=== PATIENT | female | born 1960 | race Caucasian/White ===

== ENCOUNTER 2018-12-29 01:42 | Outpatient (CLI) | payer OTHER, SELFPAY ==
[2018-12-29 09:11] LABS: ALT 47 U/L (12-78); AST 20 U/L (15-37); Albumin 3.6 g/dL (3.4-5.0); Alkaline Phosphatase 100 U/L (46-116); Anion Gap 7.5 mmol/L (3-11); BUN 14 mg/dL (7-18); Bilirubin, Total 0.3 mg/dL (0.2-1.0); CO2 26.5 mmol/L (21.0-32.0); CREATININE 0.73 mg/dL (0.55-1.02); Chloride 107 mmol/L (98-107); Cholesterol 296 mg/dL (50-200); Glucose 122 mg/dL (70-100); HDL Cholesterol 51 mg/dL (40-60); LDL CHOLESTEROL 199 mg/dL (<100); Potassium 4.6 mmol/L (3.5-5.1); Sodium 141 mmol/L (136-145); Total Protein 6.6 g/dL (6.4-8.2); Triglyceride 176 mg/dL (30-150)
== END 2018-12-29 02:02 ==
PROVIDERS: PCP Nurse Practitioner Family; Visit Provider Nurse Practitioner Family
DX: Z00.00 Encounter for general adult medical examination without abnormal findings (principal); Z13.220 Encounter for screening for lipoid disorders; Z13.228 Encounter for screening for other metabolic disorders
CPT/HCPCS: 36415; 80053; 80061; 83721

== ENCOUNTER 2019-01-22 12:48 | Outpatient (CLI) | payer OTHER, SELFPAY ==
[2019-01-22 13:19] LABS: Troponin I < 0.02 ng/mL (0.00-0.06)
== END 2019-01-22 13:08 ==
PROVIDERS: PCP Nurse Practitioner Family; Visit Provider Nurse Practitioner Family
DX: M79.602 Pain in left arm (principal)
CPT/HCPCS: 36415; 84484

== ENCOUNTER 2019-03-24 21:21 | Outpatient (REF) | payer OTHER, SELFPAY ==
[2019-03-24 22:36] LABS: ALT 42 U/L (12-78); AST 15 U/L (15-37); Albumin 4.3 g/dL (3.4-5.0); Alkaline Phosphatase 85 U/L (46-116); Anion Gap 11.5 mmol/L (3-11); BUN 17 mg/dL (7-18); Bilirubin, Total 0.4 mg/dL (0.2-1.0); CO2 24.5 mmol/L (21.0-32.0); Chloride 106 mmol/L (98-107); Cholesterol 155 mg/dL (50-200); Glucose 105 mg/dL (70-100); LDL CHOLESTEROL 75 mg/dL (<100); Magnesium 2.2 mg/dL (1.8-2.4); Potassium 4.4 mmol/L (3.5-5.1); Sodium 142 mmol/L (136-145); Total Protein 6.8 g/dL (6.4-8.2); Triglyceride 122 mg/dL (30-150)
[2019-03-24 23:08] LABS: Calcium 9.5 mg/dL (8.5-10.1); HDL Cholesterol 45 mg/dL (40-60)
[2019-03-24 23:19] LABS: Creatine Kinase 84 U/L (26-192)
== END 2019-03-24 21:41 ==
LOC: NCHCN 21:21
PROVIDERS: PCP Nurse Practitioner Family; Visit Provider Nurse Practitioner Family
DX: E78.5 Hyperlipidemia, unspecified (principal); R10.31 Right lower quadrant pain; F32.9 Major depressive disorder, single episode, unspecified
CPT/HCPCS: 80053; 80061; 82550; 83721; 83735

== ENCOUNTER 2019-03-25 02:01 | Outpatient (CLI) | payer OTHER, SELFPAY ==
--- NOTE | 2019-03-25 08:15 | DI.COMBO_ITS ---
SYMPTOM/DIAGNOSIS: RT GROIN PAIN, R10.31, LOCKING UP WITH FORWARD BENING RIGHT HIP AND PELVIS: The hip joint spaces are well maintained. There is bilateral acetabular spurring, right greater than left. There is also spurring at the greater trochanters. There is spurring from the femoral heads, right greater than left. The SI joints also show mild degenerative changes. 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
== END 2019-03-25 02:21 ==
PROVIDERS: PCP Nurse Practitioner Family; Visit Provider Nurse Practitioner Family
DX: R10.31 Right lower quadrant pain (principal); M16.0 Bilateral primary osteoarthritis of hip; M53.3 Sacrococcygeal disorders, not elsewhere classified
CPT/HCPCS: 73502

== ENCOUNTER 2019-07-01 21:40 | Emergency (ER) | payer OTHER, SELFPAY ==
[2019-07-01] VITALS (29 sets, daily range): BP systolic 102–163; BP diastolic 77–112; PULSE 78–99; RESP 11–29; TEMP 36.7; O2SAT 91–100
--- NOTE | 2019-07-01 21:41 | W.ED.GENAD ---
Discharge Plan Disposition Patient Disposition: [facility] Condition: Stable Discharge Details Chief Complaint: Chest Pain Clinical Impression: ACS (acute coronary syndrome) Primary Care Provider: Payal Ortiz ED Provider: Ashish Aviles [place] [facility] and New Rx's Prescriptions: No Action citalopram 40 MG tablet 40 mg PO DAILY RF: 0 aspirin [Aspir-81] 81 MG tablet,delayed release (DR/EC) 81 mg PO DAILY RF: 0 simvastatin 40 MG tablet 40 mg PO QPM RF: 0 metoprolol tartrate 25 MG tablet 25 mg PO DAILY RF: 0 losartan 50 mg Tablet 50 mg PO DAILY RF: 0 trazodone 50 mg Tablet 100 mg PO DAILY RF: 0 nitroglycerin 0.4 mg Tablet, Sublingual 0.4 mg SUBLINGUAL Q5-15M PRNRF: 0 albuterol sulfate [ProAir HFA] 90 mcg/actuation Hfa Aerosol Inhaler 2 puff INHALATION Q6H PRNRF: 0 fluticasone propionate [Flonase Allergy Relief] 50 mcg/actuation [place],Suspension 2 spray INTRANASAL DAILY PRNRF: 0 rosuvastatin 10 mg Tablet 10 mg PO DAILY RF: 0 rosuvastatin 10 mg Tablet 10 mg PO DAILY RF: 0 Medical Decision Making Patient arrives with active chest pain. EKG with some depression/inversion V1 - V3. Blood pressure just above 100. She is ordered for a saline bolus, 500 mL's. She is given morphine 5 mg IV. As she has not responded to aspirin, nitroglycerin, fentanyl with continued severe pain radiating to the back she is sent to CT to rule out dissection. On return to ED repeat EKG is done. Shows worsening ST depression and evidence of attempting ST elevation in the inferior leads. She does not meet STEMI criteria. Blood pressure is better and she is started on a nitroglycerin drip. She is given another 5 of morphine. Nausea is worse despite Zofran per EMS. She is given Phenergan. She is starting to become tachycardic and is given Lopressor 5 IV. I have called down to [facility] to try to arrange for transfer for possible emergent cath due to ongoing chest pain with EKG changes. I am still waiting for CT scan results. If this is negative we will start heparin. Discussed with Dr. Tony from cardiology. Agrees that patient needs transfer and emergent cath for ongoing pain and EKG changes. CT scan finally read as negative. 300 of Plavix given. Heparin bolus and drip started. Third EKG continues to show changes. Posterior EKG also not confirmatory for STEMI. Patient accepted for transfer to [facility] for probable cath tonight. [facility] here and will begin transport as soon as heparin started. Medical Records Medical records reviewed: Yes I reviewed the patient's medical records. Lab Data Lab results reviewed: Yes I reviewed the patient's lab results. ECG Data Attestation: I personally reviewed and interpreted this ECG (s) as follows: Prior ECG tracings: available for review Interpretation: #1 -Normal sinus rhythm at a rate of 84. Normal axis and intervals. No acute ST elevation. ST depression and T wave inversion V1 through V3. #2 -Normal sinus rhythm at 93. Normal intervals and axis. Starting to have slight ST upstroke in 2 and 3. Has worsening depression and inversion in V1 through V3. #3 -Normal sinus rhythm at 84. Continue depression V1 through V3 as well as aVL. More upsloping into 3-1/2 but not STEMI criteria. #4 (posterior EKG) -sinus rhythm at 83. Upsloping in 2 3 and F. Not reaching STEMI criteria. ST depression V1 through V3. No ST elevation in V5 V6. No posterior STEMI identified. HPI General Mode of arrival: EMS. Date/Time Provider Initiated Documentation: 07/01/19 21:41. Information obtained by: patient and EMS. HPI Narrative: Patient presents to ED by ambulance with chest pain. Patient reports developing chest pain at about 8:30 PM. Initially no radiation but subsequently started radiating to the back. She had some lightheadedness but felt that way all day. She did not develop chest pain till tonight. She took 2 of her nitroglycerin at home with no relief. On EMS arrival they were unable to obtain EKG. She was given aspirin and 1 more nitroglycerin without relief of pain. IV was established and she received fentanyl in route. She developed nausea and vomiting in route for which she received Zofran. She arrives here continuing to have significant chest pain radiating to the back, nausea, lightheadedness. This pain feels similar to when she had her [place] with stent placement a few years ago. Related Data Home Medications Medication Instructions Recorded Confirmed aspirin [Aspir 81] 81 mg PO DAILY 06/10/13 07/01/19 citalopram 40 mg PO DAILY 06/10/13 07/01/19 metoprolol tartrate 25 mg PO DAILY 06/10/13 07/01/19 simvastatin 40 mg PO QPM 06/10/13 07/01/19 albuterol sulfate [ProAir HFA] 2 puff INHALATION Q6H PRN 07/01/19 07/01/19 fluticasone propionate [Flonase 2 spray INTRANASAL DAILY PRN 07/01/19 07/01/19 Allergy Relief] losartan 50 mg PO DAILY 07/01/19 07/01/19 nitroglycerin 0.4 mg SUBLINGUAL Q5-15M PRN 07/01/19 07/01/19 rosuvastatin 10 mg PO DAILY 07/01/19 07/01/19 rosuvastatin 10 mg PO DAILY 07/01/19 07/01/19 trazodone 100 mg PO DAILY 07/01/19 07/01/19 Allergies Allergy/AdvReac Type Severity Reaction Status Date / Time No Known Allergies Allergy Unverified 07/01/19 22:04 Review of Systems Review of Systems Unobtainable due to (acuity of situation) [facility] Medical History Coronary artery disease (Chronic) Insomnia (Chronic) Obstructive sleep apnea (Chronic) Surgical History H/O heart artery stent (Chronic) Social History Smoking/Tobacco Use Status: Former Tobacco Use Drug use: Current Sobriety Exam Narrative Exam Narrative: Vitals: Afebrile. Initial vital signs normal. Const: WDWN female in distress holding chest. HEENT: NC/AT. Normal facial exam. Eyes: Normal conjunctiva and sclera. Neck: Supple. Trachea midline. Lungs: Normal respiratory effort. Lungs are clear. Cor: RRR without murmur/gallop. Strong and equal peripheral pulses. GI: Soft. NT/ND. No guarding or rebound. Neuro: A+O x 3. CN grossly in tact. Good strength and no focal deficit. Ext: No C/C/E. No calf tenderness. Skin: Mild diaphoresis. Critical Care Time Critical Care Time: Yes Total Critical Care Time: 75 Attestation: Upon my evaluation, this patient had a high probability of imminent or life-threatening deterioration, which required my direct attention, intervention, and personal management. I have personally provided minutes of critical care time exclusive of time spent on separately billable procedures. Time includes review of laboratory data, radiology results, discussion with consultants, and monitoring for potential decompensation. Interventions were performed as documented above.
[2019-07-01] MEDS: Normal Saline 500 ML IV (22:00)
[2019-07-01] MEDS: Normal Saline 1,000 ML 200 ML IV (22:00)
[2019-07-01] MEDS: MORPHine 10 MG/ML VIAL 5 MG IVP (22:00)
[2019-07-01 22:02] LABS: Abs Immature Grans 0.03 k/cumm (0.0-0.09); Absolute Basophil Count 0.03 k/cumm (0.0-0.2); Absolute Eosinophil Count 0.42 k/cumm (0.0-0.7); Absolute Lymphocyte Count 3.36 k/cumm (1.2-3.4); Absolute Monocyte Count 0.66 k/cumm (0.11-0.7); Absolute Neutrophil Count 3.32 k/cumm (1.2-6.7); Basophils % 0.4; Eosinophils % 5.4; HCT 40.3 % (36.0-46.0); HGB 13.4 g/dL (12.0-15.5); Immature Grans % 0.4; Mean Corp. HGB Concentration 33.3 g/dL (32.0-36.0); Mean Corpuscular Hemoglobin 30.9 pg (27.0-33.0); Mean Corpuscular Volume 92.9 fL (80-95); Mean Platelet Volume 9.9 fL (8.0-11.0); Monocytes % 8.4; Neutrophils % 42.4; Platelet Count 305 x1000/uL (130-400); RBC 4.34 m/cumm (4.00-5.20); RBC Distribution Width 13.3 % (11.7-14.6); White Blood Cell Count 7.82 k/cumm (4.4-10.8)
[2019-07-01 22:20] LABS: ALT 24 U/L (14-59); AST 10 U/L (15-37); Albumin 3.7 g/dL (3.4-5.0); Alkaline Phosphatase 96 U/L (46-116); Anion Gap 12.9 mmol/L (3-11); BUN 17 mg/dL (7-18); Bilirubin, Total 0.2 mg/dL (0.2-1.0); CO2 23.1 mmol/L (21.0-32.0); CREATININE 0.69 mg/dL (0.55-1.02); Calcium 8.4 mg/dL (8.5-10.1); Chloride 106 mmol/L (98-107); Glucose 172 mg/dL (70-100); Magnesium 2.1 mg/dL (1.8-2.4); Potassium 3.3 mmol/L (3.5-5.1); Sodium 142 mmol/L (136-145); Total Protein 6.9 g/dL (6.4-8.2); Troponin I < 0.05 ng/mL (0.00-0.06)
[2019-07-01] MEDS: Omnipaque 350 MG/ML 100 ML BTL IJ (22:23)
--- NOTE | 2019-07-01 22:25 | DI.CT_ITS ---
SYMPTOM/DIAGNOSIS: CHEST AND BACK PAIN NOT RESPONDING TO NTG/FENTANYL CT ANGIOGRAPHY CHEST AND ABDOMEN: CT angiography of the chest: CT angiography was performed with multi slice acquisition and multi planar and 3D reconstruction. The thoracic aorta is of normal caliber. No evidence of aneurysm or dissection. The visualized pulmonary arteries show no evidence of embolic disease. The heart size is within normal limits. No significant pericardial effusion seen. Coronary artery calcifications are present. No significant thoracic adenopathy, pleural effusion or pneumothorax is identified. Dependent atelectatic changes are seen in the lungs which are otherwise clear. Mild emphysematous changes are seen in the lungs. The tracheobronchial tree is unremarkable. No focal consolidating infiltrate is present. No acute fracture is identified. IMPRESSION: 1. No evidence of thoracic aortic dissection or aneurysm. 2. No acute pulmonary process. CT ANGIOGRAPHY OF THE ABDOMEN: CT angiography was performed with multi slice acquisition and multi planar and 3D reconstruction. There is patient motion artifact present. The liver is unremarkable. No evidence of hepatic mass. The portal, superior mesenteric and splenic veins appear patent. The gallbladder is negative. There is no biliary ductal dilatation. The pancreas, spleen and adrenal glands are unremarkable as are the kidneys and ureters. The abdominal aorta is of normal caliber. No evidence of aneurysm or dissection. The celiac axis, superior mesenteric artery and inferior mesenteric artery are unremarkable. No evidence of occlusion or significant stenosis. The renal arteries are unremarkable without evidence of occlusion or significant stenosis. There is mild atherosclerosis seen in the iliac arteries but no evidence of occlusion or significant stenosis present. No significant abdominal ascites, adenopathy or pneumoperitoneum is present. The visualized bowel shows no evidence of obstruction. The transverse colon is collapsed with apparent thickening of the wall of the transverse colon likely reflecting decreased distension. Colitis is considered less likely No acute fractures identified. There are degenerative changes seen in the spine. Grade 1 mild pseudospondylolisthesis of L4 on L5 is noted. IMPRESSION: No evidence of acute arterial injury in the abdomen. 2. Apparent wall thickening of the transverse colon. This is likely due to underdistention. Colitis cannot be excluded but is considered less likely. Please correlate clinically
[2019-07-01] MEDS: Metoprolol 5 MG/5 ML VIAL IVP ×2 (22:39→23:19)
[2019-07-01] MEDS: HYDROmorphone 2 MG/ML VIAL 0.5 MG IVP (22:50)
[2019-07-01 23:02] LABS: PTT Activated 19.6 sec (21.0-31.4); Prothrombin Time 9.7 sec (9.3-11.0)
--- NOTE | 2019-07-01 23:19 | DI.VRAD_ITS ---
EXAM: CT Angiography Chest With Contrast EXAM DATE/TIME: 07/01/2019 9:56 PM CLINICAL HISTORY: 59 years old, female; Chest pain; Other: Chest and back pain; Prior surgery; Surgery type: Stents placements; Additional info: Chest back pain not responding to ntg/fentanyl TECHNIQUE: Imaging protocol: Computed tomographic angiography of the chest with intravenous contrast, including non-contrast images if performed. 3D rendering: MIP reconstructed images were created and reviewed. Radiation optimization: All CT scans at this facility use at least one of these dose optimization techniques: automated exposure control; mA and/or kV adjustment per patient size (includes targeted exams where dose is matched to clinical indication); or iterative reconstruction. Contrast material: [id number]; Contrast volume: 100 ml; Contrast route: IN RAC 18G; COMPARISON: CR CHEST 2 VIEWS PA,LAT 06/10/2013 4:08 PM FINDINGS: Pulmonary arteries: No pulmonary embolism identified. Aorta: No thoracic aortic aneurysm or dissection. Thyroid: Normal-appearing thyroid gland. Lungs: Minimal dependent atelectasis. No pulmonary consolidation. Pleural space: No pleural effusion. No pneumothorax. Heart: Normal sized heart. Artifact along the coronary arteries suggesting coronary artery calcification and/or coronary artery stents. Mediastinum: Normal-appearing esophagus. Lymph nodes: No pathologically enlarged mediastinal or hilar lymph nodes. Bones/joints: No acute fracture seen among the bones of the chest. Spinal degenerative changes with anterior osteophytes and discogenic degeneration at multiple levels. Soft tissues: No gross soft tissue fluid collection seen in the chest wall. IMPRESSION: No active disease is seen in the chest. No thoracic aortic aneurysm or dissection is seen. EXAM: CT Angiography Abdomen With Contrast EXAM DATE/TIME: 07/01/2019 9:56 PM CLINICAL HISTORY: 59 years old, female; Chest pain; Other: Chest and back pain; Prior surgery; Surgery type: Stents placements; Additional info: Chest back pain not responding to ntg/fentanyl TECHNIQUE: Imaging protocol: Computed tomographic angiography images of the abdomen with intravenous contrast material. 3D rendering: MIP reconstructed images were created and reviewed. Radiation optimization: All CT scans at this facility use at least one of these dose optimization techniques: automated exposure control; mA and/or kV adjustment per patient size (includes targeted exams where dose is matched to clinical indication); or iterative reconstruction. COMPARISON: CR CHEST 2 VIEWS PA,LAT 06/10/2013 4:08 PM FINDINGS: VASCULATURE: Aorta: Normal caliber abdominal aorta without aneurysmal dilatation or dissection. Celiac trunk and mesenteric arteries: Celiac artery, superior mesenteric artery, and inferior mesenteric artery widely patent. Renal arteries: Renal arteries widely patent bilaterally. Right iliac arteries: Right common iliac and visualized proximal right internal and external iliac arteries widely patent. Left iliac arteries: Left common iliac and visualized proximal left internal and external iliac arteries widely patent. ABDOMEN: Liver: Possible fatty infiltration of the liver, difficult to confidently diagnose by CT imaging after administration of intravenous contrast. Gallbladder and bile ducts: Normal appearing gallbladder. No calcified gallstones. No biliary dilatation. Pancreas: Normal appearing pancreas. Spleen: Normal appearing spleen. Adrenals: Normal appearing adrenal glands. Kidneys and ureters: Normal appearing kidneys. No hydronephrosis. Stomach and bowel: No oral contrast. Stomach partially decompressed. No small bowel dilatation in the upper abdomen to suggest obstruction. Visualized colon well evacuated of fecal material and collapsed. Fluid throughout the proximal colon. Mural thickening through the ascending colon and throughout the collapsed transverse colon. Artifact of incomplete distention? Acute colitis? Clinical correlation recommended. Intraperitoneal space: No gross ascites or free air seen in the upper abdomen. Bones/joints: No acute fracture seen through the bones of the abdomen. Pelvis excluded from view and not evaluated. Lumbar degenerative change with facet arthrosis at multiple levels. Grade 1 anterolisthesis of L4 on L5. Moderate-sized broad-based disc bulge at L5-S1 with severe left and moderate-severe right-sided foraminal narrowing with osteophytic material abutting the right L5 nerve root and abutting and deforming the left L5 nerve root. No significant associated central canal narrowing. Soft tissues: Small fat containing ventral hernia. Lymph nodes: No pathologically enlarged mesenteric lymph nodes. IMPRESSION: 1. No abdominal aortic aneurysm or dissection. 2. Visualized colon completely evacuated fecal material and collapsed. Fluid in the proximal colon. This appearance is nonspecific but commonly seen in patients with diarrhea from any cause. 3. Mural thickening through the collapsed transverse colon. Artifact of incomplete distention or acute segmental colitis could have this appearance. Clinical collection is recommended. 4. Moderate-severe right-sided foraminal narrowing with osteophytic material abutting the right L5 nerve root. Severe left-sided foraminal narrowing at L5-S1 with osteophytic material abutting and deforming the left L5 nerve root. Dictated and Authenticated by: Andrea Camacho MD. Ordering:JUSTIN Hinojosa MD
[2019-07-01] MEDS: Clopidogrel 300 MG TAB PO (23:24)
== END 2019-07-01 23:41 | disposition short-term general hospital (02) ==
LOC: ER 23:39
PROVIDERS: Emergency Provider Emergency Medicine; PCP Nurse Practitioner Family
DX: I24.9 Acute ischemic heart disease, unspecified (principal); R11.2 Nausea with vomiting, unspecified; R00.0 Tachycardia, unspecified; R42 Dizziness and giddiness; I25.2 Old myocardial infarction; Z95.5 Presence of coronary angioplasty implant and graft
CPT/HCPCS: 36415; 71275; 74175; 80053; 93005; 96361; 96365; 96368; 96375; 96376; 99291; 83735; 84484; 85025; 85610; 85730; 93010; J2270; J3490

== ENCOUNTER 2019-07-15 08:57 | Outpatient (REF) | payer OTHER, SELFPAY ==
[2019-07-16 13:11] LABS: Campylobacter PCR SEE COMMENTS; Salmonella PCR SEE COMMENTS; Shiga Toxin PCR SEE COMMENTS; Shigella/Enteroinvasive Ecoli SEE COMMENTS
== END 2019-07-15 09:17 ==
LOC: NCHCN 08:57
PROVIDERS: PCP Nurse Practitioner Family; Visit Provider Family Medicine
DX: I21.3 ST elevation (STEMI) myocardial infarction of unspecified site (principal); R19.7 Diarrhea, unspecified
CPT/HCPCS: 87505

== ENCOUNTER 2019-08-03 10:00 | Outpatient (RCR) | payer OTHER, SELFPAY | END 2019-08-03 23:59 | disposition home or self-care (01) | LOC: CR 10:00 | PROVIDERS: PCP Nurse Practitioner Family; Visit Provider Family Medicine | DX: I25.2 Old myocardial infarction (principal); Z51.89 Encounter for other specified aftercare | CPT/HCPCS: S9472 ==

== ENCOUNTER 2019-09-02 11:44 | Outpatient (RCR) | payer OTHER, SELFPAY | END 2019-09-03 23:59 | disposition home or self-care (01) | LOC: CR 11:44 | PROVIDERS: PCP Nurse Practitioner Family; Visit Provider Family Medicine | DX: I25.2 Old myocardial infarction (principal); Z51.89 Encounter for other specified aftercare | CPT/HCPCS: S9472 ==

== ENCOUNTER 2019-09-30 11:37 | Outpatient (RCR) | payer OTHER, SELFPAY | END 2019-10-03 23:59 | disposition home or self-care (01) | LOC: CR 11:37 | PROVIDERS: PCP Nurse Practitioner Family; Visit Provider Family Medicine | DX: I25.2 Old myocardial infarction (principal); Z51.89 Encounter for other specified aftercare | CPT/HCPCS: S9472 ==

== ENCOUNTER 2019-10-26 11:50 | Outpatient (RCR) | payer OTHER, SELFPAY | END 2019-11-03 23:59 | disposition home or self-care (01) | LOC: CR 11:50 | PROVIDERS: PCP Nurse Practitioner Family; Visit Provider Family Medicine | DX: I25.2 Old myocardial infarction (principal); Z51.89 Encounter for other specified aftercare | CPT/HCPCS: S9472 ==

== ENCOUNTER 2019-11-30 11:52 | Outpatient (RCR) | payer OTHER, SELFPAY | END 2019-12-04 23:59 | disposition home or self-care (01) | LOC: CR 11:52 | PROVIDERS: PCP Nurse Practitioner Family; Visit Provider Family Medicine | DX: I25.2 Old myocardial infarction (principal); Z51.89 Encounter for other specified aftercare | CPT/HCPCS: S9472 ==

== ENCOUNTER 2020-03-22 09:34 | Outpatient (REF) | payer OTHER, SELFPAY ==
[2020-03-22 14:54] LABS: Abs Immature Grans 0.04 k/cumm (0.0-0.09); Absolute Basophil Count 0.04 k/cumm (0.0-0.2); Absolute Eosinophil Count 0.71 k/cumm (0.0-0.7); Absolute Monocyte Count 0.67 k/cumm (0.11-0.7); Absolute Neutrophil Count 3.02 k/cumm (1.2-6.7); Basophils % 0.6; Eosinophils % 10.5; HCT 40.8 % (36.0-46.0); HGB 13.3 g/dL (12.0-15.5); Immature Grans % 0.6 %; Lymphocytes % 33.9; Mean Corp. HGB Concentration 32.6 g/dL (32.0-36.0); Mean Corpuscular Hemoglobin 30.4 pg (27.0-33.0); Mean Corpuscular Volume 93.2 fL (80-95); Mean Platelet Volume 10.6 fL (8.0-11.0); Monocytes % 9.9; Neutrophils % 44.5; Platelet Count 334 x1000/uL (130-400); RBC 4.38 m/cumm (4.00-5.20); RBC Distribution Width 13.5 % (11.7-14.6); White Blood Cell Count 6.78 k/cumm (4.4-10.8)
[2020-03-22 15:10] LABS: ALT 30 U/L (14-59); AST 14 U/L (15-37); Albumin 4.4 g/dL (3.4-5.0); Alkaline Phosphatase 106 U/L (46-116); Anion Gap 11.9 mmol/L (3-11); BUN 16 mg/dL (7-18); Bilirubin, Total 0.4 mg/dL (0.2-1.0); CO2 24.1 mmol/L (21.0-32.0); Calcium 9.7 mg/dL (8.5-10.1); Calculated LDL 137 mg/dL (<100); Chloride 105 mmol/L (98-107); Cholesterol 231 mg/dL (<200); Glucose 114 mg/dL (74-106); HDL Cholesterol 59 mg/dL (40-60); Potassium 4.6 mmol/L (3.5-5.1); Sodium 141 mmol/L (136-145); Total Protein 7.2 g/dL (6.4-8.2); Triglyceride 177 mg/dL (<150)
== END 2020-03-22 09:54 ==
LOC: NCHCN 09:34
PROVIDERS: PCP Nurse Practitioner Family; Visit Provider Nurse Practitioner Family
DX: Z00.00 Encounter for general adult medical examination without abnormal findings (principal); R73.03 Prediabetes; E78.5 Hyperlipidemia, unspecified
CPT/HCPCS: 80053; 80061; 85025

== ENCOUNTER 2020-03-29 11:02 | Outpatient (CLI) | payer OTHER, SELFPAY ==
--- NOTE | 2020-03-29 10:30 | DI.RAD_ITS ---
EXAM: XR KNEE RT 3V AP,LAT,JAKE CLINICAL HISTORY: KNEE PAIN RT, M25.561. TECHNIQUE: 2D digital imaging was performed. COMPARISON: No exams were available for comparison FINDINGS: BONES: No acute fracture is present. No bony destructive lesion is seen. Spurring is seen at the quad riceps insertion on the patella. JOINTS: The knee is normally aligned. No joint effusion is seen. There is mild periarticular spurri ng. SOFT TISSUE: Normal. IMPRESSION: Mild degenerative changes. DATA REPOSITORY: RADIATION DOSE DELIVERED:
== END 2020-03-29 11:22 ==
PROVIDERS: PCP Nurse Practitioner Family; Visit Provider Nurse Practitioner Family
DX: M25.561 Pain in right knee (principal); M17.11 Unilateral primary osteoarthritis, right knee
CPT/HCPCS: 73562

== ENCOUNTER 2021-02-14 03:47 | Outpatient (CLI) | payer OTHER, SELFPAY ==
[2021-02-14 09:34] LABS: Calculated LDL 112 mg/dL (<100); Cholesterol 200 mg/dL (<200); HDL Cholesterol 52 mg/dL (40-60); Triglyceride 181 mg/dL (<150)
== END 2021-02-14 03:48 | disposition home or self-care (01) ==
LOC: LBO 03:47
PROVIDERS: PCP Nurse Practitioner Family; Visit Provider Internal Medicine Cardiovascular Disease
DX: I25.10 Atherosclerotic heart disease of native coronary artery without angina pectoris (principal)
CPT/HCPCS: 36415; 80061

== ENCOUNTER 2021-05-26 02:09 | Outpatient (CLI) | payer OTHER, SELFPAY ==
[2021-05-26 13:37] LABS: Calculated LDL 58 mg/dL (<100); Cholesterol 134 mg/dL (<200); HDL Cholesterol 50 mg/dL (40-60); Triglyceride 130 mg/dL (<150)
== END 2021-05-26 02:10 | disposition home or self-care (01) ==
LOC: LOS 02:09
PROVIDERS: PCP Nurse Practitioner Family; Visit Provider Internal Medicine Cardiovascular Disease
DX: I25.10 Atherosclerotic heart disease of native coronary artery without angina pectoris (principal)
CPT/HCPCS: 36415; 80061

== ENCOUNTER 2022-02-27 10:59 | Outpatient (REF) | payer OTHER, SELFPAY ==
--- NOTE | 2022-02-27 09:20 | PAPFT_PTH ---
PATIENT: Diana Landry LOC: [facility]#:[id number] AGE/SX: 61/F ROOM: RE02/27/[address]: Beth Hannah : 1960 BED: DIS: 02/27/2022 SPEC #: [id number] RECD: 02/27/22 17:39 STATUS: LAURENEligio REJimmie #: [id number] CORTES: 02/27/22 09:[address]: Beth Hannah DEPT: [facility] Cytology RECD BY: Brenda James ENTERED: 02/27/22 17:40 SP TYPE: PAPFT OTHR DR: Payal Ortiz Tissues: 1 - CX/ENDOCX FOR PAP SMEARS Procedures: PAP THIN PREP/[facility] Screening HPV DNA PROBE Comments: [id number]
[2022-02-27 17:08] LABS: Anion Gap 8.7 mmol/L (3-11); BUN 20 mg/dL (7-18); CO2 23.3 mmol/L (21.0-32.0); CREATININE 0.7 mg/dL (0.55-1.02); Calcium 9.3 mg/dL (8.5-10.1); Chloride 109 mmol/L (98-107); Glucose 98 mg/dL (74-106); Potassium 4.6 mmol/L (3.5-5.1); Sodium 141 mmol/L (136-145)
[2022-02-27 17:09] LABS: Hemoglobin A1C 6.1 % (<5.7)
== END 2022-02-27 11:00 | disposition home or self-care (01) ==
LOC: NCHCN 10:59
PROVIDERS: PCP Nurse Practitioner Family; Visit Provider Nurse Practitioner Family
DX: R73.03 Prediabetes (principal); I10 Essential (primary) hypertension; R05.3 Chronic cough; F32.9 Major depressive disorder, single episode, unspecified; K21.9 Gastro-esophageal reflux disease without esophagitis; N89.8 Other specified noninflammatory disorders of vagina; Z12.4 Encounter for screening for malignant neoplasm of cervix; Z11.51 Encounter for screening for human papillomavirus (HPV)
CPT/HCPCS: 80048; 88142; 83036; 87480; 87510; 87624; 87660

== ENCOUNTER → 2022-03-05 00:27 | Outpatient (CLI) | payer OTHER, SELFPAY ==
--- NOTE | 2022-03-05 | DI.RAD_ITS ---
Exam(s) XR CHEST 2V PA LATERAL EXAM: XR CHEST 2V PA LATERAL CLINICAL HISTORY: CHRONIC COUGH TECHNIQUE: 2D digital imaging was performed. COMPARISON: CT CT thorax abdomen CTA from 07/01/2019 FINDINGS: MEDIASTINUM: Normal. HEART: Normal. Coronary artery stent PULMONARY VASCULATURE: Normal. LUNGS: Clear. PLEURAL SPACE: No pleural effusion or pneumothorax. BONE:Degenerative disc changes in the thoracic spine. IMPRESSION: No acute abnormality. DATA REPOSITORY: RADIATION DOSE DELIVERED:
== END ==
PROVIDERS: PCP Nurse Practitioner Family; Visit Provider Nurse Practitioner Family
DX: R05.3 Chronic cough (principal)
CPT/HCPCS: 71046

== ENCOUNTER 2023-04-09 17:04 | Outpatient (REF) | payer BC, SELFPAY ==
--- NOTE | 2023-04-09 16:30 | SKI_PTH ---
PATIENT: Diana Landry LOC: [facility] U#:[id number] AGE/SX: 62/F ROOM: RE04/09/[address]: Lamar Fuentes : 1960 BED: DIS: 04/09/2023 SPEC #: [id number] RECD: 04/10/23 10:40 STATUS: JOSE REJimmie #: [id number] CORTES: 04/09/23 16:[address]: Lamar Fuentes DEPT: Surgical Specimen RECD BY: Brenda James Tissues: 1 - SKIN BIOPSY(SHAVE/PUNCH) Procedures: GROSS AND MICRO LEVEL 3 Comments:
== END 2023-04-09 17:05 | disposition home or self-care (01) ==
LOC: LBN 17:04
PROVIDERS: PCP Family Medicine; Visit Provider Family Medicine
DX: L98.8 Other specified disorders of the skin and subcutaneous tissue (principal); L92.8 Other granulomatous disorders of the skin and subcutaneous tissue
CPT/HCPCS: 88304; 88305

== ENCOUNTER 2023-05-06 03:03 | Outpatient (CLI) | payer BC, SELFPAY ==
[2023-05-06 08:08] LABS: ALT 27 U/L (14-59); AST 16 U/L (15-37); Albumin 4.1 g/dL (3.4-5.0); Alkaline Phosphatase 97 U/L (46-116); Anion Gap 10.9 mmol/L (3-11); BUN 18 mg/dL (7-18); Bilirubin, Total 0.7 mg/dL (0.2-1.0); CO2 26.1 mmol/L (21.0-32.0); CREATININE 0.8 mg/dL (0.55-1.02); Calcium 9.3 mg/dL (8.5-10.1); Calculated LDL 49 mg/dL (<100); Chloride 104 mmol/L (98-107); Cholesterol 141 mg/dL (<200); Estimated GFR 82.74 (mL/min/1.73m2); Glucose 111 mg/dL (74-106); HDL Cholesterol 61 mg/dL (40-60); Sodium 141 mmol/L (136-145); Total Protein 7.5 g/dL (6.4-8.2); Triglyceride 159 mg/dL (<150)
== END 2023-05-06 03:04 | disposition home or self-care (01) ==
PROVIDERS: PCP Family Medicine; Visit Provider Family Medicine
DX: Z00.00 Encounter for general adult medical examination without abnormal findings; Z13.6 Encounter for screening for cardiovascular disorders; R73.03 Prediabetes; E78.5 Hyperlipidemia, unspecified; R73.9 Hyperglycemia, unspecified
CPT/HCPCS: 36415; 80053; 80061; 83036

== ENCOUNTER → 2023-07-16 00:48 | Outpatient (CLI) | payer BC, SELFPAY ==
--- NOTE | 2023-07-16 07:30 | DI.RAD_ITS ---
Exam(s) XR CHEST 2V PA LATERAL EXAM: XR CHEST 2V PA LATERAL CLINICAL HISTORY: cough >3 wks,h/o smoker, r05.8,z87.891 TECHNIQUE: 2D digital imaging was performed. COMPARISON: CR XR CHEST 2V PA LATERAL from 03/05/2022 FINDINGS: HEART: Normal size. Coronary artery stents. Aorta: Not dilated. PULMONARY VASCULATURE: Normal. LUNGS: Clear. PLEURAL SPACE: No pleural effusion or pneumothorax. BONE:Prominent osteophytes in the thoracic spine. IMPRESSION: No acute abnormality. DATA REPOSITORY: RADIATION DOSE DELIVERED:
== END ==
PROVIDERS: PCP Family Medicine; Visit Provider Family Medicine
DX: R05.8 Other specified cough (principal); Z87.891 Personal history of nicotine dependence
CPT/HCPCS: 71046

== ENCOUNTER 2023-07-16 03:09 | Outpatient (CLI) | payer BC, SELFPAY ==
[2023-07-16] MEDS: Inhaler, Assist Device 1 EACH MC (08:59)
[2023-07-16] MEDS: Albuterol HFA 18 GM 200 PUFF INH IH (08:59)
--- NOTE | 2023-07-23 09:01 | W.PFT ---
Date of service: 07/16/23 Time of Service: 07:52 Pulmonary Function Test Result Indications: Cough Interpretation Spirometry: There is no airflow limitation. No significant bronchodilator response. Lung Volumes: There is hyperinflation and air trapping Diffusion Capacity: Normal diffusion Airway Pressure: Increased airways resistance Impression Air trapping and increased airways resistance, which can be seen in asthma. Clinical Correlation therefore is recommended.
== END 2023-07-16 03:10 | disposition home or self-care (01) ==
LOC: RT 03:09
PROVIDERS: PCP Family Medicine; Visit Provider Family Medicine
DX: R05.3 Chronic cough (principal); Z87.891 Personal history of nicotine dependence
CPT/HCPCS: 94060; 94726; 94729

== ENCOUNTER 2024-04-27 02:59 | Outpatient (CLI) | payer BC, SELFPAY ==
[2024-04-27 07:50] LABS: ALT 27 U/L (14-59); AST 18 U/L (15-37); Alkaline Phosphatase 100 U/L (46-116); Anion Gap 10.9 mmol/L (3-11); BUN 11 mg/dL (7-18); Bilirubin, Total 0.48 mg/dL (0.2-1.0); CO2 26.1 mmol/L (21.0-32.0); CREATININE 0.9 mg/dL (0.55-1.02); Calcium 9.1 mg/dL (8.5-10.1); Chloride 105 mmol/L (98-107); Estimated GFR 71.39 (mL/min/1.73m2); Glucose 134 mg/dL (74-106); Potassium 3.7 mmol/L (3.5-5.1); Sodium 142 mmol/L (136-145); Total Protein 7.5 g/dL (6.4-8.2)
[2024-04-27 07:52] LABS: Hemoglobin A1C 6.1 % (<5.7)
== END 2024-04-27 03:00 | disposition home or self-care (01) ==
PROVIDERS: PCP Family Medicine; Visit Provider Family Medicine
DX: R73.01 Impaired fasting glucose (principal); R73.03 Prediabetes; Z00.00 Encounter for general adult medical examination without abnormal findings; I10 Essential (primary) hypertension
CPT/HCPCS: 36415; 80053; 83036

== ENCOUNTER 2024-05-09 21:22 | Inpatient (IN) | payer BC, SELFPAY ==
[2024-05-09] VITALS (109 sets, daily range): BP systolic 122–136; BP diastolic 93–107; PULSE 105–129; RESP 13–43; TEMP 36.3; O2SAT 83–99
--- NOTE | 2024-05-09 21:15 | RT.EKG_ITS ---
APPROVED REPORT Exam: Resting ECG Reason for Exam: od Patient Location: E HR:128 bpm ECG Measurements Heart Rate 128 AXIS OH 155 P 32 QRSd 78 QRS 11 QT 314 T -1 QTc 459 Conclusion Sinus tachycardia 128 normal axis normal intervals no stemi
[2024-05-09 21:40] LABS: Abs Immature Grans 0.21 10^3/uL (0.0-0.06); Absolute Basophil Count 0.08 10^3/uL (0.0-0.2); Absolute Eosinophil Count 0.44 10^3/uL (0.0-0.7); Absolute Lymphocyte Count 3.84 10^3/uL (1.2-3.4); Absolute Monocyte Count 0.73 10^3/uL (0.1-0.8); Absolute Neutrophil Count 3.46 10^3/uL (1.2-6.7); Basophils % 0.9 %; HCT 40.1 % (36.0-46.0); HGB 13.3 g/dL (11.2-15.7); Immature Grans % 2.4 %; Lymphocytes % 43.8 %; MCH 31.2 pg (27.0-33.0); MCHC 33.2 % (32.0-36.0); MCV 94 fL (80-95); MPV 9.4 fL (8.0-11.0); Monocytes % 8.3 %; Neutrophils % 39.6 %; Platelet Count 359 10^3/uL (130-400); RBC 4.26 10^6/uL (3.93-5.22); RDW-SD 44.3 fL; WBC 8.76 10^3/uL (4.4-10.8)
[2024-05-09] MEDS: LORazepam 2 MG/ML VIAL IVP (21:53)
[2024-05-09 21:58] LABS: ALT 39 U/L (14-59); AST 18 U/L (15-37); Albumin 3.9 g/dL (3.4-5.0); Alkaline Phosphatase 92 U/L (46-116); Anion Gap 9.7 mmol/L (3-11); BUN 14 mg/dL (7-18); Bilirubin, Total 0.19 mg/dL (0.2-1.0); CO2 27.3 mmol/L (21.0-32.0); CREATININE 0.8 mg/dL (0.55-1.02); Chloride 105 mmol/L (98-107); Creatine Kinase 43 U/L (26-192); ETHANOL BLOOD 83.4 mg/dL (<10); Estimated GFR 82.23 (mL/min/1.73m2); Glucose 124 mg/dL (74-106); Magnesium 2.1 mg/dL (1.8-2.4); Potassium 3.6 mmol/L (3.5-5.1); Sodium 142 mmol/L (136-145); Total Protein 7.4 g/dL (6.4-8.2); Troponin I < 50 ng/L (< or =60)
[2024-05-09 22:11] LABS: Acetaminophen < 2 ug/mL (10-30); Salicylate < 2.8 mg/dL (<2.8)
[2024-05-09] MEDS: DEXTROSE 5%-0.9% SALINE 1,000 ML 100 ML IV (22:14)
[2024-05-09 22:32] LABS: BE (Venous) 0 mmol/L (-2-3); HCO3 (Venous) 25 mmol/L (23-28); O2 Sat (Venous) 89 %; TCO2 (Venous) 26 mmol/L (24-29); pCO2 (Venous) 40 mmHg (41-51); pH (Venous) 7.41 (7.31-7.41); pO2 (Venous) 57 mmHg
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
[2024-05-09 22:41] LABS: Bilirubin Negative (Negative); Blood Negative (Negative); Clarity Clear (Clear); Glucose Negative (Negative); Ketones Negative (Negative); Leukocyte Esterase Negative (Negative); Nitrite Negative (Negative); Urobilinogen 0.2 mg/dL (Up to 0.2); pH 5.5 (5-8)
[2024-05-09 22:46] LABS: *AMPHETAMINES SCREEN URINE Negative (Negative); *BARBITURATES SCREEN URINE Negative (Negative); *BENZODIAZEPINES SCREEN URINE Negative (Negative); Cannabinoids THC Negative (Negative); Cocaine Screen,Urine Negative (Negative); METHADONE URINE SCREEN Negative (Negative); OPIATES URINE SCREEN Negative (Negative)
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
[2024-05-09 22:55] LABS: Tricyclic Antidepressants Negative (Negative)
--- NOTE | 2024-05-09 23:37 | W.PCEDHO ---
Registration Status: ADM IN Primary Language: Preferred Language: Tamazight ED Information & Data Chief Complaint OD/Poison 05/09/24 22:56 Triage Note Per EMS pt took 700mg 05/09/24 21:22 diphenhydramine and 3-4 glasses of von, unclear if d/t SI, did report separately that she had a ' tiff' w/ her . Unclear on timing. Telling this RN she took medication 'to end it all'. called EMS Medical / Surgical History (Last Reviewed 05/09/24 @ 22:51 by Jia Baires MD) History of tobacco abuse Alcohol abuse, in remission Menopausal syndrome Hx of myocardial infarction (~2012) Restless leg syndrome Abnormal mammogram of left breast Colon polyps Obstructive sleep apnea (Last Reviewed 05/09/24 @ 22:51 by Jia Baires MD) H/O heart artery stent Most Recent Vital Signs Temperature 36.3 C L 05/09/24 21:22 Temperature Source Oral 05/09/24 21:22 Pulse 105 H 05/09/24 23:16 Respiratory Rate 24 05/09/24 23:22 Respiratory Effort Normal, Non-Labored 05/09/24 21:27 Respiratory Depth Normal 05/09/24 21:27 Respiratory Pattern Normal 05/09/24 21:27 Blood Pressure 126/105 H 05/09/24 23:16 Blood Pressure Position Sitting 05/09/24 21:22 Pulse Oximetry 97 05/09/24 23:22 Oxygen Delivery Method Room Air 05/09/24 21:22 Oxygen Flow Rate 0 05/09/24 21:22 Allergies adhesive Allergy (Mild, Verified 05/09/24 21:32) rash lisinopril Allergy (Unknown, Unverified 05/09/24 21:32) cough Precautions Isolation Standard precaution 05/09/24 21:27 IV IV Catheter Type [Right Hand] Saline Lock IV Catheter Type [Left Saline Lock Antecubital] IV Catheter Gauge [Right Hand] 20 IV Catheter Gauge [Left 18 Antecubital] Diet Orders Category Date Time Status Heart Healthy Eating [DIET] Nutrition 05/10/24 Breakfast Ordered Diagnostics 05/09/24 05/09/24 05/09/24 Range/Units 23:04 22:47 22:15 WBC (4.4-10.8) 10^3/uL RBC (3.93-5.22) 10^6/uL Hgb (11.2-15.7) g/dL Hct (36.0-46.0) % MCV (80-95) fL MCH (27.0-33.0) pg MCHC (32.0-36.0) % RDW (11.7-14.6) % Plt Count (130-400) 10^3/uL MPV (8.0-11.0) fL Immature Gran % % Neutrophils % % Lymphocytes % % Monocytes % % Eosinophils % % Basophils % % Nucleated RBC % (0.0-0.3) % Absolute Neutrophils (1.2-6.7) 10^3/uL Absolute Lymphocytes (1.2-3.4) 10^3/uL Absolute Monocytes (0.1-0.8) 10^3/uL Absolute Eosinophils (0.0-0.7) 10^3/uL Absolute Basophils (0.0-0.2) 10^3/uL VBG pH 7.41 (7.31-7.41) VBG pCO2 40 L (41-51) mmHg VBG pO2 57 mmHg VBG HCO3 25 (23-28) mmol/L VBG Total CO2 26 (24-29) mmol/L VBG O2 Saturation 89 % VBG Base Excess 0 (-2-3) mmol/L Sodium (136-145) mmol/L Potassium (3.5-5.1) mmol/L Chloride (98-107) mmol/L Carbon Dioxide (21.0-32.0) mmol/L Anion Gap (3-11) mmol/L BUN (7-18) mg/dL Creatinine (0.55-1.02) mg/dL Est GFR (CKD-EPI 2020) (mL/min/1.73m2) Glucose (74-106) mg/dL Calcium (8.5-10.1) mg/dL Magnesium (1.8-2.4) mg/dL Total Bilirubin (0.2-1.0) mg/dL AST (15-37) U/L ALT (14-59) U/L Alkaline Phosphatase (46-116) U/L Creatine Kinase Cancelled (26-192) U/L Troponin I Pending (< or =60) ng/L Total Protein (6.4-8.2) g/dL Albumin (3.4-5.0) g/dL TSH Pending Urine Color (Yellow) Urine Clarity (Clear) Urine pH (5-8) Ur Specific [place] (1.005-1.025) Urine Protein (Neg-Trace) mg/dL Urine Ketones (Negative) mg/dL Urine Blood (Negative) Urine Nitrite (Negative) Urine Bilirubin (Negative) Urine Urobilinogen (Up to 0.2) mg/dL Ur Leukocyte Esterase (Negative) Urine Glucose (Negative) mg/dL Salicylates (<2.8) mg/dL Urine Opiates Screen (Negative) Urine Methadone Screen (Negative) Acetaminophen (10-30) ug/mL Ur Barbiturates Screen (Negative) Ur Tricyclics Screen (Negative) Ur Amphetamines Screen (Negative) U Benzodiazepines Scrn (Negative) Urine Cocaine Screen (Negative) Ur THC Screen (Negative) Ethyl Alcohol (<10) mg/dL 05/09/24 05/09/24 Range/Units 21:53 21:30 WBC 8.76 (4.4-10.8) 10^3/uL RBC 4.26 (3.93-5.22) 10^6/uL Hgb 13.3 (11.2-15.7) g/dL Hct 40.1 (36.0-46.0) % MCV 94 (80-95) fL MCH 31.2 (27.0-33.0) pg MCHC 33.2 (32.0-36.0) % RDW 13.0 (11.7-14.6) % Plt Count 359 (130-400) 10^3/uL MPV 9.4 (8.0-11.0) fL Immature Gran % 2.4 % Neutrophils % 39.6 % Lymphocytes % 43.8 % Monocytes % 8.3 % Eosinophils % 5.0 % Basophils % 0.9 % Nucleated RBC % 0.0 (0.0-0.3) % Absolute Neutrophils 3.46 (1.2-6.7) 10^3/uL Absolute Lymphocytes 3.84 H (1.2-3.4) 10^3/uL Absolute Monocytes 0.73 (0.1-0.8) 10^3/uL Absolute Eosinophils 0.44 (0.0-0.7) 10^3/uL Absolute Basophils 0.08 (0.0-0.2) 10^3/uL VBG pH (7.31-7.41) VBG pCO2 (41-51) mmHg VBG pO2 mmHg VBG HCO3 (23-28) mmol/L VBG Total CO2 (24-29) mmol/L VBG O2 Saturation % VBG Base Excess (-2-3) mmol/L Sodium 142 (136-145) mmol/L Potassium 3.6 (3.5-5.1) mmol/L Chloride 105 (98-107) mmol/L Carbon Dioxide 27.3 (21.0-32.0) mmol/L Anion Gap 9.7 (3-11) mmol/L BUN 14 (7-18) mg/dL Creatinine 0.8 (0.55-1.02) mg/dL Est GFR (CKD-EPI 2020) 82.23 (mL/min/1.73m2) Glucose 124 H (74-106) mg/dL Calcium 9.0 (8.5-10.1) mg/dL Magnesium 2.1 (1.8-2.4) mg/dL Total Bilirubin 0.19 L (0.2-1.0) mg/dL AST 18 (15-37) U/L ALT 39 (14-59) U/L Alkaline Phosphatase 92 (46-116) U/L Creatine Kinase 43 (26-192) U/L Troponin I < 50 (< or =60) ng/L Total Protein 7.4 (6.4-8.2) g/dL Albumin 3.9 (3.4-5.0) g/dL TSH Urine Color Yellow (Yellow) Urine Clarity Clear (Clear) Urine pH 5.5 (5-8) Ur Specific [place] 1.010 (1.005-1.025) Urine Protein Negative (Neg-Trace) mg/dL Urine Ketones Negative (Negative) mg/dL Urine Blood Negative (Negative) Urine Nitrite Negative (Negative) Urine Bilirubin Negative (Negative) Urine Urobilinogen 0.2 (Up to 0.2) mg/dL Ur Leukocyte Esterase Negative (Negative) Urine Glucose Negative (Negative) mg/dL Salicylates < 2.8 (<2.8) mg/dL Urine Opiates Screen Negative (Negative) Urine Methadone Screen Negative (Negative) Acetaminophen < 2 (10-30) ug/mL Ur Barbiturates Screen Negative (Negative) Ur Tricyclics Screen Negative (Negative) Ur Amphetamines Screen Negative (Negative) U Benzodiazepines Scrn Negative (Negative) Urine Cocaine Screen Negative (Negative) Ur THC Screen Negative (Negative) Ethyl Alcohol 83.4 H (<10) mg/dL Intake and Output - 24 Hour Total 05/09/24 21:13 thru 05/09/24 23:32 Output Total 450 Balance -450 Weight 81.193 kg Output: Urine 450 Other: Urine Color Pale Yellow Urine Appearance Clear Urinary Catheter Urinary Catheter Date of 05/09/24 Insertion [Uretheral ([place]shaw)] Time of insertion [Uretheral ( 22:10 [place])] Falls Risk Assessment History of Falls No History 05/09/24 21:27 Contributing Factors Medications 05/09/24 21:27 Ambulatory Aids Independent 05/09/24 21:27 Tubes/Lines None 05/09/24 21:27 Gait Evaluation No gait disturbance 05/09/24 21:27 Cognition No cognitive impairment 05/09/24 21:27 Fall Total Score 3 05/09/24 21:27 Level of Risk Standard/Low Risk 05/09/24 21:27 Problems (Last Reviewed 05/09/24 @ 22:51 by Jia Baires MD) Diphenhydramine overdose (Acute) Alcohol use disorder (Acute) Intentional overdose (Acute) Suicidal overdose (Acute) Intentional overdose (Acute) 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 Information / Comments: Report received from: Gema Hussein RN to Skye Clemons RN @ [phone]
[2024-05-10] VITALS (26 sets, daily range): BP systolic 110–131; BP diastolic 80–112; PULSE 69–112; RESP 13–29; TEMP 36.7–37.4; O2SAT 95–98
[2024-05-10] MEDS: Metoprolol 25 MG TAB PO ×2 (00:04→06:47)
--- NOTE | 2024-05-10 00:45 | RT.EKG_ITS ---
APPROVED REPORT Exam: Resting ECG Reason for Exam: OD monitor QT/tachycardia Patient Location: I HR:107 bpm ECG Measurements Heart Rate 107 AXIS MD 151 P 51 QRSd 87 QRS 29 QT 371 T 36 QTc 495 Conclusion Sinus tachycardia...rate> 99 Otherwise normal ECG
[2024-05-10] MEDS: LORazepam 1 MG TAB PO ×2 (00:51→11:05)
--- NOTE | 2024-05-10 01:00 | RT.EKG_ITS ---
APPROVED REPORT Exam: Resting ECG Reason for Exam: QT Patient Location: I HR:73 bpm ECG Measurements Heart Rate 73 AXIS [place] 154 P 45 QRSd 92 QRS 43 QT 416 T 36 QTc 459 Conclusion Sinus rhythm...normal P axis, V-rate 50- 99 Normal Electrocardiogram
--- NOTE | 2024-05-10 02:02 | NUR.NOTE ---
Nursing Note: Update provided to Rick from Poison Control, provided Acetaminophen and Salicylate levels. Received one IV dose of Lorazepam in ER and an oral dose of Lorazepam in ICU. Recommendations for Benzodiazepines for restlessness/agitation, Seizure Precautions. QT interval 0.371. HR 105 BP 125-95 SpO2 96% on Room air. Blood Glucose 125
[2024-05-10] MEDS: LORazepam 2 MG/ML VIAL IVP (03:23)
[2024-05-10 05:55] LABS: HCT 37.4 % (36.0-46.0); HGB 12.4 g/dL (11.2-15.7); MCH 31.1 pg (27.0-33.0); MCHC 33.2 % (32.0-36.0); MCV 94 fL (80-95); MPV 9.6 fL (8.0-11.0); Platelet Count 343 10^3/uL (130-400); RBC 3.99 10^6/uL (3.93-5.22); RDW-SD 44.3 fL; WBC 9.96 10^3/uL (4.4-10.8)
[2024-05-10 06:14] LABS: Troponin I < 50 ng/L (< or =60)
--- NOTE | 2024-05-10 06:24 | NUR.NOTE ---
Nursing Note: Chavo called to inquire on patient condition. Informed that patient vital signs were stable, however that patient continues to be confused and having hallucinations. Informed that he would be able to visit after 8am if cleared by mental health.
[2024-05-10 06:27] LABS: ALT 32 U/L (14-59); AST 15 U/L (15-37); Albumin 3.5 g/dL (3.4-5.0); Alkaline Phosphatase 82 U/L (46-116); Anion Gap 10.8 mmol/L (3-11); BUN 11 mg/dL (7-18); Bilirubin, Total 0.37 mg/dL (0.2-1.0); CO2 23.2 mmol/L (21.0-32.0); CREATININE 0.8 mg/dL (0.55-1.02); Calcium 8.4 mg/dL (8.5-10.1); Chloride 108 mmol/L (98-107); Creatine Kinase 36 U/L (26-192); Estimated GFR 82.23 (mL/min/1.73m2); Glucose 114 mg/dL (74-106); Potassium 3.9 mmol/L (3.5-5.1); Sodium 142 mmol/L (136-145); Total Protein 6.5 g/dL (6.4-8.2)
[2024-05-10 06:48] LABS: TSH 1.14 uIU/Ml (0.36-3.74)
[2024-05-10 06:54] LABS: Magnesium 1.9 mg/dL (1.8-2.4)
[2024-05-10] MEDS: Lactated Ringers 1,000 ML 125 ML IV (07:48)
[2024-05-10] MEDS: Aspirin E.C. 81 MG TABEC PO (07:50)
[2024-05-10] MEDS: buPROPion-XL 150 MG TABCR PO (07:50)
[2024-05-10] MEDS: Sertraline 100 MG TAB PO (07:50)
[2024-05-10] MEDS: amLODIPine 5 MG TAB PO (07:51)
[2024-05-10] MEDS: Ezetimibe 10 MG TAB PO (07:51)
[2024-05-10] MEDS: Normal Saline Flush 10 ML SYR IVP ×3 (07:51→21:27)
[2024-05-10] MEDS: Losartan 50 MG TAB PO (07:51)
[2024-05-10] MEDS: Enoxaparin 40 MG/0.4 ML SYR SC (07:52)
--- NOTE | 2024-05-10 10:15 | RT.EKG_ITS ---
APPROVED REPORT Exam: Resting ECG Reason for Exam: diphenhydramine overdose Patient Location: I HR:70 bpm ECG Measurements Heart Rate 70 AXIS [place] 146 P 47 QRSd 91 QRS 27 QT 422 T 32 QTc 456 Conclusion Sinus rhythm...normal P axis, V-rate 50- 99 Probable left atrial enlargement...P >50mS, <-0.10mV V1 Otherwise normal ECG
--- NOTE | 2024-05-10 10:20 | CMSP_ITS ---
Date of service: 05/10/24 Time of Service: 10:20 Care Management Safety Plan Status Status: Interim Reason for Wait Reason for Wait: Medical Clearance Safety Plan Safety Plan: Bisi presented to the ED after taking an intentional overdose of benadryl, which happened after an argument with her , per report. She is not yet medically cleared. Her visited briefly, and this appeared to be a therapeutic encounter; visitation will be contingent on her wishes as well as the nature of the visit. CM will respond to assess patient after patient has been medically cleared and assessed by screener. If screener deems patient meets criteria for psychiatric stabilization CM will facilitate interdepartmental huddle with [facility] screener for safety planning considerations and meet with patient to review [facility] policy and safety plan, establish individual wishes for treatment and maintain patient rights. In the interim; please note safety plan below to guide patient care while awaiting further assessment in the ED.? SAFETY PLAN: 1. Will remain on suicide precautions and in paper clothes vs hospital scrubs. 2. Will remain in room under direct supervision of one-on-one staff at all times provided by LAURO, LICENSED PLUMBER title investigator. 3. May have paper cups, plates, finger foods as well as a cardboard spoon with which to eat meals. 4. Follow [facility] Management of the Admitted Behavioral Health Patient policy. 5. Comfort bath system or shower permitted. 6. No personal belongings 7. Visitors at RN discretion, if visits are therapeutic and if Bisi wishes to have visitors. 8. Phone contact limited to incoming/outgoing calls using [facility] cordless phone. 9. Due to VOLUNTARY status, if patient wishes to leave [facility], staff will contact [facility] Crisis Screener ([phone]) and On-Call Global Engineering Manager ([phone]) as soon as possible. In the event of elopement, notify [facility] Police ([phone]). ? If deemed appropriate for inpatient psychiatric care, safety plan will be established with patient, and care team, to adhere to patient goals, identify restrictions based on behavioral status, address nutrition, and determine allowed personal belongings, tools for hygiene and personal care. As well plan will determine level of activity including ambulation, level of supervision, visitors, and determine privileges based on level of acuity, behaviors and level of engagement by patient.
--- NOTE | 2024-05-10 10:22 | PGE_ITS ---
Date of Service Date of service: 05/10/24 Time of Service: 10:22 Assessment and Plan Assessment and plan (1) Intentional overdose: Start date: 05/09/24 Status: Acute Assessment and plan: Intentional overdose of diphenhydramine, total of 700 mg of Benadryl 50 mg tablets and this is below severe toxicity level at 8 mg/kg according to poison control. Tachycardia has improved. Never had prolonged QRS or QT, which is reassuring, bicarb not indicated. Repeat one more EKG this morning, then can stop. Can stop glucose monitoring, never in DM range She does have a history of depression associate with alcoholism and is on treatment. Improving confusion/disorientation c/w diphenhydramine OD (also got lorazepam), no localizing symptoms to suggest CVA I think she should be ready for evaluated by mental health by this afternoon. Qualifiers: Encounter type: initial encounter Qualified Code(s): T50.902A - Poisoning by unspecified drugs, medicaments and biological substances, intentional self-harm, initial encounter (2) Depression: Status: Chronic Assessment and plan: Exacerbated by alcohol patient drinking again recently but on antidepressant therapy. Outpatient medical therapy will be continued at his hospital stay, no buzz Qualifiers: Depression Type: major depressive disorder Major depression recurrence: recurrent Active/Remission status: currently active Major depression episode severity: moderate Qualified Code(s): F33.1 - Major depressive disorder, recurrent, moderate (3) Alcohol abuse with alcohol-induced mood disorder: Status: Chronic Assessment and plan: Patient has been in remission from alcohol use for years but did drink the day of admission and states that she does occasionally drink alcohol. Continue to address as part of her mental health treatment plan. (4) Hypertension: Status: Chronic Assessment and plan: Exacerbated by Benadryl overdose. Back to home regimen. Qualifiers: Hypertension type: primary hypertension Qualified Code(s): I10 - Essential (primary) hypertension (5) Coronary artery disease: Status: Chronic Assessment and plan: Patient is having no evidence of ischemia and troponins have been negative. Continue outpatient medical management. Qualifiers: Coronary Disease-Associated Artery/Lesion type: [place] artery [place] vs. transplanted heart: [place] heart Associated angina: without angina Qualified Code(s): I25.10 - Atherosclerotic heart disease of [place] coronary artery without angina pectoris (6) GERD (gastroesophageal reflux disease): Status: Chronic Assessment and plan: Continue outpatient PPI. Qualifiers: Esophagitis presence: without esophagitis Qualified Code(s): K21.9 - Gastro-esophageal reflux disease without esophagitis (7) DVT prophylaxis: Status: Acute Assessment and plan: LMWH Subjective Subjective Patient reports: no new complaints and voiding w/o difficulty; denies nausea, vomiting, shortness of breath or fever Interval history since last seen: She just feels tired. Admits she is depressed but she states she doesn't want to anymore. She has no chest pain or palpitations. Her is concerned about her confusions, worried about a stroke given her cardiac history. Exam Narrative Exam Narrative: General: Alert, oriented to self and place but date/year incorrect. Speech is now clear. HEENT: Normocephalic, PERRL about 3mm rickey, EOMI. MM dry, sipping water. Lungs: Clear to auscultation percussion with no focalizing rales or rhonchi. No expiratory wheeze. Heart: RRR, No appreciable murmur or gallop. Abdomen: Obese contour, soft nontender to palpation with no palpable hepatosplenomegaly. Bowel sounds positive all quadrants. No guarding or rebound. Skin: Normal color, warm and dry. Neuro: Cranial nerves II through XII intact. No pronator drift. Normal coordination, tone. No focalizing motor or gross sensory deficits. No longer any tremor with hands extended. Psych: Flat affect and depressed mood. Thought process more linear on interview this morning. Objective Last Vital Signs Temp 37.3 C 05/10/24 07:51 Pulse 74 05/10/24 08:01 Resp 13 05/10/24 08:01 BP 130/90 05/10/24 08:01 Pulse Ox 98 05/10/24 08:01 Laboratory Results - last 24 hr 05/09/24 05/09/24 05/09/24 21:30 21:53 22:15 WBC 8.76 RBC 4.26 Hgb 13.3 Hct 40.1 MCV 94 MCH 31.2 MCHC 33.2 RDW 13.0 Plt Count 359 MPV 9.4 Immature Gran % 2.4 Neutrophils % 39.6 Lymphocytes % 43.8 Monocytes % 8.3 Eosinophils % 5.0 Basophils % 0.9 Nucleated RBC % 0.0 Absolute Neutrophils 3.46 Absolute Lymphocytes 3.84 H Absolute Monocytes 0.73 Absolute Eosinophils 0.44 Absolute Basophils 0.08 VBG pH 7.41 VBG pCO2 40 L VBG pO2 57 VBG HCO3 25 VBG Total CO2 26 VBG O2 Saturation 89 VBG Base Excess 0 Sodium 142 Potassium 3.6 Chloride 105 Carbon Dioxide 27.3 Anion Gap 9.7 BUN 14 Creatinine 0.8 Est GFR (CKD-EPI 2020) 82.23 Glucose 124 H Calcium 9.0 Magnesium 2.1 Total Bilirubin 0.19 L AST 18 ALT 39 Alkaline Phosphatase 92 Creatine Kinase 43 Troponin I < 50 Total Protein 7.4 Albumin 3.9 TSH Urine Color Yellow Urine Clarity Clear Urine pH 5.5 Ur Specific [place] 1.010 Urine Protein Negative Urine Ketones Negative Urine Blood Negative Urine Nitrite Negative Urine Bilirubin Negative Urine Urobilinogen 0.2 Ur Leukocyte Esterase Negative Urine Glucose Negative Salicylates < 2.8 Urine Opiates Screen Negative Urine Methadone Screen Negative Acetaminophen < 2 Ur Barbiturates Screen Negative Ur Tricyclics Screen Negative Ur Amphetamines Screen Negative U Benzodiazepines Scrn Negative Urine Cocaine Screen Negative Ur THC Screen Negative Ethyl Alcohol 83.4 H 05/09/24 05/09/24 05/10/24 22:47 23:04 05:37 WBC 9.96 RBC 3.99 Hgb 12.4 Hct 37.4 MCV 94 MCH 31.1 MCHC 33.2 RDW 13.0 Plt Count 343 MPV 9.6 Immature Gran % Neutrophils % Lymphocytes % Monocytes % Eosinophils % Basophils % Nucleated RBC % Absolute Neutrophils Absolute Lymphocytes Absolute Monocytes Absolute Eosinophils Absolute Basophils VBG pH VBG pCO2 VBG pO2 VBG HCO3 VBG Total CO2 VBG O2 Saturation VBG Base Excess Sodium 142 Potassium 3.9 Chloride 108 H Carbon Dioxide 23.2 Anion Gap 10.8 BUN 11 Creatinine 0.8 Est GFR (CKD-EPI 2020) 82.23 Glucose 114 H Calcium 8.4 L Magnesium 1.9 Total Bilirubin 0.37 AST 15 ALT 32 Alkaline Phosphatase 82 Creatine Kinase Cancelled 36 Troponin I Cancelled < 50 Total Protein 6.5 Albumin 3.5 TSH 1.14 Urine Color Urine Clarity Urine pH Ur Specific [place] Urine Protein Urine Ketones Urine Blood Urine Nitrite Urine Bilirubin Urine Urobilinogen Ur Leukocyte Esterase Urine Glucose Salicylates Urine Opiates Screen Urine Methadone Screen Acetaminophen Ur Barbiturates Screen Ur Tricyclics Screen Ur Amphetamines Screen U Benzodiazepines Scrn Urine Cocaine Screen Ur THC Screen Ethyl Alcohol PAWSS Have you Been Recently Intoxicated or Drunk Within the Last 30 days?: Yes Have you Ever Experienced Previous Episodes of Alcohol Withdrawal?: Unable to Obtain Have you ever Experienced Withdrawal Seizures?: Unable to Obtain Have you ever Experienced Delirium Tremens(DT)s?: Unable to Obtain Have you ever undergone Alcohol Rehabilitation Treatment (i.e, inpt ot outpatient treatment programs)?: Unable to Obtain Have you ever Experienced Blackouts?: Unable to Obtain Have you ever Combined Alcohol with other Downers within the last 90 days?: Yes Have you ever Combined Alcohol with any other Substance of Abuse during the last 90 days?: Yes Positive Blood Alcohol level on Presentation? [PCS.BAL]: Yes Evidence of Increased Autonomic Activity (i.e. HR>120, tremor, sweating, agitation, nausea)?: Yes Result: 5 Time Spent with Patient Time Spent with Patient: >50 minutes Time was spent: preparing to see the patient(eg.review tests), obtaining and/or reviewing separately otained hiistory, ordering medications,tests, procedures, r eferring, communicating with other health home health care coordinator, indepentently interpreting results, counseling the patient and care coordination
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
--- NOTE | 2024-05-10 15:45 | RT.EKG_ITS ---
APPROVED REPORT Exam: Resting ECG Reason for Exam: follow up diphenhydramine OD Patient Location: I HR:77 bpm ECG Measurements Heart Rate 77 AXIS AL 148 P 48 QRSd 92 QRS 21 QT 412 T 26 QTc 467 Conclusion Sinus rhythm...normal P axis, V-rate 50- 99 Normal Electrocardiogram
[2024-05-10] MEDS: THIAMINE 100 MG in Normal Saline 100 ML 200 MG IVPB (18:00)
--- NOTE | 2024-05-10 18:28 | NUR.NOTE ---
Nursing Note: Patient having visual and auditory hallucinations, orientated to self only, reports regularly drinking 5 light beers a night, states she has gone through withdraw before, states her last drink was yesterday, also states she does not recall taking benadryl yesterday, did state at time of transfer that she wanted to . Provider updated.
--- NOTE | 2024-05-10 20:18 | CE_ITS ---
Date of service: 05/10/24 Time of Service: 20:18 Event Note: Messages from RN this afternoon and evening about concern for ongoing hallucinations. She is still intermittently oriented, reaching for things that aren't there. Appears anxious. Concern that her alcohol use is more of a factor than we were told initially. We did infuse 100mg thiamine IV, hallucinations continue. I don't think this is purely anticholinergic delerium. Considered trial on pro- cholinegic. Physiostigmine has historically been used for this but is no longer available. There isn't a lot of guidance in literature about using something like neostigmine. There is still some concern this is alcohol withdrawal, but she hasn't responded well to lorazepam so far. I re-evaluated her around 4pm and again now. She continues to be confused, oriented to self and some aspects of place. She currently has no tremor, no severe anxiety. She speaks about her dog and reaches to look behind bed for it. Will try risperidone at low dose, as this is neuroleptic without significant anticholinergic properties. Monitor on withdrawal protocol, consider alternative benzodiazepine, but given this may have made her more confused before, I don't want her automatically dosed. Time Spent with Patient Time spent in critical care(minutes): 40 Time Spent Included: Coordination of care, Chart review, Documenting critically ill care, Time at immediate bedside and Discussing critically ill care with other medical staff
[2024-05-10] MEDS: risperiDONE 0.5 MG TAB PO (21:26)
[2024-05-10] MEDS: Atorvastatin 40 MG TAB 80 MG PO (21:26)
[2024-05-11] MEDS: Acetaminophen 325 MG TAB PO ×2 (05:23→21:15)
[2024-05-11 06:59] LABS: Anion Gap 7.1 mmol/L (3-11); BUN 11 mg/dL (7-18); CO2 26.9 mmol/L (21.0-32.0); Calcium 9.3 mg/dL (8.5-10.1); Chloride 107 mmol/L (98-107); Estimated GFR 62.91 (mL/min/1.73m2); Glucose 117 mg/dL (74-106); Potassium 4.3 mmol/L (3.5-5.1); Sodium 141 mmol/L (136-145)
[2024-05-11 08:07] VITALS: BP 147/98; PULSE 95; RESP 19; TEMP 37.5; O2SAT 97
[2024-05-11] MEDS: Multivitamin TAB 1 TAB PO (08:18)
[2024-05-11] MEDS: Enoxaparin 40 MG/0.4 ML SYR SC (08:18)
[2024-05-11] MEDS: Normal Saline Flush 10 ML SYR IVP ×2 (08:19→21:32)
[2024-05-11] MEDS: Ezetimibe 10 MG TAB PO (08:19)
[2024-05-11] MEDS: Thiamine 100 MG TAB PO (08:19)
[2024-05-11] MEDS: Folic Acid 1 MG TAB PO (08:19)
[2024-05-11] MEDS: amLODIPine 5 MG TAB PO (08:19)
[2024-05-11] MEDS: Aspirin E.C. 81 MG TABEC PO (08:19)
[2024-05-11] MEDS: Sertraline 100 MG TAB PO (08:19)
[2024-05-11] MEDS: Losartan 50 MG TAB PO (08:19)
[2024-05-11] MEDS: buPROPion-XL 150 MG TABCR PO (08:19)
[2024-05-11] MEDS: Metoprolol CR 25 MG TABCR PO (09:41)
[2024-05-11] MEDS: Prochlorperazine 10 MG/2 ML VIAL 5 MG IVP (12:07)
--- NOTE | 2024-05-11 12:48 | PGE_ITS ---
Date of Service Date of service: 05/11/24 Time of Service: 12:49 Assessment and Plan Assessment and plan (1) Intentional overdose: Start date: 05/09/24 Status: Acute Assessment and plan: w/ suicidal ideation, underlying depression and alcoholism. now recovered from benadryl overdose. mental health is evaluating her today for possible inpatient psychiatric treatment. I have increased her Zoloft from 100 mg daily to 150 mg daily. will continue w/ risperdone at night for depression as well as her insomnia. Qualifiers: Encounter type: initial encounter Qualified Code(s): T50.902A - Poisoning by unspecified drugs, medicaments and biological substances, intentional self-harm, initial encounter (2) Alcohol withdrawal: Status: Acute Assessment and plan: MVS, thiamine and folic acid, prophylaxis w/ phenobarbital Qualifiers: Complication of substance-induced condition: uncomplicated Qualified Code(s): F10.930 - Alcohol use, unspecified with withdrawal, uncomplicated (3) Depression: Status: Chronic Assessment and plan: as above Qualifiers: Active/Remission status: currently active Depression Type: major depressive disorder Major depression episode severity: moderate Major depression recurrence: recurrent Qualified Code(s): F33.1 - Major depressive disorder, recurrent, moderate (4) Alcohol abuse with alcohol-induced mood disorder: Status: Chronic (5) Hypertension: Status: Chronic Assessment and plan: continue home meds. Qualifiers: Hypertension type: primary hypertension Qualified Code(s): I10 - Essential (primary) hypertension (6) Coronary artery disease: Status: Chronic Qualifiers: Associated angina: without angina Coronary Disease-Associated Artery/Lesion type: [place] artery [place] vs. transplanted heart: mohegan heart Qualified Code(s): I25.10 - Atherosclerotic heart disease of mohegan coronary artery without angina pectoris (7) GERD (gastroesophageal reflux disease): Status: Chronic Qualifiers: Esophagitis presence: without esophagitis Qualified Code(s): K21.9 - Gastro-esophageal reflux disease without esophagitis (8) DVT prophylaxis: Status: Acute Assessment and plan: LMWH Subjective Subjective Interval history since last seen: A lengthy discussion with Lia and her regarding her alcohol abuse.She has been a recovering alcoholic and has been abstinent for about 28 years 2015 when she started drinking again. Patient reports that she started drinking again as she had become depressed over 2 prior heart attacks and the limitations that placed on her physically. She has had a lot of troubles with insomnia has been taking excess amounts of Benadryl to help her sleep and drinking more heavily. She was admitted with signs and symptoms of overdose from her Benadryl causing hallucinations. She has recovered from Benadryl overdose but now feels that she is experiencing some symptoms of alcohol withdrawal with some increased tremulousness and anxiety. She continues to have suicidal ideation and is indicated that she may take an overdose of pills again if she is released. I told her and her we will go ahead and treat her prophylactically for alcohol withdrawal with low-dose phenobarbital. She was medicated with Ativan yesterday which causes worsening cognitive changes. Exam Narrative Exam Narrative: Alert and orient x 3 seems quiet and reserved but does answers questions when asked. She has a sad affect but is not tearful. Lungs are clear to auscultation Heart is regular rate and rhythm Hands are slightly sweaty and she has a slight tremor in her hands. Objective Last Vital Signs Temp 37.5 C 05/11/24 08:07 Pulse 95 H 05/11/24 08:07 Resp 19 05/11/24 08:07 BP 147/98 H 05/11/24 08:07 Pulse Ox 97 05/11/24 08:07 Laboratory Results - last 24 hr 05/11/24 06:35 Sodium 141 Potassium 4.3 Chloride 107 Carbon Dioxide 26.9 Anion Gap 7.1 BUN 11 Creatinine 1.0 Est GFR (CKD-EPI 2020) 62.91 Glucose 117 H Calcium 9.3 Magnesium 2.0 PAWSS Have you Been Recently Intoxicated or Drunk Within the Last 30 days?: Yes Have you Ever Experienced Previous Episodes of Alcohol Withdrawal?: Unable to Obtain Have you ever Experienced Withdrawal Seizures?: Unable to Obtain Have you ever Experienced Delirium Tremens(DT)s?: Unable to Obtain Have you ever undergone Alcohol Rehabilitation Treatment (i.e, inpt ot outpatient treatment programs)?: Unable to Obtain Have you ever Experienced Blackouts?: Unable to Obtain Have you ever Combined Alcohol with other Downers within the last 90 days?: Yes Have you ever Combined Alcohol with any other Substance of Abuse during the last 90 days?: Yes Positive Blood Alcohol level on Presentation? [PCS.BAL]: Yes Evidence of Increased Autonomic Activity (i.e. HR>120, tremor, sweating, agitation, nausea)?: Yes Result: 5 Time Spent with Patient Time Spent with Patient: >50 minutes Time was spent: preparing to see the patient(eg.review tests), obtaining and/or reviewing separately otained hiistory, ordering medications,tests, procedures, referring, communicating with other health pediatric care coordinator (case management, Dr. Kaplan, nursing and mental health worker), indepentently interpreting results, counseling the patient and care coordination
--- NOTE | 2024-05-11 14:01 | PHA.REVIEW2 ---
Pharmacy Admission Review Admission Clinical Review Admission Pharmacy Review: Alcohol withdrawal (Acute) DVT prophylaxis (Acute) Diphenhydramine overdose (Acute) Alcohol use disorder (Acute) Intentional overdose (Acute) Suicidal overdose (Acute) Intentional overdose (Acute) adhesive Allergy (Mild, Verified 05/09/24 21:32) rash lisinopril Allergy (Unknown, Unverified 05/09/24 21:32) cough Resuscitation Status Full Code Height 5 ft 1 in Weight 80.2 kg Comments Comments/Follow Ups: Watch HR, BP, SCr, labs and for med changes (possible renal dose adjustments). Pharmacy Admission Review Renal Dosing Renal Dosing: BUN 11 mg/dL (7-18) 05/11/24 06:35 Creatinine 1.0 mg/dL (0.55-1.02) 05/11/24 06:35 Medications needing adjustments: Reviewed (Crcl ~54.5 mL/min current meds okay) Anticoagulation Anticoagulation: Hgb 12.4 g/dL (11.2-15.7) 05/10/24 05:37 Hct 37.4 % (36.0-46.0) 05/10/24 05:37 Plt Count 343 10^3/uL (130-400) 05/10/24 05:37 Creatinine 1.0 mg/dL (0.55-1.02) 05/11/24 06:35 DVT Prophylaxis: Reviewed Medications: Enoxaparin Opiate Usage Evaluate Pain Scale/Pains Meds: N/A Relevant Labs Relevant Labs: Sodium 141 mmol/L (136-145) 05/11/24 06:35 Potassium 4.3 mmol/L (3.5-5.1) 05/11/24 06:35 Chloride 107 mmol/L (98-107) 05/11/24 06:35 Magnesium 2.0 mg/dL (1.8-2.4) 05/11/24 06:35 Electrolytes, C-Reactive P, ESR: Reviewed DM Control DM Control: Glucose 117 mg/dL (74-106) H 05/11/24 06:35 DM Control: Reviewed (pre-diabetes per med history; A1c 04/27/24 6.1) Insulin Dosing, Diabetic Medication: n/a Cardiac Review Cardiac Review: Troponin I < 50 ng/L (< or =60) 05/10/24 05:37 BP, HR, EF%: Reviewed (BP and HR have been normal to high so far this admission) QTc Review QTc: Reviewed (QTc 467 on EKG from yesterday) IV to PO Switch IV Medications: Reviewed Home Meds Home Med List reviewed: Reviewed Relevent Home Meds Not ordered & why?: prednisone (short term rx/completed course) Current Meds Current Medication Order Review: Reviewed Comments Comments/Follow Ups: Watch HR, BP, SCr, labs and for med changes (possible renal dose adjustments).
[2024-05-11] MEDS: PHENobarbital 110 MG in Normal Saline 50 ML 100 MG IVPB (14:06)
[2024-05-11] MEDS: Sertraline 50 MG TAB PO (14:07)
[2024-05-11 15:15] VITALS: BP 122/87; PULSE 80; RESP 18; TEMP 37; O2SAT 97
[2024-05-11] MEDS: Pantoprazole 40 MG TABCR PO (17:28)
--- NOTE | 2024-05-11 17:51 | CMSP_ITS ---
Date of service: 05/11/24 Time of Service: 17:52 Care Management Safety Plan Status Status: Voluntary Reason for Wait Reason for Wait: Inpatient Admission Safety Plan Safety Plan: VOLUNTARY FOR INPATIENT PSYCHIATRIC STABILIZATION.? Patient is appropriate in all interactions since arriving at [facility]; Pt has demonstrated appropriate coping and communication skills, has articulated his or her needs and concerns and is fully engaged during staff interactions. Safety plan has been established with patient, and care team, to adhere to patient goals, identify restrictions based on behavioral status, address nutrition, and determine allowed personal belongings, tools for hygiene and personal care. Determine level of activity including ambulation, level of supervision, visitors, and determine privileges based on behaviors and level of engagement by pt. VOLUNTARY SAFETY PLAN: 1. Will remain on suicide precautions, in paper clothes or hospital gown. 2. Will remain on M/S under direct supervision of one-on-one staff at all times provided by [employer]; LAURO, PRE[employer]ED [employer] PRODUCTION TEAM MEMBER director of collections. 3. May have paper cups, plates, finger foods as well as a cardboard spoon with which to eat meals. 4. Follow [facility] Management of the Admitted Behavioral Health Patient policy. 5. Shower available on M/S without restriction. 6. Personal belongings-soft items permitted at RN discretion. 7. Visitors- allowed, at RN discretion. 8. Activities: soft cart items approved per RN discretion. 9.? Bathroom available on M/S without restriction. 10. Phone: limited to [facility] cordless phone at RN discretion. Due to VOLUNTARY status, if patient wishes to leave [facility], staff will contact [facility] Crisis Screener ([phone]) and Calender Feeder ([phone]) as soon as possible. In the event of elopement, notify [facility] Police ([phone]). Patient is currently voluntarily at [facility] and seeking inpatient admission when a bed becomes available. [facility] Frontline Microstrategy Developer will continue seeking placement. Please contact the Calender Feeder ([phone]) and [facility] Microstrategy Developer ([phone]) for any needed changes in the Safety Plan. Safety plan has been provided to interdepartmental care team.
--- NOTE | 2024-05-11 17:51 | PDOC.CMSAFE ---
Date of service: 05/11/24 Time of Service: 17:52 Care Management Safety Plan Status Status: Voluntary Reason for Wait Reason for Wait: Inpatient Admission Safety Plan Safety Plan: VOLUNTARY FOR INPATIENT PSYCHIATRIC STABILIZATION.? Patient is appropriate in all interactions since arriving at [facility]; Pt has demonstrated appropriate coping and communication skills, has articulated his or her needs and concerns and is fully engaged during staff interactions. Safety plan has been established with patient, and care team, to adhere to patient goals, identify restrictions based on behavioral status, address nutrition, and determine allowed personal belongings, tools for hygiene and personal care. Determine level of activity including ambulation, level of supervision, visitors, and determine privileges based on behaviors and level of engagement by pt. VOLUNTARY SAFETY PLAN: 1. Will remain on suicide precautions, in paper clothes or hospital gown. 2. Will remain on M/S under direct supervision of one-on-one staff at all times provided by [employer]; LAURO, BLOW UP OPERATOR well drill operator. 3. May have paper cups, plates, finger foods as well as a cardboard spoon with which to eat meals. 4. Follow [facility] Management of the Admitted Behavioral Health Patient policy. 5. Shower available on M/S without restriction. 6. Personal belongings-soft items permitted at RN discretion. 7. Visitors- allowed, at RN discretion. 8. Activities: soft cart items approved per RN discretion. 9.? Bathroom available on M/S without restriction. 10. Phone: limited to [facility] cordless phone at RN discretion. Due to VOLUNTARY status, if patient wishes to leave [facility], staff will contact [facility] Crisis Screener ([phone]) and Canine Enforcement Officer ([phone]) as soon as possible. In the event of elopement, notify [facility] Police ([phone]). Patient is currently voluntarily at [facility] and seeking inpatient admission when a bed becomes available. [facility] Frontline Dipper And Drier will continue seeking placement. Please contact the Canine Enforcement Officer ([phone]) and [facility] Dipper And Drier ([phone]) for any needed changes in the Safety Plan. Safety plan has been provided to interdepartmental care team.
--- NOTE | 2024-05-11 17:53 | PDOC.CMPRO ---
Date of service: 05/11/24 Time of Service: 17:53 Care Management Progress Note Progress Note Text Progress Note Text: Bisi was sitting up in bed when CM met with her. She stated that she is feeling better today, and is not feeling suicidal at this time. When she spoke with [facility] earlier today, she did endorse SI, and scored high on both the PHQ9 and CSSR screens. [facility] clinician stated that she is not willing to go to inpatient psychiatric treatment at this time, and is considering holding her involuntary due to her risk level today. Another [facility] screener (QMHP) met with Bisi and suggested a short stay at the care bed prior to returning home, which Bisi is agreeable to. Per MD, she will continue to be monitored overnight due to potential alcohol withdrawal. [facility] will meet with her again tomorrow and determine her plan at that time. CM will continue to follow. Discharge Potential Discharge Needs: PCP F/U Appt Anticipated Barriers to Discharge: Bed availability Patient/Family Education Needs: Review discharge instructions, discuss Ask Me Three Transportation: Other (dependent on disposition) Plan: Bisi continues to be monitored closely at this time. She will meet with [facility] tomorrow to determine her plan of care; inpatient psychiatric treatment vs care bed vs home with a safety plan. Her transportation will depend on disposition. She will follow up with [facility], her PCP and her discharge plan of care. CM will continue to follow. SDOH(Care Management) Screening Will the Patient Participate in the Screening?: Unable to obtain Do you worry about having a steady place to live?: no In the past 12 months, have you had to go without electric, gas, oil or water in your home?: no Have you or anyone in your house had to go without enough food to eat?: no Has lack of transportation kept you from medical appointments or from doing things needed for daily living?: no Has anyone in your support network made you feel unsafe for any reason?: no
[2024-05-11 20:55] VITALS: BP 124/87; PULSE 79; RESP 15; TEMP 37.6; O2SAT 96
[2024-05-11] MEDS: Atorvastatin 40 MG TAB 80 MG PO (21:14)
[2024-05-11] MEDS: Melatonin 3 MG TAB 9 MG PO (21:15)
[2024-05-11 22:35] VITALS: BP 117/79; PULSE 72; RESP 15; TEMP 37.1; O2SAT 95
[2024-05-12 07:24] LABS: HCT 37.9 % (36.0-46.0); HGB 12.4 g/dL (11.2-15.7); MCH 31.1 pg (27.0-33.0); MCHC 32.7 % (32.0-36.0); MCV 95 fL (80-95); MPV 9.7 fL (8.0-11.0); Platelet Count 293 10^3/uL (130-400); RBC 3.99 10^6/uL (3.93-5.22); RDW 12.6 % (11.7-14.6); RDW-SD 43.9 fL; WBC 7.88 10^3/uL (4.4-10.8)
[2024-05-12] MEDS: Multivitamin TAB 1 TAB PO (07:31)
[2024-05-12] MEDS: Pantoprazole 40 MG TABCR PO (07:31)
[2024-05-12] MEDS: Ezetimibe 10 MG TAB PO (07:32)
[2024-05-12] MEDS: amLODIPine 5 MG TAB PO (07:32)
[2024-05-12] MEDS: Losartan 50 MG TAB PO (07:32)
[2024-05-12] MEDS: Thiamine 100 MG TAB PO (07:32)
[2024-05-12] MEDS: Metoprolol CR 25 MG TABCR PO (07:32)
[2024-05-12] MEDS: buPROPion-XL 150 MG TABCR PO (07:32)
[2024-05-12] MEDS: Enoxaparin 40 MG/0.4 ML SYR SC (07:33)
[2024-05-12] MEDS: Normal Saline Flush 10 ML SYR IVP (07:33)
[2024-05-12] MEDS: Folic Acid 1 MG TAB PO (07:33)
[2024-05-12] MEDS: Aspirin E.C. 81 MG TABEC PO (07:33)
[2024-05-12 07:40] VITALS: BP 119/78; PULSE 66; RESP 17; TEMP 36.6; O2SAT 97
[2024-05-12 07:56] LABS: ALT 27 U/L (14-59); AST 14 U/L (15-37); Albumin 3.5 g/dL (3.4-5.0); Alkaline Phosphatase 95 U/L (46-116); Anion Gap 7.4 mmol/L (3-11); BUN 14 mg/dL (7-18); Bilirubin, Direct 0.1 mg/dL (0.0-0.2); CO2 27.6 mmol/L (21.0-32.0); CREATININE 0.9 mg/dL (0.55-1.02); Calcium 9.1 mg/dL (8.5-10.1); Chloride 106 mmol/L (98-107); Estimated GFR 71.39 (mL/min/1.73m2); Glucose 111 mg/dL (74-106); Magnesium 2.1 mg/dL (1.8-2.4); PHOSPHORUS 4.3 mg/dL (2.6-4.7); Potassium 4.1 mmol/L (3.5-5.1); Sodium 141 mmol/L (136-145); Total Protein 6.6 g/dL (6.4-8.2)
[2024-05-12] MEDS: Sertraline 100 MG TAB 150 MG PO (09:24)
[2024-05-12] MEDS: Docusate Sodium 100 MG CAP PO (09:24)
[2024-05-12] MEDS: Polyethylene Glycol 3350 17 GM PACKET PO (09:24)
--- NOTE | 2024-05-12 13:41 | PDOC.MHPN2 ---
Date of service: 05/12/24 Time of Service: 13:20 Suicide Severity Rate CSSRS Have you wished you were or wished you could go to sleep and not wake up?: No Have you actually had any thoughts of killing yourself?: No CSSRS3 Have you ever done anything, started to do anything or prepared to do anything to end your life?: Yes CSSRS4 Was this within the past three months?: Yes Screening Score Total Score: 4 Screening: Negative Mental Health Emergency Note Release [facility] release signed:: Yes Reason for Visit Bisi is at [facility] due to an intentional overdose on Benadryl. Bisi reported to [facility] Jorgemamary ann she wanted to go home, and [facility] asked for a [facility] to screen her and discuss options with Bisi. In the last 2 weeks has the pt presented for ES prior to today?: Unknown Client Information Client is: New Well Housed: Yes Non Suicidal Self Injury Current: No History: No Safety Risk/Harm to Self or Others Current Ideation to Harm Self or Others: No Risk: Does risk to harm exist?: No Risk: Low Risk Duty to warn indicated: No Asssessment/Mental Status Appearance: Unremarkable Attitude: Cooperative Behavior: Unremarkable Speech: Normal Affect: Cogruent with mood Mood: Stressed and Depressed Hallucinations: No evidence Delusions: No evidence Attention: Unremarkable Perception: Not impaired Orientation: Fully orientated Memory: Intact Insight: Fair Judgement: Fair Neurovegetative Symptoms Sleep: No change Appetitie: No change Interests: No change Energy: No change Libido: Not applicable Substance Use: Do you use nicotine?: No Have you used substances in the last 7 days?: yes, Bisi struggles with her alcohol consumption and is attempting to get sober again. Additional Issues: Assaultive/Threatening Behavior: No Medical Concerns: No Client engaged in active self harm w/weapon: No Threatening to run away: No Child reported abuse/neglect: No Voluntarily presenting for services: Yes Domestic violence is a concern: No Extreme Psychosis or extreme behavior is present: No Impression Bisi presents to this administrative underwriter laying in her hospital bed, Bisi reports she is feeling a lot better today than she was yesterday. Bisi reports 'what has changed' is that she plans to follow up with her primary care doctor to be set up with a psychiatrist or a psychologist in addition to getting sober. Bisi reports she began drinking 2-3 years ago after being sober for 28 years because she thought she could drink and not have a problem. Bisi reports recently her alcohol consumption has been increasing, no triggers just feeling like she wants to relax. Bisi was drinking at least 4 beers a day, but reports she does not want to drink anymore, and she knows she cannot drink. Bisi disclosed she is not currently attending and does not have a sponsor but plans to return to as this was very beneficial for her in the past and utilize a sponsor again. Bisi reports not only her , but her extended family and friends are very supportive of her want to be sober. Bisi has been with her for 32 years and reports they have a daphnie relationship. Bisi reports that she took the pills to end her life by suicide and knew it 'was an easy way out' but reports it was impulsive and happened while she was intoxicated. Bisi reports she has never endorsed suicidal ideation prior to this and is unsure what triggered these thoughts. On a self reported scale of 0-10, 0 being she could be safe at home and 10 being she would find a way to end her life, Bisi rates herself a 1 or 2. Bisi reports the time in the hospital has been helpful for her, she reports having a clearer mind, and having more reasons to want to live. Bisi discussed her job with [employer] and how she loves to help others which she feels is her purpose. Bisi also disclosed her , Chris has already dumped all of the alcohol and medications from their home where they live just the two of them. Bisi reports the rest of her family and friends are out of state as she is originally from [place]. 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 Bisi reports having a large jace background and plans to find peace and sobriety through confession and prayer. Bisi reports she is not currently set up with mental health services but [facility] Gayatri put a referral in for Bisi to begin therpay at [facility] and Bisi plans to begin seeing the psychiatrist at her PCP office. Bisi gave this administrative underwriter permission to speak to her to confirm the disposal of alcohol and medications, and also discuss what it would look like for Bisi to return home. Resources Reosurces reviewed and given:: Crisis Bed (Client denied the want to got to the Carebed or to inpatient treatment. ) Plan/Disposition Recommended Disposition: PCP/Office visit, [facility] Services [facility] Services: Therapy and Therapy. Plan: Bisi will be sent home on a safety plan that includes following up with her primary care doctor, being set up with a psychiatrist as well as a therapist, completing check in calls with [facility]. Bisi's Chris is on board for her to return home as well. Person reported agreement to plan: Yes Reports/communication Outcome discussed with: ED/Personnel
--- NOTE | 2024-05-12 14:20 | PDOC.CMDIS ---
Date of service: 05/12/24 Time of Service: 14:21 LACE Index Scoring Tool Questions: Length of Stay (in days): 3 Was the patient admitted via the E.D.?: Yes E.D. Visits: 1 Answers: Total Score: 7 Risk of Readmission: Low Risk Care Management Discharge Plan Reason for Hospitalization: Intentional Medication Overdose, ETOH abuse Discharge Plan: A safety plan is established with [facility]. Bisi will discharge home via private vehicle with her and follow up with community providers and her discharge plan of care as instructed. [facility] will also be following as an outpatient and will check in with patient regularly. Bisi may benefit from Behavioral Health through her PCP office, until she can see a counselor. Patient/Family Education Needs: Review discharge instructions, safety plan and plan to follow up with [facility] and community providers. Discuss ask me three. SDOH Health Related Social Needs: No Data to Display Referrals and interventions: unable to obtain at this time due to pt cognitive fct
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
--- NOTE | 2024-06-06 09:54 | NUR.NOTE ---
Access chart to determine who ordered the EKG on this patient. Nursing Note:
== END 2024-05-12 16:40 | disposition home or self-care (01) | DRG 918 ==
LOC: ER 23:22 → ICU 23:36 → MS 05-10 15:07
PROVIDERS: Family Medicine; Internal Medicine; Admitting Provider Family Medicine; Emergency Provider Emergency Medicine; PCP Family Medicine; Visit Provider Family Medicine
DX: T45.0X2A Poisoning by antiallergic and antiemetic drugs, intentional self-harm, initial encounter (principal); F33.1 Major depressive disorder, recurrent, moderate; F10.239 Alcohol dependence with withdrawal, unspecified; R00.0 Tachycardia, unspecified; I10 Essential (primary) hypertension; I25.10 Atherosclerotic heart disease of native coronary artery without angina pectoris; K21.9 Gastro-esophageal reflux disease without esophagitis; Z95.5 Presence of coronary angioplasty implant and graft; R73.03 Prediabetes; F22 Delusional disorders; R41.3 Other amnesia; M16.11 Unilateral primary osteoarthritis, right hip; E78.5 Hyperlipidemia, unspecified; G47.33 Obstructive sleep apnea (adult) (pediatric); Z87.891 Personal history of nicotine dependence; F10.229 Alcohol dependence with intoxication, unspecified
CPT/HCPCS: 00123; 36415; 51702; 80048; 80053; 80076; 80307; 82550; 82805; 85027; 93005; 96361; 96374; 99291; J1650; 80320; 80329; 81003; 83735; 84100; 84443; 84484; 85025; 93010; 99223; 99233; 99238; J0780; J2060; J2560; J3411; J7042

== ENCOUNTER 2024-06-12 21:16 | Outpatient (REF) | payer BC, SELFPAY ==
--- OUTSIDE RECORDS SUMMARY | 2024-06-12 21:19 | XMS_ITS | Clinical Summary ---
Author Organization [facility] Address [facility] [address] Care Team Providers Care Child Support Officer Name Role Phone ElifBeth shirley FLORENCIA Primary Care Provider [phone] Allergies No known active allergies Medications Medication Sig Dispensed Refills Start Date End Date Status pediatric multivitamin with iron chewable tablet Take 1 tablet by mouth daily. Active acetaminophen (TYLENOL) 500 mg tablet Take 1,000 mg by mouth every 6 hours as needed. Active clopidogrel (PLAVIX) 75 mg tablet Take 1 tablet by mouth daily. 30 tablet 03/27/2012 Active nitroGLYcerin (NITROSTAT) 0.[address] 1 tablet under the tongue every 5 minutes as needed for Chest pain. 15 tablet 03/27/2012 Active citalopram (CELEXA) 20 mg tablet Take 20 mg by mouth daily. Active aspirin 81 mg Tablet, Delayed Release (E.C.) Take 1 tablet by mouth daily. 30 tablet 3 07/05/2019 Active amLODIPine (NORVASC) 5 mg Tablet Take 1 tablet by mouth daily. 90 tablet 3 07/05/2019 Active metoprolol succinate (TOPROL-XL) 25 mg Tablet Sustained Release 24 hr Take 1 tablet by mouth daily. 30 tablet 07/05/2019 Active cyanocobalamin, vitamin B-12, 1,000 mcg Tablet Take 1,000 mcg by mouth daily. Active multivitamin with minerals (HAIR,SKIN AND NAILS ORAL) Take 1 tablet by mouth daily. Active atorvastatin (LIPITOR) 80 mg Tablet Take 80 mg by mouth daily. Active Active Problems Problem Noted Date Diagnosed Date NSTEMI (non-ST elevated myocardial infarction) 0 07/02/2019 ASCVD (arteriosclerotic cardiovascular disease) 08/15/2012 Overview (07/30/2019): Stress echo 05/09/12: Rest- LVEF 60%, mid ant and ant-lat hypokinesis, Stress- PHR-142, 10 METS, + atypical CP, no EKG changes, no ischemia Ant STEMI 03/24/12 TN-1.0 CK-833 Echocardiography 03/27/12: LVEF 60%, ant-apical hypokinesis, nlRV, PASP 24 mmHg, Echocardiography 03/24/12: LVEF 40%, ant-apical akinesis, nl RV Cardiac catheterization 03/24/12: LVEDP-25, 80% mid LAD, 100% ost D1, 50% mid RCA, 70% ost Acute joe S/p PCI 03/24/12: 80% mid LAD, SARAI 100% D1- unable to recannalize S/P Cardiac Cath 07/03/19 Conclusions: * Obstructive disease of the RCA * Successful stent insertion of the mid RCA lesion * Recommend continuing clopidogrel 75 mg PO daily for 12 months (see DAPT Recommendations above for more information Hypercholesterolemia 08/15/2012 Neck pain 08/15/2012 Dizzy spells 08/15/2012 Overview (08/15/2012): Ziopatch: 07/09/12: 7 days 20 hrs, 7 triggered events and 7 diary entries associated with symptoms of lightheadedness and dizziness, Rhythm was sinus with rare APC's and VPC's, Heart rate average was 75 bpm (45 - 145), No correlation between symptoms and arrhythmia Resolved with discontinuation of ARB Family History Medical History Relation Comments Heart Disease Brother Heart Disease Father Heart Disease Mother Relation Status Comments Brother Father Mother Social History Tobacco Use Types Packs/Day Years Used Date Smoking Tobacco: Former Cigarettes Q uit: 11/15/1988 Smokeless Tobacco: Never Alcohol Use Standard Drinks/Week Comments No 0 (1 standard drink = 0.6 oz pur e alcohol) Sex and Gender Information Value Date Recorded Sex Assigned at Not on file Gender Identity Not on file Sexual Orientation Not on file Last Filed Vital Signs Vital Sign Reading Time Taken Comments Blood Pressure 113/75 07/30/2019 10:56 AM EDT Pulse 80 07/30/2019 10:56 AM EDT Temperature 36.9 ??C (98.4 ??F) 07/04/2019 12:01 PM E DT Respiratory Rate 18 07/04/2019 12:01 PM EDT Oxygen Saturation 98% 07/30/2019 10:56 AM EDT Inhaled Oxygen Concentration - - Weight 83 kg (183 lb) 07/30/2019 10:56 AM EDT Height 154.9 cm (5' 1) 07/30/2019 10:56 AM EDT Body Mass Index 34.58 07/30/2019 10:56 AM EDT Plan of Treatment Health Maintenance Due Date Last Done Comments CT Colonography 1960 Colonoscopy 1960 Colorectal Cancer Screening 1960 FIT DNA 1960 FIT 1960 Sigmoidoscopy (10 year) with FIT yearly 1960 Sigmoidoscopy 1960 HIV screen 1978 Hepatitis C Screening 1978 Tdap adult 1979 Tetanus vaccine 1979 HPV test 1990 PAP Smear 1990 Breast Cancer Share Decision Needed 2000 Breast Cancer screening 2000 Zoster vaccine (1 of 2) 2010 Advance Directive 2015 Covid-19 Vaccine ( - 2022-2 4 season) 2023 Influenza (Flu) vaccine (1 o f 1 - Influenza standard series) 07/05/2024 Diabetes Screening (HgbA1C o r Glucose) Discontinued 07/03/2019, 07/03/2019, 07/02/2019, Additional history exists Procedures Procedure Name Priority Date/Time Associated Diagnosis Comments HC HEMOGLOBIN A1C Routine 07/03/2019 4:2 4 AM EDT from Last 3 Months or Most Recently Relevant to Health Maintenance Results * (ABNORMAL) Hemoglobin A1c (07/03/2019 4:24 AM EDT) Hemoglobin A1c 5.8(H) 4.3 - 5.6 % [facility] Comment: Reference Range: 4.3 - 5.6% 5.7 - 6.4% - Increased Risk of Developing Diabetes Mellitus >= 6.5% - Consistent with diagnosis of Diabetes Mellitus In the absence of hyperglycemia (i.e. plasma glucose > 200 mg/dL) or classic symptoms of hyperglycemia a repeat measurement of HbA1c should be performed on a separate sample to confirm the diagnosis. Diagnosis and Classification of Diabetes Mellitus, Diabetes Care 2013; 36: Suppl. 1, S67-74 Estimated Average Glucose 120 mg/dL [facility] Comment: eAG equivalents for HbA1c percentages: HbA1c(%) ?eAG(mg/dL) 6.0 ?126 6.5 ?140 7.0 ?154 7.5 ?169 8.0 ?183 8.5 ?197 9.0 ?212 9.5 ?226 10.0 ? 240 Limitations: The eAG calculation has not been validated on women, individuals below 18 years old and above 70 years old, and individuals with hemoglobinopathies. Additional resources are available on the ADA website. José Manuel BROWNLEE, Chari J, Omid R, et al. ??Translating the A1C assay into estimated average glucose values. ??Diabetes Care 2008:31(8):9222-4864. Blood specimen (specimen) 07/03/2019 4:24 AM EDT 07/03/2019 4:41 AM EDT Narrative Resulting Agency Comment Spec In Lab Jimenez Melchor MD CHEMISTRY ORDERABLES [facility] [place] [address] from Last 3 Months or Most Recently Relevant to Health Maintenance Advance Directives * Full Code (Latest Code Status on File) Date Activated Date Inactivated Comments 07/02/2019 1:42 AM 07/04/2019 4:57 PM Question Answer Comments Does patient have capacity to make decision: Yes * Full Code Date Activated Date Inactivated Comments 03/24/2012 4:29 PM 03/27/2012 5:28 PM Question Answer Comments Order Status: Initial Order Does patient have decision m aking capacity? Yes, Order is based on Patients wishes. Care Teams Child Support Officer Relationship Specialty Start Date End Date Beth Hannah, FLORENCIA [address] [place] [address] PCP - General Family Medicine 12/01/20
--- OUTSIDE RECORDS SUMMARY | 2024-06-12 21:19 | XMS_ITS | Encounter Summary ---
[place] [address] Care Team Providers Care Mail Clerk Bills Name Role Phone Mirta Garner Primary Care Provider + Encounter Details Date Type Department Care Team (Late st Contact Info) Description 07/07/2019 Telephone [place] [id number] Verena Dietz Social History Tobacco Use Types Packs/Day Years Used Date Smoking Tobacco: Former Cigarettes Q uit: 11/15/1988 Smokeless Tobacco: Never Alcohol Use Standard Drinks/Week Comments No 0 (1 standard drink = 0.6 oz pur e alcohol) Sex and Gender Information Value Date Recorded Sex Assigned at Not on file Gender Identity Not on file Sexual Orientation Not on file documented as of this encounter Miscellaneous Notes * Telephone Encounter - Verena Dietz - 07/07/2019 12:02 PM EDT F/u phone called made to patient was discharged over the weekend. Diana agreed to a referral to be sent to [facility] cardiac rehab program. documented in this encounter Plan of Treatment Not on file documented as of this encounter Visit Diagnoses Not on filedocumented in this encounter Care Teams Mail Clerk Bills Relationship Specialty Start Date End Date Mirta Garner PA PCP - General Orthopaedic Surgery 12/02/17 11/30/20 documented as of this encounter
--- OUTSIDE RECORDS SUMMARY | 2024-06-12 21:19 | XMS_ITS | Encounter Summary ---
Author Organization [facility] Address [facility] [place] [address] Care Team Providers Care Economic Manager Name Role Phone Mirta Garner Primary Care Provider + Encounter Details Date Type Department Care Team (Latest Contact Info) Description 07/30/2019 11:00 AM EDT Office Visit Cardiology at [address] [phone] Ciera Leonard PA [facility] [place] [address] ASCVD (arteriosclerotic cardiovascular disease) Social History Tobacco Use Types Packs/Day Years Used Date Smoking Tobacco: Former Cigarettes Q uit: 11/15/1988 Smokeless Tobacco: Never Alcohol Use Standard Drinks/Week Comments No 0 (1 standard drink = 0.6 oz pur e alcohol) Sex and Gender Information Value Date Recorded Sex Assigned at Not on file Gender Identity Not on file Sexual Orientation Not on file documented as of this encounter Last Filed Vital Signs Vital Sign Reading Time Taken Comments Blood Pressure 113/75 07/30/2019 10:56 AM EDT Pulse 80 07/30/2019 10:56 AM EDT Temperature - - Respiratory Rate - - Oxygen Saturation 98% 07/30/2019 10:56 AM EDT Inhaled Oxygen Concentration - - Weight 83 kg (183 lb) 07/30/2019 10:56 AM EDT Height 154.9 cm (5' 1) 07/30/2019 10:56 AM EDT Body Mass Index 34.58 07/30/2019 10:56 AM EDT documented in this encounter Patient Instructions * Patient Instructions* Ciera Leonard PA - 07/30/2019 11:[address] Jimmy Mcgraw to see patient in one year or sooner. He is in [facility] office. documented in this encounter Progress Notes * Ciera Leonard PA - 07/30/2019 11:00 AM EDT Images from the original note were not included. Formerly [facility] [place] [address] [address] General Cardiology Follow Up Subjective: Patient ID: Diana Landry is a 59 y.o. female. CC: Follow up of discharge on 07/04/19, when she bends over she sometimes feels lightheaded she reports. This happens once a day when she is bending down to sweet pickled fruit maker something. Cardiac rehab starts on Saturday. She thinks she may not be drinking enough water at home. 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 She reports that she has now stopped taking her zestril due to cough. HPI: 59 y.o. female with past medical history of the following per discharge on 07/04/19: Diana Landry is a 59 year-old female with a PMHx of HTN, HLD, former 30 pack- year smoker, ASCVD (s/p PCI to mLAD 2011), and MDD, who presents as a transfer from [facility] for ischemia evaluation.? Since this morning patient reports vertigo with the sensation of the room spinning. This sensation waxed and waned throughout the day. She had minimal appetite and skipped dinner. She went to bed early however was woken up around 1999 by substernal chest pain. Initially there was no radiation but gradually it was radiating to the back. She had no diaphoresis but had significant nausea with non-bloody emesis. She took 2 nitroglycerin with no relief so decided to call EMS who provided ASA 324, sub-lingual nitroglycerin, and ondansetron. ?? On arrival to the ED she endorsed significant chest pain radiating to the back, nausea, and lightheadedness. Initial vitals were notable for HR 78, BP 102/77, SpO2 95% RA, RR 21, T 36.7. She was given a 500cc saline bolus, morphine 5mg IV, and continued on nitroglycerin gtt. EKG showed STD and TWI in V1-V3. Troponin-I was undetectable. CTA chest was done to rule-out dissection and revealed no aneu rysm or dissection. Repeat EKG showed worsening STD and slight ST upstroke in leads 2 and 3. She was given additional phenergan for nausea and developed transient tachycardia so was given metoprolol 5mg IV. Prior to transfer patient was given Plavix 300mg, heparin bolus and drip. Posterior EKG did not show definitive ischemic changes. ?? On encounter in the [facility], patient denied chest pain, vertigo, and nausea. She said she felt off but was otherwise asymptomatic.Coronary history is notable for anterior STEMI in 2011 for which she received lytics and LHC revealed 80% mLAD stenosis and ostial segment of the second diagonal branch of LAD with 100% stenosis. Thrombectomy and stent insertion were done on the diagonal however outcomewas deemed unsuccessful due to presence of a significantly decreased distal flow. The patient had recurrent chest pain in July 2013, one month after stopping Plavix. LHC revealed 50% RCA stenosis, 50% stenosis of the first diagonal branch of LAD, and total occlusion of the second diagonal branch of the LAD. There was no intervention done.? Hospital Course: ?? Type I NSTEMI due to acute plaque rupture: She was loaded with ASA/plavix and started on a heparin gtt. She was taken to the laboratory specialist where she was noted to have 3 vessel disease (D1, OM1, RCA). Successful stent insertion was done to the mid OM1 lesion. Her medications began to be optimized, initiating her on atorvastati, metoprolol, lisinopril in addition to the ASA and plavix. She was persistently hypertensive and amlodipine was startedas well. She underwent staged intervention to RCA. She remained chest pain free post-procedure. Hypertension improved on optimized medical therapy. We discharged her on 07/04/2019. ?? Important Studies and Lab Data: ?? Discharge Labs: Recent Labs 07/04/19 0443 07/03/19 0424 07/02/19 0110 WBC 7.6 7.4 9.3 HGB 13.3 13.6 13.1 PLATELET 244 224 294 Recent Labs 07/03/19 0424 07/02/19 0110 NA 142 144 K 3.6 4.4 CL 106 108* CO2 24 23 BUN 10 16 CREATININE 0.63* 0.58* GLUCOSE -- 153 Recent Labs 07/03/19 0424 07/02/19 0110 CALCIUM 9.0 9.0 MAGNESIUM -- 0.90 PHOS -- 4.0 ?? Recent Labs 07/03/19 0424 07/02/19 1800 07/02/19 1155 TROPONINT 1.26* 3.12* 3.11* ?? Recent Labs 07/02/19 0110 AST 13 ALT 16 ALKPHOS 85 BILITOT <0.2* ?? Recent Labs 07/02/19 0110 INR 1.0 ?? Lab Results Component Value Date ?? CHLPL 264 07/03/2019 ?? HDL 37 07/03/2019 ?? CHOLHDL 7.1 07/03/2019 ?? TRIG 231 07/03/2019 ?? LDLCHOL 181 07/03/2019 ?? LDLDIRECT 201 07/03/2019 ?? Recent Labs 07/03/19 0424 HA1C 5.8* ? Studies: TTE 07/02/2019 SUMMARY: ?? 1. The left ventricular chamber size is normal. ??Left ventricular wall thickness is normal. ??Global left ventricular systolic function is mildly reduced. ??Ejection fraction is estimated to be 50%. ??There are left ventricular segmental wall motion abnormalities present, as shown in the diagram below. 2. Right ventricular chamber size, wall thickness, and systolic function are within normal limits. 3. See remainder of report for additional findings. 4. When compared to previous echo last night -- contrast brings out regional wall motion abnormalities. ?? EKG 07/03/2019 NSR? Cardiac Catheterization 07/02/2019: Left Main ?There was mild diffuse (<=25% stenosis) disease of the entire vessel ?segment of the left main artery. ??The left main was large. ?Left Anterior Descending ?There was mild diffuse (<=25% stenosis) disease of the entire vessel ?segment of the left anterior descending artery (LAD). ??The LAD was ?moderate in size. ?There was a single discrete total occlusion of the ostial segment of ?the first diagonal branch (Diagonal 1) of the LAD. ?Left Circumflex ?There was mild diffuse (<=25% stenosis) disease of the entire vessel ?segment of the left circumflex artery (LCX). ??The LCX was moderate ?in size. ?There was a single discrete total occlusion of the mid segment of ?the first obtuse marginal branch (OM1) of the LCX. ??The OM1 was ?moderate in size. ?There was mild diffuse (<=25% stenosis) disease of the entire vessel ?segment of the left posterior descending branch (LPDA) of the LCX. ?The LPDA was moderate in size. ?Right Coronary Artery ?There was an 80% single discrete stenosis of the mid segment of the ?right coronary artery (RCA). ??The RCA was moderate in size. ?There was mild diffuse (<=25% stenosis) disease of the entire vessel ?segment of the right posterior descending branch (RPDA) of the RCA. ?The RPDA was small. ? Indication for Intervention: ?Coronary intervention was indicated for primary therapy for an acute ?myocardial infarction. The priority for the procedure was Urgent. The ?NCDR indication for the procedure was NSTE-ACS. ? Intervention Summary: ?First Obtuse Marginal Branch of the LCX ?Mid 100% ?Stent insertion was performed on the total occlusion in the ?mid segment of the OM1. This was a de emily lesion. According ?to the ACC/AHA classification system, this lesion was a type C ?high risk lesion. Primary prevention of restenosis was the ?indication for stent insertion. This was the culprit lesion. A ?guidewire was placed across this lesion. Vessel flow pre ?intervention was CLAY 0. Lesion length was 10mm. ?Stent insertion was accomplished through a 6 Fr. EBU 3.5 ?guide. ??The lesion was predilated with a 2.50mm EUPHORA 15 MM ?balloon with a maximum inflation pressure of 12 atmospheres. ?A premounted 2.75 x 16 mm Promus ELITE US MR (SARAI) was ?deployed with a maximum inflation pressure of 16 atmospheres. ?The final outcome was defined as successful. There was no ?residual stenosis following this intervention. The final CLAY ?flow was 3.? Cardiac Catheterization 07/03/2019 ?Intervention Summary: ?Right Coronary Artery ?Mid 80% ?Stent insertion was performed on the 80% stenosis in the mid ?segment of the RCA. This was a de emily lesion. According to ?the ACC/AHA classification system, this lesion was a type B2 ?moderate risk lesion. Primary prevention of restenosis was the ?indication for stent insertion. This was the culprit lesion. A ?guidewire was placed across this lesion. Vessel flow pre ?intervention was CLAY 3. Lesion length was 15mm. The lesion ?involves a bifurcation with the AcM. This bifurcation lesion ?was treated with a single stent, side branch jailed and not ?treated technique. ?Stent insertion was accomplished through a 6 Fr. JR 4 guide. ?The lesion was predilated with a 2.00mm APEX 20 MM balloon ?with a maximum inflation pressure of 6 atmospheres. ??A ?premounted 2.50 x 30 mm Resolute WILBUR (SARAI) was deployed with ?a maximum inflation pressure of 14 atmospheres. ?The final outcome was defined as successful. There was no ?residual stenosis following this intervention. The final CLAY ?flow was 3 INTERIM: No ED visits or hospitalizations. TODAY: She denies any chest pain, shortness of breath, palpitations, near- syncope, or syncopal events. SBP is 113/75 and HR is 80 today in clinic. 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 Feels tired at the end of the day now after work. Active Ambulatory Problems Diagnosis Date Noted ??? ASCVD (arteriosclerotic cardiovascular disease) 08/15/2012 ??? Hypercholesterolemia 08/15/2012 ??? Neck pain 08/15/2012 ??? Dizzy spells 08/15/2012 ??? NSTEMI (non-ST elevated myocardial infarction) 07/02/2019 Resolved Ambulatory Problems Diagnosis Date Noted ??? No Resolved Ambulatory Problems No Additional Past Medical History ROS: glasses Constitutional: - fatigue, - fever, - chills Respiratory: - shortness of breath, - cough, - apnea, - wheezing Cardiovascular: - chest pain, - palpitations, - unusual rates Gastrointestinal: - nausea, - vomiting, - abdominal pain, - diarrhea Neurological: - lightheadedness, - dizziness, - syncope, - weakness Psychiatric: - anxious Medications: Current Outpatient Medications Medication Sig Dispense Refill ??? cyanocobalamin, vitamin B-12, 1,000 mcg Tablet Take 1,000 mcg by mouth daily. ??? multivitamin with minerals (HAIR,SKIN AND NAILS ORAL) Take 1 tablet by mouth daily. ??? aspirin 81 mg Tablet, Delayed Release (E.C.) Take 1 tablet by mouth daily. 30 tablet 3 ??? amLODIPine (NORVASC) 5 mg Tablet Take 1 tablet by mouth daily. 90 tablet 3 ??? lisinopril (PRINIVIL;ZESTRIL) 20 mg Tablet Take 1 tablet by mouth daily. 90 tablet 3 ??? metoprolol succinate (TOPROL-XL) 25 mg Tablet Sustained Release 24 hr Take 1 tablet by mouth daily. 30 tablet 12 ??? citalopram (CELEXA) 20 mg tablet Take 20 mg by mouth daily. ??? clopidogrel (PLAVIX) 75 mg tablet Take 1 tablet by mouth daily. 30 tablet 12 ??? nitroGLYcerin (NITROSTAT) 0.[address] 1 tablet under the tongue every 5 minutes as needed for Chest pain. 15 tablet 12 ??? pediatric multivitamin with iron chewable tablet Take 1 tablet by mouth daily. ??? acetaminophen (TYLENOL) 500 mg tablet Take 1,000 mg by mouth every 6 hours as needed. Objective: Vitals: Vitals: 07/30/19 1056 BP: 113/75 Pulse: 80 SpO2: 98% Weight: 83 kg (183 lb) Height: 154.9 cm (5' 1) Physical Exam: Glasses General- No acute distress, sitting comfortably in exam room chair HEENT- Head atraumatic, normocephalic Skin- Warm, dry, and intact Neck- No JVD noted Cardiovascular- S1/S2 regular rate and rhythm. No murmur, rub or gallop Lungs- Clear to auscultation bilaterally Extremities- Pulses equal bilaterally. No edema noted Neuro- A&Ox3 Diagnostics: ECG on 07/04/19: Normal sinus rhythm Nonspecific T wave abnormality Abnormal ECG When compared with ECG of 03-JUL-2019 13:39, (unconfirmed) Nonspecific T wave abnormality now evident in Lateral leads Echo 07/02/19: LVEF 50% Cath 07/03/19 Conclusions: * Obstructive disease of the RCA * Successful stent insertion of the mid RCA lesion * Recommend continuing clopidogrel 75 mg PO daily for 12 months (see DAPT Recommendations above for more information Assessment and Plan: 59 y.o. with medical history significant for ASCVD, HTN, Dyslipidemia, Obesity and borderline DM. Cough with zestril so this was stopped. She is still on lipitor therapy. Patient would like to follow-up in [place], [place] in the future as it is closer for her. Stable Plan: Problem List Items Addressed This Visit ASCVD (arteriosclerotic cardiovascular disease) ASCVD, s/p PCI of RCA 07/03/19 She will start Cardiac rehab next week on M,W,F Toprol, asa, plavix, nitro prn and lipitor zestril stopped due to cough she said Nitro prn RTC in a year or sooner if need be HTN BP is 113/75 and HR 80 Continue on current medications Dyslipidemia Continue lipitor daily Diet and exercise addressed Obesity Body mass index is 34.58 kg/m??. Diet and exercise reviewed Patient would like to follow-up in the future with Dr[facility] Mc[facility] as [place] is closer to home. She RTC here as needed SUKHWINDER Barrios 07/30/2019 Pager [phone] Cardiovascular Medicine 07/30/2019 There are no Patient Instructions on file for this visit. documented in this encounter Miscellaneous Notes * Addendum Note - Jamie Monahan LNA - 07/30/2019 11:00 AM EDTAddended by: JAMIE MONAHAN on: 07/30/2019 01:49 PM Modules accepted: Orders documented in this encounter Plan of Treatment Not on file documented as of this encounter Visit Diagnoses Diagnosis ASCVD (arteriosclerotic cardiovascular disease) Unspecified cardiovascular disease documented in this encounter Care Teams Economic Manager Relationship Specialty Start Date End Date Mirta Garner PA PCP - General Orthopaedic Surgery 12/02/17 11/30/20 documented as of this encounter
--- OUTSIDE RECORDS SUMMARY | 2024-06-12 21:19 | XMS_ITS | Encounter Summary ---
Author Organization [facility] [place] [address] Care Team Providers Care Regional Account Director Name Role Phone Mirta Garner Primary Care Provider + Encounter Details Date Type Department Care Team (Latest Contact Info) Description 09/14/2020 3:58 PM EST - 09/14/2020 11:59 PM [facility] Hospital [place] [address] Discharge Disposition: Home Social History Tobacco Use Types Packs/Day Years Used Date Smoking Tobacco: Former Cigarettes Q uit: 11/15/1988 Smokeless Tobacco: Never Alcohol Use Standard Drinks/Week Comments No 0 (1 standard drink = 0.6 oz pur e alcohol) Sex and Gender Information Value Date Recorded Sex Assigned at Not on file Gender Identity Not on file Sexual Orientation Not on file documented as of this encounter Medications at Time of Discharge Medication Sig Dispensed Refills Start Date End Date cyanocobalamin, vitamin B-12, 1,000 mcg Tablet Take 1,000 mcg by mouth daily. multivitamin with minerals (HAIR,SKIN AND NAILS ORAL) Take 1 tablet by mouth daily. atorvastatin (LIPITOR) 80 mg Tablet Take 80 mg by mouth daily. aspirin 81 mg Tablet, Delayed Release (E.C.) Take 1 tablet by mouth daily. 30 tablet 3 07/05/2019 amLODIPine (NORVASC) 5 mg Tablet Take 1 tablet by mouth daily. 90 tablet 3 07/05/2019 metoprolol succinate (TOPROL-XL) 25 mg Tablet Sustained Release 24 hr Take 1 tablet by mouth daily. 30 tablet 12 07/05/2019 citalopram (CELEXA) 20 mg tablet Take 20 mg by mouth daily. clopidogrel (PLAVIX) 75 mg tablet Take 1 tablet by mouth daily. 30 tablet 03/27/2012 nitroGLYcerin (NITROSTAT) 0.[address] 1 tablet under the tongue every 5 minutes as needed for Chest pain. 15 tablet 12 03/27/2012 pediatric multivitamin with iron chewable tablet Take 1 tablet by mouth daily. acetaminophen (TYLENOL) 500 mg tablet Take 1,000 mg by mouth every 6 hours as needed. documented as of this encounter Plan of Treatment Not on file documented as of this encounter Procedures Procedure Name Priority Date/Time Associated Diagnosis Comments COVID-19 PCR Routine 09/14/2020 10:35 AM EST documented in this encounter Results * COVID-19 PCR (09/14/2020 10:35 AM EST) SARS-CoV-2 RNA Not Detected Not Detected [facility] Comment: This result should be interpreted in combination with the clinical observations, patient history and epidemiological information in making a final diagnosis. For testing of asymptomatic individuals, assay performance characteristics and clinical utility have not been evaluated. Testing for SARS-CoV-2 (Severe acute respiratory syndrome coronavirus 2, formerly known as 2019 novel coronavirus or 2019-nCoV) to aid in the diagnosis of COVID-19 is performed using the [employer] RealTime SARS-CoV-2 Assay as authorized by the FDA Emergency Use Authorization (EUA). This EUA assay is intended for In-vitro Diagnostic (IVD) use with respiratory specimens such as nasopharyngeal swabs collected from individuals during the acute phase of infection. This assay is performed based on the instructions for use provided by [employer] and additional guidance provided by CDC and FDA. Testing is performed in the [facility] within the Department of Pathology and Laboratory Medicine at [facility], certified under the Clinical Laboratory Improvement Amendments of 1988 (CLIA), 42 U.S.C. 263a, to perform high complexity tests. Assay performance has been verified according to clinical laboratory regulatory requirements for use with specimens collected from individuals suspected of COVID-19. Test results are provided above. A result of ? Not Detected? indicates that the viral RNA target is not present above the limit of detection, but does not preclude SARS-CoV-2 infection. False negative results may occur if a specimen is improperly collected, transported or handled; if amplification inhibitors are present; or if inadequate numbers of viral particles are present in the specimen. When a diagnostic test is negative, the possibility of a false negative result should be considered in the context of a patient? s recent exposures and the presence of clinical signs and symptoms consistent with COVID-19. A result of ? Detected? indicates that RNA from SARS-CoV-2 was detected and the patient is infected. As required or requested by public health authorities, positive specimens may be sent for additional testing. Positive and negative predictive values for this test are highly dependent on disease prevalence. A result of ? Invalid? indicates that neither the viral RNA targets nor the internal control target was detected. An invalid result suggests the presence of inhibitors. Recollection and re-testing is recommended in the case of an invalid result. CDC COVID-19 criteria for testing on human specimens and clinical management guidance information are available at the CDC Coronavirus Disease 2019 (COVID-19) webpage under ? Information for Healthcare Professionals? (https://www.cdc.gov/coronavirus/2019-ncov/hcp/index.html) Additional information about this and other EUA tests can be found in provider and patient fact sheets at the following FDA website: https://www.fda.gov/medical-devices/zpzuenagzmd-faevush-8296-kyojy-81-nksemzhhy- use-a hqghagqilbkcn-ehoyjmh-xnbtryo/xhsdh-agikxsvtfjv-ztov SARS-CoV-2 RNA Source Nasal [facility] Specimen from nose (specimen) Other / Unknown 09/14/2020 10:35 AM EST 09/16/2020 12:48 AM EST Narrative Resulting Agency Comment Spec In Lab SUKHWINDER Jimenez MOLECULAR ORDERABL ES [facility] [place] [address] documented in this encounter Visit Diagnoses Not on filedocumented in this encounter Care Teams Regional Account Director Relationship Specialty Start Date End Date Mirta Garner PA PCP - General Orthopaedic Surgery 12/02/17 11/30/20 documented as of this encounter
--- OUTSIDE RECORDS SUMMARY | 2024-06-12 21:20 | XMS_ITS | Encounter Summary ---
Author Organization [facility] [place] [address] Care Team Providers Care Hha Name Role Phone Samia Pinto MD Primary Care Provider [phone] Encounter Details Date Type Department Care Team (Late st Contact Info) Description 07/13/2013 7:30 AM EDT - 07/13/2013 8:30 AM EDT Surgery [employer] [place] [address] Channing Yuan MD [facility] [place] [address] CARDIAC CATHETERIZATION Social History Tobacco Use Types Packs/Day Years [...] Sign Reading Time Taken Comments Blood Pressure 134/93 07/13/2013 6:42 AM EDT Pulse 64 07/13/2013 6:42 AM EDT Temperature 36.6 ??C (97.9 ??F) 07/13/2013 6:42 AM ED T Respiratory Rate 16 07/13/2013 6:42 AM EDT Oxygen Saturation 99% 07/13/2013 6:42 AM EDT Inhaled Oxygen Concentration - - Weight - - Height - - Body Mass Index - - documented in this encounter Discharge Instructions * Discharge Instructions* Maite Toro RN - 07/13/2013 10:20 AM EDT Activity If you are discharged the same day as your procedure, do not drive yourself home. Arrange to have another person drive. You may walk around when you get home, but keep your activity at a minimum until the morning. Do not bend over, strain, or lift heavy objects for 24 hours after the procedure. Do not participate in active sports for 48 hours. You may engage in sexual activity after 48 hours. These restrictions will not apply if the catheter was placed in a blood vessel in your arm. Catheter Insertion Area Care Take the band-aid off the catheter insertion area the morning following the procedure. You may takea shower if you wish. Wash the area with soap and water. Look for signs of infection over the next several days. A little spot of blood at the catheter insertion area is not unusual. A bruise or small lump under the skin is normal; they generally disappear in 3-4 days. For the first several days at home if you cough or sneeze, hold your groin to help prevent bleeding. Expect some mild tenderness over the area where the catheter was inserted. You will notice this after the local anesthetic (numbing medicine) wears off. This should improve during the 24-48 hours after the procedure. Take tylenol if needed. Contact your doctor if the discomfort worsens. Problems to Watch For If there is bright red blood flowing from the catheter insertion area: *stop what you are doing and lie down *Hold pressure steadily on the area for 15 minutes *Call for Help *If the bleeding does not stop in 15 minutes call 911 for an ambulance. If there is swelling with black and blue color at the catheter insertion area, there may be bleeding inside. Contact the doctor if there is any increase in size. Look at the insertion site for the first few days at home. Signs of infection are: *redness *Swelling *Yellow, white, green or brown foul smelling drainage. *increased soreness If you think there is an infection, take your temperature. Then call your doctor. The limb on the side where you had your catheterization should look and feel normal in its color, sensation, and temperature. If your leg becomes cool, pale, blue or changing color with numbness and tingling, contact your doctor. If you feel faint or dizzy, lie down with your feet elevated. Have someone call the doctor. If you are alert, drink fluids. How to Deal with Chest pain If you had only the cardiac catheterization, treat any angina or chest discomfort as instructed. Stop what you are doing, and sit or lie down. If prescribed, take nitroglycerin under your tongue. If the angina isn't relieved, take another nitroglycerine in 5 minutes. After another 5 minutes, a third nitroglycerine may be taken. If the angina isn't improved you should call for an ambulance to bring you to the nearest hospital emergency room. If your angina is more frequent or more sever than before, contact your doctor. We usually would not expect to have angina after an angioplasty. If you do get angina, treat it as you did before but also contact your doctor. Return to Work The doctor will usually have told you when to return to work. If you do not perform heavy physical labor, most people can return to work in a few days. Diet Follow your previous diet unless otherwise instructed. Cardiac Risk Factors If you have coronary artery disease, it is important that you help control it by reducing your cardiac risk factors. If you smoke, we urge you to stop now. If you think this is going to be a problem,let us know so that we may help you. We have dieticians who can help you learn about low fat, low cholesterol diet. Cardiac rehabilitation programs can help you set up a regular exercise program. Work with your doctor if you have high blood pressure or sugar diabetes to keep these under control. Medications ____Take your usual medications ____Medication changes: If you are taking medicines prescribed by your doctor, do not take any [id number] medicines or herbal preparations without first discussing this with your doctor or pharmacist. There is the possibility of side effect and interactions when these are combined. Follow up Care Who to Call with Questions or Problems If there are any questions or problems that you think might be related to your cardiac cath or angioplasty, contact the baseball hand sewer ultrasound applications specialist by calling [facility] at [phone]. 1. You may have received medication before and/or during your procedure, which affects judgment andreaction time. 2. Do not drive, operate machinery, drink alchololic beverages, or make important decisions for 24 hours. 3. Be careful on stairs, as you may be unsteady on your feet. 4. You may eat a regular diet as tolerated. 5. Do not smoke if you are alone. 6. IV site- slight redness or tenderness is normal, you can use warm compresses. If tenderness and redness increases or foul drainage occours, please contact your M.D. documented in this encounter Medications at Time of Discharge Medication Sig Dispensed Refills Start Date End Date citalopram (CELEXA) 20 mg tablet Take 20 mg by mouth daily. clopidogrel (PLAVIX) 75 mg tablet Take 1 tablet by mouth daily. 30 tablet 12 03/27/2012 nitroGLYcerin (NITROSTAT) 0.[address] 1 tablet under the tongue every 5 minutes as needed for Chest pain. 15 tablet 12 03/27/2012 pediatric multivitamin with iron chewable tablet Take 1 tablet by mouth daily. acetaminophen (TYLENOL) 500 mg tablet Take 1,000 mg by mouth every 6 hours as needed. aspirin 325 mg tablet Take 162 mg by mouth daily. 07/04/2019 simvastatin (ZOCOR) 40 mg tablet Take 40 mg by mouth nightly. 07/04/2019 metoprolol tartrate (LOPRESSOR) 25 mg tablet Take 1 tablet by mouth 2 times daily. 60 tablet 12 03/27/2012 07/04/2019 [place]-3 Fatty Acids (FISH OIL) 500 mg Cap Take 1,000 mg by mouth. 07/30/2019 documented as of this encounter H&P Notes * Naldo Naidu - 07/13/2013 7:33 AM EDT Pre-Cardiac Catheterization 24 hr Update: Please see Dr. Yuan's note dated 07/10/13 for full details regarding reason for referral for cardiac catheterization. In short, Mrs. Landry is a 53 y/o female s/p an anterior STEMI (V1-V6) who received lytics urgently and was found to have a 90% LAD involving the Diag 2 lesion which was stented w/ SARAI in 2011. I month ago she developed new symptoms after stopping her plavix (which had been on for 15 months s/p stent). Cath also showed 50% RCA. There has been no significant interval change in clinical status since that visit. Last value Range last 24 hrs Temperature Temp: 36.6 ??C (97.9 ??F) Temp: [36.6 ??C (97.9 ??F)] Heart Rate Heart Rate: 64 Heart Rate: [64] Blood Pressure BP: 134/93 mmHg BP: (134)/(93) Respiratory Rate Resp: 16 Resp: [16] SpO2 SpO2: 99 % SpO2: [99 %] VS and labs are stable. PE shows no interval changes. Heart is normal S1/S2, no M/G/R. R wrist Lionel test is normal. No femoral bruits auscultated. No active bleeding issues. Pertinent tests: A/P: CAD -The patient is a +candidate for a SARAI. -The risks and benefits of the cardiac catheterization were reviewed in detail with the patient. -Proceed with catheterization as planned documented in this encounter Miscellaneous Notes * Miscellaneous - Provider, Scanning - 07/13/2013 2:29 PM EDT documented in this encounter Plan of Treatment Not on file documented as of this encounter Procedures Procedure Name Priority Date/Time Associated Diagnosis Comments PROTHROMBIN TIME STAT 07/13/2013 6:37 AM EDT ASCVD (arteriosclerotic cardiovascular disease) documented in this encounter Results * (ABNORMAL) Prothrombin Time (07/13/2013 6:37 AM EDT) Prothrombin Time 11.9(L) 12.0 - 15.0 sec [employer]ULL[employer] Comment: [facility] Transfusion Committee Guidelines: INR less than 2.0, PTT less than OR equal to 43.5 seconds, or Fibrinogen greater than or equal to 100 mg/dl indicate adequate procoagulant activity for hemostasis in patients without underlying bleeding disorders. International Normalization Ratio 0.8(L) 0.9 - 1.1 SULLY [employer] Blood specimen (specimen) 07/13/2013 6:37 AM EDT 07/13/2013 6:42 AM EDT Narrative Resulting Agency Comment Spec In Lab Daryl Whelan MD HEMATOLOGY ORDERABLE S SULLY JONES documented in this encounter Visit Diagnoses Diagnosis ASCVD (arteriosclerotic cardiovascular disease)- Primary Unspecified cardiovascular disease ASCVD (arteriosclerotic cardiovascular disease) Unspecified cardiovascular disease documented in this encounter Administered Medications Inactive Administered Medications - up to 3 most recent administrations Medication Order MAR Action Action Date Dose Rate Site acetaminophen (TYLENOL) 325 mg tablet 1 dose, Starting on Sat07/13/13 at 1120, Until Sat07/13/13 at 1118, MAITE TORO: cabinet override Given 07/13/2013 11:18 AM EDT 650 mg diaZEPam (VALIUM) tablet 5 mg 5 mg, Oral, ONCE, 1 dose, On Sat07/13/13 at 0700, Cath (Day of Procedure), Routine Given 07/13/2013 7:43 AM EDT 5 mg diphenhydrAMINE (BENADRYL) capsule 25 mg 25 mg, Oral, ONCE, 1 dose, On Sat07/13/13 at 0700, Cath (Day of Procedure), Routine Given 07/13/2013 7:43 AM EDT 25 mg fentaNYL 50mcg/mL injection ONCE PRN, Starting on Sat07/13/13 at 0829, Until Sat07/13/13 at 0918, Pain, Intra-Operative (Intra-Procedure), Routine Given 07/13/2013 8:29 AM EDT 25 mcg heparin (porcine) injection ONCE PRN, Starting on Sat07/13/13 at 0835, Until Sat07/13/13 at 0918, Cath (Intra-Procedure), Routine Given 07/13/2013 8:35 AM EDT 2,000 Units iohexol (OMNIPAQUE) 350 mg iodine/mL injection ONCE PRN, Starting on Sat07/13/13 at 0916, Until Sat07/13/13 at 0918, Per Protocol, Cath (Intra-Procedure), Routine Given 07/13/2013 9:16 AM EDT 120 mLs midazolam (VERSED) injection ONCE PRN, Starting on Sat07/13/13 at 0828, Until Sat07/13/13 at 0918, Sleep, Cath (Intra-Procedure), Routine Given 07/13/2013 8:28 AM EDT 1 mg sodium chloride 0.9 % flush 5 mL 5 mL, Intravenous, EVERY 12 HOURS, First dose on Sat07/13/13 at 0700, Until Discontinued, Cath (Day of Procedure), Routine Given 07/13/2013 7:43 AM EDT 5 mLs sodium chloride 0.9% infusion 200 mL/hr, Intravenous, CONTINUOUS, Starting on Sat07/13/13 at 0700, Until Sat07/13/13 at 0918, Cath (Day of Procedure) New Bag 07/13/2013 7:43 AM EDT 200 mL/hr 200 mL/hr sodium chloride 0.9% infusion 100 mL/hr, Intravenous, CONTINUOUS, Starting on Sat07/13/13 at 0945, Until Sat07/13/13 at 1244 New Bag 07/13/2013 9:38 AM EDT 100 mL/hr 100 mL/hr documented in this encounter Active and Recently Administered Medications Times are shown in EDT. Scheduled Medication Order 07/11/2013 07/12/2013 07/13/2013 diaZEPam (VALIUM) tablet 5 mg (COMPLETED) 5 mg, Oral, ONCE, 1 dose, On Sat07/13/13 at 0700, Cath (Day of Procedure), Routine 0743 (Given - Provid er: Maite Toro RN) diphenhydrAMINE (BENADRYL) capsule 25 mg (COMPLETED) 25 mg, Oral, ONCE, 1 dose, On Sat07/13/13 at 0700, Cath (Day of Procedure), Routine 0743 (Given - Provid er: Maite Toro RN) sodium chloride 0.9 % flush 5 mL (CANCELED) 5 mL, Intravenous, EVERY 12 HOURS, First dose on Sat07/13/13 at 0700, Until Discontinued, Cath (Day of Procedure), Routine 0743 (Given - Provid er: Maite Toro RN) Continuous Medication Order 07/11/2013 07/12/2013 07/13/2013 sodium chloride 0.9% infusion (CANCELED) 200 mL/hr, Intravenous, CONTINUOUS, Starting on Sat07/13/13 at 0700, Until Sat07/13/13 at 0918, Cath (Day of Procedure) 0743 (New Bag - Prov ider: Maite Toro RN) sodium chloride 0.9% infusion () 100 mL/hr, Intravenous, CONTINUOUS, Starting on Sat07/13/13 at 0945, Until Sat07/13/13 at 1244 0938 (New Bag - Prov ider: Edwin Valentine, RN) PRN Medication Order 07/11/2013 07/12/2013 07/13/2013 fentaNYL 50mcg/mL injection (CANCELED) ONCE PRN, Starting on Sat07/13/13 at 0829, Until Sat07/13/13 at 0918, Pain, Intra-Operative (Intra-Procedure), Routine 0829 (Given - Provid er: Troy Umaña RN) heparin (porcine) injection (CANCELED) ONCE PRN, Starting on Sat07/13/13 at 0835, Until Sat07/13/13 at 0918, Cath (Intra-Procedure), Routine 0835 (Given - Provid er: Channing Yuan MD - Comment: Given IA in [employer]) iohexol (OMNIPAQUE) 350 mg iodine/mL injection (CANCELED) ONCE PRN, Starting on Sat07/13/13 at 0916, Until Sat07/13/13 at 0918, Per Protocol, Cath (Intra-Procedure), Routine 09 (Given - Provid er: Channing Yuan MD - Comment: Contrast in [employer]) midazolam (VERSED) injection (CANCELED) ONCE PRN, Starting on Sat07/13/13 at 0828, Until Sat07/13/13 at 0918, Sleep, Cath (Intra-Procedure), Routine 0828 (Given - Provid er: Troy Umaña RN) No Frequency Medication Order 07/11/2013 07/12/2013 07/13/2013 acetaminophen (TYLENOL) 325 mg tablet (COMPLETED) 1 dose, Starting on Sat07/13/13 at 1120, Until Sat07/13/13 at 1118, MAITE TORO: cabinet override 1118 (Given - Provid er: Maite Toro RN) documented in this encounter Care Teams Hha Relationship Specialty Start Date End Date Samia Pinto MD HOSPITALIST SERVICES [address] [place] [address] PCP - General 03/24/12 12/01/17 documented as of this encounter
--- OUTSIDE RECORDS SUMMARY | 2024-06-12 21:20 | XMS_ITS | Encounter Summary ---
[facility] [place] [address] Care Team Providers Care Orthopedic Brace Maker Name Role Phone Samia Pinto MD Primary Care Provider Encounter Details Date Type Department Care Team (Latest Contact Info) Description 05/09/2012 10:52 AM EDT - 05/09/2012 11:59 PM EDT Hospital Encounter Non-[place] [id number] CLINIC, DR THIERRY Christy, Dean Ortiz MD [facility] [place] [address] Discharge Disposition: Home Social History Tobacco Use Types Packs/Day Years Used Date Smoking Tobacco: Former Cigarettes Alcohol Use Standard Drinks/Week Comments No 0 (1 standard drink = 0.6 oz pur e alcohol) Sex and Gender Information Value Date Recorded Sex Assigned at Not on file Gender Identity Not on file Sexual Orientation Not on file documented as of this encounter Medications at Time of Discharge Medication Sig Dispensed Refills Start Date End Date clopidogrel (PLAVIX) 75 mg tablet Take 1 tablet by mouth daily. 30 tablet 12 03/27/2012 nitroGLYcerin (NITROSTAT) 0.[address] 1 tablet under the tongue every 5 minutes as needed for Chest pain. 15 tablet 03/27/2012 pediatric multivitamin with iron chewable tablet Take 1 tablet by mouth daily. acetaminophen (TYLENOL) 500 mg tablet Take 1,000 mg by mouth every 6 hours as needed. simvastatin (ZOCOR) 20 mg tablet Take 20 mg by mouth nightly. 06/12/2012 traZODone (DESYREL) 50 mg tablet Take 50 mg by mouth nightly. 06/12/2012 aspirin 325 mg EC tablet Take 1 tablet by mouth daily. 30 tablet 12 03/27/2012 06/12/2012 metoprolol tartrate (LOPRESSOR) 25 mg tablet Take 1 tablet by mouth 2 times daily. 60 tablet 03/27/2012 07/04/2019 losartan (COZAAR) 25 mg tablet Take 0.5 tablets by mouth daily. 30 tablet 12 03/27/2012 08/15/2012 [place]-3 Fatty Acids (FISH OIL) 500 mg Cap Take 1,000 mg by mouth. 07/30/2019 citalopram (CELEXA) 20 mg tablet Take 20 mg by mouth daily. 06/12/2012 documented as of this encounter Plan of Treatment Not on file documented as of this encounter Visit Diagnoses Not on filedocumented in this encounter Care Teams Orthopedic Brace Maker Relationship Specialty Start Date End Date Samia Pinto MD HOSPITALIST SERVICES [address] [place] [address] [place] [address] PCP - General 03/24/12 12/01/17 documented as of this encounter
--- OUTSIDE RECORDS SUMMARY | 2024-06-12 21:20 | XMS_ITS | Encounter Summary ---
[facility] [place] [address] Care Team Providers Care Cleaning Specialist Name Role Phone Mirta Garner Primary Care Provider + Reason for Visit * Auth/Cert Specialty Diagnoses / Procedures Referred By Contac t Referred To Contact Diagnoses NSTEMI (non-ST elevated myocardial infarction) ACS Procedures EMERGENCY IPI Referral ID Status Reason Start Date Expiration Date Visits Re quested Visits Authorized [id number] 1 1 Encounter Details Date Type Department Care Team (Late st Contact Info) Description 07/03/2019 10:47 AM EDT - 07/03/2019 11:47 AM EDT [place] [address] Cris Nguyễn MD [facility] [place] [address] CARDIAC CATHETERIZATION Social History Tobacco Use Types [...] Sign Reading Time Taken Comments Blood Pressure 135/102 07/03/2019 7:51 AM EDT Pulse 87 07/03/2019 7:51 AM EDT Temperature 36.7 ??C (98.1 ??F) 07/03/2019 7:51 AM ED T Respiratory Rate 16 07/03/2019 4:00 AM EDT Oxygen Saturation 98% 07/03/2019 4:00 AM EDT Inhaled Oxygen Concentration - - Weight 83.7 kg (184 lb 8.4 oz) 07/03/2019 7:10 A M EDT Height 152.4 cm (5') 07/02/2019 1:48 AM EDT Body Mass Index 36.12 07/02/2019 1:48 AM EDT documented in this encounter Discharge Summaries * Emir Riley MD - 07/04/2019 8:45 AM EDT Images from the original note were not included. Cardiology - Discharge Summary Patient Name: Diana Landry Patient Age: 59 y.o. Birthdate: 1960 Admit date: 07/02/2019 Discharge date and time: 07/04/2019 Attending Physician: Keyonna att. providers found Follow-up Recommendations for Providers: Type I NSTEMI - Aspirin 81 mg PO daily indefinitely - atorvastatin 80 mg PO daily - plavix 75 mg PO daily x 12 months - lisinopril 20 mg PO daily - metoprolol succinate 25 mg PO daily - please follow up with repeat TTE in 3-6 months Hypertension - amlodipine 5 mg PO daily - lisinopril/metoprolol as above Discharge Diagnoses (Hospital Problems) and Secondary Diagnoses (Chronic Problems): Active Hospital Problems Diagnosis ??? NSTEMI (non-ST elevated myocardial infarction) Resolved Hospital Problems No resolved problems to display. Procedures/Cardiac Studies: TTE Cardiac cath x2 History of Presentation: Diana Landry is a 59 year-old female with a PMHx of HTN, HLD, former 30 pack- year smoker, ASCVD (s/p PCI to mLAD 2011), and MDD, who presents as a transfer from [facility] for ischemia evaluation. Since this morning patient reports vertigo with [...] of the LAD. There was no intervention done. Hospital Course: Type I NSTEMI due to acute plaque rupture: She was loaded with ASA/plavix and started on a heparin gtt. She was taken to the refuse laborer where she was noted to have 3 [...] medical therapy. We discharged her on 07/04/2019. Important Studies and Lab Data: Discharge Labs: Recent Labs 07/04/19 0443 07/03/19 [...] 9.0 MAGNESIUM -- 0.90 PHOS -- 4.0 Recent Labs 07/03/19 0424 07/02/19 1800 07/02/19 1155 TROPONINT 1.26* 3.12* 3.11* Recent Labs 07/02/19 0110 AST 13 ALT 16 ALKPHOS 85 BILITOT <0.2* Recent Labs 07/02/19 0110 INR 1.0 Lab Results Component Value Date CHLPL 264 07/03/2019 HDL 37 07/03/2019 CHOLHDL 7.1 07/03/2019 TRIG 231 07/03/2019 LDLCHOL 181 07/03/2019 LDLDIRECT 201 07/03/2019 Recent Labs 07/03/19 0424 HA1C 5.8* Studies: TTE 07/02/2019 SUMMARY: ?? 1. The [...] regional wall motion abnormalities. ?? EKG 07/03/2019 NSR ?? Cardiac Catheterization 07/02/2019: Left Main ?There was [...] this intervention. The final CLAY ?flow was 3. ? Cardiac Catheterization 07/03/2019 ?Intervention Summary: ?Right Coronary [...] this intervention. The final CLAY ?flow was 3. ? Pending Studies and Lab Data: None Discharge Conditions/Prognosis: Type I NSTEMI Discharge to: home Discharge Medications: Your Medications New Medications Dose Details amLODIPine 5 mg Tab Commonly known as: NORVASC Take 1 tablet by mouth daily. Start taking on: July 05, 2019 5 mg Quantity: 90 tablet Refills: 3 aspirin 81 mg Tbec Take 1 tablet by mouth daily. Start taking on: July 05, 2019 Replaces: aspirin 325 mg Tab 81 mg Quantity: 30 tablet Refills: 3 atorvastatin 80 mg Tab Commonly known as: LIPITOR Take 1 tablet by mouth every evening. 80 mg Quantity: 90 tablet Refills: 3 lisinopril 20 mg Tab Commonly known as: PRINIVIL;ZESTRIL Take 1 tablet by mouth daily. Start taking on: July 05, 2019 20 mg Quantity: 90 tablet Refills: 3 metoprolol succinate 25 mg Tablet sr Commonly known as: TOPROL-XL Take 1 tablet by mouth daily. Start taking on: July 05, 2019 25 mg Quantity: 30 tablet Refills: 12 Continued medications with new dosing Dose Details * clopidogrel 75 mg Tab Commonly known as: PLAVIX Take 1 tablet by mouth daily. What changed: Another medication with the same name was added. Make sure you understand how and when to take each. 75 mg Quantity: 30 tablet Refills: 12 * clopidogrel 75 mg Tab Commonly known as: PLAVIX Take 1 tablet by mouth daily. Start taking on: July 05, 2019 What changed: You were already taking a medication with the same name, and this prescription was added. Make sure you understand how and when to take each. 75 mg Quantity: 90 tablet Refills: 3 * This list has 2 medication(s) that are the same as other medications prescribed for you. Read thedirections carefully, and ask your doctor or other care provider to review them with you. Continued medications, unchanged Dose Details acetaminophen 500 mg Tab Commonly known as: TYLENOL Take 1,000 mg by mouth every 6 hours as needed. 1,000 mg Refills: 0 citalopram 20 mg Tab Commonly known as: CeleXA Take 20 mg by mouth daily. 20 mg Refills: 0 FISH OIL 500 mg Cap Take 1,000 mg by mouth. Generic drug: fish oil-omega-3 fatty acids 1,000 mg Refills: 0 nitroGLYcerin 0.4 mg Subl Commonly known as: NITROSTAT Place 1 tablet under the tongue every 5 minutes as needed for Chest pain. 0.4 mg Quantity: 15 tablet Refills: 12 pediatric multivitamin with iron Chew Take 1 tablet by mouth daily. 1 tablet Refills: 0 STOPPED Medications aspirin 325 mg Tab Replaced by: aspirin 81 mg Tbec metoprolol tartrate 25 mg Tab Commonly known as: LOPRESSOR simvastatin 40 mg Tab Commonly known as: ZOCOR Updated Allergies/ADRs: No Known Allergies Future Appointments and Orders Future Orders Complete By Expires Referral to Cardiac Rehab [[id number] Custom] As directed Process Instructions: If no progress note charted, please enter Clinical details in comments. Scheduling Instructions: Questions: My question or request is: Type I NSTEMI General Instructions None Patient Instructions Patient Instructions on Discharge to Home Why were you hospitalized? You had a heart attack, which was caused by a blockage in one of your heart arteries. This was fixed with a stent that was placed during a cardiac catheretization. Because you had this procedure, youshouldn't lift anything greater than 10 lbs for the next week and nothing greater than 20 lbs for 2 weeks. After that time you may go back to regular activity and work. Call your doctor if your right groin pain gets worse, or you develop swelling or redness in that area. Also, call your doctor if you develop sudden chest pain or shortness of breath, especially chestpain that does not go away with nitroglycerin. It is important that you take your aspirin 81mg daily forever and clopidogrel 75mg daily for at least 1 year. Do not miss any doses of these medications! What medications should you take? Medication - this is a description of the medication with instructions on when/how to take it. Aspirin: this is a platelet inhibitor that will help prevent clot build up in your arteries, as well as in the stent that was placed. Continue taking 81mg daily indefinitely. Clopidogrel (plavix): this is a second platelet inhibitor that will help prevent clot build up in the stent that was placed. It is very important that you take this medication every day at least forone year to help keep your stent open. Follow up with your doctor before stopping this medication. Atorvastatin (lipitor): this is a cholesterol-lowering medication that helps prevent build up of plaque in your arteries. Take this every evening. Metoprolol (toprol): this is a beta evan, that helps protect your heart. Take this every day. Lisinopril: this is an ARGELIA inhibitor that also helps protect your heart, as well as help control your blood pressure. Take this every day. Nitroglycerin: this is a medication that can be placed under your tongue as needed for chest pain. If you experience chest pain, especially that similar to what you had before you were admitted to the hospital, sit down and place one tab under your tongue (it may make you dizzy, so sitting down before taking this is safest). If your chest pain does not improve, call your doctor. Amlodipine: This is for blood pressure. Please continue to take and follow up with your PCP regarding the continuation of it. When should you call your doctor? - Chest pain, worsening shortness of breath, fatigue with usual exertion, or new rest/night time symptoms. - Weigh yourself daily and record; if you note an increase of more than 2-3 pounds in 2 days, or 5 pounds over a week, contact your health care provider. - If you become short of breath, cannot lie down to sleep, or have swelling in your legs/ankles or abdomen, contact your health care provider. - Call if you have reduced urination during the day or increased urination at night. - Call for signs of increased wound drainage, redness, swelling, or increased pain at the site of your cardiac cath. - Call if you develop a temp >100.5 Who do you call if you have questions or problems? If you have non-emergent questions between now and the time of your follow up appointments: During 8am-5pm Saturday through Saturday call [phone] to speak with a nurse in the cardiology clinic All other times call [phone] and ask to speak to the hangar attendant collection support specialist. What activities can you do, and what restrictions do you have? Activity level: - No heavy lifting (more than five pounds) for 48 hours; no more than 10 pounds for one week. - You may return to work in 1 week. Use common sense. Don't exhaust yourself. - No hunting, skiing, jogging, snow shoveling, snowmobiling, lawn mowing, swimming, golf or tennis until after your return appointment with your family doctor. - Do not ride motorcycles, tractors or horses until cleared by your doctor. Diet: - Heart healthy: low salt, low fat, low concentrated sweets. Remember to avoid added salt, canned foods, processed foods (ie hot dogs, sausage, cold meats), and foods naturally high in salt, such as potato chips or pizza. Driving: - Per your routine after [address] if you feel dizzy, light headed, or are taking narcotic medications (ie/ Oxycodone, Morphine, Dilaudid, etc). Shower/Bath: - You may shower 24 hours after cardiac catheterization. - You may not sit in water for 5 days (tub bath, hot tub or pool). Wound Care: - Cath site dressing may be removed in 24 hours. Site may be washed with soap/water. A dressing does not need to be reapplied unless irritation occurs with underclothes. If irritation occurs, apply clean band-aid daily. Exercise: - Exercise 5-7 days per week as tolerated with gradual increase to 30 minutes per day. Smoking cessation: - If you are currently a smoker, you are strongly urged to stop smoking! Smoking increases the severity and incidence of heart disease, and is a risk factor for cancer and emphysema. Your health careprovider can provide specific measures to assist you, including nicotine supplements, anti-anxiety meds, and support groups in your community. Who were my doctors while I was in the hospital? Emir Riley MD - Attending Library Media Technician Darrell Falk - Clearing Inspector Jerry Vaughn MD, Harley Guaman MD - Resident Physicians When do I see my doctors next? No future appointments. You will need to follow up with your PCP (SUKHWINDER Hughes at [phone]) within 1 week of discharge - Appointment not made. We will schedule one for you next week when the office opens on Saturday. Please follow up with them if you do not hear from us. You will need to follow up with your Library Media Technician within 1 month of discharge - appointment not made. We will schedule one for you next week when the office opens on Saturday. Please follow up with them if you do not hear from us. The plan is to set you up with cardiology in [facility]. For questions regarding issues relating to your hospitalization on the Cardiology Service, please contact your inpatient physician through the [facility] Operator Supervisor [phone] and ask for pager #[phone]. Issues after hours and on weekends will be handled by the Cardiology staff on-call. For questions regarding this document or issues relating to this hospitalization on the Medical Service, please contact your inpatient physician through the [facility] Operator Supervisor . Issues afterhours and on weekends will be handled by the Library Media Technician staff on-call. documented in this encounter Discharge Instructions * Patient Instructions* Harley Guaman MD - 07/03/2019 8:09 AM EDT Patient Instructions on Discharge to Home Why were you hospitalized? You had a heart attack, which was caused by a blockage in one of your heart arteries. This was fixed with a stent that was placed during a cardiac catheretization. Because you had this procedure, youshouldn't lift anything greater than 10 lbs for the next week and nothing greater than 20 lbs for 2 weeks. After that time you may go back to regular activity and work. Call your doctor if your right groin pain gets worse, or you develop swelling or redness in that area. Also, call your doctor if you develop sudden chest pain or shortness of breath, especially chestpain that does not go away with nitroglycerin. It is important that you take your aspirin 81mg daily forever and clopidogrel 75mg daily for at least 1 year. Do not miss any doses of these medications! What medications should you take? Medication - this is a description of the medication with instructions on when/how to take it. Aspirin: this is a platelet inhibitor that will help prevent clot build up in your arteries, as well as in the stent that was placed. Continue taking 81mg daily indefinitely. Clopidogrel (plavix): this is a second platelet inhibitor that will help prevent clot build up in the stent that was placed. It is very important that you take this medication every day at least forone year to help keep your stent open. Follow up with your doctor before stopping this medication. Atorvastatin (lipitor): this is a cholesterol-lowering medication that helps prevent build up of plaque in your arteries. Take this every evening. Metoprolol (toprol): this is a beta evan, that helps protect your heart. Take this every day. Lisinopril: this is an ARGELIA inhibitor that also helps protect your heart, as well as help control your blood pressure. Take this every day. Nitroglycerin: this is a medication that can be placed under your tongue as needed for chest pain. If you experience chest pain, especially that similar to what you had before you were admitted to the hospital, sit down and place one tab under your tongue (it may make you dizzy, so sitting down before taking this is safest). If your chest pain does not improve, call your doctor. Amlodipine: This is for blood pressure. Please continue to take and follow up with your PCP regarding the continuation of it. When should you call your doctor? - Chest pain, worsening shortness of breath, fatigue with usual exertion, or new rest/night time symptoms. - Weigh yourself daily and record; if you note an increase of more than 2-3 pounds in 2 days, or 5 pounds over a week, contact your health care provider. - If you become short of breath, cannot lie down to sleep, or have swelling in your legs/ankles or abdomen, contact your health care provider. - Call if you have reduced urination during the day or increased urination at night. - Call for signs of increased wound drainage, redness, swelling, or increased pain at the site of your cardiac cath. - Call if you develop a temp >100.5 Who do you call if you have questions or problems? If you have non-emergent questions between now and the time of your follow up appointments: During 8am-5pm Saturday through Saturday call [phone] to speak with a nurse in the cardiology clinic All other times call [phone] and ask to speak to the hangar attendant collection support specialist. What activities can you do, and what restrictions do you have? Activity level: - No heavy lifting (more than five pounds) for 48 hours; no more than 10 pounds for one week. - You may return to work in 1 week. Use common sense. Don't exhaust yourself. - No hunting, skiing, jogging, snow shoveling, snowmobiling, lawn mowing, swimming, golf or tennis until after your return appointment with your family doctor. - Do not ride motorcycles, tractors or horses until cleared by your doctor. Diet: - Heart healthy: low salt, low fat, low concentrated sweets. Remember to avoid added salt, canned foods, processed foods (ie hot dogs, sausage, cold meats), and foods naturally high in salt, such as potato chips or pizza. Driving: - Per your routine after [address] if you feel dizzy, light headed, or are taking narcotic medications (ie/ Oxycodone, Morphine, Dilaudid, etc). Shower/Bath: - You may shower 24 hours after cardiac catheterization. - You may not sit in water for 5 days (tub bath, hot tub or pool). Wound Care: - Cath site dressing may be removed in 24 hours. Site may be washed with soap/water. A dressing does not need to be reapplied unless irritation occurs with underclothes. If irritation occurs, apply clean band-aid daily. Exercise: - Exercise 5-7 days per week as tolerated with gradual increase to 30 minutes per day. Smoking cessation: - If you are currently a smoker, you are strongly urged to stop smoking! Smoking increases the severity and incidence of heart disease, and is a risk factor for cancer and emphysema. Your health careprovider can provide specific measures to assist you, including nicotine supplements, anti-anxiety meds, and support groups in your community. Who were my doctors while I was in the hospital? Emir Riley MD - Attending Library Media Technician Darrell Falk - Clearing Inspector Jerry Vaughn MD, Harley Guaman MD - Resident Physicians When do I see my doctors next? No future appointments. You will need to follow up with your PCP (SUKHWINDER Hughes at [phone]) within 1 week of discharge - Appointment not made. We will schedule one for you next week when the office opens on Saturday. Please follow up with them if you do not hear from us. You will need to follow up with your Library Media Technician within 1 month of discharge - appointment not made. We will schedule one for you next week when the office opens on Saturday. Please follow up with them if you do not hear from us. The plan is to set you up with cardiology in [facility]. For questions regarding issues relating to your hospitalization on the Cardiology Service, please contact your inpatient physician through the [facility] [employer] Operator Supervisor [phone] and ask for pager #[phone]. Issues after hours and on weekends will be handled by the Cardiology staff on-call. documented in this encounter Medications at Time of Discharge Medication Sig Dispensed Refills Start Date End Date aspirin 81 mg Tablet, Delayed Release (E.C.) [...] by mouth every 6 hours as needed. atorvastatin (LIPITOR) 80 mg Tablet Take 1 tablet by mouth every evening. 90 tablet 3 07/04/2019 07/30/2019 lisinopril (PRINIVIL;ZESTRIL) 20 mg Tablet Take 1 tablet by mouth daily. 90 tablet 3 07/05/2019 07/30/2019 clopidogrel (PLAVIX) 75 mg Tablet Take 1 tablet by mouth daily. 90 tablet 3 07/05/2019 07/30/2019 Sandstone-3 Fatty Acids (FISH OIL) 500 mg Cap Take 1,000 mg by mouth. 07/30/2019 documented as of this encounter Progress Notes * Myrna Medley RN - 07/04/2019 2:52 PM EDT Patient Name: Diana Landry Patient Age: 59 y.o. Birthdate: 1960 Admit date: 07/02/2019 Attending Physician: Keyonna albert. providers found Patient was discharged to home around 1445 with her family driving her home. She was given her stent card information. She stated understanding of her discharge instructions. She is aware she needs to moss picker some meds at the pharmacy. She declined any lunch and wanted to wait until she was home totake a shower. Her dsg covering her right groin did not have any new dge this shift. A stool specimen to r/o C-Diff was sent and is pending. She stated she had multiple watery stools frequently today. A bed pad was sent with pt for the car ride home. * Emir Riley MD - 07/04/2019 5:15 AM EDT Inpatient Cardiology Progress Note Patient Name: Diana Landry Date of Admission: 07/02/2019 ( Hospital Day 2 days ) Service: S2 ID: Diana Landry is a 59 year-old female with a PMHx of HTN, HLD, former 30 pack-year smoker, ASCVD (s/p PCI to mLAD 2011), and MDD, who presents as a transfer from [facility] for type I NSTEMI. Initial, serial EKGs revealed dynamic STD and TWI in V1 through V3 without troponin elevation and with activechest pain. Active Problems: NSTEMI ASCVD MDD 24 hr events: - had some episodes of diarrhea throughout the day, started on C. Diff precautions - continued diarrhea at night, crampy abdominal pain ROS: Denies CP, SOB, palpitations, PND, Orthopnea, dizziness/LH, LE swelling or pain, n/v, abd pain. Telemetry: normal sinus rhythm Meds: Continuous Infusions: ??? nitroGLYcerin Stopped (07/02/19 0900) Scheduled Meds: ??? [START ON 07/05/2019] metoprolol succinate 25 mg Oral Daily ??? amLODIPine 5 mg Oral Daily ??? enoxaparin 40 mg Subcutaneous Nightly ??? citalopram 20 mg Oral Daily ??? atorvastatin 80 mg Oral QPM ??? aspirin 81 mg Oral Daily ??? sodium chloride 0.9 % (flush) 5 mL Intravenous BID ??? clopidogrel 75 mg Oral Daily ??? lisinopril 20 mg Oral Daily PRN Meds:.potassium chloride OR potassium chloride, sodium chloride 0.9 % (flush), lidocaine, nitroGLYcerin, acetaminophen, labetalol Physical Exam: Last value Range last 24 hrs Temperature Temp: 36.7 ??C (98.1 ??F) Temp: [36.7 ??C (98.1 ??F)-36.9 ??C (98.4 ??F)] Heart Rate Heart Rate: 80 Heart Rate: [57-109] Blood Pressure BP: (!) 141/95 BP: (92-161)/(47-119) Respiratory Rate Resp: 18 Resp: [11-23] SpO2 SpO2: 97 % SpO2: [93 %-100 %] Intake/Output Summary (Last 24 hours) at 07/04/2019 1025 Last data filed at 07/04/2019 0900 Gross per 24 hour Intake 260 ml Output 225 ml Net 35 ml cumulative I/O's since admission: Patient Vitals for the past 168 hrs: Weight 07/04/19 0338 83.9 kg (184 lb 15.5 oz) 07/03/19 0710 83.7 kg (184 lb 8.4 oz) 07/02/19 0148 87.1 kg (192 lb) Admit wt: 87.1 kg Gen: in bed in NAD; alert, oriented, interactive HEENT: MMM, normocephalic, atraumatic CV: RRR, S1S2, no m/r/g, no JVD Resp: CTAB, breathing on room air Abd: nondistended, soft, NT, +BS Ext: WWP, 2+ DP pulses, no edema appreciated Neuro: grossly intact Labs Recent Labs 07/04/19 0443 07/03/19 0424 07/02/19 0110 WBC 7.6 7.4 9.3 HGB 13.3 13.6 13.1 HCT 40.6 41.2 40.4 PLATELET 244 224 294 Recent Labs 07/03/19 0424 07/02/19 0110 NA 142 144 K 3.6 4.4 CL 106 108* CO2 24 23 BUN 10 16 CREATININE 0.63* 0.58* Recent Labs 07/02/19 0110 AST 13 ALT 16 ALKPHOS 85 BILITOT <0.2* Recent Labs 07/03/19 0424 07/02/19 0110 CALCIUM 9.0 9.0 MAGNESIUM -- 0.90 PHOS -- 4.0 Recent Labs 07/02/19 0110 INR 1.0 PT 11.7 PTT 88* Recent Labs 07/03/19 0424 07/02/19 1800 07/02/19 1155 TROPONINT 1.26* 3.12* 3.11* No results for input(s): POCGLU in the last 168 hours. Imaging/Studies: TTE 07/02/2019 SUMMARY: ?? 1. The left ventricular chamber size is normal. Left ventricular wall thickness is normal. Global left ventricular systolic function is mildly reduced. Ejection fraction is estimated to be 50%. There are left ventricular segmental wall motion abnormalities present, as shown in the diagram below. 2. Right ventricular chamber size, wall thickness, and systolic function are within normal limits. 3. See remainder of report for additional findings. 4. When compared to previous echo last night -- contrast brings out regional wall motion abnormalities. EKG 07/03/2019 NSR Cardiac Catheterization 07/02/2019: Left Main There was mild diffuse (<=25% stenosis) disease of the entire vessel segment of the left main artery. The left main was large. Left Anterior Descending There was mild diffuse (<=25% stenosis) disease of the entire vessel segment of the left anterior descending artery (LAD). The LAD was moderate in size. There was a single discrete total occlusion of the ostial segment of the first diagonal branch (Diagonal 1) of the LAD. Left Circumflex There was mild diffuse (<=25% stenosis) disease of the entire vessel segment of the left circumflex artery (LCX). The LCX was moderate in size. There was a single discrete total occlusion of the mid segment of the first obtuse marginal branch (OM1) of the LCX. The OM1 was moderate in size. There was mild diffuse (<=25% stenosis) disease of the entire vessel segment of the left posterior descending branch (LPDA) of the LCX. The LPDA was moderate in size. Right Coronary Artery There was an 80% single discrete stenosis of the mid segment of the right coronary artery (RCA). The RCA was moderate in size. There was mild diffuse (<=25% stenosis) disease of the entire vessel segment of the right posterior descending branch (RPDA) of the RCA. The RPDA was small. Indication for Intervention: Coronary intervention was indicated for primary therapy for an acute myocardial infarction. The priority for the procedure was Urgent. The [facility] indication for the procedure was NSTE-ACS. Intervention Summary: First Obtuse Marginal Branch of the LCX Mid 100% Stent insertion was performed on the total occlusion in the mid segment of the OM1. This was a de emily lesion. According to the ACC/AHA classification system, this lesion was a type C high risk lesion. Primary prevention of restenosis was the indication for stent insertion. This was the culprit lesion. A guidewire was placed across this lesion. Vessel flow pre intervention was CLAY 0. Lesion length was 10mm. Stent insertion was accomplished through a 6 Fr. EBU 3.5 guide. The lesion was predilated with a 2.50mm EUPHORA 15 MM balloon with a maximum inflation pressure of 12 atmospheres. A premounted 2.75 x 16 mm Promus ELITE US MR (SARAI) was deployed with a maximum inflation pressure of 16 atmospheres. The final outcome was defined as successful. There was no residual stenosis following this intervention. The final CLAY flow was 3. Cardiac Catheterization 07/03/2019 Intervention Summary: Right Coronary Artery Mid 80% Stent insertion was performed on the 80% stenosis in the mid segment of the RCA. This was a de emily lesion. According to the ACC/AHA classification system, this lesion was a type B2 moderate risk lesion. Primary prevention of restenosis was the indication for stent insertion. This was the culprit lesion. A guidewire was placed across this lesion. Vessel flow pre intervention was CLAY 3. Lesion length was 15mm. The lesion involves a bifurcation with the AcM. This bifurcation lesion was treated with a single stent, side branch jailed and not treated technique. Stent insertion was accomplished through a 6 Fr. JR 4 guide. The lesion was predilated with a 2.00mm APEX 20 MM balloon with a maximum inflation pressure of 6 atmospheres. A premounted 2.50 x 30 mm Resolute WILBUR (SARAI) was deployed with a maximum inflation pressure of 14 atmospheres. The final outcome was defined as successful. There was no residual stenosis following this intervention. The final CLAY flow was 3. ASSESSMENT: Diana Landry is a 59 year-old female with a PMHx of HTN, HLD, former 30 pack- year smoker, ASCVD (s/p PCI to [facility] 2011), and MDD, who presents as a transfer from [facility] for type I NSTEMI. Initial, serial EKGs revealed dynamic STD and TWI in V1 through V3 without troponin elevation and with active chest pain, s/p PCI to occluded OM1. She continues to have diarrhea, but denies all other cardiac symptoms. She underwent successful cath to the mid RCA yesterday. Today, I'll start her on metoprolol succinate and plan on discharge later today. PLAN: # NSTEMI, CLAY 5, KEL 98 # ASCVD (s/p PCI to [facility] 2011) - serial EKGs - continue atorvastatin 80mg daily - start metoprolol succinate 25 mg PO qday - continue plavix 75mg daily - continue ASA - lisinopril 20 mg PO qday - K to 4, Mg to 1 - continuous telemetry #HTN - lisinopril 20 mg PO qday as above - start amlodipine 5 mg PO qday ?? # MDD - continue citalopram 20mg daily ?? Other: - DVT prophylaxis: lovenox - Diet: cardiac diet - Code Status: Full - Dispo:this afternoon (07/04) CARDIOLOGY ATTENDING NOTE Patient: Diana Landry Date of Service: 07/04/2019 Date of Admission: 07/02/2019 Length of Stay Hospital Day 2 days Please see the above note by Dr. Guaman for details. I have interviewed and examined the patient independently and I concur with the assessment and plan. The case was discussed on cardiology rounds and we reviewed the plan of care with the team and patient. Ms. Landry is a 59 year old woman with history of CAD s/p PCI mid LAD and D2 in 2011 , HTN, HLD, former smoker who presented with chest pain and inferolateral ST changes c/w unstable angina. She has undergone coronary angiography with staged intervention initially to OM! And then mid RCA. TTE with low-normal EF and inferior/inferolateral WMA. She is on GDMT with DAPT, BB, ACEI. Unfortunately, she has experienced multiple bouts of no-bloody diarrhea. No fever or WBC. C. Diff pending; if negative, she can D/C home with outpatient follow-up. She should be referred to cardiac rehab. Emir Riley MD, MPH Cardiovascular Medicine * Trinity Mukherjee RN - 07/03/2019 5:05 PM EDT Office of Care Management(OCM)/Career Technology Teacher(CM)/Discharge Planning Service: Cardi S2 CM Trinity MukherjeeRN,BSN,MA,ACM pgr [phone] Reviewed record and in Cardiology Rounds with MD team,CMs, form press operator, PT. Pt having second cath w stent today. Met w pt briefly; she has her AD Vt form filled out at home naming her but hasn't had witnessed yet. Will do and bring in w next appt. Her will provide transpo home and be with her. She works for [employer] and declines need at this time. * Jerry Vaughn - 07/03/2019 3:46 PM EDT Post-Catheterization Progress Note Subjective: Patient reports pain at R femoral insertion site, but denies lightheadedness, dyspnea, chest pain, palpitations, abdominal pain, groin pain, or back pain. Dressing clean and dry, no signs of infection, no bleeding from R femoral access site. Objective: Vitals: Last value Range last 8 hrs Temperature Temp: 36.7 ??C (98.1 ??F) Temp: [36.7 ??C (98.1 ??F)] Heart Rate Heart Rate: 57 Heart Rate: [57-87] Blood Pressure BP: 134/73 BP: (108-137)/(66-102) Respiratory Rate Resp: 13 Resp: [11-22] SpO2 SpO2: 95 % SpO2: [93 %-100 %] Gen: Laying in bed in NAD Groin: R femoral access site without hematoma or ecchymosis. No active bleeding. Dressing c/d/i. Mild tenderness to palpation. Abd: No Russell's sign. Ext: LE warm with 2+ DP pulses. Sensation intact in LE bilaterally. Back: No flank or back tenderness. No retroperitoneal ecchymosis/ Lisa Monroy's sign. A/P: S/p cardiac catheterization with benign appearing R femoral access site. Jerry Vaughn MD, PGY-3 Cardiology S2, Pager [phone] 07/03/2019 * Anya Greenwood RN - 07/03/2019 3:07 PM EDT 1440 Patient arrived from refuse laborer she is alert and orientedX4, she was transferred by RN from cathlab on stretcher and onto this unit bed she is on bed rest until 1530. Pulse sites checked, she hassoft Right groin site and dressing in place, small red area on dressing site marked, Vitals assessed and documented in flow sheet. Assessment prefomred and no changes since beginning shift assessment. She reports A headache, and back pain, she was medicated with tylenol as per JAN. She was informedon post procedure checks for the site as well as Vital monitoring, she remains oriented to the roomand use of call light. * Emir Riley MD - 07/03/2019 6:50 AM EDT Inpatient Cardiology Progress Note Patient Name: Diana Landry Date of Admission: 07/02/2019 ( Hospital Day 1 day ) Service: S2 ID: Diana Landry is a 59 year-old female with a PMHx of HTN, HLD, former 30 pack-year smoker, ASCVD (s/p PCI to [facility] 2011), and MDD, who presents as a transfer from [facility] for type I NSTEMI. Initial, serial EKGs revealed dynamic STD and TWI in V1 through V3 without troponin elevation and with activechest pain. Active Problems: NSTEMI ASCVD MDD 24 hr events: - Was hypertensive yesterday evening, increased dose of lisinopril to 20 mg PO Daily and added labetalol PRN for Bps>170. Received Labetalol at 1753 yesterday to good effect. - had an episode of nonbloody diarrhea last night - moved to floor ROS: Denies CP, SOB, palpitations, PND, Orthopnea, dizziness/LH, LE swelling or pain, n/v, abd pain. Telemetry: NSR Meds: Continuous Infusions: ??? nitroGLYcerin Stopped (07/02/19 0900) Scheduled Meds: ??? amLODIPine 5 mg Oral Daily ??? enoxaparin 40 mg Subcutaneous Nightly ??? citalopram 20 mg Oral Daily ??? atorvastatin 80 mg Oral QPM ??? aspirin 81 mg Oral Daily ??? sodium chloride 0.9 % (flush) 5 mL Intravenous BID ??? metoprolol tartrate 12.5 mg Oral BID ??? clopidogrel 75 mg Oral Daily ??? lisinopril 20 mg Oral Daily PRN Meds:.potassium chloride OR potassium chloride, sodium chloride 0.9 % (flush), lidocaine, nitroGLYcerin, acetaminophen, labetalol Physical Exam: Last value Range last 24 hrs Temperature Temp: 36.7 ??C (98.1 ??F) Temp: [36.6 ??C (97.9 ??F)-36.9 ??C (98.4 ??F)] Heart Rate Heart Rate: 87 Heart Rate: [87-108] Blood Pressure BP: (!) 135/102 BP: (112-168)/(72-112) Respiratory Rate Resp: 16 Resp: [13-21] SpO2 SpO2: 98 % SpO2: [95 %-98 %] Intake/Output Summary (Last 24 hours) at 07/03/2019 1112 Last data filed at 07/03/2019 0700 Gross per 24 hour Intake 840 ml Output 1250 ml Net -410 ml cumulative I/O's since admission: Patient Vitals for the past 168 hrs: Weight 07/03/19 0710 83.7 kg (184 lb 8.4 oz) 07/02/19 0148 87.1 kg (192 lb) Admit wt: 87.1 kg Gen: in bed in NAD; alert, oriented, interactive HEENT: MMM, normocephalic, atraumatic CV: RRR, S1S2, no m/r/g, no JVD Resp: CTAB, breathing on room air Abd: nondistended, soft, NT, +BS Ext: WWP, 2+ DP pulses, no edema appreciated Neuro: grossly intact Labs Recent Labs 07/03/19 0424 07/02/19 011 WBC 7.4 9.3 HGB 13.6 13.1 HCT 41.2 40.4 PLATELET 224 294 Recent Labs 07/03/19 0424 07/02/19 011 NA 142 144 K 3.6 4.4 CL 106 108* CO2 24 23 BUN 10 16 CREATININE 0.63* 0.58* Recent Labs 07/02/19 011 AST 13 ALT 16 ALKPHOS 85 BILITOT <0.2* Recent Labs 07/03/1942307/02/19 011 CALCIUM 9.0 9.0 MAGNESIUM -- 0.90 PHOS -- 4.0 Recent Labs 07/02/19 011 INR 1.0 PT 11.7 PTT 88* Recent Labs 07/03/19 0424 07/02/19 1800 07/02/19 1155 TROPONINT 1.26* 3.12* 3.11* No results for input(s): POCGLU in the last 168 hours. Imaging/Studies: TTE 07/02/2019 SUMMARY: ?? 1. The left ventricular chamber size is normal. Left ventricular wall thickness is normal. Global left ventricular systolic function is mildly reduced. Ejection fraction is estimated to be 50%. There are left ventricular segmental wall motion abnormalities present, as shown in the diagram below. 2. Right ventricular chamber size, wall thickness, and systolic function are within normal limits. 3. See remainder of report for additional findings. 4. When compared to previous echo last night -- contrast brings out regional wall motion abnormalities. EKG 07/03/2019 NSR Cardiac Catheterization 07/02/2019: Left Main There was mild diffuse (<=25% stenosis) disease of the entire vessel segment of the left main artery. The left main was large. Left Anterior Descending There was mild diffuse (<=25% stenosis) disease of the entire vessel segment of the left anterior descending artery (LAD). The LAD was moderate in size. There was a single discrete total occlusion of the ostial segment of the first diagonal branch (Diagonal 1) of the LAD. Left Circumflex There was mild diffuse (<=25% stenosis) disease of the entire vessel segment of the left circumflex artery (LCX). The LCX was moderate in size. There was a single discrete total occlusion of the mid segment of the first obtuse marginal branch (OM1) of the LCX. The OM1 was moderate in size. There was mild diffuse (<=25% stenosis) disease of the entire vessel segment of the left posterior descending branch (LPDA) of the LCX. The LPDA was moderate in size. Right Coronary Artery There was an 80% single discrete stenosis of the mid segment of the right coronary artery (RCA). The RCA was moderate in size. There was mild diffuse (<=25% stenosis) disease of the entire vessel segment of the right posterior descending branch (RPDA) of the RCA. The RPDA was small. Indication for Intervention: Coronary intervention was indicated for primary therapy for an acute myocardial infarction. The priority for the procedure was Urgent. The NCDR indication for the procedure was NSTE-ACS. Intervention Summary: First Obtuse Marginal Branch of the LCX Mid 100% Stent insertion was performed on the total occlusion in the mid segment of the OM1. This was a de emily lesion. According to the ACC/AHA classification system, this lesion was a type C high risk lesion. Primary prevention of restenosis was the indication for stent insertion. This was the culprit lesion. A guidewire was placed across this lesion. Vessel flow pre intervention was CLAY 0. Lesion length was 10mm. Stent insertion was accomplished through a 6 Fr. EBU 3.5 guide. The lesion was predilated with a 2.50mm EUPHORA 15 MM balloon with a maximum inflation pressure of 12 atmospheres. A premounted 2.75 x 16 mm Promus ELITE US MR (SARAI) was deployed with a maximum inflation pressure of 16 atmospheres. The final outcome was defined as successful. There was no residual stenosis following this intervention. The final CLAY flow was 3. ASSESSMENT: Diana Landry is a 59 year-old female with a PMHx of HTN, HLD, former 30 pack- year smoker, ASCVD (s/p PCI to [facility] 2011), and MDD, who presents as a transfer from [facility] for type I NSTEMI. Initial, serial EKGs revealed dynamic STD and TWI in V1 through V3 without troponin elevation and with active chest pain, s/p PCI to occluded OM1. She will go back to the refuse laborer later today for intervention on her RCA. She had successful SARAI tomid OM1 lesion. PLAN: # NSTEMI, CLAY 5, KEL 98 # ASCVD (s/p PCI to [facility] 2011) - serial EKGs - continue atorvastatin 80mg daily - continue metoprolol tartrate 12.5 mg bid - continue plavix 75mg daily - continue ASA - lisinopril 20 mg PO qday - K to 4, Mg to 1 - continuous telemetry #HTN - lisinopril 20 mg PO qday as above - start amlodipine 5 mg PO qday - labetalol PRN for systolic blood pressures >170 ?? # MDD - continue citalopram 20mg daily ?? Other: - DVT prophylaxis: lovenox - Diet: NPO - Code Status: Full - Dispo: likely tomorrow (07/04) CARDIOLOGY ATTENDING NOTE Patient: Diana Landry Date of Service: 07/03/2019 Date of Admission: 07/02/2019 Length of Stay Hospital Day 1 day Please see the above note by Dr. Guaman for details. I have interviewed and examined the patient independently and I concur with the assessment and plan. The case was discussed on cardiology rounds and we reviewed the plan of care with the team and patient. Ms. Landry is a 59 year old woman with history of CAD s/p PCI mid LAD and D2 in 2011 , HTN, HLD, former smoker who presented with chest pain and inferolateral ST changes c/w unstable angina. She underwent coronary angiography yesterday, which showed occluded mid OM1 s/p SARAI; she also had 60-70% mid RCA lesion. TTE with EF 50% with inferior/inferolateral WMA. She will be returning back to refuse laborer today for staged RCA intervention. She is on DAPT, beta-evan, ACEI. We are titrating BP meds given hypertension. Expect discharge date of 07/04. Emir Riley MD, MPH Cardiovascular Medicine * Eva Green RN - 07/02/2019 12:49 PM EDT TR band removed. Hemostasis achieved. Gauze and tegaderm applied. documented in this encounter H&P Notes * Jimenez Melchor MD - 07/02/2019 1:42 AM EDT Cardiology Admission History and Physical Patient Name: Diana Landry Service: Cardiology, S2 Team Responsible Attending: Jimenez Melchor MD PCP: SUKHWINDER Hughes PCP phone #: [phone] ID/Chief Complaint: Diana Landry is a 59 year-old female with a PMHx of HTN, HLD, former 30 pack- year smoker, ASCVD (s/p PCI to [facility] 2011), and MDD, who presents as a transfer from [facility] for ischemia evaluation. History of Present Illness: Since this morning patient reports vertigo with [...] provided ASA 324, sub-lingual nitroglycerin, and ondansetron. On arrival to the ED she endorsed [...] EKG did not show definitive ischemic changes. On encounter in the [facility], patient denied chest pain, vertigo, and nausea. [...] of the LAD. There was no intervention done. OSH labs prior to transfer: CBC: WBC 7.8, Hgb 13.4, MCV 92.9, Plt 305 CMP: Na 142, K 3.3, CO2 23.1, BUN 17, Cr 0.69 LFTs: all normal Cardiac enzymes: Tn-I- <0.05 Review of Systems: GENERAL HEENT CV PULM All negative All negative All negative All negative Weight loss Headache X Chest Pain Non-productive cough Weight gain Vision change Palpitations Productive cough Fevers Sinus congestion Orthopnea Wheezing Chills Hoarseness LE edema Hemoptysis Night sweats Epistaxis PND Pleuritic pain Fatigue Syncope SOB Claudication GOYAL MSK RENAL ENDO GI All negative All negative All negative All negative Arthralgias Frequency Heat intolerance Blood in stool Myalgias Urgency Cold intolerance Dysphagia Weakness Hematuria Polydipsia Odynophagia Stiffness Flank pain Polyphagia Abdominal discomfort Dysuria Cushingoid Constipation Foamy urine X Diarrhea Discharge Nausea/Vomiting LYMPH SKIN NEURO PSYCH All negative All negative All negative All negative Swollen nodes Rash Seizures Depressed affect Tender nodes Ulcers Tremors Occupational stress Diffuse nodes Bruising Spasticity Anxiety Local nodes Tanned skin Focal weakness Insomnia Night sweats Telangiectasias Diplopia Paresthesias Dizziness Problem List/Past Medical History Patient Active Problem List Diagnosis ??? NSTEMI (non-ST elevated myocardial infarction) ??? ASCVD (arteriosclerotic cardiovascular disease) Stress echo 05/09/12: Rest- LVEF 60%, mid [...] LAD, SARAI 100% D1- unable to recannalize ??? Hypercholesterolemia ??? Neck pain ??? Dizzy spells Ros: 07/09/12: 7 days 20 hrs, 7 triggered events and 7 diary entries associated with symptoms oflightheadedness and dizziness, Rhythm was sinus with rare APC's and VPC's, Heart rate average was 75 bpm (45 - 145), No correlation between symptoms and arrhythmia Resolved with discontinuation of ARB Meds: No current facility-administered medications on file prior to encounter. Current Outpatient Medications on File Prior to Encounter Medication Sig Dispense Refill ??? citalopram (CELEXA) 20 mg tablet Take 20 mg by mouth daily. ??? aspirin 325 mg tablet Take 162 mg by mouth daily. ??? simvastatin (ZOCOR) 40 mg tablet Take 40 mg by mouth nightly. ??? clopidogrel (PLAVIX) 75 mg tablet Take 1 tablet by mouth daily. 30 tablet 12 ??? metoprolol tartrate (LOPRESSOR) 25 mg tablet Take 1 tablet by mouth 2 times daily. 60 tablet 12 ??? nitroGLYcerin (NITROSTAT) 0.[address] 1 tablet under the tongue every 5 minutes as needed for Chest pain. 15 tablet 12 ??? pediatric multivitamin with iron chewable tablet Take 1 tablet by mouth daily. ??? acetaminophen (TYLENOL) 500 mg tablet Take 1,000 mg by mouth every 6 hours as needed. ??? Sandstone-3 Fatty Acids (FISH OIL) 500 mg Cap Take 1,000 mg by mouth. Allergies: No Known Allergies Family History: Coronary artery disease in her father (42), mother (late 50s), and brother Social History: Tobacco: Former 30 pack-year smoker EtOH: Denies Illicits: Denies Living Situation: Lives with her Chavo. Has five children. Vitals: Last value Range last 24 hrs Temperature Temp: 36.8 ??C (98.2 ??F) Temp: [36.8 ??C (98.2 ??F)] Heart Rate Heart Rate: 82 Heart Rate: [82] Blood Pressure BP: 111/77 BP: (111)/(77) Respiratory Rate Resp: 10 Resp: [10] SpO2 SpO2: 96 % SpO2: [96 %] Examination: General: Pleasant, alert, appropriate, in NAD. Appears stated age. HEENT: EOMI, PERRL, anicteric sclera. Oropharynx clear w/o lesions. Moist mucous membranes Neck: Supple with normal ROM. No obvious LAD. JVD ~8cm Cardiac: Normal S1 and S2, Regular rate and rhythm; No murmrs/gallops/rubs. Respiratory: Nonlabored. Clear to auscultation bilaterally; No wheezes/ rhonci/ rales. Abd: + BS; soft, non-tender, non-distended, no obvious masses. Ext: WWP without le edema, cyanosis or clubbing. DPP 2+ bilaterally. Neuro: II-XII grossly intact. Alert and orientated, no-focal deficits, sensation intact to crude touch Skin: No rashs, no lesions, no petechiae Lines: PIV Laboratory: Troponin <0.01 CBC: Recent Labs 07/02/19109 WBC 9.3 HGB 13.1 PLATELET 294 Chemistry: Recent Labs 07/02/19109 NA 144 K 4.4 CL 108* CO2 23 BUN 16 CREATININE 0.58* GLUCOSE 153 Recent Labs 07/02/19109 CALCIUM 9.0 MAGNESIUM 0.90 PHOS 4.0 LFT's: Recent Labs 07/02/19109 BILITOT <0.2* ALBUMIN 4.3 ALKPHOS 85 ALT 16 AST 13 Coags: Recent Labs 07/02/19109 PT 11.7 INR 1.0 PTT 88* Endocrine: Recent Labs 07/02/19109 TSH 2.07 Microbiology: None Diagnostic Studies: EKG- NSR with up-stroking inferior lead ST segments ASSESSMENT: Diana Landry is a 59 year-old female with a PMHx of HTN, HLD, former 30 pack- year smoker, ASCVD (s/p PCI to [facility] 2011), and MDD, who presents as a transfer from [facility] for type I NSTEMI. Initial, serial EKGs revealed dynamic STD and TWI in V1 through V3 without troponin elevation and with active chest pain. Dr. Anthony was consulted and decision was made to pursue medication optimization with likely LHC in the morning. On evaluation patient did not have chest pain and had improvement in her previously seen ischemic changes in the anterior and inferior leads. PLAN: Admit to Cardiology, S2 Team Pager #[phone] # NSTEMI, CLAY 5, KEL 98 # ASCVD (s/p PCI to [facility] 2011) - trend troponin q6h to peak - serial EKGs - NPO for LHC - s/p ASA 324mg, Heparin 4K unit bolus, 300mg Plavix on 07/01 at 2320 - continue heparin gtt - continue atorvastatin 80mg daily - continue metoprolol tartrate 12.5 mg bid - continue plavix 75mg daily - continue nitroglycerin gtt - hold: home losartan 50mg daily till after LHC - check TTE, lipid panel, a1c - K to 4, Mg to 1 - continuous telemetry # MDD - continue citalopram 20mg daily Other: - DVT prophylaxis: heparin gtt - Diet: NPO - Code Status: Full - Dispo: pending catheterization Sheng Crooks MD Resident Physician, PGY2 I have seen the patient and reviewed the resident's above history and I agree with the details as written. The assessment and plan were formulated in discussion with me and I agree with them as documented. Lia is a pleasant 59-year-old female with a past medical history significant for CAD status post prior PCI 2011, hypertension, dyslipidemia, former smoker, and depression, who was transferred for unstable angina. Referring hospital EKG and admitting EKG concerning for inferolateral ST changes. Fortunately, the patient has remained clinically and hemodynamically stable on transfer without evidence of angina while on a nitroglycerin infusion. We will expedite her cardiac catheterization and surface echocardiogram for further evaluation. >30 minutes were spent reviewing the patient's medical record and data, examining the patient, and coformulating a plan with the housestaff and critical care team on bedside rounds. Problem List: #CAD #Hypertension #Dyslipidemia #Depression documented in this encounter Miscellaneous Notes * Brief Op Note - Cris Nguyễn MD - 07/03/2019 1:07 PM EDT Preliminary Cardiac Catheterization Procedure Note: Patient Name: Diana Landry : [id number] MR#: [id number] Case Date: 07/03/2019 Chemical Plant Operator Supervisor: Surgeon(s) and Role: * Cris Nguyễn MD - Primary * Mary Renteria MD - Fellow Preoperative diagnosis: nonSTEMI Postoperative diagnosis: same Procedure(s) performed: Coronary angiography, left heart cath, PCI with drug- eluting stent to RCA Access: 6 Fr RFA => Perclosed A time-out was conducted prior to the start of the procedure to verify the correct patient and procedure, procedure location, and all relevant critical information. Preliminary findings: Long 70% mid RCA lesion opened with a single 2.5 x 30 mm stent; excellent angiographic result. Left coronary not injected. LVEDP 15. The patient tolerated the procedures smoothly and was transferred from the cardiac catheterization lab to the next level of care in stable condition. No evident early complications. Full report to follow. CRIS NGUYỄN MD * Initial Assessments - Trinity Mukherjee RN - 07/02/2019 6:15 PM EDT Office of Care Management Assessment Medical record reviewed. Reviewed record and in Cardiology Rounds w MD team,[facility], form press operator, PT. Pt is stable [facility]. Had cardi cath today w 2 stents placed. Screenin y.o. female here for NSTEMI(chest pain) transferred from [facility]ED. Present on Admission: ??? NSTEMI (non-ST elevated myocardial infarction) Patient has not been admitted to a hospital within the last 30 days. Patient receiving hospital care under Inpatient status. Admission order reviewed. Primary Insurance on file: [employer] Secondary Insurance on file: N/A Primary care provider on file: SUKHWINDER Hughes [phone] Advance Directive on file and Code Status: <no information>, Full Code Patient???s Functional Status:indep [facility] [id number] Supports: Assessment: Patient with no apparent RNCM/SW needs at this time. No housing, transportation, insurance, resources concerns identified at this time. Supports in place to achieve a safe post-hospital transition. No identified barriers to accessing necessary care and/or follow-up after discharge. Plan: Patient to d/c to home via family when medically ready. vegetable i farmworker/Studio Engineer will continue to follow patient???s progress and remain available if situation changes for coordination of care, psychosocial support and/or discharge planning. TRINITY MUKHERJEE RN Pager [phone] * Brief Op Note - Bárbara Nascimento MD - 07/02/2019 9:15 AM EDT Images from the original note were not included. Brief Operative Note Patient Name: Diana Landry : [id number] MR#: [id number] Case Date: 07/02/2019 Surgeon: Surgeon(s) and Role: * Bárbara Nascimento MD - Primary * Mary Renteria MD - Fellow Preoperative diagnosis: NSTEMI Procedure(s) performed: Cors/LHC/PCI Access: RRA (5F): Converted to RFA due to major loop and tortuosity RFA: Mild disease with safezone arteriotomy. S/p 6F perclose A time-out was conducted prior to the start of the procedure to verify the correct patient and procedure, procedure location, and all relevant critical information. Preliminary findings: LM: Mild disease LAD; Mild to moderate disease; prior stent is patent with mild disease D1: Occluded (known to be) LCX: Mild disease OM1: Mid 100% LPDA: Mild disease RCA: Co-dominant; mid 60-70% (progression since previous) LVEDP: 15 mm hg Intervention: Successful SARAI PCI to occluded OM1. Pt was transient hypotension requiring levophed. This resolved completely at the completion of the case. The patient tolerated the procedures without complication and was transferred from the cardiac catheterization lab to the next level of care in stable condition. Full report to follow. Bárbara Nascimento MD [facility] Interventional Cardiology Pager [phone] documented in this encounter Plan of Treatment Scheduled Orders Name Type Priority Associated Diagnoses Orde r Schedule EKG 12 Lead ECG STAT ASCVD (arteriosclerotic cardiovascular disease) One Time for 1 Occurrences starting 07/02/2019 until 07/02/2019 Scheduled Referrals Name Type Priority Associated Diagnoses Orde r Schedule Referral to Cardiac Rehab Outpatient Referral Routine NSTEMI (non-ST elevated myocardial infarction) Ordered: 07/04/2019 documented as of this encounter Procedures Procedure Name Priority Date/Time Associated Diagnosis Comments HC C. DIFF QUIK CHEK ANTIGEN Routine 07/04/2019 10:42 AM EDT EKG 12-LEAD Routine 07/04/2019 6:42 AM EDT ASCVD (arteriosclerotic cardiovascular disease) HEMOGRAM Routine 07/04/2019 4:43 AM EDT DIFFERENTIAL, AUTOMATED Routine 07/04/2019 4:43 AM EDT HC VENIPUNCTURE Routine 07/04/2019 4:43 AM EDT EKG 12-LEAD Routine 07/03/2019 1:39 PM EDT ASCVD (arteriosclerotic cardiovascular disease) CARDIAC CATHETERIZATION Routine 07/03/2019 1:07 PM EDT BMP W/FASTING GLUCOSE Routine 07/03/2019 4:24 AM EDT HEMOGRAM Routine 07/03/2019 4:24 AM EDT DIFFERENTIAL, AUTOMATED Routine 07/03/2019 4:24 AM EDT HC CBC,PLT & AUTO DIFF Routine 9 4:24 AM EDT TROPONIN Routine 07/03/2019 4:24 AM EDT HC LDL CHOLESTEROL, DIRECT Routine 07/03/2019 4:24 AM EDT HC HEMOGLOBIN A1C Routine 07/03/2019 4:2 4 AM EDT HC VENIPUNCTURE Routine 07/03/2019 4:24 AM EDT HC TROPONIN T STAT 07/02/2019 6:00 PM EDT EKG 12-LEAD Routine 07/02/2019 3:00 PM EDT ASCVD (arteriosclerotic cardiovascular disease) HC TROPONIN T STAT 07/02/2019 11:55 AM EDT ECHO COMPLETE W CONTRAST Routine 07/02/2019 9:35 AM EDT ASCVD (arteriosclerotic cardiovascular disease) CARDIAC CATHETERIZATION Routine 07/02/2019 9:25 AM EDT HC UNFRACTIONATED HEPARIN (HEP UFH) STAT 07/02/2019 7:00 AM EDT HC TROPONIN T STAT 07/02/2019 7:00 AM EDT HEPARIN (UNFRACTIONATED) LEVEL Routine 07/02/2019 1:10 AM EDT HEMOGRAM Routine 07/02/2019 1:10 AM EDT DIFFERENTIAL, AUTOMATED Routine 07/02/2019 1:10 AM EDT BLUE TUBE HOLD Routine 07/02/2019 1:10 AM EDT GREEN TUBE HOLD Routine 07/02/2019 1:10 AM EDT LAVENDER TUBE HOLD Routine 07/02/2019 1: 10 AM EDT APTT Routine 07/02/2019 1:10 AM EDT PROTHROMBIN TIME Routine 07/02/2019 1:10 AM EDT TROPONIN Routine 07/02/2019 1:10 AM EDT TSH Routine 07/02/2019 1:10 AM EDT PHOSPHORUS Routine 07/02/2019 1:10 AM EDT PRO-BRAIN NATRIURETIC PEPTIDE Routine 07/02/2019 1:10 AM EDT MAGNESIUM Routine 07/02/2019 1:10 AM EDT COMPREHENSIVE METABOLIC PANEL Routine 07/02/2019 1:10 AM EDT EKG 12-LEAD Routine 07/02/2019 1:04 AM EDT ASCVD (arteriosclerotic cardiovascular disease) documented in this encounter Results * C. Difficile Screen (07/04/2019 10:42 AM EDT) C Diff Interp Negative Negative [facility] Comment: C. diff ??Negative Clostridium difficile is not present in the specimen. If patient is having diarrhea suspected to be from an infectious cause, then Contact Precautions are still required. Stool specimen (specimen) 07/04/2019 10:42 AM EDT 07/04/2019 10:56 AM EDT Narrative Resulting Agency Comment Spec In Lab Emir Riley MD MICROBIOLOGY - GENER AL ORDERABLES Performing Organization Address City/[facility]/ZIP Co de Phone Number [facility] [place] [address] * EKG 12 Lead (07/04/2019 6:42 AM EDT) Ventricular rate 81 BPM MUSE SYSTEM Atrial Rate 81 BPM MUSE SYSTEM P-R Interval 150 ms MUSE SYSTEM QRS Duration 90 ms MUSE SYSTEM Q-T Interval 396 ms MUSE SYSTEM QTC Calculated (Bezet) 460 ms MUSE SYSTEM Calculated P [place] 61 degrees MUSE SYSTEM Calculated R [place] 41 degrees MUSE SYSTEM Calculated T [place] -34 degrees MUSE SYSTEM INTERPRETATION Normal sinus rhythm Nonspecific T wave abnormality Abnormal ECG When compared with ECG of 03-JUL-2019 13:39, (unconfirmed) Nonspecific T wave abnormality now evident in Lateral leads Confirmed by MD Rosemary, Emir ([id number]) on 07/04/2019 8:31:44 PM MUSE SYSTEM 07/04/2019 6:42 AM EDT 07/04/2019 8:31 PM EDT Emir Riley MD ECG ORDERABLES Performing Organization Address City/[facility] Co de Phone Number MUSE SYSTEM * Differential, Automated (07/04/2019 4:43 AM EDT) Neutrophil % 54.9 % [facility] Neutrophil Absolute 4.17 1.70 - 6.10 x10(3)/[facility] [place] [facility] Lymph % 29.6 % [facility] Lymphocytes Abs 2.2 0.9 - 3.2 x10(3)/[facility] [place] [facility] Monocyte % 9.8 % [facility] Monocyte Abs 0.7 0.3 - 0.9 x10(3)/[facility] Eos % 4.7 % [facility] Eosinophils Abs 0.4 0.0 - 0.4 x10(3)/[facility] [place] [facility] Basophil % 0.7 % [facility] Baso Absolute 0.0 0.0 - 0.1 x10(3)/[facility] Immature Gran % 0.30 % [facility] Comment: Immature granulocytes(IG's)percentage and absolute count will include metamyelocytes, myelocytes, and promyelocytes. Blood smears from CBCs yielding IG's will be scanned manually for concordance. If this scan disagrees with the automated IG or if promyelocytes are noted, a manual differential will be performed. Immature Gran Absolute 0.02 0.00 - 0.04 x10(3)/[facility] Blood specimen (specimen) 07/04/2019 4:43 AM EDT 07/04/2019 4:50 AM EDT Narrative Resulting Agency Comment Spec In Lab Jerry Vaughn MD HEMATOLOGY ORDERABLE S [facility] [place] [address] * (ABNORMAL) Hemogram (07/04/2019 4:43 AM EDT) White Blood Cell 7.6 4.0 - 9.5 x10(3)/mc L [facility] Red Blood Cell 4.28 4.00 - 5.21 x10(6)/mc L [facility] Hemoglobin 13.3 11.7 - 15.5 gm/dL [facility] Hematocrit 40.6 35.7 - 45.8 % [facility] Mean Cell Volume 94.9(H) 82.6 - 94.4 fL [facility] Mean Cell Hemoglobin 31.1 27.1 - 32.0 pg [facility] Mean Cell Hemoglobin Concentration 32.8 31.7 - 35.0 gm/dL [facility] Platelet 244 145 - 357 x10(3)/mc L [facility] RDW Standard Deviation 45.8 37.0 - 46.0 fL [facility] RDW coefficient of variation 13.1 11.5 - 14.1 % [facility] Mean Platelet Volume 10.3 7.6 - 12.9 fL [facility] NRBC% auto 0.0 % [facility] NRBC Absolute 0.000 0.000 - 0.000 x10(3)/mc L [facility] Blood specimen (specimen) 07/04/2019 4:43 AM EDT 07/04/2019 4:50 AM EDT Narrative Resulting Agency Comment Spec In Lab Jerry Vaughn MD HEMATOLOGY ORDERABLE S Performing Organization Address City/[facility] Co de Phone Number [facility] [place] [address] * EKG 12 Lead (07/03/2019 1:39 PM EDT) Ventricular rate 75 BPM MUSE SYSTEM Atrial Rate 75 BPM MUSE SYSTEM P-R Interval 156 ms MUSE SYSTEM QRS Duration 88 ms MUSE SYSTEM Q-T Interval 408 ms MUSE SYSTEM QTC Calculated (Bezet) 455 ms MUSE SYSTEM Calculated P [place] 56 degrees MUSE SYSTEM Calculated R [place] 20 degrees MUSE SYSTEM Calculated T [place] 19 degrees MUSE SYSTEM INTERPRETATION Normal sinus rhythm Normal ECG When compared with ECG of 02-JUL-2019 15:00, No significant change was found Confirmed by Gil Knowles MD ([id number]) on 07/07/2019 3:31:24 PM MUSE SYSTEM 07/03/2019 1:39 PM EDT 07/07/2019 3:31 PM EDT Emir Riley MD ECG ORDERABLES Performing Organization Address [facility]/ZIP Co de Phone Number MUSE SYSTEM * CARDIAC CATHETERIZATION (07/03/2019 1:07 PM EDT) Anatomical Region Laterality Modality Other Narrative 07/03/2019 7:34 PM EDT ?[facility] ? Cardiac Catheterization/Intervention Report ? Patient Name: Diana Landry. ? Procedure Date: 07/03/2019 ? A #: [id number] ? Primary Physician: Cris Nguyễn ? Case #: [id number] ? File Name: [id number] ? Catheterization Order Number: [id number] ? [facility] ? Final Report [place], [place] ? Patient Name: ? Diana Do. Yamileth ? ID#: ?[id number] ? : ?1960 ? Procedure Date: ? July 03, 2019 ?Case #: ? [id number] ? Room: ? 6 ? Case Physician: ? Cris Nguyễn M.D. ? Start: ?12:08 ?Fellow: ? Mary Renteria M.D. ?Admission: ??07/02/2019 ? Referring ? Mirta Garner P.A. ? Physicians: ?Olga Ambrosio M.D. ? Procedures: ?* Coronary Angiography ?* Left Heart Catheterization ?* Coronary Stent Insertion ?* Vascular Closure Device Deployment ?* Access Site Angiography ? History ?Diana Landry is a 59 year old woman. She has hypertension and a ?family history of coronary artery disease. The patient's smoking status ?is Never. She has hypercholesterolemia managed with lipid therapy. The ?patient is status post a recent non-ST elevation myocardial infarction as ?well as a remote myocardial infarction. She had a recent coronary ?intervention procedure. The patient also has tricuspid regurgitation. ?Prior to the initiation of this procedure, the patient was designated as ?ASA Class IV. The [facility] clinical frailty scale is 4. Vulnerable. ? Diagnostic Tests: ?Prior Coronary Angiography: ? LV ejection fraction within 6 months is 50%. ?Electrocardiography: ? EKG was assessed by EKG. EKG was Abnormal. EKG showed other ? abnormality. ?Medications Prior to Procedure: ? ASA, Beta Evan, Calcium Channel Blocking Agent and Statin. ? Indications for Diagnostic Cath: ?The priority of the diagnostic procedure was Urgent. The indication for ?the refuse laborer visit is ACS greater than 24 hrs. Chest pain symptom ?assessment was: Typical Angina. ? Technique: ?A 6Fr sheath was inserted in the right femoral artery utilizing the ?Seldinger technique. The right coronary artery was injected utilizing a ?6Fr JR 4 catheter. Left ventricular pressure was performed with a 6Fr JR ?4 catheter. Coronary stent insertion was performed and the equipment ?utilized will be described in the intervention summary section. 12,000 ?units of heparin were administered. A total of 100cc of Omnipaque were ?opened, 70cc of Omnipaque were administered and 30cc of Omnipaque were ?wasted. Radiation: Fluoro time was 11.6 minutes, dose area product was ?26,900 mGYcm2 and air kerma was 367 mGY. See the case log for additional ?details. ?The patient received the following medications prior to and during the ?procedure: ? Unfractionated Heparin and Clopidogrel. ? Hemodynamics: ?Left Heart Pressures ? Resting: ? Syst Diast ? EDP ?a ?v ? m ?Ao 100 ?? 70 ?84 ?LV 99 ?15 ? Coronary Angiography: ?Dominance: Co-dominant ?Left Main ? This vessel was not injected. ?Left Anterior Descending ? This vessel was not injected. ?Left Circumflex ? This vessel was not injected. ?Right Coronary Artery ? There was an 80% long segmental stenosis of the mid segment of the ? right coronary artery (RCA). ? There were multiple discrete 80% stenoses of the ostial segment of ? the acute marginal branch (AcM) of the RCA. ??The AcM was moderate in ? size. ? Indication for Intervention: ?Coronary intervention was indicated for treatment of a critical lesion ?post a myocardial infarction. The priority for the procedure was Urgent. ?The NCDR indication for the procedure was NSTE-ACS. LVEF within one week ?was 50%. Syntax Score was Intermediate. Staged PCI was performed for ?multivessel disease. ? Intervention Summary: ?Right Coronary Artery ? Mid 80% ? Stent insertion was performed on the 80% stenosis in the mid ? segment of the RCA. This was a de emily lesion. According to ? the ACC/AHA classification system, this lesion was a type B2 ? moderate risk lesion. Primary prevention of restenosis was the ? indication for stent insertion. This was the culprit lesion. A ? guidewire was placed across this lesion. Vessel flow pre ? intervention was CLAY 3. Lesion length was 15mm. The lesion ? involves a bifurcation with the AcM. This bifurcation lesion ? was treated with a single stent, side branch jailed and not ? treated technique. ? Stent insertion was accomplished through a 6 Fr. JR 4 guide. ? The lesion was predilated with a 2.00mm APEX 20 MM balloon ? with a maximum inflation pressure of 6 atmospheres. ??A ? premounted 2.50 x 30 mm Resolute WILBUR (SARAI) was deployed with ? a maximum inflation pressure of 14 atmospheres. ? The final outcome was defined as successful. There was no ? residual stenosis following this intervention. The final CLAY ? flow was 3. ? Vascular Access: ?Vascular Access Angiogram: ? A selective angiogram at the right femoral artery revealed no ? significant obstructive disease. ?Vascular Access Management: ? A 6 Fr Perclose was deployed at the right femoral artery access ? site. This device was successful. ? Dual Antiplatelet (DAPT) Recommendations: ?Drug eluting stent (SARAI) inserted. ?P2Y12 Loading dose administered prior to arrival in the refuse laborer. ?Recommend continuing clopidogrel 75 mg PO daily for 12 months. ??Recommend ?continuing aspirin 81 mg unless intolerant. ?The DAPT score is 3. ??The DAPT score calculates net clinical benefit of ?prolonged dual antiplatelet therapy following percutaneous coronary ?intervention. A DAPT Score of equal or greater than 2 suggests an ?increased risk of late stent thrombosis and MACCE. If the DAPT score is ?equal or greater than 2 and the patient tolerates the recommended ?duration of DAPT without bleeding or side effects, consider extending the ?DAPT to 30 months post procedure. ? Conclusions: ?* Obstructive disease of the RCA ?* Successful stent insertion of the mid RCA lesion ?* Recommend continuing clopidogrel 75 mg PO daily for 12 months (see DAPT ?Recommendations above for more information.) ? Complications/Events: ?The patient had no complications during these procedures. ?The attending physician was present for the entire procedure. ?Dr. Cris Nguyễn M.D. was present during the moderate sedation ?intraservice time as documented by the sedation nurse. ??Case time = 00:52. ?Dr. Cris Nguyễn M.D. performed the left heart catheterization, stent ?insertion-coronary, access site angiography, vascular closure device and ?coronary angiography. ? Cris Nguyễn M.D. ? Electronically Signed by: Cris Nguyễn M.D. ? Report Finalized: 07/03/2019 ??19:28 ? Procedure Note Cris Nguyễn MD - 07/03/2019 [facility] Cardiac Catheterization/Intervention Report Patient Name: Diana LandryJason Procedure Date: 07/03/2019 A #: [id number] Primary Physician: Cris Nguyễn Case #: [id number] File Name: [id number] Catheterization Order Number: [id number] [facility] FinalReport [place], [place] Patient Name: Diana Landry ID#:[id number] :1960 Procedure Date: July 03, 2019 Case #: [id number] Room: 6 Case Physician: Cris Nguyễn M.D. Start: 12:08 Fellow: Mary Renteria M.D. Admission:07/02/2019 Referring Minh Smith Physicians: Olga Ambrosio M.D. Procedures: * Coronary Angiography * Left Heart Catheterization * Coronary Stent Insertion * Vascular Closure Device Deployment * Access Site Angiography History Diana Landry is a 59 year old woman. She has hypertension and a family history of coronary artery disease. The patient's smokingstatus is Never. She has hypercholesterolemia managed with lipid therapy.The patient is status post a recent non-ST elevation myocardialinfarction as well as a remote myocardial infarction. She had a recent coronary intervention procedure. The patient also has tricuspidregurgitation. Prior to the initiation of this procedure, the patient wasdesignated as ASA Class IV. The [facility] clinical frailty scale is 4. Vulnerable. Diagnostic Tests: Prior Coronary Angiography: LV ejection fraction within 6 months is 50%. Electrocardiography: EKG was assessed by EKG. EKG was Abnormal. EKG showed other abnormality. Medications Prior to Procedure: ASA, Beta Evan, Calcium Channel Blocking Agent and Statin. Indications for Diagnostic Cath: The priority of the diagnostic procedure was Urgent. The indicationfor the refuse laborer visit is ACS greater than 24 hrs. Chest pain symptom assessment was: Typical Angina. Technique: A 6Fr sheath was inserted in the right femoral artery utilizing the Seldinger technique. The right coronary artery was injectedutilizing a 6Fr JR 4 catheter. Left ventricular pressure was performed with a6Fr JR 4 catheter. Coronary stent insertion was performed and the equipment utilized will be described in the intervention summary section.12,000 units of heparin were administered. A total of 100cc of Omnipaquewere opened, 70cc of Omnipaque were administered and 30cc of Omnipaquewere wasted. Radiation: Fluoro time was 11.6 minutes, dose area productwas 26,900 mGYcm2 and air kerma was 367 mGY. See the case log foradditional details. The patient received the following medications prior to and duringthe procedure: Unfractionated Heparin and Clopidogrel. Hemodynamics: Left Heart Pressures Resting: Syst Diast EDP a v m Ao 100 70 84 LV 99 15 Coronary Angiography: Dominance: Co-dominant Left Main This vessel was not injected. Left Anterior Descending This vessel was not injected. Left Circumflex This vessel was not injected. Right Coronary Artery There was an 80% long segmental stenosis of the mid segment ofthe right coronary artery (RCA). There were multiple discrete 80% stenoses of the ostial segmentof the acute marginal branch (AcM) of the RCA. The AcM wasmoderate in size. Indication for Intervention: Coronary intervention was indicated for treatment of a criticallesion post a myocardial infarction. The priority for the procedure wasUrgent. The NCDR indication for the procedure was NSTE-ACS. LVEF within oneweek was 50%. Syntax Score was Intermediate. Staged PCI was performed for multivessel disease. Intervention Summary: Right Coronary Artery Mid 80% Stent insertion was performed on the 80% stenosis in themid segment of the RCA. This was a de emily lesion. Accordingto the ACC/AHA classification system, this lesion was a typeB2 moderate risk lesion. Primary prevention of restenosiswas the indication for stent insertion. This was the culpritlesion. A guidewire was placed across this lesion. Vessel flow pre intervention was CLAY 3. Lesion length was 15mm. Thelesion involves a bifurcation with the AcM. This bifurcationlesion was treated with a single stent, side branch jailed andnot treated technique. Stent insertion was accomplished through a 6 Fr. JR 4guide. The lesion was predilated with a 2.00mm APEX 20 MMballoon with a maximum inflation pressure of 6 atmospheres. A premounted 2.50 x 30 mm Resolute WILBUR (SARAI) was deployedwith a maximum inflation pressure of 14 atmospheres. The final outcome was defined as successful. There was no residual stenosis following this intervention. The finalTIMI flow was 3. Vascular Access: Vascular Access Angiogram: A selective angiogram at the right femoral artery revealed no significant obstructive disease. Vascular Access Management: A 6 Fr Perclose was deployed at the right femoral artery access site. This device was successful. Dual Antiplatelet (DAPT) Recommendations: Drug eluting stent (SARAI) inserted. P2Y12 Loading dose administered prior to arrival in the refuse laborer. Recommend continuing clopidogrel 75 mg PO daily for 12 months.Recommend continuing aspirin 81 mg unless intolerant. The DAPT score is 3. The DAPT score calculates net clinical benefitof prolonged dual antiplatelet therapy following percutaneous coronary intervention. A DAPT Score of equal or greater than 2 suggests an increased risk of late stent thrombosis and MACCE. If the DAPT scoreis equal or greater than 2 and the patient tolerates the recommended duration of DAPT without bleeding or side effects, considerextending the DAPT to 30 months post procedure. Conclusions: * Obstructive disease of the RCA * Successful stent insertion of the mid RCA lesion * Recommend continuing clopidogrel 75 mg PO daily for 12 months (seeDAPT Recommendations above for more information.) Complications/Events: The patient had no complications during these procedures. The attending physician was present for the entire procedure. Dr. Cris Nguyễn M.D. was present during the moderate sedation intraservice time as documented by the sedation nurse. Case time =00:52. Dr. Cris Nguyễn M.D. performed the left heart catheterization, stent insertion-coronary, access site angiography, vascular closure deviceand coronary angiography. Cris Nguyễn M.D. Electronically Signed by: Cris Nguyễn M.D. Report Finalized: 07/03/2019 19:28 Emir Riley MD CARDIAC CATH ORDERAB LES * (ABNORMAL) Troponin (07/03/2019 4:24 AM EDT) [facility] Troponin-T 1.26(H) 0.00 - 0.00 ng/mL [facility] Comment: result rechecked-JSD The 99th percentile for Troponin T is less than 0.01 ng/mL, any detectable cTnT concentration using this assay should be considered elevated. According to the third universal definition of myocardial infarction the following criteria with a clinical presentation consistent with acute myocardial ischemia meets the diagnosis for a myocardial infarction (MD). Detection of a rise and/or fall of cTnT, with at least one value greater than the 99th percentile (> or = 0.01) and with at least one of the following ?? Symptoms of ischemia ?? New or presumed new significant DL-klgmqci-L wave (ST-T) changes or new left bundle branch block (LBBB) ?? Development of pathologic Q waves in the ECG ?? Imaging evidence of new loss of viable myocardium or new regional wall motion abnormality ?? Identification of an intracoronary thrombus by angiography or autopsy Samples for cTnT testing should be obtained serially upon first assessment and again 3 to 6 hours later. If the clinical suspicion is high and previous samples have been negative an additional sample may be indicated. Reference: Third Gilman Definition of Myocardial Infarction. Journal of the [employer] 2012;60:1581-98 Blood specimen (specimen) Venous Draw / Unknown 07/03/2019 4:24 AM EDT 07/03/2019 4:41 AM EDT Narrative Resulting Agency Comment Spec In Lab Jerry Vaughn MD CHEMISTRY ORDERABLES [facility] [place] [address] * Differential, Automated (07/03/2019 4:24 AM EDT) Neutrophil % 53.8 % [facility] Neutrophil Absolute 4.00 1.70 - 6.10 x10(3)/[facility] [place] [facility] Lymph % 29.2 % [facility] Lymphocytes Abs 2.2 0.9 - 3.2 x10(3)/[facility] [place] [facility] Monocyte % 10.6 % [facility] Monocyte Abs 0.8 0.3 - 0.9 x10(3)/[facility] [place] [facility] Eos % 5.1 % [facility] Eosinophils Abs 0.4 0.0 - 0.4 x10(3)/[facility] [place] [facility] Basophil % 0.9 % [facility] Baso Absolute 0.1 0.0 - 0.1 x10(3)/[facility] [place] [facility] Immature Gran % 0.40 % [facility] Comment: Immature granulocytes(IG's)percentage and absolute count will include metamyelocytes, myelocytes, and promyelocytes. Blood smears from CBCs yielding IG's will be scanned manually for concordance. If this scan disagrees with the automated IG or if promyelocytes are noted, a manual differential will be performed. Immature Gran Absolute 0.03 0.00 - 0.04 x10(3)/[facility] [place] [facility] Blood specimen (specimen) 07/03/2019 4:24 AM EDT 07/03/2019 4:41 AM EDT Narrative Resulting Agency Comment Spec In Lab Jerry Vaughn MD HEMATOLOGY ORDERABLE S [facility] [place] [address] * Hemogram (07/03/2019 4:24 AM EDT) White Blood Cell 7.4 4.0 - 9.5 x10(3)/[facility] [place] [facility] Red Blood Cell 4.45 4.00 - 5.21 x10(6)/[facility] [place] [facility] Hemoglobin 13.6 11.7 - 15.5 gm/dL [facility] Hematocrit 41.2 35.7 - 45.8 % [facility] Mean Cell Volume 92.6 82.6 - 94.4 fL [facility] Mean Cell Hemoglobin 30.6 27.1 - 32.0 pg [facility] Mean Cell Hemoglobin Concentration 33.0 31.7 - 35.0 gm/dL [facility] Platelet 224 145 - 357 x10(3)/[facility] [place] [facility] RDW Standard Deviation 45.0 37.0 - 46.0 fL [facility] RDW coefficient of variation 13.2 11.5 - 14.1 % [facility] Mean Platelet Volume 10.1 7.6 - 12.9 fL [facility] NRBC% auto 0.0 % [facility] NRBC Absolute 0.000 0.000 - 0.000 x10(3)/mcL [facility] Blood specimen (specimen) 07/03/2019 4:24 AM EDT 07/03/2019 4:41 AM EDT Narrative Resulting Agency Comment Spec In Lab Jerry Vaughn MD HEMATOLOGY ORDERABLE S [facility] [place] [address] * (ABNORMAL) BMP w/fasting Glucose (07/03/2019 4:24 AM EDT) Glucose Fasting 131(H) 65 - 99 mg/dL [facility] Comment: ?Fasting* Glucose Interpretive Criteria Normal ?65-99 mg/dL Impaired Fasting glucose ?100-125 mg/dL Consistent with Diabetes Mellitus ? >or= 126 mg/dL *Fasting is defined as no caloric intake for at least 8 hours In the absence of unequivocal hyperglycemia a plasma glucose value of >or= 126 mg/dL should be repeated on a subsequent day. Diagnosis and Classification of Diabetes Mellitus, Position Statement from the [employer] [place] [employer]. ??Diabetes Care, Volume 33, Supplement 1, Nov 2009 Blood Urea Nitrogen 10 8 - 18 mg/dL [facility] Creatinine 0.63(L) 0.70 - 1.20 mg/dL [facility] Sodium 142 135 - 145 mmol/L [facility] Potassium 3.6 3.5 - 5.0 mmol/L [facility] Comment: Please note: ??Patients with WBC >100,000 may have falsely elevated Potassium levels. ??For accurate Potassium quantification in these patients send serum separator tube (gold top) for subsequent determinations. ??Contact the Clinical Chemistry Laboratory if there are any questions. Chloride 106 98 - 107 mmol/L [facility] Carbon Dioxide 24 22 - 31 mmol/L [facility] Anion Gap 12 5 - 15 mmol/L [facility] Calcium 9.0 8.5 - 10.5 mg/dL [facility] Est Glomerular Filtration Rate 98 >=60 mL/min/1. 73 m?? [facility] Comment: The eGFR was calculated using the CKD-EPI equation. As with all creatinine based estimates of kidney function, eGFR values calculated with the CKD-EPI equation are not accurate in patients with acute kidney failure, extremes of body mass or the acutely ill. http://Visual Pro 360/DHnkf eGFR 114 >=60 mL/min/1. 73 m?? [facility] Comment: The eGFR was calculated using the CKD-EPI equation. As with all creatinine based estimates of kidney function, eGFR values calculated with the CKD-EPI equation are not accurate in patients with acute kidney failure, extremes of body mass or the acutely ill. http://Visual Pro 360/DHMCnkf Blood specimen (specimen) 07/03/2019 4:24 AM EDT 07/03/2019 4:41 AM EDT Narrative Resulting Agency Comment Spec In Lab Jimenez Melchor MD CHEMISTRY ORDERABLES Performing Organization Address City/State/[facility] Co de Phone Number [facility] [place] [address] * LDL Cholesterol, Direct (07/03/2019 4:24 AM EDT) LDL Cholesterol, Direct 201 mg/dL [facility] Comment: Lowest Risk: <100 mg/dL Lower Risk: 100-129 mg/dL Borderline High Risk: 130-159 mg/dL High Risk: 160-189 mg/dL Very High Risk: >lc=737 mg/dL Blood specimen (specimen) 07/03/2019 4:24 AM EDT 07/03/2019 4:41 AM EDT Narrative Resulting Agency Comment Spec In Lab Jimenez Melchor MD CHEMISTRY ORDERABLES [facility] [place] [address] * (ABNORMAL) Hemoglobin A1c (07/03/2019 4:24 AM EDT) Hemoglobin A1c 5.8(H) 4.3 - 5.6 % [facility] Comment: Reference Range: 4.3 - [...] Mellitus, Diabetes Care 2013; 36: Suppl. 1, S67-42 Estimated Average Glucose 120 mg/dL [facility] Comment: eAG equivalents for HbA1c [...] into estimated average glucose values. ??Diabetes Care 2008:31(8):7713-7809. Blood specimen (specimen) 07/03/2019 4:24 AM EDT 07/03/2019 4:41 AM EDT Narrative Resulting Agency Comment Spec In Lab Jimenez Melchor MD CHEMISTRY ORDERABLES [facility] [place] [address] * Lipid Panel (07/03/2019 4:24 AM EDT) Cholesterol, Total 264 mg/dL [facility] Comment: Lower Risk: <200 mg/dL Average Risk: 200-239 mg/dL Higher Risk: >ly=908 mg/dL Triglyceride 231 mg/dL [facility] Comment: Average Risk/Lower Risk: <150 mg/dL Borderline High Risk: 150-199 mg/dL High Risk: 200-499 mg/dL Very High Risk: >db=181 mg/dL HDL Cholesterol 37 mg/dL [facility] Comment: Males: ?? Higher Risk: <40 mg/dL Females: ?? HIgher Risk: <50 mg/dL LDL Cholesterol 181 mg/dL [facility] Comment: Lowest Risk: <100 mg/dL Lower Risk: 100-129 mg/dL Borderline High Risk: 130-159 mg/dL High Risk: 160-189 mg/dL Very High Risk: >rm=197 mg/dL Cholesterol/HDL Ratio 7.1 ratio [facility] Lipid Interpretation See Note [facility] Comment: Lipid management should be guided by a patient? s ASCVD risk, goals and preferences. ACC/AHA Guidelines recommend high intensity statin if clinical ASCVD or LDL greater than or equal to 190 mg/dL. http://INgroovesurl.com/ITP-KAF-Mvfgticlh Adults aged 40-75 with LDL 70-189 mg/dL should have their 10 year ASCVD risk estimated with the ACC/AHA ASCVD risk field recorder http://tools.acc.org/ZKOZS-Yxox-Etghdauum/ Statin should be discussed if risk greater than or equal to 7.5% in non-diabetics. With diabetes, moderate intensity statin is recommended if risk less than 7.5%, high intensity if risk greater than or equal to 7.5%. Annual lipid monitoring on statins is not necessary. Evaluate secondary causes of Triglycerides greater than 500 mg/dL or LDL greater than 190 mg/dL: See table 6 of ACC/AHA Guideline. Lifestyle modification is a critical component of ASCVD risk reduction. Blood specimen (specimen) 07/03/2019 4:24 AM EDT 07/03/2019 4:41 AM EDT Narrative Resulting Agency Comment Spec In Lab Jimenez Melchor MD CHEMISTRY ORDERABLES [facility] [place] [address] * (ABNORMAL) Troponin (07/02/2019 6:00 PM EDT) Troponin-T 3.12(H) 0.00 - 0.00 ng/mL [facility] Comment: The 99th percentile for Troponin T is less than 0.01 ng/mL, any detectable cTnT concentration using this assay should be considered elevated. According to the third universal definition of myocardial infarction the following criteria with a clinical presentation consistent with acute myocardial ischemia meets the diagnosis for a myocardial infarction (MD). Detection of a rise and/or fall of cTnT, with at least one value greater than the 99th percentile (> or = 0.01) and with at least one of the following ?? Symptoms of ischemia ?? New or presumed new significant JM-csombsb-I wave (ST-T) changes or new left bundle branch block (LBBB) ?? Development of pathologic Q waves in the ECG ?? Imaging evidence of new loss of viable myocardium or new regional wall motion abnormality ?? Identification of an intracoronary thrombus by angiography or autopsy Samples for cTnT testing should be obtained serially upon first assessment and again 3 to 6 hours later. If the clinical suspicion is high and previous samples have been negative an additional sample may be indicated. Reference: Third Gilman Definition of Myocardial Infarction. Journal of the [place] [employer] 2012;60:1581-98 Blood specimen (specimen) 07/02/2019 6:00 PM EDT 07/02/2019 6:10 PM EDT Narrative Resulting Agency Comment Spec In Lab Jimenez Melchor MD CHEMISTRY ORDERABLES Performing Organization Address [facility] Co de Phone Number [facility] [place] [address] * EKG 12 Lead (07/02/2019 3:00 PM EDT) Ventricular rate 84 BPM MUSE SYSTEM Atrial Rate 84 BPM MUSE SYSTEM P-R Interval 166 ms MUSE SYSTEM QRS Duration 70 ms MUSE SYSTEM Q-T Interval 366 ms MUSE SYSTEM QTC Calculated (Bezet) 432 ms MUSE SYSTEM Calculated P [place] 42 degrees MUSE SYSTEM Calculated R [place] 17 degrees MUSE SYSTEM Calculated T [place] 33 degrees MUSE SYSTEM INTERPRETATION Normal sinus rhythm with sinus arrhythmia Normal ECG When compared with ECG of 02-JUL-2019 01:04, Nonspecific T wave abnormality now evident in Inferior leads Confirmed by MD Carmella, Channing Granado ([id number]) on 07/04/2019 11:03:32 AM MUSE SYSTEM 07/02/2019 3:00 PM EDT 07/04/2019 11:03 AM EDT Jimenez Melchor MD ECG ORDERABLES Performing Organization Address [facility] Co de Phone Number MUSE SYSTEM * (ABNORMAL) Troponin (07/02/2019 11:55 AM EDT) Pathologist [facility] Troponin-T 3.11(H) 0.00 - 0.00 ng/mL [facility] Comment: result rechecked-es The 99th percentile for Troponin T is less than 0.01 ng/mL, any detectable cTnT concentration using this assay should be considered elevated. According to the third universal definition of myocardial infarction the following criteria with a clinical presentation consistent with acute myocardial ischemia meets the diagnosis for a myocardial infarction (MD). Detection of a rise and/or fall of cTnT, with at least one value greater than the 99th percentile (> or = 0.01) and with at least one of the following ?? Symptoms of ischemia ?? New or presumed new significant WQ-njnjyts-H wave (ST-T) changes or new left bundle branch block (LBBB) ?? Development of pathologic Q waves in the ECG ?? Imaging evidence of new loss of viable myocardium or new regional wall motion abnormality ?? Identification of an intracoronary thrombus by angiography or autopsy Samples for cTnT testing should be obtained serially upon first assessment and again 3 to 6 hours later. If the clinical suspicion is high and previous samples have been negative an additional sample may be indicated. Reference: Third Gilman Definition of Myocardial Infarction. Journal of the [employer] [place] [employer] 2012;60:1581-98 Blood specimen (specimen) 07/02/2019 11:55 AM EDT 07/02/2019 12:09 PM EDT Narrative Resulting Agency Comment Spec In Lab Jimenez Melchor MD CHEMISTRY ORDERABLES [facility] [place] [address] * ECHO COMPLETE W CONTRAST (07/02/2019 9:35 AM EDT) EF 50 HEARTPeer[employer] SYSTEM Anatomical Region Laterality Modality Other 07/02/2019 Narrative 07/02/2019 9:45 AM EDT Procedure: ?Transthoracic Echocardiogram Patient: ?YAMILETH Do ? (Age): 1960(59y) Med Rec#: ? [id number] ?Sex: ?F ? [place] Loc: ? [facility] [place]Ht / Wt: ??152(cm)/87(kg) Pt. Loc: ?CCU ? BSA: ?1.83 Study Date: ?? 07/02/2019 ?Pt. Type: Inpatient Tape: ? Referring: OLGA AMBROSIO J Reading: Roe Esteban ([id number]) Lead Clinical Research Coordinator: Cris Zuniga [facility] Diagnosis: *ST elevation (STEMI) myocardial infarction involving right coronary artery (I21.11) BP: ? 108/67 SUMMARY: 1. The left ventricular chamber size is [...] contrast brings out regional wall motion abnormalities. Findings ? : Left Ventricle: ? The left ventricular chamber size is normal. ?Left ventricular wall thickness is normal. ?Global left ventricular systolic function is mildly reduced. Ejection fraction is estimated to be 50%. ?There are left ventricular segmental wall motion abnormalities present, as shown in the diagram below. ?Left sided filling pressure could not be assessed by Doppler. ?The ??basal inferior, and ??basal inferoseptal wall segments are hypokinetic (score 2). ?The ??mid anterolateral, mid inferolateral, mid inferior, and ??apical lateral wall segments are akinetic (score 3). ?Overall wallmotion score index is ??1.63 Left Atrium: ? The left atrium is normal in size.31 ml/m2 Right Ventricle: ? Right ventricular chamber size, wall thickness, and systolic function are within normal limits. ?The estimated pulmonary artery systolic pressure is 28 mmHg. ?The estimated right atrial pressure is 3 mmHg. Right Atrium: ? The right atrium appears normal. Aortic Valve: ? The aortic valve is tricuspid. ?There is no evidence of aortic valve thickening. ?There is no evidence of aortic valve stenosis. ?There is a trace of aortic regurgitation present. Mitral Valve: ? The mitral valve appears normal in structure and function. ?There is posterior mitral annular calcification. ?There is trace mitral regurgitation present. Tricuspid Valve: ? The tricuspid valve appears normal in structure and function. ?There is trace tricuspid regurgitation present. Pulmonic Valve: ? The pulmonic valve is not well visualized. ?There is no evidence of pulmonic regurgitation. Pericardium: ? The pericardium appears normal and there is no evidence of a pericardial effusion. Aorta: ? The aortic root is normal in size. ?The ascending aorta is normal in size. Pulmonary Artery: ? The main pulmonary artery appears normal. Venous: ? The inferior vena cava appears normal in size. ?There is a greater than 50% respiratory change in the inferior vena cava dimension. Misc: ? See remainder of report for additional findings. ?Two-dimensional echo, spectral Doppler and color Doppler performed. ?Optison contrast (one 3 ml vial) was used to enhance endocardial definition. Excess contrast was discarded. Chambers 2D ?Value ?Units (Range) ? IVSd (2D) ? 0.7 ?cm ? LVPWd (2D) ?0.8 ?cm ? IVS:LVPW ratio (2D) 0.8 ?ratio ? RWT (2D) ?0.3 ?ratio ? RWT PW (2D) ? 0.4 ?ratio ? LVIDd (2D) ?4.6 ?cm ? LVIDs (2D) ?3.6 ?cm ? LVIDd (2D) index ?2.5 ?cm/m2 ? LVIDs (2D) index ?1.9 ?cm/m2 ? LV FS (2D) ?23 ? % ? EF Teichholz (2D) ?? 46 ? % ? Ao root diameter (2D3 ?cm (2.1 - 3.6) ? Ascending Ao ?2.8 ?cm (2 - 3.5) ? Volumes/Mass ?Value ?Units (Range) ? LA Area 4 CH ?19 ? cm2 (<21) ? RA AREA 4CH ? 11 ? cm2 ? LA ESV BP (MOD) inde31.2 ? ml/m2 ? LV ESV SP 4CH (MOD) 48 ? ml ? LV ESV SP 2CH (MOD) 38 ? ml ? LV EDV BP ? 99 ? ml ? LV ESV BP ? 44 ? ml ? LV EDV BP index ? 54.1 ? ml/m2 ? LV ESV BP index ? 24 ? ml/m2 ? BP EF (MOD) ? 56 ? % ? LV mass (2D) ?107.4 ?g ? LV mass (2D) index ??58.7 ? g/m2 ? Diastolic/Systolic Function ?Value ?Units (Range) ? MV E-wave Vmax ?0.6 ?m/sec ? MV deceleration [id number] ?msec ? MV A-wave Vmax ?0.8 ?m/sec ? MV E:A ratio ?0.8 ?ratio ? LV septal e' Vmax ?? 0.1 ?m/sec ? LV lateral e' Vmax ??0.1 ?m/sec ? LV average e' Vmax ??0.1 ?m/sec ? LV E:e' septal ratio12.3 ? ratio ? LV E:e' lateral rati9 ?ratio ? LV average E:e' rati10.5 ? ratio ? Tricuspid Valve ?Value ?Units (Range) ? TR Vmax ? 2.5 ?m/sec ? TR peak gradient ?24.8 ? mmHg ? RAP ? 3 ?mmHg ? RVSP ?28 ? mmHg ? Wall Motion: Segment Name ?Rest ? Base-Anteroseptal ?? Normal ? Base-Anterior ? Normal ? Base-Anterolateral ??Normal ? Base-Posterolateral Normal ? Base-Inferior ? Hypokinetic ? Base-Inferoseptal ?? Hypokinetic ? Mid-Anteroseptal ?Normal ? Mid-Anterior ?Normal ? Mid-Anterolateral ?? Akinetic ? Mid-Posterolateral ??Akinetic ? Mid-Inferior ?Akinetic ? Mid-Inferoseptal ?Normal ? Lamar-Septal ? Normal ? Lamar-Anterior ? Normal ? Lamar-Lateral ?Akinetic ? Lamar-Inferior ? Normal ? Lamar-Tip ?Normal ? This report has been electronically signed by: Roe Esteban M.D. ? 07/02/2019 09:45:11 Images reviewed and interpretation verified [facility] Procedure Note Roe Esteban MD - 07/02/2019 Procedure: Transthoracic Echocardiogram Patient: YAMILETH Do (Age): 1960(59y) Med Rec#: [id number] Sex: F [place] Loc: [facility] [place] Ht / Wt: 152(cm)/87(kg) Pt. Loc: CCU BSA: 1.83 Study Date: 07/02/2019 Pt. Type: Inpatient Tape: Referring: OLGA AMBROSIO J Reading: Roe Esteban ([id number]) Lead Clinical Research Coordinator: Cris Zuniga [facility] Diagnosis: *ST elevation (STEMI) myocardial infarction involving right coronary artery (I21.11) BP: 108/67 SUMMARY: 1. The left ventricular chamber size is normal. Left ventricular wall thickness is normal. Global left ventricular systolic function is mildly reduced. Ejection fraction is estimated to be 50%. There are left ventricular segmental wall motion abnormalities present, as shown in the diagram below. 2. Right ventricular chamber size, wall thickness, and systolic function are within normal limits. 3. See remainder of report for additional findings. 4. When compared to previous echo last night -- contrast brings out regional wall motion abnormalities. Findings : Left Ventricle: The left ventricular chamber size is normal. Left ventricular wall thickness is normal. Global left ventricular systolic function is mildly reduced. Ejection fraction is estimated to be 50%. There are left ventricular segmental wall motion abnormalities present, as shown in the diagram below. Left sided filling pressure could not be assessed by Doppler. The basal inferior, and basal inferoseptal wall segments are hypokinetic (score 2). The mid anterolateral, mid inferolateral, mid inferior, and apical lateral wall segments are akinetic (score 3). Overall wallmotion score index is 1.63 Left Atrium: The left atrium is normal in size.31 ml/m2 Right Ventricle: Right ventricular chamber size, wall thickness, and systolic function are within normal limits. The estimated pulmonary artery systolic pressure is 28 mmHg. The estimated right atrial pressure is 3 mmHg. Right Atrium: The right atrium appears normal. Aortic Valve: The aortic valve is tricuspid. There is no evidence of aortic valve thickening. There is no evidence of aortic valve stenosis. There is a trace of aortic regurgitation present. Mitral Valve: The mitral valve appears normal in structure and function. There is posterior mitral annular calcification. There is trace mitral regurgitation present. Tricuspid Valve: The tricuspid valve appears normal in structure and function. There is trace tricuspid regurgitation present. Pulmonic Valve: The pulmonic valve is not well visualized. There is no evidence of pulmonic regurgitation. Pericardium: The pericardium appears normal and there is no evidence of a pericardial effusion. Aorta: The aortic root is normal in size. The ascending aorta is normal in size. Pulmonary Artery: The main pulmonary artery appears normal. Venous: The inferior vena cava appears normal in size. There is a greater than 50% respiratory change in the inferior vena cava dimension. Misc: See remainder of report for additional findings. Two-dimensional echo, spectral Doppler and color Doppler performed. Optison contrast (one 3 ml vial) was used to enhance endocardial definition. Excess contrast was discarded. Chambers 2D Value Units (Range) IVSd (2D) 0.7 cm LVPWd (2D) 0.8 cm IVS:LVPW ratio (2D) 0.8 ratio RWT (2D) 0.3 ratio RWT PW (2D) 0.4 ratio LVIDd (2D) 4.6 cm LVIDs (2D) 3.6 cm LVIDd (2D) index 2.5 cm/m2 LVIDs (2D) index 1.9 cm/m2 LV FS (2D) 23 % EF Teichholz (2D) 46 % Ao root diameter (2D3 cm (2.1 - 3.6) Ascending Ao 2.8 cm (2 - 3.5) Volumes/Mass Value Units (Range) LA Area 4 CH 19 cm2 (<21) RA AREA 4CH 11 cm2 LA ESV BP (MOD) inde31.2 ml/m2 LV ESV SP 4CH (MOD) 48 ml LV ESV SP 2CH (MOD) 38 ml LV EDV BP 99 ml LV ESV BP 44 ml LV EDV BP index 54.1 ml/m2 LV ESV BP index 24 ml/m2 BP EF (MOD) 56 % LV mass (2D) 107.4 g LV mass (2D) index 58.7 g/m2 Diastolic/Systolic Function Value Units (Range) MV E-wave Vmax 0.6 m/sec MV deceleration [id number] msec MV A-wave Vmax 0.8 m/sec MV E:A ratio 0.8 ratio LV septal e' Vmax 0.1 m/sec LV lateral e' Vmax 0.1 m/sec LV average e' Vmax 0.1 m/sec LV E:e' septal ratio12.3 ratio LV E:e' lateral rati9 ratio LV average E:e' rati10.5 ratio Tricuspid Valve Value Units (Range) TR Vmax 2.5 m/sec TR peak gradient 24.8 mmHg RAP 3 mmHg RVSP 28 mmHg Wall Motion: Segment Name Rest Base-Anteroseptal Normal Base-Anterior Normal Base-Anterolateral Normal Base-Posterolateral Normal Base-Inferior Hypokinetic Base-Inferoseptal Hypokinetic Mid-Anteroseptal Normal Mid-Anterior Normal Mid-Anterolateral Akinetic Mid-Posterolateral Akinetic Mid-Inferior Akinetic Mid-Inferoseptal Normal Lamar-Septal Normal Lamar-Anterior Normal Lamar-Lateral Akinetic Lamar-Inferior Normal Lamar-Tip Normal This report has been electronically signed by: Roe Esteban M.D. 07/02/2019 09:45:11 Images reviewed and interpretation verified [facility] Ultrasound [facility] Salvador Zaragoza MD ECHO ORDERABLES * CARDIAC CATHETERIZATION (07/02/2019 9:25 AM EDT) Anatomical Region Laterality Modality Other Narrative 07/02/2019 9:59 AM EDT ?[facility] ? Cardiac Catheterization/Intervention Report ? Patient Name: Diana Landry M. ? Procedure Date: 07/02/2019 ? A #: [id number] ? Primary Physician: Bárbara Nascimento ? Case #: [id number] ? File Name: [id number] ? Catheterization Order Number: [id number] ? [facility] ? Final Report [place], [place] ? Patient Name: ? Diana M. Yamileth ? ID#: ?[id number] ? : ?1960 ? Procedure Date: ? July 02, 2019 ?Case #: ? [id number] ? Room: ? 5 ? Case Physician: ? Bárbara Nascimento M.D. ? Start: ?08:25 ?Fellow: ? Mary Renteria M.D. ?Admission: ??07/02/2019 ? Discharge: ??07/04/2019 ? Procedures: ?* Coronary Angiography ?* Left Heart Catheterization ?* Coronary Stent Insertion ? History ?Diana Landry is a 59 year old woman. She has hypertension and a ?family history of coronary artery disease. The patient's smoking status ?is Never. She has hypercholesterolemia managed with lipid therapy. The ?patient is status post an acute non-ST elevation myocardial infarction as ?well as a remote myocardial infarction. She had a remote coronary ?intervention procedure. The patient also has tricuspid regurgitation. ?Prior to the initiation of this procedure, the patient was designated as ?ASA Class III. The [facility] clinical frailty scale is 2: Well. ? Diagnostic Tests: ?Electrocardiography: ? EKG was assessed by ECG. EKG was Abnormal. EKG showed other ? abnormality. ?Medications Prior to Procedure: ? ASA. ? Indications for Diagnostic Cath: ?The priority of the diagnostic procedure was Urgent. 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 Chest pain ?symptom assessment was: Typical Angina. ? Technique: ?A 6 SLFr sheath was inserted in the right radial artery utilizing the ?Seldinger technique. A 6Fr sheath was inserted in the right femoral ?artery utilizing the Seldinger technique. The left coronary artery was ?injected utilizing a 5Fr JL 3.5 catheter. A 5Fr JR 4 catheter was used to ?inject the right coronary artery. Left ventricular pressure was performed ?with a 5Fr JR 4 catheter. Coronary stent insertion was performed and the ?equipment utilized will be described in the intervention summary section. ?5,000 units of heparin were administered. A total of 200cc of Omnipaque ?were opened, 131cc of Omnipaque were administered and 69cc of Omnipaque ?were wasted. Radiation: Fluoro time was 5.8 minutes, dose area product ?was 99,748 mGYcm2 and air kerma was 1,609 mGY. See the case log for ?additional details. ?The patient received the following medications prior to and during the ?procedure: ? Unfractionated Heparin. ? Hemodynamics: ?Left Heart Pressures ? Resting: ? Syst Diast ? EDP ?a ?v ? m ?Ao 101 ?? 67 ?82 ?LV 101 ? 9 ? Coronary Angiography: ?Dominance: Co-dominant ?Left Main ? There was mild diffuse (<=25% stenosis) disease of the entire vessel ? segment of the left main artery. ??The left main was large. ?Left Anterior Descending ? There was mild diffuse (<=25% stenosis) disease of the entire vessel ? segment of the left anterior descending artery (LAD). ??The LAD was ? moderate in size. ? There was a single discrete total occlusion of the ostial segment of ? the first diagonal branch (Diagonal 1) of the LAD. ?Left Circumflex ? There was mild diffuse (<=25% stenosis) disease of the entire vessel ? segment of the left circumflex artery (LCX). ??The LCX was moderate ? in size. ? There was a single discrete total occlusion of the mid segment of ? the first obtuse marginal branch (OM1) of the LCX. ??The OM1 was ? moderate in size. ? There was mild diffuse (<=25% stenosis) disease of the entire vessel ? segment of the left posterior descending branch (LPDA) of the LCX. ? The LPDA was moderate in size. ?Right Coronary Artery ? There was an 80% single discrete stenosis of the mid segment of the ? right coronary artery (RCA). ??The RCA was moderate in size. ? There was mild diffuse (<=25% stenosis) disease of the entire vessel ? segment of the right posterior descending branch (RPDA) of the RCA. ? The RPDA was small. ? Indication for Intervention: ?Coronary intervention was indicated for primary therapy for an acute ?myocardial infarction. The priority for the procedure was Urgent. The ?NCDR indication for the procedure was NSTE-ACS. ? Intervention Summary: ?First Obtuse Marginal Branch of the LCX ? Mid 100% ? Stent insertion was performed on the total occlusion in the ? mid segment of the OM1. This was a de emily lesion. According ? to the ACC/AHA classification system, this lesion was a type C ? high risk lesion. Primary prevention of restenosis was the ? indication for stent insertion. This was the culprit lesion. A ? guidewire was placed across this lesion. Vessel flow pre ? intervention was CLAY 0. Lesion length was 10mm. ? Stent insertion was accomplished through a 6 Fr. EBU 3.5 ? guide. ??The lesion was predilated with a 2.50mm EUPHORA 15 MM ? balloon with a maximum inflation pressure of 12 atmospheres. ? A premounted 2.75 x 16 mm Promus ELITE US MR (SARAI) was ? deployed with a maximum inflation pressure of 16 atmospheres. ? The final outcome was defined as successful. There was no ? residual stenosis following this intervention. The final CLAY ? flow was 3. ? Vascular Access: ?Vascular Access Angiogram: ? A selective angiogram at the right radial artery revealed severe ? tortuosity at the brachial junction. ? A selective angiogram at the right femoral artery revealed mild ? diffuse disease. ?Vascular Access Management: ? Mechanical Compression of the right radial artery access site was ? performed. ? A 6 Fr Perclose was deployed at the right femoral artery access ? site. This device was successful. ? Dual Antiplatelet (DAPT) Recommendations: ?Drug eluting stent (SARAI) inserted. ?P2Y12 Loading dose administered prior to arrival in the refuse laborer. ?Recommend continuing clopidogrel 75 mg PO daily for 12 months. ??Recommend ?continuing aspirin 81 mg unless intolerant. ?The DAPT score is 3. ??The DAPT score calculates net clinical benefit of ?prolonged dual antiplatelet therapy following percutaneous coronary ?intervention. A DAPT Score of equal or greater than 2 suggests an ?increased risk of late stent thrombosis and MACCE. If the DAPT score is ?equal or greater than 2 and the patient tolerates the recommended ?duration of DAPT without bleeding or side effects, consider extending the ?DAPT to 30 months post procedure. ? Conclusions: ?* Three vessel coronary artery disease (LAD, LCX and RCA) ?* Successful stent insertion of the mid OM1 lesion ?* Recommend continuing clopidogrel 75 mg PO daily for 12 months (see DAPT ?Recommendations above for more information.) ? Complications/Events: ?The patient had no complications during these procedures. ? Comments: ?Pt referred for diagnostic coronary angiography with [facility] for chest pain ?and abnormal ECG and biomarkers. ??Coronary angiography showed occluded ?OM1 which was treated with a single SARAI with good result and normal flow. ? There is residual RCA disease in a co-dominant RCA. ??Recommend continued ?medical therapy post AMI. ?The attending physician was present for the entire procedure. ?Dr. Bárbara Nascimento M.D. was present during the moderate sedation intraservice ?time as documented by the sedation nurse. ??Case time = 00:48. ?Dr. Bárbara Nascimento M.D. performed the coronary angiography, left heart ?catheterization and stent insertion-coronary. ? Bárbara Nascimento M.D. ? Electronically Signed by: Bárbara Nascimento M.D. ? Report Finalized: 07/02/2019 ??09:55 ? Report Last Ammended: 10/26/2019 ??12:03 ? Procedure Note Bárbara Nascimento MD - 10/26/2019 [facility] Cardiac Catheterization/Intervention Report Patient Name: Diana Landry Procedure Date: 07/02/2019 A #: [id number] Primary Physician: Bárbara Nascimento Case #: [id number] File Name: [id number] Catheterization Order Number: [id number] [facility] FinalReport [place], [place] Patient Name: Diana Landry ID#:[id number] :1960 Procedure Date: July 02, 2019 Case #: [id number] Room: 5 Case Physician: Bárbara Nascimento M.D. Start: 08:25 Fellow: Mary Renteria M.D. Admission:07/02/2019 Discharge:07/04/2019 Procedures: * Coronary Angiography * Left Heart Catheterization * Coronary Stent Insertion History Diana Landry is a 59 year old woman. She has hypertension and a family history of coronary artery disease. The patient's smokingstatus is Never. She has hypercholesterolemia managed with lipid therapy.The patient is status post an acute non-ST elevation myocardialinfarction as well as a remote myocardial infarction. She had a remote coronary intervention procedure. The patient also has tricuspidregurgitation. Prior to the initiation of this procedure, the patient wasdesignated as ASA Class III. The [facility] clinical frailty scale is 2: Well. Diagnostic Tests: Electrocardiography: EKG was assessed by ECG. EKG was Abnormal. EKG showed other abnormality. Medications Prior to Procedure: ASA. Indications for Diagnostic Cath: The priority of the diagnostic procedure was Urgent. The indicationfor the refuse laborer visit is ACS less than or equal to 24 hrs. Chest pain symptom assessment was: Typical Angina. Technique: A 6 SLFr sheath was inserted in the right radial artery utilizingthe Seldinger technique. A 6Fr sheath was inserted in the right femoral artery utilizing the Seldinger technique. The left coronary arterywas injected utilizing a 5Fr JL 3.5 catheter. A 5Fr JR 4 catheter wasused to inject the right coronary artery. Left ventricular pressure wasperformed with a 5Fr JR 4 catheter. Coronary stent insertion was performed andthe equipment utilized will be described in the intervention summarysection. 5,000 units of heparin were administered. A total of 200cc ofOmnipaque were opened, 131cc of Omnipaque were administered and 69cc ofOmnipaque were wasted. Radiation: Fluoro time was 5.8 minutes, dose areaproduct was 99,748 mGYcm2 and air kerma was 1,609 mGY. See the case log for additional details. The patient received the following medications prior to and duringthe procedure: Unfractionated Heparin. Hemodynamics: Left Heart Pressures Resting: Syst Diast EDP a v m Ao 101 67 82 LV 101 9 Coronary Angiography: Dominance: Co-dominant Left Main There was mild diffuse (<=25% stenosis) disease of the entirevessel segment of the left main artery. The left main was large. Left Anterior Descending There was mild diffuse (<=25% stenosis) disease of the entirevessel segment of the left anterior descending artery (LAD). The LADwas moderate in size. There was a single discrete total occlusion of the ostialsegment of the first diagonal branch (Diagonal 1) of the LAD. Left Circumflex There was mild diffuse (<=25% stenosis) disease of the entirevessel segment of the left circumflex artery (LCX). The LCX wasmoderate in size. There was a single discrete total occlusion of the mid segmentof the first obtuse marginal branch (OM1) of the LCX. The OM1 was moderate in size. There was mild diffuse (<=25% stenosis) disease of the entirevessel segment of the left posterior descending branch (LPDA) of theLCX. The LPDA was moderate in size. Right Coronary Artery There was an 80% single discrete stenosis of the mid segment ofthe right coronary artery (RCA). The RCA was moderate in size. There was mild diffuse (<=25% stenosis) disease of the entirevessel segment of the right posterior descending branch (RPDA) of theRCA. The RPDA was small. Indication for Intervention: Coronary intervention was indicated for primary therapy for an acute myocardial infarction. The priority for the procedure was Urgent.The [facility] indication for the procedure was NSTE-ACS. Intervention Summary: First Obtuse Marginal Branch of the LCX Mid 100% Stent insertion was performed on the total occlusion inthe mid segment of the OM1. This was a de emily lesion.According to the ACC/AHA classification system, this lesion was atype C high risk lesion. Primary prevention of restenosis wasthe indication for stent insertion. This was the culpritlesion. A guidewire was placed across this lesion. Vessel flow pre intervention was CLAY 0. Lesion length was 10mm. Stent insertion was accomplished through a 6 Fr. EBU 3.5 guide. The lesion was predilated with a 2.50mm [id number] MM balloon with a maximum inflation pressure of 12atmospheres. A premounted 2.75 x 16 mm Promus ELITE US MR (SARAI) was deployed with a maximum inflation pressure of 16atmospheres. The final outcome was defined as successful. There was no residual stenosis following this intervention. The finalTIMI flow was 3. Vascular Access: Vascular Access Angiogram: A selective angiogram at the right radial artery revealedsevere tortuosity at the brachial junction. A selective angiogram at the right femoral artery revealed mild diffuse disease. Vascular Access Management: Mechanical Compression of the right radial artery access sitewas performed. A 6 Fr Perclose was deployed at the right femoral artery access site. This device was successful. Dual Antiplatelet (DAPT) Recommendations: Drug eluting stent (SARAI) inserted. P2Y12 Loading dose administered prior to arrival in the refuse laborer. Recommend continuing clopidogrel 75 mg PO daily for 12 months.Recommend continuing aspirin 81 mg unless intolerant. The DAPT score is 3. The DAPT score calculates net clinical benefitof prolonged dual antiplatelet therapy following percutaneous coronary intervention. A DAPT Score of equal or greater than 2 suggests an increased risk of late stent thrombosis and MACCE. If the DAPT scoreis equal or greater than 2 and the patient tolerates the recommended duration of DAPT without bleeding or side effects, considerextending the DAPT to 30 months post procedure. Conclusions: * Three vessel coronary artery disease (LAD, LCX and RCA) * Successful stent insertion of the mid OM1 lesion * Recommend continuing clopidogrel 75 mg PO daily for 12 months (seeDAPT Recommendations above for more information.) Complications/Events: The patient had no complications during these procedures. Comments: Pt referred for diagnostic coronary angiography with [facility] for chestpain and abnormal ECG and biomarkers. Coronary angiography showedoccluded OM1 which was treated with a single SARAI with good result and normalflow. There is residual RCA disease in a co-dominant RCA. Recommendcontinued medical therapy post AMI. The attending physician was present for the entire procedure. Dr. Bárbara Nascimento M.D. was present during the moderate sedationintraservice time as documented by the sedation nurse. Case time = 00:48. Dr. Bárbara Nascimento M.D. performed the coronary angiography, left heart catheterization and stent insertion-coronary. Bárbara Nascimento M.D. Electronically Signed by: Bárbara Nascimento M.D. Report Finalized: 07/02/2019 09:55 Report Last Ammended: 10/26/2019 12:03 Jimenez Melchor MD CARDIAC CATH ORDERAB LES * Heparin (unfractionated) Level (07/02/2019 7:00 AM EDT) UF Heparin 0.64 IU/mL [facility] Comment: Guidelines for therapeutic unfractionated heparin levels are summarized below. Heparin (Anti-Xa) levels should be determined in a plasma sample that has been drawn 6 hours after a dose change i.e., steady-state has been reached. DRUG ?Dosing Schedule ? Target Peak Steady-State ?Heparin (Anti-Xa) Levels (Units/mL) Unfractionated ?Continuous infusion ?0.3-0.7 Heparin ?0.3-0.6 for some neurology indications Blood specimen (specimen) 07/02/2019 7:00 AM EDT 07/02/2019 7:11 AM EDT Narrative Resulting Agency Comment Spec In Lab Emir Riley MD HEMATOLOGY ORDERABLE S Performing Organization Address [facility] Co de Phone Number [facility] [place] [address] * (ABNORMAL) Troponin (07/02/2019 7:00 AM EDT) Troponin-T 0.24(H) 0.00 - 0.00 ng/mL [facility] Comment: The 99th percentile for Troponin T is less than 0.01 ng/mL, any detectable cTnT concentration using this assay should be considered elevated. According to the third universal definition of myocardial infarction the following criteria with a clinical presentation consistent with acute myocardial ischemia meets the diagnosis for a myocardial infarction (MD). Detection of a rise and/or fall of cTnT, with at least one value greater than the 99th percentile (> or = 0.01) and with at least one of the following ?? Symptoms of ischemia ?? New or presumed new significant GH-gvvlfmc-R wave (ST-T) changes or new left bundle branch block (LBBB) ?? Development of pathologic Q waves in the ECG ?? Imaging evidence of new loss of viable myocardium or new regional wall motion abnormality ?? Identification of an intracoronary thrombus by angiography or autopsy Samples for cTnT testing should be obtained serially upon first assessment and again 3 to 6 hours later. If the clinical suspicion is high and previous samples have been negative an additional sample may be indicated. Reference: Third Gilman Definition of Myocardial Infarction. Journal of the [employer] 2012;60:1581-98 Blood specimen (specimen) 07/02/2019 7:00 AM EDT 07/02/2019 7:11 AM EDT Narrative Resulting Agency Comment Spec In Lab Jimenez Melchor MD CHEMISTRY ORDERABLES Performing Organization Address [facility]/ZIP Co de Phone Number [facility] [place] [address] * Heparin (unfractionated) Level (07/02/2019 1:10 AM EDT) UF Heparin 0.84 IU/mL [facility] Comment: Guidelines for therapeutic unfractionated heparin levels are summarized below. Heparin (Anti-Xa) levels should be determined in a plasma sample that has been drawn 6 hours after a dose change i.e., steady-state has been reached. DRUG ?Dosing Schedule ? Target Peak Steady-State ?Heparin (Anti-Xa) Levels (Units/mL) Unfractionated ?Continuous infusion ?0.3-0.7 Heparin ?0.3-0.6 for some neurology indications Blood specimen (specimen) No Charge / Unknown 07/02/2019 1:10 AM EDT 07/02/2019 1:23 AM EDT Narrative Resulting Agency Comment Spec In Lab Sheng Crooks MD HEMATOLOGY ORDERABLE S [facility] [place] [address] * (ABNORMAL) APTT (07/02/2019 1:10 AM EDT) Partial Thromboplastin Time 88(H) 25 - 37 sec [facility] Comment: The PTT is NOT appropriate for heparin monitoring. Use the Anti-Xa level for heparin monitoring (HEP UFH) or LMWH monitoring (HEP LMW). A PTT less than 37 seconds generally indicates adequate hemostasis. Blood specimen (specimen) No Charge / Unknown 07/02/2019 1:10 AM EDT 07/02/2019 1:23 AM EDT Narrative Resulting Agency Comment Spec In Lab Sheng Crooks MD HEMATOLOGY ORDERABLE S Performing Organization Address [facility] Co de Phone Number [facility] [place] [address] * Prothrombin Time (07/02/2019 1:10 AM EDT) Pathologist [facility] Prothrombin Time 11.7 9.4 - 12.5 sec [facility] International Normalization Ratio 1.0 [facility] Comment: An INR <2.0 indicates adequate procoagulant activity for hemostasis in most patients without underlying bleeding disorders, though the INR may not adequately reflect hemostatic capacity in patients with liver disease and synthetic impairment. The recommended target INR range for therapeutic anticoagulation is 2.0 ? 3.0 for most applications, though lower and higher ranges may be appropriate depending on clinical circumstances. Blood specimen (specimen) No Charge / Unknown 07/02/2019 1:10 AM EDT 07/02/2019 1:23 AM EDT Narrative Resulting Agency Comment Spec In Lab Sheng Crooks MD HEMATOLOGY ORDERABLE S Performing Organization Address [facility] Co de Phone Number [facility] [place] [address] * Troponin (07/02/2019 1:10 AM EDT) [facility] Troponin-T <0.01 0.00 - 0.00 ng/mL [facility] Comment: The 99th percentile for Troponin T is less than 0.01 ng/mL, any detectable cTnT concentration using this assay should be considered elevated. According to the third universal definition of myocardial infarction the following criteria with a clinical presentation consistent with acute myocardial ischemia meets the diagnosis for a myocardial infarction (MD). Detection of a rise and/or fall of cTnT, with at least one value greater than the 99th percentile (> or = 0.01) and with at least one of the following ?? Symptoms of ischemia ?? New or presumed new significant HF-oiswvzd-C wave (ST-T) changes or new left bundle branch block (LBBB) ?? Development of pathologic Q waves in the ECG ?? Imaging evidence of new loss of viable myocardium or new regional wall motion abnormality ?? Identification of an intracoronary thrombus by angiography or autopsy Samples for cTnT testing should be obtained serially upon first assessment and again 3 to 6 hours later. If the clinical suspicion is high and previous samples have been negative an additional sample may be indicated. Reference: Third Gilman Definition of Myocardial Infarction. Journal of the [employer] 2012;60:1581-98 Blood specimen (specimen) No Charge / Unknown 07/02/2019 1:10 AM EDT 07/02/2019 1:56 AM EDT Narrative Resulting Agency Comment Spec In Lab Sheng Crooks MD CHEMISTRY ORDERABLES Performing Organization Address City/[facility]/ZIP Co de Phone Number [facility] [place] [address] * pro-Brain Natriuretic Peptide (07/02/2019 1:10 AM EDT) NT-proBNP 26 <=125 pg/mL [facility] Blood specimen (specimen) No Charge / Unknown 07/02/2019 1:10 AM EDT 07/02/2019 1:56 AM EDT Narrative Resulting Agency Comment Spec In Lab Sheng Crooks MD CHEMISTRY ORDERABLES Performing Organization Address [facility] Co de Phone Number [facility] [place] [address] * TSH (07/02/2019 1:10 AM EDT) Thyroid Stimulating Hormone 2.07 0.27 - 4.20 mcIU/mL [facility] Blood specimen (specimen) No Charge / Unknown 07/02/2019 1:10 AM EDT 07/02/2019 1:56 AM EDT Narrative Resulting Agency Comment Spec In Lab Sheng Crooks MD CHEMISTRY ORDERABLES Performing Organization Address City/[facility]/ZIP Co de Phone Number [facility] [place] [address] * Phosphorus (07/02/2019 1:10 AM EDT) Phosphorus 4.0 2.5 - 4.5 mg/dL [facility] Blood specimen (specimen) No Charge / Unknown 07/02/2019 1:10 AM EDT 07/02/2019 1:56 AM EDT Narrative Resulting Agency Comment Spec In Lab Sheng Crooks MD CHEMISTRY ORDERABLES Performing Organization Address [facility] Co de Phone Number [facility] [place] [address] * Magnesium (07/02/2019 1:10 AM EDT) Pathologist [facility] Magnesium 0.90 0.69 - 1.07 mmol/L [facility] Blood specimen (specimen) No Charge / Unknown 07/02/2019 1:10 AM EDT 07/02/2019 1:56 AM EDT Narrative Resulting Agency Comment Spec In Lab Sheng Crooks MD CHEMISTRY ORDERABLES Performing Organization Address [facility] Co de Phone Number [facility] [place] [address] * (ABNORMAL) Comprehensive metabolic panel (non-fasting) (07/02/2019 1:10 AM EDT) Pathologist [facility] Glucose 153 65 - 199 mg/dL [facility] Comment:Diabetes: >=200 mg/d L plus symptoms Blood Urea Nitrogen 16 8 - 18 mg/dL [facility] Creatinine 0.58(L) 0.70 - 1.20 mg/dL [facility] Sodium 144 135 - 145 mmol/L [facility] Potassium 4.4 3.5 - 5.0 mmol/L [facility] Comment: Please note: ??Patients with WBC >100,000 may have falsely elevated Potassium levels. ??For accurate Potassium quantification in these patients send serum separator tube (gold top) for subsequent determinations. ??Contact the Clinical Chemistry Laboratory if there are any questions. Chloride 108(H) 98 - 107 mmol/L [facility] Carbon Dioxide 23 22 - 31 mmol/L [facility] Anion Gap 13 5 - 15 mmol/L [facility] Calcium 9.0 8.5 - 10.5 mg/dL [facility] Protein, Total 6.9 6.1 - 8.0 gm/dL [facility] Albumin 4.3 3.2 - 5.2 gm/dL [facility] Aspartate Aminotransferase 13 0 - 30 unit/L [facility] Alanine Aminotransferase 16 0 - 30 unit/L [facility] Alkaline Phosphatase 85 35 - 105 unit/L [facility] Bilirubin, Total <0.2(L) 0.2 - 1.3 mg/dL [facility] Est Glomerular Filtration Rate 101 >=60 mL/min/1. 73 m?? [facility] Comment: The eGFR was calculated using the CKD-EPI equation. As with all creatinine based estimates of kidney function, eGFR values calculated with the CKD-EPI equation are not accurate in patients with acute kidney failure, extremes of body mass or the acutely ill. http://[employer]/[facility] eGFR 117 >=60 mL/min/1. 73 m?? [facility] Comment: The eGFR was calculated using the CKD-EPI equation. As with all creatinine based estimates of kidney function, eGFR values calculated with the CKD-EPI equation are not accurate in patients with acute kidney failure, extremes of body mass or the acutely ill. http://[employer]/[facility] Blood specimen (specimen) No Charge / Unknown 07/02/2019 1:10 AM EDT 07/02/2019 1:56 AM EDT Narrative Resulting Agency Comment Spec In Lab Sheng Crooks MD CHEMISTRY ORDERABLES [facility] [place] [address] * (ABNORMAL) Differential, Automated (07/02/2019 1:10 AM EDT) Neutrophil % 68.9 % [facility] Neutrophil Absolute 6.39(H) 1.70 - 6.10 x10(3)/[facility] LAB[facility] Lymph % 23.1 % [facility] Lymphocytes Abs 2.2 0.9 - 3.2 x10(3)/[facility] LAB[facility]ORY Monocyte % 5.8 % [facility] Monocyte Abs 0.5 0.3 - 0.9 x10(3)/[facility] LAB[facility] Eos % 1.2 % [facility] Eosinophils Abs 0.1 0.0 - 0.4 x10(3)/[facility] LABOR[facility]ORY Basophil % 0.6 % [facility] Baso Absolute 0.1 0.0 - 0.1 x10(3)/[facility] LABORATORY Immature Gran % 0.40 % [facility] Comment: Immature granulocytes(IG's)percentage and absolute count will include metamyelocytes, myelocytes, and promyelocytes. Blood smears from CBCs yielding IG's will be scanned manually for concordance. If this scan disagrees with the automated IG or if promyelocytes are noted, a manual differential will be performed. Immature Gran Absolute 0.04 0.00 - 0.04 x10(3)/[facility] LAB[facility]ORY Blood specimen (specimen) No Charge / Unknown 07/02/2019 1:10 AM EDT 07/02/2019 1:23 AM EDT Narrative Resulting Agency Comment Spec In Lab Sheng Crooks MD HEMATOLOGY ORDERABLE S [facility] [place] [address] * Hemogram (07/02/2019 1:10 AM EDT) White Blood Cell 9.3 4.0 - 9.5 x10(3)/[facility] [place] [facility] Red Blood Cell 4.30 4.00 - 5.21 x10(6)/[facility] Hemoglobin 13.1 11.7 - 15.5 gm/dL [facility] Hematocrit 40.4 35.7 - 45.8 % [facility] Mean Cell Volume 94.0 82.6 - 94.4 fL [facility] Mean Cell Hemoglobin 30.5 27.1 - 32.0 pg [facility] Mean Cell Hemoglobin Concentration 32.4 31.7 - 35.0 gm/dL [facility] Platelet 294 145 - 357 x10(3)/[facility] [place] [facility] RDW Standard Deviation 45.1 37.0 - 46.0 fL [facility] RDW coefficient of variation 13.2 11.5 - 14.1 % [facility] Mean Platelet Volume 10.3 7.6 - 12.9 fL [facility] NRBC% auto 0.0 % [facility] NRBC Absolute 0.000 0.000 - 0.000 x10(3)/[facility] [place] [facility] Blood specimen (specimen) No Charge / Unknown 07/02/2019 1:10 AM EDT 07/02/2019 1:23 AM EDT Narrative Resulting Agency Comment Spec In Lab Sheng Crooks MD HEMATOLOGY ORDERABLE S Performing Organization Address City/[facility]/ZIP Co de Phone Number [facility] [place] [address] * Lavender Tube HOLD (07/02/2019 1:10 AM EDT) Lavender Hold Sample in lab. [facility] Blood specimen (specimen) No Charge / Unknown 07/02/2019 1:10 AM EDT 07/02/2019 1:23 AM EDT Salvador Zaragoza MD HEMATOLOGY ORDERABLE S Performing Organization Address City/[facility]/ZIP Co de Phone Number [facility] [place] [address] * Green Tube HOLD (07/02/2019 1:10 AM EDT) Green Hold Sample in lab. [facility] Blood specimen (specimen) No Charge / Unknown 07/02/2019 1:10 AM EDT 07/02/2019 1:23 AM EDT Salvador Zaragoza MD CHEMISTRY ORDERABLES Performing Organization Address [facility] Co de Phone Number [facility] [place] [address] * Blue Tube HOLD (07/02/2019 1:10 AM EDT) Blue Hold Sample in lab. [facility] Blood specimen (specimen) No Charge / Unknown 07/02/2019 1:10 AM EDT 07/02/2019 1:23 AM EDT Salvador Zaragoza MD HEMATOLOGY ORDERABLE S Performing Organization Address [facility] Co de Phone Number [facility] [place] [address] * EKG 12 Lead (07/02/2019 1:04 AM EDT) Ventricular rate 85 BPM MUSE SYSTEM Atrial Rate 85 BPM MUSE SYSTEM P-R Interval 168 ms MUSE SYSTEM QRS Duration 58 ms MUSE SYSTEM Q-T Interval 366 ms MUSE SYSTEM QTC Calculated (Bezet) 435 ms MUSE SYSTEM Calculated P [place] 59 degrees MUSE SYSTEM Calculated R [place] 49 degrees MUSE SYSTEM Calculated T [place] 66 degrees MUSE SYSTEM INTERPRETATION Normal sinus rhythm ST elevation, consider early repolarizati on, pericarditis , or injury Abnormal ECG When compared with ECG of 12-JUN-2012 11:18, QRS duration has decreased ST elevation Inferior leads is now present Confirmed by MD Vincent, Rei ([id number]) on 07/02/2019 7:41:54 AM MUSE SYSTEM 07/02/2019 1:04 AM EDT 07/02/2019 7:41 AM EDT Salvador Zaragoza MD ECG ORDERABLES Performing Organization Address City/[facility] Co de Phone Number MUSE SYSTEM documented in this encounter Visit Diagnoses Not on filedocumented in this encounter Admitting Diagnoses Diagnosis NSTEMI (non-ST elevated myocardial infarction) Acute myocardial infarction, subendocardial infarction, episode of care unspecified documented in this encounter Administered Medications Inactive Administered Medications - up to 3 most recent administrations Medication Order MAR Action Action Date Dose Rate Site acetaminophen (TYLENOL) tablet 650 mg 650 mg, Oral, EVERY 4 HOURS PRN, Starting on Neisha 07/02/19 at 0149, Until 07/04/19 at 1652, Pain, Headaches, Maximum dose of acetaminophen is 4000 mg from all sources in 24 hours., Routine Given 07/04/2019 9:08 AM EDT 650 mg Given 07/04/2019 4:48 AM EDT 650 mg Given 07/04/2019 12:18 AM EDT 650 mg amLODIPine (NORVASC) tablet 5 mg 5 mg, Oral, DAILY, First dose on Sat07/03/19 at 1000, Until Discontinued, Routine Given 07/04/2019 9:09 AM EDT 5 mg Given 07/03/2019 11:07 AM EDT 5 mg aspirin EC tablet 81 mg 81 mg, Oral, DAILY, First dose on Nesiha 07/02/19 at 0900, Until Discontinued, Routine Given 07/04/2019 9:08 AM EDT 81 mg Given 07/03/2019 8:35 AM EDT 81 mg atorvastatin (LIPITOR) tablet 80 mg 80 mg, Oral, EVERY EVENING, First dose on Neisha 07/02/19 at 0215, Until Discontinued, Routine Given 07/03/2019 5:07 PM EDT 80 mg Given 07/02/2019 4:23 PM EDT 80 mg Given 07/02/2019 2:15 AM EDT 80 mg citalopram (CeleXA) tablet 20 mg 20 mg, Oral, DAILY, First dose on Neisha 07/02/19 at 0900, Until Discontinued, Routine Given 07/04/2019 9:09 AM EDT 20 mg Given 07/03/2019 8:35 AM EDT 20 mg Given 07/02/2019 9:58 AM EDT 20 mg clopidogrel (PLAVIX) tablet 75 mg 75 mg, Oral, DAILY, First dose on Neisha 07/02/19 at 1100, Until Discontinued, Routine Given 07/04/2019 9:08 AM EDT 75 mg Given 07/03/2019 8:35 AM EDT 75 mg Given 07/02/2019 10:07 AM EDT 75 mg enoxaparin (LOVENOX) injection 40 mg 40 mg, Subcutaneous, NIGHTLY, First dose on Sat07/03/19 at 2100, Until Discontinued, Routine Given 07/03/2019 8:09 PM EDT 40 mg fentaNYL 50 mcg/mL multi-dose injection ONCE PRN, Starting on Sat07/03/19 at 1152, Until Sat07/03/19 at 1304, Intra-Operative (Intra-Procedure), Routine Given 07/03/2019 12:54 PM EDT 25 mcg Given 07/03/2019 12:07 PM EDT 25 mcg Given 07/03/2019 11:52 AM EDT 25 mcg heparin (porcine) injection ONCE PRN, Starting on Sat07/03/19 at 1214, Until Sat07/03/19 at 1304, Cath (Intra-Procedure), Routine Given 07/03/2019 12:49 PM EDT 2,500 Units Given 07/03/2019 12:33 PM EDT 3,000 Units Given 07/03/2019 12:14 PM EDT 6,500 Units iohexol (OMNIPAQUE) 350 mg/mL solution ONCE PRN, Starting on Sat07/03/19 at 1303, Until Sat07/03/19 at 1304, Cath (Intra-Procedure), Routine Given 07/03/2019 1:03 PM EDT 70 mLs labetalol (NORMODYNE,TRANDATE) injection 10 mg 10 mg, Intravenous, EVERY 4 HOURS PRN, Starting on Neisha 07/02/19 at 1737, Until 07/04/19 at 1652, High Blood Pressure, for SBP>170, Routine Given 07/02/2019 5:53 PM EDT 10 mg lisinopril (PRINIVIL;ZESTRIL) tablet 20 mg 20 mg, Oral, DAILY, First dose (after last modification) on Sat07/03/19 at 0900, Until Discontinued, Routine Given 07/04/2019 9:08 AM EDT 20 mg Given 07/03/2019 8:35 AM EDT 20 mg metoprolol succinate (TOPROL-XL) XL tablet 25 mg 25 mg, Oral, DAILY, First dose on Sat07/05/19 at 0900, Until Discontinued, DO NOT CRUSH OR OPEN, Routine midazolam (PF) (VERSED) multi-dose injection ONCE PRN, Starting on Sat07/03/19 at 1152, Until Sat07/03/19 at 1304, Cath (Intra-Procedure), Routine Given 07/03/2019 12:07 PM EDT 1 mg Given 07/03/2019 11:52 AM EDT 1 mg nitroGLYcerin 50 mg in dextrose 5% 250 mL infusion 10 mcg/min (3 mL/hr), Intravenous, CONTINUOUS, Starting on Neisha 07/02/19 at 0215, Until 07/04/19 at 1652, Maximum dose: 200 mcg/min, Routine Rate/Dose Verify 07/02/2019 6:00 AM EDT 40 mcg/min 12 mL/hr Rate/Dose Verify 07/02/2019 4:00 AM EDT 40 mcg/min 12 mL/h r Continued Bag 07/02/2019 2:15 AM EDT 40 mcg/min 12 mL/hr potassium chloride (K-DUR/KLOR-CON) extended release tablet 40-60 mEq 40-60 mEq, Oral, PER POTASSIUM PROTOCOL, Starting on Sat07/03/19 at 0909, Until 07/04/19 at 1652, potassium replenishment, DO NOT CRUSH OR OPEN For serum potassium (mMol/L) of 3.3-3.8 administer Potassium chloride liquid or SR tablets 40 mEq. For serum potassium (mMol/L) of 2.8-3.2 administer Potassium chloride liquid or SR tablets 60 mEq. For serum potassium less than 2.8 Call provider for potassium dosing., Routine potassium chloride (Kayciel) (1.33 mEq/mL) oral liquid 40-60 mEq 40-60 mEq, Oral, PER POTASSIUM PROTOCOL, potassium replenishment, Starting on Sat07/03/19 at 0909, Until 07/04/19 at 1652, If unable to take tablet. For serum potassium (mMol/L) of 3.3-3.8 administer Potassium chloride liquid or SR tablets 40 mEq. For serum potassium (mMol/L) of 2.8-3.2 administer Potassium chloride liquid or SR tablets 60 mEq. For serum potassium less than 2.8 Call provider for potassium dosing. sodium chloride 0.9 % (flush) flush 5 mL 5 mL, Intravenous, 2 TIMES DAILY, First dose on Neisha 07/02/19 at 0215, Until Discontinued, Routine Given 07/04/2019 9:10 AM EDT 5 mLs Given 07/03/2019 8:09 PM EDT 5 mLs Given 07/03/2019 8:36 AM EDT 5 mLs documented in this encounter Active and Recently Administered Medications Times are shown in EDT. Scheduled Medication Order 07/02/2019 07/03/2019 07/04/2019 amLODIPine (NORVASC) tablet 5 mg 5 mg, Oral, DAILY, First dose on Sat07/03/19 at 1000, Until Discontinued, Routine 1107 (Given - Provider: Anya Greenwood, CRISTI)1131 ([facility] Hold - Provider: Admin Adt - Reason: Transfer to a Procedural area)1433 ([facility] Unhold - Provider: Admin Adt) 0909 (Given - Provider: Myrna Medley, CRISTI) aspirin EC tablet 81 mg 81 mg, Oral, DAILY, First dose on Sat07/02/19 at 0900, Until Discontinued, Routine 0803 ([facility] Hold - Provider: Admin Adt - Reason: Transfer to a Procedural area)0900 (Automatically Held - Provider: Admin Adt)0945 ([facility] Unhold - Provider: Admin Adt) 0835 (Given - Provider: Anya Greenwood RN)1131 ([facility] Hold - Provider: Admin Adt - Reason: Transfer to a Procedural area)1433 ([facility] Unhold - Provider: Admin Adt) 0908 (Given - Provider: Myrna Medley, CRISTI) atorvastatin (LIPITOR) tablet 80 mg 80 mg, Oral, EVERY EVENING, First dose on Sat07/02/19 at 0215, Until Discontinued, Routine 0215 (Given - Provider: Mayra Limon, CRISTI)0803 ([facility] Hold - Provider: Admin Adt - Reason: Transfer to a Procedural area)0945 ([facility] Unhold - Provider: Admin Adt)1623 (Given - Provider: Eva Green RN) 1131 ([facility] Hold - Provider: Admin Adt - Reason: Transfer to a Procedural area)1433 ([facility] Unhold - Provider: Admin Adt)1707 (Given - Provider: Jatinder Shirley, CRISTI) citalopram (CeleXA) tablet 20 mg 20 mg, Oral, DAILY, First dose on Sat07/02/19 at 0900, Until Discontinued, Routine 0803 ([facility] Hold - Provider: Admin Adt - Reason: Transfer to a Procedural area)0900 ([facility] Held - Provider: Admin Adt)0945 ([facility] Unhold - Provider: Admin Adt)0957 (Given - Provider: Eva Green RN - 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)0958 (Given - Provider: Eva Green RN) 0835 (Given - Provider: Anya Greenwood, CRISTI)1131 ([facility] Hold - Provider: Admin Adt - Reason: Transfer to a Procedural area)1433 ([facility] Unhold - Provider: Admin Adt) 0909 (Given - Provider: Myrna Medley, CRISTI) clopidogrel (PLAVIX) tablet 75 mg 75 mg, Oral, DAILY, First dose on Sat07/02/19 at 1100, Until Discontinued, Routine 0803 ([facility] Hold - Provider: Admin Adt - Reason: Transfer to a Procedural area)0945 ([facility] Unhold - Provider: Admin Adt)1007 (Given - Provider: Eva Green RN) 0835 (Given - Provider: Anya Greenwood RN)1131 ([facility] Hold - Provider: Admin Adt - Reason: Transfer to a Procedural area)1433 ([facility] Unhold - Provider: Admin Adt) 0908 (Given - Provider: Myrna Medley, CRISTI) enoxaparin (LOVENOX) injection 40 mg 40 mg, Subcutaneous, NIGHTLY, First dose on Sat07/03/19 at 2100, Until Discontinued, Routine 1131 ([facility] Hold - Provider: Admin Adt - Reason: Transfer to a Procedural area)1433 ([facility] Unhold - Provider: Admin Adt)2008 (Given - Provider: Yamil Butts RN) lisinopril (PRINIVIL;ZESTRIL) tablet 15 mg (COMPLETED) 15 mg, Oral, ONCE, 1 dose, On Sat07/02/19 at 1800, Routine 1811 (Given - Provider: Eva Green RN) lisinopril (PRINIVIL;ZESTRIL) tablet 20 mg 20 mg, Oral, DAILY, First dose (after last modification) on Sat07/03/19 at 0900, Until Discontinued, Routine 0835 (Given - Provider: Anya Greenwood RN)1131 ([facility] Hold - Provider: Admin Adt - Reason: Transfer to a Procedural area)1433 ([facility] Unhold - Provider: Admin Adt) 0908 (Given - Provider: Myrna Medley, RN) lisinopril (PRINIVIL;ZESTRIL) tablet 5 mg (CANCELED) 5 mg, Oral, DAILY, First dose on Neisha 07/02/19 at 1630, Until Discontinued, Routine 1623 (Given - Provider: Eva Green, CRISTI) metoprolol (LOPRESSOR) tablet 12.5 mg (CANCELED) 12.5 mg, Oral, 2 TIMES DAILY, First dose (after last modification) on Neisha 07/02/19 at 0230, Until Discontinued, Routine 0230 (Given - Provider: Mayra Limon RN)0803 ([facility] Hold - Provider: Admin Adt - Reason: Transfer to a Procedural area)0900 (Automatically Held - Provider: Admin Adt)0945 ([facility] Unhold - Provider: Admin Adt)0959 (Not Given - Provider: Eva Green RN - Reason: See comment - Comment: received early at 0230 this am)1999 (Given - Provider: Mayra Limon RN) 0835 (Given - Provider: Anya Greenwood, CRISTI)1131 ([facility] Hold - Provider: Admin Adt - Reason: Transfer to a Procedural area)1433 ([facility] Unhold - Provider: Admin Adt)2008 (Given - Provider: Yamil Butts, CRISTI) 0908 (Given - Provider: Myrna Medley, CRISTI) metoprolol succinate (TOPROL-XL) XL tablet 25 mg 25 mg, Oral, DAILY, First dose on Sat07/05/19 at 0900, Until Discontinued, DO NOT CRUSH OR OPEN, Routine sodium chloride 0.9 % (flush) flush 5 mL 5 mL, Intravenous, 2 TIMES DAILY, First dose on Neisha 07/02/19 at 0215, Until Discontinued, Routine 0215 (Given - Provider: Mayra Limon RN)0803 ([facility] Hold - Provider: Admin Adt - Reason: Transfer to a Procedural area)0900 (Automatically Held - Provider: Admin Adt)0945 ([facility] Unhold - Provider: Admin Adt)2100 (Given - Provider: Mayra Limon RN) 0836 (Given - Provider: Anya Greenwood RN)1131 ([facility] Hold - Provider: Admin Adt - Reason: Transfer to a Procedural area)1433 ([facility] Unhold - Provider: Admin Adt)2008 (Given - Provider: Yamil Butts RN) 0910 (Given - Provider: Myrna Medley RN) Continuous Medication Order 07/02/2019 07/03/2019 07/04/2019 heparin 25,000 units in dextrose 5% 500 mL infusion (CANCELED)(Linked Group 1) 0-5,000 Units/hr (0-100 mL/hr), Intravenous, CONTINUOUS, Starting on Neisha 07/02/19 at 0245, Until Neisha 07/02/19 at 1411, BEGIN infusion at 1,000 units per hr (12 units/kg/hr). MAX INITIAL infusion rate is 1,000 units/hr. Target Heparin UFH Level (anti-Xa activity) = 0.3 - 0.7 IU/mL Start adjustment schedule 6 hours after starting infusion. If Heparin UFH Level is: - less than 0.1 IU/mL, administer PRN bolus and increase rate by 350 units per hr (4 units/kg/hr) - 0.1 - 0.29 IU/mL, administer PRN bolus and increase rate by 150 units per hr (2 units/kg/hr) - 0.3 - 0.7 IU/mL, No Change - 0.71 - 0.85 IU/mL, decrease rate by 100 units per hr (1 units/kg/hr) - 0.86 - 1.05 IU/mL, stop infusion for 30 minutes, then decrease rate by 150 units per hr (2 units/kg/hr) - Greater than 1.05 IU/mL, stop infusion for 60 minutes, then decrease rate by 250 units per hour (3 units/kg/hr) Repeat Heparin UFH Level 6 hours after initiating heparin. Then 6 hours after each dose adjustment. When 2 consecutive Heparin UFH Level within target range of 0.3 - 0.7 IU/mL, change Heparin UFH Level to once every 24 hours with A.M. labs while on heparin. RN to order required Heparin UFH Level - Per Protocol, Routine, Indication: ACS (STEMI vs NSTEMI vs UA) 0245 (New Bag - Provider: Mayra Limon RN)0400 (Rate/Dose Verify - Provider: Mayra Limon RN)0600 (Rate/Dose Verify - Provider: Mayra Limon RN)0803 ([facility] Hold - Provider: Admin Adt - Reason: Transfer to a Procedural area)0900 (Stopped - Provider: Efrain Moya, RN)0945 ([facility] Unhold - Provider: Admin Adt) nitroGLYcerin 50 mg in dextrose 5% 250 mL infusion 10 mcg/min (3 mL/hr), Intravenous, CONTINUOUS, Starting on Neisha 07/02/19 at 0215, Until 07/04/19 at 1652, Maximum dose: 200 mcg/min, Routine 0215 (Continued Bag - Provider: Mayra Limon RN)0400 (Rate/Dose Verify - Provider: Mayra Limon RN)0600 (Rate/Dose Verify - Provider: Mayra Limon RN)0803 ([facility] Hold - Provider: Admin Adt - Reason: Transfer to a Procedural area)0900 (Stopped - Provider: Efrain Moya RN)0945 ([facility] Unhold - Provider: Admin Adt) 1131 ([facility] Hold - Provider: Admin Adt - Reason: Transfer to a Procedural area)1433 ([facility] Unhold - Provider: Admin Adt) PRN Medication Order 07/02/2019 07/03/2019 07/04/2019 acetaminophen (TYLENOL) tablet 650 mg 650 mg, Oral, EVERY 4 HOURS PRN, Starting on Neisha 07/02/19 at 0149, Until 07/04/19 at 1652, Pain, Headaches, Maximum dose of acetaminophen is 4000 mg from all sources in 24 hours., Routine 0708 (Given - Provider: Mayra Limon RN)0803 ([facility] Hold - Provider: Admin Adt - Reason: Transfer to a Procedural area)0945 ([facility] Unhold - Provider: Admin Adt)1227 (Given - Provider: Eva Green, CRISTI)1999 (Given - Provider: Mayra Limon RN) 014 (Given - Provider: Sabrina Hopper, CRISTI)0740 (Given - Provider: Anya Greenwood, CRISTI)1131 ([facility] Hold - Provider: Admin Adt - Reason: Transfer to a Procedural area)1433 ([facility] Unhold - Provider: Admin Adt)1449 (Given - Provider: Anya Greenwood, CRISTI)2009 (Given - Provider: Yamil Butts RN) 0018 (Given - Provider: Wayne Duong, RN)0448 (Given - Provider: Wayne Duong, RN)0908 (Given - Provider: Myrna Medley RN) fentaNYL 50 mcg/mL multi-dose injection (CANCELED) ONCE PRN, Starting on Neisha 07/02/19 at 0820, Until Sat07/02/19 at 1411, Intra-Operative (Intra-Procedure), Routine 0820 (Given - Provider: Maggy Mayen RN)0831 (Given - Provider: Maggy Mayen RN)0900 (Given - Provider: Maggy Mayen RN) fentaNYL 50 mcg/mL multi-dose injection (CANCELED) ONCE PRN, Starting on Sat07/03/19 at 1152, Until Sat07/03/19 at 1304, Intra-Operative (Intra-Procedure), Routine 1152 (Given - Provider: Ashleigh Lanier RN)1207 (Given - Provider: Sarah Pantoja RN)1254 (Given - Provider: Ashleigh Lanier RN) heparin (porcine) injection (CANCELED) ONCE PRN, Starting on Neisha 07/02/19 at 0854, Until Sat07/02/19 at 1411, Cath (Intra-Procedure), Routine 0854 (Given - Provider: Maggy Mayen RN) heparin (porcine) injection (CANCELED) ONCE PRN, Starting on Sat07/03/19 at 1214, Until Sat07/03/19 at 1304, Cath (Intra-Procedure), Routine 1214 (Given - Provider: Mary Renteria)1233 (Given - Provider: Mary Renteria)1249 (Given - Provider: Mary Renteria) iohexol (OMNIPAQUE) 350 mg/mL solution (CANCELED) ONCE PRN, Starting on Sat07/02/19 at 0920, Until Sat07/02/19 at 1411, Cath (Intra-Procedure), Routine 0920 (Given - Provider: Bárbara Nascimento MD) iohexol (OMNIPAQUE) 350 mg/mL solution (CANCELED) ONCE PRN, Starting on Sat07/03/19 at 1303, Until Sat07/03/19 at 1304, Cath (Intra-Procedure), Routine 1303 (Given - Provider: Cris Nguyễn MD) labetalol (NORMODYNE,TRANDATE) injection 10 mg 10 mg, Intravenous, EVERY 4 HOURS PRN, Starting on Neisha 07/02/19 at 1737, Until 07/04/19 at 1652, High Blood Pressure, for SBP>170, Routine 1753 (Given - Provider: Eva Green RN) 1131 ([facility] Hold - Provider: Admin Adt - Reason: Transfer to a Procedural area)1433 ([facility] Unhold - Provider: Admin Adt) lidocaine (XYLOCAINE) 10 mg/mL (1 %) injection 3 mg 3 mg (0.3 mL), Subcutaneous, ONCE PRN, 1 dose, Starting on Neisha 07/02/19 at 0149, Until 07/04/19 at 1652, for discomfort with PIV insertion, Routine 0803 ([facility] Hold - Provider: Admin Adt - Reason: Transfer to a Procedural area)0945 ([facility] Unhold - Provider: Admin Adt) 1131 ([facility] Hold - Provider: Admin Adt - Reason: Transfer to a Procedural area)1433 ([facility] Unhold - Provider: Admin Adt) midazolam (PF) (VERSED) multi-dose injection (CANCELED) ONCE PRN, Starting on Neisha 07/02/19 at 0820, Until Neisha 07/02/19 at 1411, Cath (Intra-Procedure), Routine 0820 (Given - Provider: Maggy Mayen RN)0838 (Given - Provider: Maggy Mayen RN) midazolam (PF) (VERSED) multi-dose injection (CANCELED) ONCE PRN, Starting on Sat07/03/19 at 1152, Until Sat07/03/19 at 1304, Cath (Intra-Procedure), Routine 1152 (Given - Provider: Ashleigh Lanier RN)1207 (Given - Provider: Sarah Pantoja RN) niCARdipine (CARDENE) in sodium chloride 0.9% injection (CANCELED) ONCE PRN, Starting on Neisha 07/02/19 at 0905, Until Neisha 07/02/19 at 1411, Intra-Operative (Intra-Procedure), Routine 0905 (Given - Provider: Bárbara Nascimento MD)09 (Given - Provider: Bárbara Nascimento MD)09 (Given - Provider: Bárbara Nascimento MD)0909 (Given - Provider: Bárbara Nascimento MD) nitroGLYcerin (NITROSTAT) SL tablet 0.4 mg 0.4 mg, Sublingual, EVERY 5 MIN PRN, Starting on Neisha 07/02/19 at 0149, Until 07/04/19 at 1652, Chest pain, May repeat every 5 minutes for a total of three doses. Notify provider if chest pain not relieved with nitroglycerin. Do not administer nitroglycerin if the patient has received or taken phosphodiesterase (PDE-5) inhibitors such as sildenafil, tadalafil or vardenafil within the last 24 to 72 hours., Routine 0803 (MAR Hold - Provider: Admin Adt - Reason: Transfer to a Procedural area)0945 (MAR Unhold - Provider: Admin Adt) 1131 (MAR Hold - Provider: Admin Adt - Reason: Transfer to a Procedural area)1433 (MAR Unhold - Provider: Admin Adt) NORepinephrine 16 mcg/mL (standard ADULT and Pedi greater than 20 kg) infusion (CANCELED) CONTINUOUS PRN, Starting on Neisha 07/02/19 at 0900, Until Neisha 07/02/19 at 1411, Cath (Intra-Procedure), Routine 0900 (New Bag - Provider: Maggy Mayen, CRISTI)0907 (Rate/Dose Change - Provider: Maggy Mayen, RN)0910 (Stopped - Provider: Maggy Mayen, CRISTI) perflutren protein-A microspheres (OPTISON) 0.22 mg/mL injection 2.4 mL (COMPLETED) 2.4 mL, Intravenous, ONCE PRN, 1 dose, Starting on Neisha 07/02/19 at 0935, Until Neisha 07/02/19 at 0745, Per Protocol, Routine 0745 (Given - Provider: Cris Zuniga) potassium chloride (K-DUR/KLOR-CON) extended release tablet 40-60 mEq(Linked Group 2) 40-60 mEq, Oral, PER POTASSIUM PROTOCOL, Starting on Sat07/03/19 at 0909, Until 07/04/19 at 1652, potassium replenishment, DO NOT CRUSH OR OPEN For serum potassium (mMol/L) of 3.3-3.8 administer Potassium chloride liquid or SR tablets 40 mEq. For serum potassium (mMol/L) of 2.8-3.2 administer Potassium chloride liquid or SR tablets 60 mEq. For serum potassium less than 2.8 Call provider for potassium dosing., Routine 1131 ([facility] Hold - Provider: Admin Adt - Reason: Transfer to a Procedural area)1433 ([facility] Unhold - Provider: Admin Adt) potassium chloride (Kayciel) (1.33 mEq/mL) oral liquid 40-60 mEq(Linked Group 2) 40-60 mEq, Oral, PER POTASSIUM PROTOCOL, potassium replenishment, Starting on Sat07/03/19 at 0909, Until 07/04/19 at 1652, If unable to take tablet. For serum potassium (mMol/L) of 3.3-3.8 administer Potassium chloride liquid or SR tablets 40 mEq. For serum potassium (mMol/L) of 2.8-3.2 administer Potassium chloride liquid or SR tablets 60 mEq. For serum potassium less than 2.8 Call provider for potassium dosing. 1131 ([facility] Hold - Provider: Admin Adt - Reason: Transfer to a Procedural area)1433 ([facility] Unhold - Provider: Admin Adt) sodium chloride 0.9 % (flush) flush 5-20 mL 5-20 mL, Intravenous, EVERY 1 MIN PRN, Starting on Neisha 07/02/19 at 0149, Until 07/04/19 at 1652, flush, Flush pertains to all indwelling lines. Flush per protocol found in the job aid using the link provided on this medication record., Routine 0803 ([facility] Hold - Provider: Admin Adt - Reason: Transfer to a Procedural area)0945 ([facility] Unhold - Provider: Admin Adt) 1131 ([facility] Hold - Provider: Admin Adt - Reason: Transfer to a Procedural area)1433 ([facility] Unhold - Provider: Admin Adt) sodium chloride 0.9% infusion (CANCELED) CONTINUOUS PRN, Starting on Neisha 07/02/19 at 0847, Until Neisha 07/02/19 at 1411, Cath (Intra-Procedure) 0847 (New Bag - Provider: Maggy Mayen RN) Linked Groups Order Group 1: heparin (porcine) injection 0-4,000 Units (CANCELED) 0-4,000 Units, Intravenous, BOLUS PER HEPARIN PROTOCOL, Starting on Neisha 07/02/19 at 0217, Until Neisha 07/02/19 at 1411, Per Protocol, START ADJUSTMENT SCHEDULE 6 HOURS AFTER STARTING INFUSION Heparin UFH Level between 0.1 - 0.29 IU/mL: Bolus 2,000 units Heparin UFH Level less than 0.1 IU/mL: Bolus 4,000 units, Routine And heparin 25,000 units in dextrose 5% 500 mL infusion (CANCELED)Jump to med 0-5,000 Units/hr (0-100 mL/hr), Intravenous, CONTINUOUS, Starting on Neisha 07/02/19 at 0245, Until Neisha 07/02/19 at 1411, BEGIN infusion at 1,000 units per hr (12 units/kg/hr). MAX INITIAL infusion rate is 1,000 units/hr. Target Heparin UFH Level (anti-Xa activity) = 0.3 - 0.7 IU/mL Start adjustment schedule 6 hours after starting infusion. If Heparin UFH Level is: - less than 0.1 IU/mL, administer PRN bolus and increase rate by 350 units per hr (4 units/kg/hr) - 0.1 - 0.29 IU/mL, administer PRN bolus and increase rate by 150 units per hr (2 units/kg/hr) - 0.3 - 0.7 IU/mL, No Change - 0.71 - 0.85 IU/mL, decrease rate by 100 units per hr (1 units/kg/hr) - 0.86 - 1.05 IU/mL, stop infusion for 30 minutes, then decrease rate by 150 units per hr (2 units/kg/hr) - Greater than 1.05 IU/mL, stop infusion for 60 minutes, then decrease rate by 250 units per hour (3 units/kg/hr) Repeat Heparin UFH Level 6 hours after initiating heparin. Then 6 hours after each dose adjustment. When 2 consecutive Heparin UFH Level within target range of 0.3 - 0.7 IU/mL, change Heparin UFH Level to once every 24 hours with A.M. labs while on heparin. RN to order required Heparin UFH Level - Per Protocol, Routine, Indication: ACS (STEMI vs NSTEMI vs UA) Group 2: potassium chloride (K-DUR/KLOR-CON) extended release tablet 40-60 mEqJump to med 40-60 mEq, Oral, PER POTASSIUM PROTOCOL, Starting on Sat07/03/19 at 0909, Until 07/04/19 at 1652, potassium replenishment, DO NOT CRUSH OR OPEN For serum potassium (mMol/L) of 3.3-3.8 administer Potassium chloride liquid or SR tablets 40 mEq. For serum potassium (mMol/L) of 2.8-3.2 administer Potassium chloride liquid or SR tablets 60 mEq. For serum potassium less than 2.8 Call provider for potassium dosing., Routine Or potassium chloride (Kayciel) (1.33 mEq/mL) oral liquid 40-60 mEqJump to med 40-60 mEq, Oral, PER POTASSIUM PROTOCOL, potassium replenishment, Starting on Sat07/03/19 at 0909, Until 07/04/19 at 1652, If unable to take tablet. For serum potassium (mMol/L) of 3.3-3.8 administer Potassium chloride liquid or SR tablets 40 mEq. For serum potassium (mMol/L) of 2.8-3.2 administer Potassium chloride liquid or SR tablets 60 mEq. For serum potassium less than 2.8 Call provider for potassium dosing. documented in this encounter Additional Health Concerns Infection Onset Date Last Indicated Resolved Time Rule Out C. difficile 07/03/2019 07/04/20192018 4:42 PM EDT documented as of this encounter Care Teams Cleaning Specialist Relationship Specialty Start Date End Date Mirta Garner PA PCP - General Orthopaedic Surgery 12/02/17 11/30/20 documented as of this encounter
--- OUTSIDE RECORDS SUMMARY | 2024-06-12 21:20 | XMS_ITS | Encounter Summary ---
[place] [address] Care Team Providers Care Gold Beater Name Role Phone Mirta Garner Primary Care Provider + Encounter Details Date Type Department Care Team (Late st Contact Info) Description 07/02/2019 [place] [phone] Unknown None Social History Tobacco Use Types Packs/Day Years Used Date Smoking Tobacco: Former Cigarettes Q uit: 11/15/1988 Smokeless Tobacco: Never Alcohol Use Standard Drinks/Week Comments No 0 (1 standard drink = 0.6 oz pur e alcohol) Sex and Gender Information Value Date Recorded Sex Assigned at Not on file Gender Identity Not on file Sexual Orientation Not on file documented as of this encounter Plan of Treatment Not on file documented as of this encounter Procedures Procedure Name Priority Date/Time Associated Diagnosis Comments ECHOCARDIOGRAM TRANSTHORACIC Routine 07/02/2019 documented in this encounter Results * Echo Transthoracic (Complete) (07/02/2019) Anatomical Region Laterality Modality Other 07/02/2019 Narrative 07/02/2019 8:22 AM EDT Procedure: ?Transthoracic Echocardiogram Patient: ?YAMILETH DOYLE ? (Age): 1960(59y) Med Rec#: ? [id number] ?Sex: ?F ? Site Loc: ? [facility] ?Ht / Wt: ??152.4(cm)/87.1( Pt. Loc: ?[facility] ? BSA: ?1.83 Study Date: ?? 07/02/2019 ?Pt. Type: Inpatient Tape: ? Referring: Yves Tony ([id number]) Reading: Roe Esteban ([id number]) Washtub Worker Helper: Yves Tony ([id number]) Diagnosis: Indication: ?? NSTEMI Rhythm: ? NSR BP: ? 111/77 HR: ? 79 SUMMARY: 1. Limited study to assess for LVEF and wall motion abnormalities 2. The left ventricle is probably normal in size with low normal to mildly reduced global systolic function. ??There are no significant wall motion abnormalities. 3. The right ventricle is normal in size with normal global systolic function. 4. There is no significant valvular disease. 5. Suggest formal echo in am to quantify EF. Findings ? : Left Ventricle: ? The left ventricle is probably normal in size. ?Global left ventricular systolic function is mildly reduced. Right Ventricle: ? The right ventricle is normal in size. ?Right ventricular global systolic function is normal. Aortic Valve: ? The aortic valve is probably tricuspid. ?Mild aortic leaflet calcification is visualized. ?There is aortic annular calcification. ?There is no evidence of aortic valve stenosis. ?There is no evidence of aortic regurgitation. Mitral Valve: ? The mitral valve is probably normal. ?There is no evidence of mitral regurgitation. Pericardium: ? There is no pericardial effusion. Venous: ? The inferior vena cava appears normal in size. ?There is a greater than 50% respiratory change in the inferior vena cava dimension. Wall Motion: Segment Name ?Rest ? Base-Anteroseptal ?? Normal ? Base-Anterior ? Normal ? Base-Anterolateral ??Normal ? Base-Posterolateral Normal ? Base-Inferior ? Normal ? Base-Inferoseptal ?? Normal ? Mid-Anteroseptal ?Normal ? Mid-Anterior ?Normal ? Mid-Anterolateral ?? Normal ? Mid-Posterolateral ??Normal ? Mid-Inferior ?Normal ? Mid-Inferoseptal ?Normal ? [place]-Septal ? Normal ? [place]-Anterior ? Normal ? [place]-Lateral ?Normal ? [place]-Inferior ? Normal ? [place]-Tip ?Normal ? This report has been electronically signed by: Roe Esteban M.D. ? 07/02/2019 08:22:04 Images reviewed and interpretation verified [facility] Cardiac Ultrasound [facility] Procedure Note Roe Esteban MD - 07/02/2019 Procedure: Transthoracic Echocardiogram Patient: YAMILETH CLEMENTE(Age): 1960(59y) Med Rec#: [id number] Sex: F Site Loc: [facility] Ht / Wt: 152.4(cm)/87.1( Pt. Loc: [facility] BSA: 1.83 Study Date: 07/02/2019 Pt. Type: Inpatient Tape: Referring: Yves Tony ([id number]) Reading: Roe Esteban ([id number]) Washtub Worker Helper: Yves Tony ([id number]) Diagnosis: Indication: NSTEMI Rhythm: NSR BP: 111/77 HR: 79 SUMMARY: 1. Limited study to assess for LVEF and wall motion abnormalities 2. The left ventricle is probably normal in size with low normal to mildly reduced global systolic function. There are no significant wall motion abnormalities. 3. The right ventricle is normal in size with normal global systolic function. 4. There is no significant valvular disease. 5. Suggest formal echo in am to quantify EF. Findings : Left Ventricle: The left ventricle is probably normal in size. Global left ventricular systolic function is mildly reduced. Right Ventricle: The right ventricle is normal in size. Right ventricular global systolic function is normal. Aortic Valve: The aortic valve is probably tricuspid. Mild aortic leaflet calcification is visualized. There is aortic annular calcification. There is no evidence of aortic valve stenosis. There is no evidence of aortic regurgitation. Mitral Valve: The mitral valve is probably normal. There is no evidence of mitral regurgitation. Pericardium: There is no pericardial effusion. Venous: The inferior vena cava appears normal in size. There is a greater than 50% respiratory change in the inferior vena cava dimension. Wall Motion: Segment Name Rest Base-Anteroseptal Normal Base-Anterior Normal Base-Anterolateral Normal Base-Posterolateral Normal Base-Inferior Normal Base-Inferoseptal Normal Mid-Anteroseptal Normal Mid-Anterior Normal Mid-Anterolateral Normal Mid-Posterolateral Normal Mid-Inferior Normal Mid-Inferoseptal Normal [place]-Septal Normal [place]-Anterior Normal [place]-Lateral Normal [place]-Inferior Normal [place]-Tip Normal This report has been electronically signed by: Roe Esteban M.D. 07/02/2019 08:22:04 Images reviewed and interpretation verified [facility]iac Ultrasound [facility] Unknown ECHO ORDERABLES documented in this encounter Visit Diagnoses Not on filedocumented in this encounter Care Teams Gold Beater Relationship Specialty Start Date End Date Mirta Garner PA PCP - General Orthopaedic Surgery 12/02/17 11/30/20 documented as of this encounter
--- OUTSIDE RECORDS SUMMARY | 2024-06-12 21:20 | XMS_ITS | Encounter Summary ---
Author Organization [facility] [place] [address] Care Team Providers Care Social Welfare Clerk Name Role Phone Mirta Garner Primary Care Provider + Reason for Visit * Auth/Cert Specialty Diagnoses / Procedures Referred By Contac t Referred To Contact Diagnoses NSTEMI (non-ST elevated myocardial infarction) ACS Procedures EMERGENCY IPI Referral ID Status Reason Start Date Expiration Date Visits Re quested Visits Authorized [id number] 1 1 Encounter Details Date Type Department Care Team (Late st Contact Info) Description 07/02/2019 7:30 AM EDT - 07/02/2019 8:30 AM EDT Surgery Senior Clinical Study Manager [facility] [place] [address] Bárbara Nascimento MD [facility] [place] [address] CARDIAC CATHETERIZATION Social History Tobacco Use Types [...] Sign Reading Time Taken Comments Blood Pressure 109/75 07/02/2019 8:17 AM EDT Pulse 77 07/02/2019 8:17 AM EDT Temperature 36.8 ??C (98.2 ??F) 07/02/2019 6:14 AM ED T Respiratory Rate 12 07/02/2019 8:17 AM EDT Oxygen Saturation 96% 07/02/2019 8:17 AM EDT Inhaled Oxygen Concentration - - Weight 87.1 kg (192 lb) 07/02/2019 1:48 AM EDT Height 152.4 cm (5') 07/02/2019 1:48 [...] Discharge date and time: 07/04/2019 Attending Physician: No att. providers found Follow-up Recommendations for Providers: [...] MDD, who presents as a transfer from [facility] for ischemia evaluation. Since this morning patient [...] heparin gtt. She was taken to the record label intern where she was noted to have 3 [...] Complete By Expires Referral to Cardiac Rehab [[id number] Custom] As directed Process Instructions: If no [...] appointments: During 8am-5pm Saturday through Saturday call [phone] to speak with a nurse in the cardiology clinic All other times call [phone] and ask to speak to the tavern operator bi solutions architect. What activities can you do, and what [...] the hospital? Emir Riley MD - Attending Varnish Cooker Darrell Falk - Car Builder Jerry Vaughn MD, Harley Guaman MD - Resident Physicians When do I see my doctors next? No future appointments. You will need to follow up with your PCP (SUKHWINDER Hughes at [phone]) within 1 week of discharge - Appointment not made. We will schedule one for you next week when the office opens on Saturday. Please follow up with them if you do not hear from us. You will need to follow up with your Varnish Cooker within 1 month of discharge - appointment not made. We will schedule one for you next week when the office opens on Saturday. Please follow up with them if you do not hear from us. The plan is to set you up with cardiology in [facility]. For questions regarding issues relating to your hospitalization on the Cardiology Service, please contact your inpatient physician through [place] [facility] Doll Wig Hackler [phone] and ask for pager #[phone]. Issues after hours and on weekends will be handled by the Cardiology staff on-call. For questions regarding this document or issues relating to this hospitalization on the Medical Service, please contact your inpatient physician through [place] [facility] Doll Wig Hackler . Issues afterhours and on weekends will be handled by the Varnish Cooker staff on-call. documented in this encounter Discharge [...] appointments: During 8am-5pm Saturday through Saturday call [phone] to speak with a nurse in the cardiology clinic All other times call [phone] and ask to speak to the tavern operator bi solutions architect. What activities can you do, and what [...] the hospital? Emir Riley MD - Attending Varnish Cooker Darrell Falk - Car Builder Jerry Vaughn MD, Harley Guaman MD - Resident Physicians When do I see my doctors next? No future appointments. You will need to follow up with your PCP (SUKHWINDER Hughes at [phone]) within 1 week of discharge - Appointment not made. We will schedule one for you next week when the office opens on Saturday. Please follow up with them if you do not hear from us. You will need to follow up with your Varnish Cooker within 1 month of discharge - appointment not made. We will schedule one for you next week when the office opens on Saturday. Please follow up with them if you do not hear from us. The plan is to set you up with cardiology in [facility]. For questions regarding issues relating to your hospitalization on the Cardiology Service, please contact your inpatient physician through the [facility] Doll Wig Hackler [phone] and ask for pager #[phone]. Issues after hours and on weekends will [...] mouth daily. 90 tablet 3 07/05/2019 07/30/2019 [place]-3 Fatty Acids (FISH OIL) 500 mg Cap [...] instructions. 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 She declined [...] MDD, who presents as a transfer from [facility] for type I NSTEMI. Initial, serial EKGs [...] priority for the procedure was Urgent. The [facility] indication for the procedure was NSTE-ACS. Intervention [...] of the RCA. This was a de eimly lesion. According to the ACC/AHA classification system, [...] pack- year smoker, ASCVD (s/p PCI to [facility] 2011), and MDD, who presents as a transfer from [facility] for type I NSTEMI. Initial, serial EKGs [...] KEL 98 # ASCVD (s/p PCI to [facility] 2011) - serial EKGs - continue [...] 07/03/2019 5:05 PM EDT Office of Care Management(OCM)/Corporate Financial Analyst(CM)/Discharge Planning Service: Cardi S2 CM Trinity MukherjeeRN,BSN,MA,ACM pgr [phone] Reviewed record and in Cardiology Rounds with MD team,CMs, rehab director, PT. Pt having second cath w stent today. Met w pt briefly; she has her AD Vt form filled out at home naming her but hasn't had witnessed yet. Will do and bring in w next appt. Her will provide transpo home and be with her. She works for [employer] and declines need at this time. * [...] Jerry Vaughn MD, PGY-3 Cardiology S2, Pager [phone] 07/03/2019 * Anya Greenwood RN - 07/03/2019 3:07 PM EDT 1440 Patient arrived from record label intern she is alert and orientedX4, she was [...] MDD, who presents as a transfer from [facility] for type I NSTEMI. Initial, serial EKGs [...] intact Labs Recent Labs 07/03/19 0424 07/02/19 0110 WBC 7.4 9.3 HGB 13.6 13.1 HCT 41.2 40.4 PLATELET 224 294 Recent Labs 07/03/19 0424 07/02/19 011 NA 142 144 K 3.6 4.4 CL 106 108* CO2 24 23 BUN 10 16 CREATININE 0.63* 0.58* Recent Labs 07/02/19 0110 AST 13 ALT 16 ALKPHOS 85 BILITOT <0.2* Recent Labs 07/03/19 0424 07/02/19 011 CALCIUM 9.0 9.0 MAGNESIUM -- 0.90 [...] priority for the procedure was Urgent. [facility]. Intervention [...] pack- year smoker, ASCVD (s/p PCI to [facility] 2011), and MDD, who presents as a transfer from [facility] for type I NSTEMI. Initial, serial EKGs revealed dynamic STD and TWI in V1 through V3 without troponin elevation and with active chest pain, s/p PCI to occluded OM1. She will go back to the record label intern later today for intervention on her RCA. She had successful SARAI tomid OM1 lesion. PLAN: # NSTEMI, CLAY 5, KEL 98 # ASCVD (s/p PCI to [facility] 2011) - serial EKGs - continue atorvastatin [...] WMA. She will be returning back to record label intern today for staged RCA intervention. She is [...] MD PCP: SUKHWINDER Hughes PCP phone #: [phone] ID/Chief Complaint: Diana Landry is a 59 year-old female with a PMHx of HTN, HLD, former 30 pack- year smoker, ASCVD (s/p PCI to [facility] 2011), and MDD, who presents as a transfer from [facility] for ischemia evaluation. History of Present Illness: [...] definitive ischemic changes. On encounter in the [facility], patient denied chest pain, vertigo, and [...] mouth every 6 hours as needed. ??? [place]-3 Fatty Acids (FISH OIL) 500 mg Cap [...] PIV Laboratory: Troponin <0.01 CBC: Recent Labs 08/29/19 0110 WBC 9.3 HGB 13.1 PLATELET 294 Chemistry: [...] pack- year smoker, ASCVD (s/p PCI to [facility] 2011), and MDD, who presents as a transfer from [facility] for type I NSTEMI. Initial, serial EKGs [...] PLAN: Admit to Cardiology, S2 Team Pager #[phone] # NSTEMI, CLAY 5, KEL 98 # [...] Procedure Note: Patient Name: Diana Landry : [id number] MR#: [id number] Case Date: 07/03/2019 Doll Wig Hackler: Surgeon(s) and Role: * Cris Nguyễn MD [...] CRIS NGUYỄN MD * Initial Assessments - YazTrinity hopkins RN - 07/02/2019 6:15 PM EDT Office of Care Management Assessment Medical record reviewed. Reviewed record and in Cardiology Rounds w MD team,[facility], rehab director, PT. Pt is stable for [facility] Had cardi cath today w 2 stents placed. Screenin y.o. female here for [facility]STEM[facility]chest [facility] Present on Admission: ??? NSTEMI (non-ST elevated myocardial infarction) Patient has not been admitted to a hospital within the last 30 days. Patient receiving hospital care under Inpatient status. Admission order reviewed. Primary Insurance on file: [employer] Secondary Insurance on file: N/A Primary care provider on file: SUKHWINDER Hughes [phone] Advance Directive on file and Code Status: <no information>, Full Code Patient???s Functional Status:indep Living [facility] [address] [facility] [place] [address] Supports: Assessment: Patient with no apparent RNCM/SW needs at this time. No housing, transportation, insurance, resources concerns identified at this time. Supports in place to achieve a safe post-hospital transition. No identified barriers to accessing necessary care and/or follow-up after discharge. Plan: Patient to d/c to home via family when medically ready. calender roll operator/Integration Engineer will continue to follow patient???s progress and remain available if situation changes for coordination of care, psychosocial support and/or discharge planning. TRINITY MUKHERJEE RN Pager [phone] * Brief Op Note - Bárbara Nascimento MD - 07/02/2019 9:15 AM EDT Images from the original note were not included. Brief Operative Note Patient Name: Diana Landry : [id number] MR#: [id number] Case Date: 07/02/2019 Surgeon: Surgeon(s) and Role: [...] Full report to follow. Bárbara Nascimento MD [facility] Interventional Cardiology Pager [phone] documented in this encounter Plan of Treatment [...] AM EDT) C Diff Interp Negative Negative [facility] Comment: C. diff ??Negative Clostridium difficile is not present in the specimen. If patient is having diarrhea suspected to be from an infectious cause, then Contact Precautions are still required. Stool specimen (specimen) 07/04/2019 10:42 AM EDT 07/04/2019 10:56 AM EDT Narrative Resulting Agency Comment Spec In Lab Emir Riley MD MICROBIOLOGY - GENER AL ORDERABLES [facility] [place] [address] * EKG 12 Lead (07/04/2019 6:42 AM EDT) Ventricular rate 81 BPM MUSE SYSTEM Atrial Rate 81 BPM MUSE SYSTEM P-R Interval 150 ms MUSE SYSTEM QRS Duration 90 ms MUSE SYSTEM Q-T Interval 396 ms MUSE SYSTEM QTC Calculated (Bezet) 460 ms MUSE SYSTEM Calculated P Dewy Rose 61 degrees MUSE SYSTEM Calculated R Dewy Rose 41 degrees MUSE SYSTEM Calculated T Dewy Rose -34 degrees MUSE SYSTEM INTERPRETATION Normal sinus rhythm Nonspecific T wave abnormality Abnormal ECG When compared with ECG of 03-JUL-2019 13:39, (unconfirmed) Nonspecific T wave abnormality now evident in Lateral leads Confirmed by MD Rosemary, Emir ([id number]) on 07/04/2019 8:31:44 PM MUSE SYSTEM 07/04/2019 6:42 AM EDT 07/04/2019 8:31 PM EDT Emir Riley MD ECG ORDERABLES MUSE SYSTEM * Differential, Automated (07/04/2019 4:43 AM EDT) Neutrophil % 54.9 % [facility] Neutrophil Absolute 4.17 1.70 - 6.10 x10(3)/[facility] Lymph % 29.6 % [facility] Lymphocytes Abs 2.2 0.9 - 3.2 x10(3)/[facility] Monocyte % 9.8 % [facility] Monocyte Abs 0.7 0.3 - 0.9 x10(3)/[facility] Eos % 4.7 % [facility] Eosinophils Abs 0.4 0.0 - 0.4 x10(3)/[facility] Basophil % 0.7 % [facility] Baso Absolute 0.0 0.0 - 0.1 x10(3)/[facility] Immature Gran % 0.30 % [facility] Comment: Immature granulocytes(IG's)percentage and absolute count will include metamyelocytes, myelocytes, and promyelocytes. Blood smears from CBCs yielding IG's will be scanned manually for concordance. If this scan disagrees with the automated IG or if promyelocytes are noted, a manual differential will be performed. Immature Gran Absolute 0.02 0.00 - 0.04 x10(3)/[facility] Blood specimen (specimen) 07/04/2019 4:43 AM EDT 07/04/2019 4:50 AM EDT Narrative Resulting Agency Comment Spec In Lab Jerry Vaughn MD HEMATOLOGY ORDERABLE S [facility] [place] [address] * (ABNORMAL) Hemogram (07/04/2019 4:43 AM EDT) White Blood Cell 7.6 4.0 - 9.5 x10(3)/ L [facility] Red Blood Cell 4.28 4.00 - 5.21 x10(6)/mc L [facility] Hemoglobin 13.3 11.7 - 15.5 gm/dL [facility] Hematocrit 40.6 35.7 - 45.8 % [facility] Mean Cell Volume 94.9(H) 82.6 - 94.4 fL [facility] Mean Cell Hemoglobin 31.1 27.1 - 32.0 pg [facility] Mean Cell Hemoglobin Concentration 32.8 31.7 - 35.0 gm/dL [facility] Platelet 244 145 - 357 x10(3)/mc L [facility] RDW Standard Deviation 45.8 37.0 - 46.0 fL [facility] RDW coefficient of variation 13.1 11.5 - 14.1 % [facility] Mean Platelet Volume 10.3 7.6 - 12.9 fL [facility] NRBC% auto 0.0 % [facility] NRBC Absolute 0.000 0.000 - 0.000 x10(3)/mc L [facility] Blood specimen (specimen) 07/04/2019 4:43 AM EDT 07/04/2019 4:50 AM EDT Narrative Resulting Agency Comment Spec In Lab Jerry Vaughn MD HEMATOLOGY ORDERABLE S Performing Organization Address [facility] de Phone Number [facility] [place] [address] * EKG 12 Lead (07/03/2019 1:39 PM EDT) Ventricular rate 75 BPM MUSE SYSTEM Atrial Rate 75 BPM MUSE SYSTEM P-R Interval 156 ms MUSE SYSTEM QRS Duration 88 ms MUSE SYSTEM Q-T Interval 408 ms MUSE SYSTEM QTC Calculated (Bezet) 455 ms MUSE SYSTEM Calculated P Dewy Rose 56 degrees MUSE SYSTEM Calculated R Dewy Rose 20 degrees MUSE SYSTEM Calculated T Dewy Rose 19 degrees MUSE SYSTEM INTERPRETATION Normal sinus rhythm Normal ECG When compared with ECG of 02-JUL-2019 15:00, No significant change was found Confirmed by Gil Knowles MD ([id number]) on 07/07/2019 3:31:24 PM MUSE SYSTEM 07/03/2019 1:39 PM EDT 07/07/2019 3:31 PM EDT Emir Riley MD ECG ORDERABLES Performing Organization Address [facility] Co de Phone Number MUSE SYSTEM * CARDIAC CATHETERIZATION (07/03/2019 1:07 PM EDT) Anatomical Region Laterality Modality Other Narrative 07/03/2019 7:34 PM EDT ?[facility] ? Cardiac Catheterization/Intervention Report ? Patient Name: Diana Landry. ? Procedure Date: 07/03/2019 ? A #: [id number] ? Primary Physician: Cris Nguyễn ? Case #: [id number] ? File Name: [id number] ? Catheterization Order Number: [id number] ? [facility] ?Senior Clinical Study Manager [facility] ? Final Report [place], [place] ? Patient Name: ? Diana M. Yamileth ? ID#: ?[id number] ? : ?1960 ? Procedure Date: ? July 03, 2019 ?Case #: ? [id number] ? Room: ? 6 ? Case Physician: ? Cris Nguyễn M.D. ? Start: ?12:08 ?Fellow: ? Mary Renteria M.D. ?Admission: ??07/02/2019 ? Referring ? Mirta Garner, P.A. ? Physicians: ?Olga Ambrosio M.D. ? [...] was designated as ?ASA Class IV. The [facility] clinical frailty scale is 4. Vulnerable. ? [...] procedure was Urgent. The indication for ?the record label intern visit is ACS greater than 24 hrs. [...] dose administered prior to arrival in the record label intern. ?Recommend continuing clopidogrel 75 mg PO daily [...] Procedure Note Cris Nguyễn MD - 07/03/2019 [facility] Cardiac Catheterization/Intervention Report Patient Name: Diana Landry Procedure Date: 07/03/2019 A #: [id number] Primary Physician: Cris Nguyễn Case #: [id number] File Name: [id number] Catheterization Order Number: [id number] [facility] FinalReport [place], [place] Patient Name: Diana Landry ID#:[id number] :1960 Procedure Date: July 03, 2019 Case #: [id number] Room: 6 Case Physician: Cris Nguyễn M.D. Start: 12:08 Fellow: Mray Renteria M.D. Admission:07/02/2019 Referring Minh Smith Physicians: [...] patient wasdesignated as ASA Class IV. The [facility] clinical frailty scale is 4. Vulnerable. Diagnostic Tests: Prior Coronary Angiography: LV ejection fraction within 6 months is 50%. Electrocardiography: EKG was assessed by EKG. EKG was Abnormal. EKG showed other abnormality. Medications Prior to Procedure: ASA, Beta Evan, Calcium Channel Blocking Agent and Statin. Indications for Diagnostic Cath: The priority of the diagnostic procedure was Urgent. The indicationfor the record label intern visit is ACS greater than 24 hrs. [...] dose administered prior to arrival in the record label intern. Recommend continuing clopidogrel 75 mg PO daily [...] * (ABNORMAL) Troponin (07/03/2019 4:24 AM EDT) [facility] Troponin-T 1.26(H) 0.00 - 0.00 ng/mL [facility] Comment: result rechecked-JSD The 99th percentile for Troponin T is less than 0.01 ng/mL, any detectable cTnT concentration using this assay should be considered elevated. According to the third universal definition of myocardial infarction the following criteria with a clinical presentation consistent with acute myocardial ischemia meets the diagnosis for a myocardial infarction (HI). Detection of a rise and/or fall of cTnT, with at least one value greater than the 99th percentile (> or = 0.01) and with at least one of the following ?? Symptoms of ischemia ?? New or presumed new significant MX-tosuonl-S wave (ST-T) changes or new left bundle [...] additional sample may be indicated. Reference: Third [place] Definition of Myocardial Infarction. Journal of the [place] College of Cardiology 2012;60:1581-98 Blood specimen (specimen) Venous Draw / Unknown 07/03/2019 4:24 AM EDT 07/03/2019 4:41 AM EDT Narrative Resulting Agency Comment Spec In Lab Jerry Vaughn MD CHEMISTRY ORDERABLES [facility] [place] [address] * Differential, Automated (07/03/2019 4:24 AM EDT) Neutrophil % 53.8 % [facility] Neutrophil Absolute 4.00 1.70 - 6.10 x10(3)/[facility] Lymph % 29.2 % [facility] Lymphocytes Abs 2.2 0.9 - 3.2 x10(3)/[facility] Monocyte % 10.6 % [facility] Monocyte Abs 0.8 0.3 - 0.9 x10(3)/[facility] Eos % 5.1 % [facility] Eosinophils Abs 0.4 0.0 - 0.4 x10(3)/[facility] Basophil % 0.9 % [facility] Baso Absolute 0.1 0.0 - 0.1 x10(3)/[facility] Immature Gran % 0.40 % [facility] Comment: Immature granulocytes(IG's)percentage and absolute count will include metamyelocytes, myelocytes, and promyelocytes. Blood smears from CBCs yielding IG's will be scanned manually for concordance. If this scan disagrees with the automated IG or if promyelocytes are noted, a manual differential will be performed. Immature Gran Absolute 0.03 0.00 - 0.04 x10(3)/[facility] Blood specimen (specimen) 07/03/2019 4:24 AM EDT 07/03/2019 4:41 AM EDT Narrative Resulting Agency Comment Spec In Lab Jerry Vaughn MD HEMATOLOGY ORDERABLE S [facility] [place] [address] * Hemogram (07/03/2019 4:24 AM EDT) White Blood Cell 7.4 4.0 - 9.5 x10(3)/[facility] Red Blood Cell 4.45 4.00 - 5.21 x10(6)/[facility] Hemoglobin 13.6 11.7 - 15.5 gm/dL [facility] Hematocrit 41.2 35.7 - 45.8 % [facility] Mean Cell Volume 92.6 82.6 - 94.4 fL [facility] Mean Cell Hemoglobin 30.6 27.1 - 32.0 pg [facility] Mean Cell Hemoglobin Concentration 33.0 31.7 - 35.0 gm/dL [facility] Platelet 224 145 - 357 x10(3)/[facility] RDW Standard Deviation 45.0 37.0 - 46.0 fL [facility] RDW coefficient of variation 13.2 11.5 - 14.1 % [facility] Mean Platelet Volume 10.1 7.6 - 12.9 fL [facility] NRBC% auto 0.0 % [facility] NRBC Absolute 0.000 0.000 - 0.000 x10(3)/mcL [facility] Blood specimen (specimen) 07/03/2019 4:24 AM EDT 07/03/2019 4:41 AM EDT Narrative Resulting Agency Comment Spec In Lab Jerry Vaughn MD HEMATOLOGY ORDERABLE S [facility] [place] [address] * (ABNORMAL) BMP w/fasting Glucose (07/03/2019 4:24 AM EDT) Glucose Fasting 131(H) 65 - 99 mg/dL [facility] Comment: ?Fasting* Glucose Interpretive Criteria [...] of Diabetes Mellitus, Position Statement from the [place] [employer]. ??Diabetes Care, Volume 33, Supplement 1, Nov 2009 Blood Urea Nitrogen 10 8 - 18 mg/dL [facility] Creatinine 0.63(L) 0.70 - 1.20 mg/dL [facility] Sodium 142 135 - 145 mmol/L [facility] Potassium 3.6 3.5 - 5.0 mmol/L [facility] Comment: Please note: ??Patients with WBC >100,000 may have falsely elevated Potassium levels. ??For accurate Potassium quantification in these patients send serum separator tube (gold top) for subsequent determinations. ??Contact the Clinical Chemistry Laboratory if there are any questions. Chloride 106 98 - 107 mmol/L [facility] Carbon Dioxide 24 22 - 31 mmol/L [facility] Anion Gap 12 5 - 15 mmol/L [facility] Calcium 9.0 8.5 - 10.5 mg/dL [facility] Est Glomerular Filtration Rate 98 >=60 mL/min/1. 73 m?? [facility] Comment: The eGFR was calculated using the CKD-EPI equation. As with all creatinine based estimates of kidney function, eGFR values calculated with the CKD-EPI equation are not accurate in patients with acute kidney failure, extremes of body mass or the acutely ill. [email or web address]/[facility] [place] [place] eGFR 114 >=60 mL/min/1. 73 m?? [facility] Comment: The eGFR was calculated using the CKD-EPI equation. As with all creatinine based estimates of kidney function, eGFR values calculated with the CKD-EPI equation are not accurate in patients with acute kidney failure, extremes of body mass or the acutely ill. [email or web address] Blood specimen (specimen) 07/03/2019 4:24 AM EDT 07/03/2019 4:41 AM EDT Narrative Resulting Agency Comment Spec In Lab Jimenez Melchor MD CHEMISTRY ORDERABLES [facility] [place] [address] * LDL Cholesterol, Direct (07/03/2019 4:24 AM EDT) LDL Cholesterol, Direct 201 mg/dL [facility] Comment: Lowest Risk: <100 mg/dL Lower Risk: 100-129 mg/dL Borderline High Risk: 130-159 mg/dL High Risk: 160-189 mg/dL Very High Risk: >ue=734 mg/dL Blood specimen (specimen) 07/03/2019 4:24 AM EDT 07/03/2019 4:41 AM EDT Narrative Resulting Agency Comment Spec In Lab Jimenez Melchor MD CHEMISTRY ORDERABLES [facility] [place] [address] * (ABNORMAL) Hemoglobin A1c (07/03/2019 4:24 AM EDT) Hemoglobin A1c 5.8(H) 4.3 - 5.6 % [facility] Comment: Reference Range: 4.3 [...] Mellitus, Diabetes Care 2013; 36: Suppl. 1, C47-52 Estimated Average Glucose 120 mg/dL [facility] Comment: eAG equivalents for [...] into estimated average glucose values. ??Diabetes Care 2008:31(8):1932-7682. Blood specimen (specimen) 07/03/2019 4:24 AM EDT 07/03/2019 4:41 AM EDT Narrative Resulting Agency Comment Spec In Lab Jimenez Melchor MD CHEMISTRY ORDERABLES [facility] [place] [address] * Lipid Panel (07/03/2019 4:24 AM EDT) Cholesterol, Total 264 mg/dL [facility] Comment: Lower Risk: <200 mg/dL Average Risk: 200-239 mg/dL Higher Risk: >ct=994 mg/dL Triglyceride 231 mg/dL [facility] Comment: Average Risk/Lower Risk: <150 mg/dL Borderline High Risk: 150-199 mg/dL High Risk: 200-499 mg/dL Very High Risk: >ss=668 mg/dL HDL Cholesterol 37 mg/dL [facility] Comment: Males: ?? Higher Risk: <40 mg/dL Females: ?? HIgher Risk: <50 mg/dL LDL Cholesterol 181 mg/dL [facility] Comment: Lowest Risk: <100 mg/dL Lower Risk: 100-129 mg/dL Borderline High Risk: 130-159 mg/dL High Risk: 160-189 mg/dL Very High Risk: >fr=357 mg/dL Cholesterol/HDL Ratio 7.1 ratio [facility] Lipid Interpretation See Note [facility] Comment: Lipid management should be guided by a patient? s ASCVD risk, goals and preferences. ACC/AHA Guidelines recommend high intensity statin if clinical ASCVD or LDL greater than or equal to 190 mg/dL. http://tinyurl.com/ZNV-TKZ-Mtxtkdvvx Adults aged 40-75 with LDL 70-189 mg/dL should have their 10 year ASCVD risk estimated with the ACC/AHA ASCVD risk senior electrical estimator http://tools.acc.org/FQAQU-Llzs-Nnoeldcpj/ Statin should be discussed if risk greater [...] In Lab Jimenez Melchor MD CHEMISTRY ORDERABLES [facility] [place] [place] [address] * (ABNORMAL) Troponin (07/02/2019 6:00 PM EDT) Troponin-T 3.12(H) 0.00 - 0.00 ng/mL [facility] Comment: The 99th percentile for Troponin T is less than 0.01 ng/mL, any detectable cTnT concentration using this assay should be considered elevated. According to the third universal definition of myocardial infarction the following criteria with a clinical presentation consistent with acute myocardial ischemia meets the diagnosis for a myocardial infarction (HI). Detection of a rise and/or fall of cTnT, with at least one value greater than the 99th percentile (> or = 0.01) and with at least one of the following ?? Symptoms of ischemia ?? New or presumed new significant WW-quktums-W wave (ST-T) changes or new left bundle [...] additional sample may be indicated. Reference: Third [place] Definition of Myocardial Infarction. Journal of the [employer] College [employer] 2012;60:1581-98 Blood specimen (specimen) 07/02/2019 6:00 PM EDT 07/02/2019 6:10 PM EDT Narrative Resulting Agency Comment Spec In Lab Jimenez Melchor MD CHEMISTRY ORDERABLES Performing Organization Address [facility] Co de Phone Number [facility] [place] [address] * EKG 12 Lead (07/02/2019 3:00 PM EDT) Ventricular rate 84 BPM MUSE SYSTEM Atrial Rate 84 BPM MUSE SYSTEM P-R Interval 166 ms MUSE SYSTEM QRS Duration 70 ms MUSE SYSTEM Q-T Interval 366 ms MUSE SYSTEM QTC Calculated (Bezet) 432 ms MUSE SYSTEM Calculated P Dewy Rose 42 degrees MUSE SYSTEM Calculated R Dewy Rose 17 degrees MUSE SYSTEM Calculated T Dewy Rose 33 degrees MUSE SYSTEM INTERPRETATION Normal sinus rhythm with sinus arrhythmia Normal ECG When compared with ECG of 02-JUL-2019 01:04, Nonspecific T wave abnormality now evident in Inferior leads Confirmed by MD Carmella, Channing Granado ([id number]) on 07/04/2019 11:03:32 AM MUSE SYSTEM 07/02/2019 3:00 PM EDT 07/04/2019 11:03 AM EDT Jimenez Melchor MD ECG ORDERABLES Performing Organization Address [facility] Co de Phone Number MUSE SYSTEM * (ABNORMAL) Troponin (07/02/2019 11:55 AM EDT) Pathologist [facility] Troponin-T 3.11(H) 0.00 - 0.00 ng/mL [facility] Comment: result rechecked-es The 99th percentile for Troponin T is less than 0.01 ng/mL, any detectable cTnT concentration using this assay should be considered elevated. According to the third universal definition of myocardial infarction the following criteria with a clinical presentation consistent with acute myocardial ischemia meets the diagnosis for a myocardial infarction (HI). Detection of a rise and/or fall of cTnT, with at least one value greater than the 99th percentile (> or = 0.01) and with at least one of the following ?? Symptoms of ischemia ?? New or presumed new significant LE-odmzbpr-J wave (ST-T) changes or new left bundle [...] additional sample may be indicated. Reference: Third [place] Definition of Myocardial Infarction. Journal of the [employer] College [employer]iology 2012;60:1581-98 Blood specimen (specimen) 07/02/2019 11:55 AM EDT 07/02/2019 12:09 PM EDT Narrative Resulting Agency Comment Spec In Lab Jimenez Melchor MD CHEMISTRY ORDERABLES [facility] [place] [address] * ECHO COMPLETE W CONTRAST (07/02/2019 9:35 AM EDT) EF 50 [employer] SYSTEM Anatomical Region Laterality Modality Other 07/02/2019 Narrative 07/02/2019 9:45 AM EDT Procedure: ?Transthoracic Echocardiogram Patient: ?YAMILETH DIANA Do ? (Age): 1960(59y) Med Rec#: ? [id number] ?Sex: ?F ? [place] [facility] [place]t / Wt: ??152(cm)/87(kg) Pt. Loc: ?CCU ? BSA: ?1.83 Study Date: ?? 07/02/2019 ?Pt. Type: Inpatient Tape: ? Referring: OLGA AMBROSIO J Reading: Roe Esteban ([id number]) Warp Hanger: Cris Zuniga [facility] Diagnosis: *ST elevation (STEMI) myocardial infarction involving [...] E-wave Vmax ?0.6 ?m/sec ? MV deceleration [id number] ?msec ? MV A-wave Vmax ?0.8 ?m/sec [...] ? Mid-Inferior ?Akinetic ? Mid-Inferoseptal ?Normal ? [place]-Septal ? Normal ? [place]-Anterior ? Normal ? [place]-Lateral ?Akinetic ? [place]-Inferior ? Normal ? [place]-Tip ?Normal ? This report has been electronically signed by: Roe Esteban M.D. ? 07/02/2019 09:45:11 Images reviewed and interpretation verified [facility] Cardiac Ultrasound Laboratory Procedure Note Roe Esteban MD - 07/02/2019 Procedure: Transthoracic Echocardiogram Patient: YAMILETH CLEMENTE(Age): 1960(59y) Med Rec#: [id number] Sex: F [place] [facility] [place]t / Wt: 152(cm)/87(kg) Pt. Loc: CCU BSA: 1.83 Study Date: 07/02/2019 Pt. Type: Inpatient Tape: Referring: OLGA AMBROSIO J Reading: Roe Esteban ([id number]) Warp Hanger: Cris Zuniga [facility] Diagnosis: *ST elevation (STEMI) myocardial infarction involving [...] MV E-wave Vmax 0.6 m/sec MV deceleration [id number] msec MV A-wave Vmax 0.8 m/sec MV [...] Akinetic Mid-Posterolateral Akinetic Mid-Inferior Akinetic Mid-Inferoseptal Normal [place]-Septal Normal [place]-Anterior Normal [place]-Lateral Akinetic [place]-Inferior Normal [place]-Tip Normal This report has been electronically signed by: Roe Esteban M.D. 07/02/2019 09:45:11 Images reviewed and interpretation verified [facility] Cardiac Ultrasound Laboratory Salvador Zaragoza MD ECHO ORDERABLES * CARDIAC CATHETERIZATION (07/02/2019 9:25 AM EDT) Anatomical Region Laterality Modality Other Narrative 07/02/2019 9:59 AM EDT ?[facility] ? Cardiac Catheterization/Intervention Report ? Patient Name: Yamileth, Diana M. ? Procedure Date: 07/02/2019 ? A #: [id number] ? Primary Physician: Bárbara Nascimento ? Case #: [id number] ? File Name: [id number] ? Catheterization Order Number: [id number] ? [facility] ? Final Report [place], [place] ? Patient Name: ? Diana M. Yamileth ? ID#: ?[id number] ? : ?1960 ? Procedure Date: ? July 02, 2019 ?Case #: ? [id number] ? Room: ? 5 ? Case Physician: [...] was designated as ?ASA Class III. The [facility] clinical frailty scale is 2: Well. ? Diagnostic Tests: ?Electrocardiography: ? EKG was assessed by ECG. EKG was Abnormal. EKG showed other ? abnormality. ?Medications Prior to Procedure: ? ASA. ? Indications for Diagnostic Cath: ?The priority of the diagnostic procedure was Urgent. The indication for ?the record label intern visit is ACS less than or equal [...] dose administered prior to arrival in the record label intern. ?Recommend continuing clopidogrel 75 mg PO daily [...] ?Pt referred for diagnostic coronary angiography with LHC for chest pain ?and abnormal ECG and [...] Procedure Note Bárbara Nascimento MD - 10/26/2019 [facility] Cardiac Catheterization/Intervention Report Patient Name: Diana Landry Procedure Date: 07/02/2019 A #: [id number] Primary Physician: Bárbara Nascimento Case #: [id number] File Name: [id number] Catheterization Order Number: [id number] [facility] FinalReport [place], [place] Patient Name: Diana Landry ID#:[id number] :1960 Procedure Date: July 02, 2019 Case [...] patient wasdesignated as ASA Class III. The [facility] clinical frailty scale is 2: Well. Diagnostic Tests: Electrocardiography: EKG was assessed by ECG. EKG was Abnormal. EKG showed other abnormality. Medications Prior to Procedure: ASA. Indications for Diagnostic Cath: The priority of the diagnostic procedure was Urgent. The indicationfor the record label intern visit is ACS less than or equal [...] The priority for the procedure was Urgent.The [facility] indication for the procedure was NSTE-ACS. Intervention [...] The lesion was predilated with a 2.50mm [id number] MM balloon with a maximum inflation pressure [...] dose administered prior to arrival in the record label intern. Recommend continuing clopidogrel 75 mg PO daily [...] Pt referred for diagnostic coronary angiography with [facility] for chestpain and abnormal ECG and [...] 7:00 AM EDT) UF Heparin 0.64 IU/mL [facility] Comment: Guidelines for therapeutic unfractionated heparin [...] MD HEMATOLOGY ORDERABLE S Performing Organization Address [facility] Co de Phone Number [facility] [place] [address] * (ABNORMAL) Troponin (07/02/2019 7:00 AM EDT) Troponin-T 0.24(H) 0.00 - 0.00 ng/mL [facility] Comment: The 99th percentile for Troponin T is less than 0.01 ng/mL, any detectable cTnT concentration using this assay should be considered elevated. According to the third universal definition of myocardial infarction the following criteria with a clinical presentation consistent with acute myocardial ischemia meets the diagnosis for a myocardial infarction (HI). Detection of a rise and/or fall of cTnT, with at least one value greater than the 99th percentile (> or = 0.01) and with at least one of the following ?? Symptoms of ischemia ?? New or presumed new significant AT-xzlnaea-J wave (ST-T) changes or new left bundle [...] additional sample may be indicated. Reference: Third [place] Definition of Myocardial Infarction. Journal of the [place] College [employer]iology 2012;60:1581-98 Blood specimen (specimen) 07/02/2019 7:00 AM EDT 07/02/2019 7:11 AM EDT Narrative Resulting Agency Comment Spec In Lab Jimenez Melchor MD CHEMISTRY ORDERABLES Performing Organization Address [facility] Co de Phone Number [facility] [place] [address] * Heparin (unfractionated) Level (07/02/2019 1:10 AM EDT) UF Heparin 0.84 IU/mL [facility] Comment: Guidelines for therapeutic unfractionated heparin [...] Lab Sheng Crooks MD HEMATOLOGY ORDERABLE S [facility] [place] [address] * (ABNORMAL) APTT (07/02/2019 1:10 AM EDT) Partial Thromboplastin Time 88(H) 25 - 37 sec [facility] Comment: The PTT is NOT [...] MD HEMATOLOGY ORDERABLE S Performing Organization Address [facility] Co de Phone Number [facility] [place] [address] * Prothrombin Time (07/02/2019 1:10 AM EDT) Pathologist [facility] Prothrombin Time 11.7 9.4 - 12.5 sec [facility] International Normalization Ratio 1.0 [facility] Comment: An INR <2.0 indicates [...] MD HEMATOLOGY ORDERABLE S Performing Organization Address [facility] de Phone Number [facility] [place] [address] * Troponin (07/02/2019 1:10 AM EDT) Pathologist [facility] Troponin-T <0.01 0.00 - 0.00 ng/mL [facility] Comment: The 99th percentile for Troponin T is less than 0.01 ng/mL, any detectable cTnT concentration using this assay should be considered elevated. According to the third universal definition of myocardial infarction the following criteria with a clinical presentation consistent with acute myocardial ischemia meets the diagnosis for a myocardial infarction (HI). Detection of a rise and/or fall of cTnT, with at least one value greater than the 99th percentile (> or = 0.01) and with at least one of the following ?? Symptoms of ischemia ?? New or presumed new significant IB-iinjtbz-A wave (ST-T) changes or new left bundle [...] additional sample may be indicated. Reference: Third [place] Definition of Myocardial Infarction. Journal of the [place] College [employer]iology 2012;60:1581-98 Blood specimen (specimen) No Charge / Unknown 07/02/2019 1:10 AM EDT 07/02/2019 1:56 AM EDT Narrative Resulting Agency Comment Spec In Lab Sheng Crooks MD CHEMISTRY ORDERABLES Performing Organization Address City/[facility]/ZIP Co de Phone Number [facility] [place] [address] * pro-Brain Natriuretic Peptide (07/02/2019 1:10 AM EDT) NT-proBNP 26 <=125 pg/mL [facility] Blood specimen (specimen) No Charge / Unknown 07/02/2019 1:10 AM EDT 07/02/2019 1:56 AM EDT Narrative Resulting Agency Comment Spec In Lab Sheng Crooks MD CHEMISTRY ORDERABLES Performing Organization Address [facility] Co de Phone Number [facility] [place] [address] * TSH (07/02/2019 1:10 AM EDT) Thyroid Stimulating Hormone 2.07 0.27 - 4.20 mcIU/mL [facility] Blood specimen (specimen) No Charge / Unknown 07/02/2019 1:10 AM EDT 07/02/2019 1:56 AM EDT Narrative Resulting Agency Comment Spec In Lab Sheng Crooks MD CHEMISTRY ORDERABLES Performing Organization Address City/[facility]/ZIP Co de Phone Number [facility] [place] [address] * Phosphorus (07/02/2019 1:10 AM EDT) Phosphorus 4.0 2.5 - 4.5 mg/dL [facility] Blood specimen (specimen) No Charge / Unknown 07/02/2019 1:10 AM EDT 07/02/2019 1:56 AM EDT Narrative Resulting Agency Comment Spec In Lab Sheng Crooks MD CHEMISTRY ORDERABLES Performing Organization Address [facility] Co de Phone Number [facility] [place] [address] * Magnesium (07/02/2019 1:10 AM EDT) Pathologist [facility] Magnesium 0.90 0.69 - 1.07 mmol/L [facility] Blood specimen (specimen) No Charge / Unknown 07/02/2019 1:10 AM EDT 07/02/2019 1:56 AM EDT Narrative Resulting Agency Comment Spec In Lab Sheng Crooks MD CHEMISTRY ORDERABLES Performing Organization Address [facility] Co de Phone Number [facility] [place] [address] * (ABNORMAL) Comprehensive metabolic panel (non-fasting) (07/02/2019 1:10 AM EDT) Pathologist [facility] Glucose 153 65 - 199 mg/dL [facility] Comment:Diabetes: >=200 mg/d L plus symptoms Blood Urea Nitrogen 16 8 - 18 mg/dL [facility] Creatinine 0.58(L) 0.70 - 1.20 mg/dL [facility] Sodium 144 135 - 145 mmol/L [facility] Potassium 4.4 3.5 - 5.0 mmol/L [facility] Comment: Please note: ??Patients with WBC >100,000 may have falsely elevated Potassium levels. ??For accurate Potassium quantification in these patients send serum separator tube (gold top) for subsequent determinations. ??Contact the Clinical Chemistry Laboratory if there are any questions. Chloride 108(H) 98 - 107 mmol/L [facility] Carbon Dioxide 23 22 - 31 mmol/L [facility] Anion Gap 13 5 - 15 mmol/L [facility] Calcium 9.0 8.5 - 10.5 mg/dL [facility] Protein, Total 6.9 6.1 - 8.0 gm/dL [facility] Albumin 4.3 3.2 - 5.2 gm/dL [facility] Aspartate Aminotransferase 13 0 - 30 unit/L [facility] Alanine Aminotransferase 16 0 - 30 unit/L [facility] Alkaline Phosphatase 85 35 - 105 unit/L [facility] Bilirubin, Total <0.2(L) 0.2 - 1.3 mg/dL [facility] Est Glomerular Filtration Rate 101 >=60 mL/min/1. 73 m?? [facility] Comment: The eGFR was calculated using the CKD-EPI equation. As with all creatinine based estimates of kidney function, eGFR values calculated with the CKD-EPI equation are not accurate in patients with acute kidney failure, extremes of body mass or the acutely ill. [email or web address]/[facility] [place] eGFR 117 >=60 mL/min/1. 73 m?? [facility] Comment: The eGFR was calculated using the CKD-EPI equation. As with all creatinine based estimates of kidney function, eGFR values calculated with the CKD-EPI equation are not accurate in patients with acute kidney failure, extremes of body mass or the acutely ill. [email or web address]/[facility] [place] Blood specimen (specimen) No Charge / Unknown 07/02/2019 1:10 AM EDT 07/02/2019 1:56 AM EDT Narrative Resulting Agency Comment Spec In Lab Sheng Crooks MD CHEMISTRY ORDERABLES [facility] [place] [address] * (ABNORMAL) Differential, Automated (07/02/2019 1:10 AM EDT) Neutrophil % 68.9 % [facility] Neutrophil Absolute 6.39(H) 1.70 - 6.10 x10(3)/[facility] Lymph % 23.1 % [facility] Lymphocytes Abs 2.2 0.9 - 3.2 x10(3)/[facility] Monocyte % 5.8 % [facility] Monocyte Abs 0.5 0.3 - 0.9 x10(3)/[facility] Eos % 1.2 % [facility] Eosinophils Abs 0.1 0.0 - 0.4 x10(3)/[facility] Basophil % 0.6 % [facility] Baso Absolute 0.1 0.0 - 0.1 x10(3)/[facility] Immature Gran % 0.40 % [facility] Comment: Immature granulocytes(IG's)percentage and absolute count will include metamyelocytes, myelocytes, and promyelocytes. Blood smears from CBCs yielding IG's will be scanned manually for concordance. If this scan disagrees with the automated IG or if promyelocytes are noted, a manual differential will be performed. Immature Gran Absolute 0.04 0.00 - 0.04 x10(3)/[facility] Blood specimen (specimen) No Charge / Unknown 07/02/2019 1:10 AM EDT 07/02/2019 1:23 AM EDT Narrative Resulting Agency Comment Spec In Lab Sheng Crooks MD HEMATOLOGY ORDERABLE S [facility] [place] [address] * Hemogram (07/02/2019 1:10 AM EDT) White Blood Cell 9.3 4.0 - 9.5 x10(3)/[facility]ORY Red Blood Cell 4.30 4.00 - 5.21 x10(6)/[facility] Hemoglobin 13.1 11.7 - 15.5 gm/dL [facility] Hematocrit 40.4 35.7 - 45.8 % [facility] Mean Cell Volume 94.0 82.6 - 94.4 fL [facility] Mean Cell Hemoglobin 30.5 27.1 - 32.0 pg [facility] Mean Cell Hemoglobin Concentration 32.4 31.7 - 35.0 gm/dL [facility] Platelet 294 145 - 357 x10(3)/[facility] LABORATORY RDW Standard Deviation 45.1 37.0 - 46.0 [facility] LAB[facility]ATORY RDW coefficient of variation 13.2 11.5 - 14.1 % [facility] Mean Platelet Volume 10.3 7.6 - 12.9 [facility] LABORATORY NRBC% auto 0.0 % [facility] NRBC Absolute 0.000 0.000 - 0.000 x10(3)/[facility] Blood specimen (specimen) No Charge / Unknown 07/02/2019 1:10 AM EDT 07/02/2019 1:23 AM EDT Narrative Resulting Agency Comment Spec In Lab Sheng Crooks MD HEMATOLOGY ORDERABLE S [facility] [place] [address] * Lavender Tube HOLD (07/02/2019 1:10 AM EDT) [facility] Lavender Hold Sample in lab. [facility] Blood specimen (specimen) No Charge / Unknown 07/02/2019 1:10 AM EDT 07/02/2019 1:23 AM EDT Salvador Zaragoza MD HEMATOLOGY ORDERABLE S [facility] [place] [address] * Green Tube HOLD (07/02/2019 1:10 AM EDT) Green Hold Sample in lab. [facility] Blood specimen (specimen) No Charge / Unknown 07/02/2019 1:10 AM EDT 07/02/2019 1:23 AM EDT Salvador Zaragoza MD CHEMISTRY ORDERABLES Performing Organization Address [facility] Co de Phone Number [facility] [place] [address] * Blue Tube HOLD (07/02/2019 1:10 AM EDT) Blue Hold Sample in lab. [facility] Blood specimen (specimen) No Charge / Unknown 07/02/2019 1:10 AM EDT 07/02/2019 1:23 AM EDT Salvador Zaragoza MD HEMATOLOGY ORDERABLE S Performing Organization Address [facility] Co de Phone Number [facility] [place] [place] [address] * EKG 12 Lead (07/02/2019 1:04 AM EDT) Ventricular rate 85 BPM MUSE SYSTEM Atrial Rate 85 BPM MUSE SYSTEM P-R Interval 168 ms MUSE SYSTEM QRS Duration 58 ms MUSE SYSTEM Q-T Interval 366 ms MUSE SYSTEM QTC Calculated (Bezet) 435 ms MUSE SYSTEM Calculated P Dewy Rose 59 degrees MUSE SYSTEM Calculated R Dewy Rose 49 degrees MUSE SYSTEM Calculated T Dewy Rose 66 degrees MUSE SYSTEM INTERPRETATION Normal sinus [...] Zaragoza MD ECG ORDERABLES Performing Organization Address City/[facility] Co de Phone Number MUSE SYSTEM [...] 81 mg, Oral, DAILY, First dose on Neisha [...] mcg/mL multi-dose injection ONCE PRN, Starting on Neisha 07/02/19 at 0820, Until Neisha 07/02/19 at 1411, Intra-Operative (Intra-Procedure), Routine Given 07/02/2019 9:00 AM EDT 50 mcg Given 07/02/2019 8:31 AM EDT 25 mcg Given 07/02/2019 8:20 AM EDT 25 mcg heparin (porcine) injection ONCE PRN, Starting on Sat07/02/19 at 0854, Until Neisha 07/02/19 at 1411, Cath (Intra-Procedure), Routine Given 07/02/2019 8:54 AM EDT 5,000 Units iohexol (OMNIPAQUE) 350 mg/mL solution ONCE PRN, Starting on Sat07/02/19 at 0920, Until Neisha 07/02/19 at 1411, Cath (Intra-Procedure), Routine Given 07/02/2019 9:20 AM EDT 131 mLs labetalol (NORMODYNE,TRANDATE) injection 10 mg 10 mg, Intravenous, EVERY 4 HOURS PRN, Starting on Sat07/02/19 at 1737, Until [facility] 07/04/19 at 1652, High Blood Pressure, for [...] (VERSED) multi-dose injection ONCE PRN, Starting on Sat07/02/19 at 0820, Until 07/02/19 at 1411, Cath (Intra-Procedure), Routine Given 07/02/2019 8:38 AM EDT 1 mg Given 07/02/2019 8:20 AM EDT 1 mg niCARdipine (CARDENE) in sodium chloride 0.9% injection ONCE PRN, Starting on Neisha 07/02/19 at 0905, Until Neisha 07/02/19 at 1411, Intra-Operative (Intra-Procedure), Routine Given 07/02/2019 9:09 AM EDT 200 mcg Given 07/02/2019 9:07 AM EDT 250 mcg Given 07/02/2019 9:06 AM EDT 250 mcg nitroGLYcerin 50 mg in dextrose 5% 250 mL infusion 10 mcg/min (3 mL/hr), Intravenous, CONTINUOUS, Starting on Neisha 07/02/19 at 0215, Until 07/04/19 at 1652, Maximum dose: 200 mcg/min, Routine Rate/Dose Verify 07/02/2019 6:00 AM EDT 40 mcg/min 12 mL/hr Rate/Dose Verify 07/02/2019 4:00 AM EDT 40 mcg/min 12 mL/h r Continued Bag 07/02/2019 2:15 AM EDT 40 mcg/min 12 mL/hr NORepinephrine 16 mcg/mL (standard ADULT and Pedi greater than 20 kg) infusion CONTINUOUS PRN, Starting on Neisha 07/02/19 at 0900, Until Neisha 07/02/19 at 1411, Cath (Intra-Procedure), Routine Rate/Dose Change 07/02/2019 9:07 AM EDT 2.5 mcg/min 9.4 mL/hr New Bag 07/02/2019 9:00 AM EDT 5 mcg/min 18.8 mL/hr potassium chloride (K-DUR/KLOR-CON) extended release tablet [...] Given 07/03/2019 8:36 AM EDT 5 mLs sodium chloride 0.9% infusion CONTINUOUS PRN, Starting on Neisha 07/02/19 at 0847, Until Neisha 07/02/19 at 1411, Cath (Intra-Procedure) New Bag 07/02/2019 8:47 AM EDT 250 mLs documented in this encounter Active and Recently Administered Medications Times are shown in EDT. Scheduled Medication Order 07/02/2019 07/03/2019 07/04/2019 amLODIPine (NORVASC) tablet 5 mg 5 mg, Oral, DAILY, First dose on Sat07/03/19 at 1000, Until Discontinued, Routine 1107 (Given - Provider: Anya Greenwood RN)1131 ([facility] Hold - Provider: Admin Adt - Reason: Transfer to a Procedural area)1433 ([facility] Unhold - Provider: Admin Adt) 0909 (Given - Provider: Myrna Medley RN) aspirin EC tablet 81 mg 81 mg, Oral, DAILY, First dose on Sat07/02/19 at 0900, Until Discontinued, Routine 0803 ([facility] Hold - Provider: Admin Adt - Reason: Transfer to a Procedural area)0900 (Automatically Held - Provider: Admin Adt)0945 ([facility] Unhold - Provider: Admin Adt) 0835 (Given - Provider: Anya Greenwood RN)1131 ([facility] Hold - Provider: Admin Adt - Reason: Transfer to a Procedural area)1433 ([facility] Unhold - Provider: Admin Adt) 0908 (Given - Provider: Myrna Medley, CRISTI) atorvastatin (LIPITOR) tablet 80 mg 80 mg, Oral, EVERY EVENING, First dose on Neisha 07/02/19 at 0215, Until Discontinued, Routine 0215 (Given - Provider: Mayra Limon RN)0803 ([facility] Hold - Provider: Admin Adt - Reason: Transfer to a Procedural area)0945 ([facility] Unhold - Provider: Admin Adt)1623 (Given - Provider: Eva Green RN) 1131 ([facility] Hold - Provider: Admin Adt - Reason: Transfer to a Procedural area)1433 ([facility] Unhold - Provider: Admin Adt)1707 (Given - Provider: Jatinder Shirley RN) citalopram (CeleXA) tablet 20 mg 20 mg, Oral, DAILY, First dose on Neisha 07/02/19 at 0900, Until Discontinued, Routine 0803 ([facility] Hold - Provider: Admin Adt - Reason: Transfer to a Procedural area)0900 (Automatically Held - Provider: Admin Adt)0945 ([facility] Unhold - Provider: Admin Adt)0957 (Given - Provider: Eva Green RN - Comment: back from record label intern)0958 (Given - Provider: Eva Green RN) 0835 (Given - Provider: Anya Greenwood RN)1131 ([facility] Hold - Provider: Admin Adt - Reason: Transfer to a Procedural area)1433 ([facility] Unhold - Provider: Admin Adt) 0909 (Given - Provider: Myrna Medley, CRISTI) clopidogrel (PLAVIX) tablet 75 mg 75 mg, Oral, DAILY, First dose on Neisha 07/02/19 at 1100, Until Discontinued, Routine 0803 ([facility] Hold - Provider: Admin Adt - Reason: Transfer to a Procedural area)0945 ([facility] Unhold - Provider: Admin Adt)1007 (Given - Provider: Eva Green RN) 0835 (Given - Provider: Anya Greenwood RN)1131 ([facility] Hold - Provider: Admin Adt - Reason: Transfer to a Procedural area)1433 ([facility] Unhold - Provider: Admin Adt) 0908 (Given - Provider: Myrna Medley, CRISTI) enoxaparin (LOVENOX) injection 40 mg 40 mg, Subcutaneous, NIGHTLY, First dose on Sat07/03/19 at 2100, Until Discontinued, Routine 1131 ([facility] Hold - Provider: Admin Adt - Reason: Transfer to a Procedural area)1433 ([facility] Unhold - Provider: Admin Adt)2008 (Given - Provider: Yamil Butts, CRISTI) lisinopril (PRINIVIL;ZESTRIL) tablet 15 mg (COMPLETED) 15 mg, Oral, ONCE, 1 dose, On Sat07/02/19 at 1800, Routine 1811 (Given - Provider: Eva Green, CRISTI) lisinopril (PRINIVIL;ZESTRIL) tablet 20 mg 20 mg, Oral, DAILY, First dose (after last modification) on Sat07/03/19 at 0900, Until Discontinued, Routine 0835 (Given - Provider: Anya Greenwood, CRISTI)1131 ([facility] Hold - Provider: Admin Adt - Reason: Transfer to a Procedural area)1433 ([facility] Unhold - Provider: Admin Adt) 0908 (Given - Provider: Myrna Medley, CRISTI) lisinopril (PRINIVIL;ZESTRIL) tablet 5 mg (CANCELED) 5 mg, Oral, DAILY, First dose on Sat07/02/19 at 1630, Until Discontinued, Routine 1623 (Given - Provider: Eva Green, CRISTI) metoprolol (LOPRESSOR) tablet 12.5 mg (CANCELED) 12.5 mg, Oral, 2 TIMES DAILY, First dose (after last modification) on Sat07/02/19 at 0230, Until Discontinued, Routine 0230 (Given - Provider: Mayra Limon RN)0803 ([facility] Hold - Provider: Admin Adt - Reason: Transfer to a Procedural area)0900 (Automatically Held - Provider: Admin Adt)0945 ([facility] Unhold - Provider: Admin Adt)0959 (Not Given - Provider: Eva Green RN - Reason: See comment - Comment: received early at 0230 this am)2000 (Given - Provider: Mayra Limon RN) 0835 (Given - Provider: Anya Greenwood RN)1131 ([facility] Hold - Provider: Admin Adt - Reason: Transfer to a Procedural area)1433 ([facility] Unhold - Provider: Admin Adt)2008 (Given - Provider: Yamil Butts, RN) 0908 (Given - Provider: Myrna Medley, RN) metoprolol succinate (TOPROL-XL) XL tablet 25 mg 25 mg, Oral, DAILY, First dose on 07/05/19 at 0900, Until Discontinued, DO NOT CRUSH OR OPEN, Routine sodium chloride 0.9 % (flush) flush 5 mL 5 mL, Intravenous, 2 TIMES DAILY, First dose on Neisha 07/02/19 at 0215, Until Discontinued, Routine 0215 (Given - Provider: Mayra Limon, CRISTI)0803 ([facility] Hold - Provider: Admin Adt - Reason: Transfer to a Procedural area)0900 (Automatically Held - Provider: Admin Adt)0945 ([facility] Unhold - Provider: Admin Adt)2100 (Given - Provider: Mayra Limon, CRISTI) 0836 (Given - Provider: Anya Greenwood RN)1131 ([facility] Hold - Provider: Admin Adt - Reason: Transfer to a Procedural area)1433 ([facility] Unhold - Provider: Admin Adt)2008 (Given - Provider: Yamil Butts, CRISTI) 0910 (Given - Provider: Myrna Medley, CRISTI) Continuous Medication Order 07/02/2019 07/03/2019 07/04/2019 heparin [...] RN)0945 ([facility] - Provider: Admin Adt) nitroGLYcerin 50 [...] ([facility] Unhold - Provider: Admin Adt) 1131 ([facility] Hold - Provider: Admin Adt - Reason: Transfer to a Procedural area)1433 ([facility] - Provider: Admin Adt) PRN Medication Order 07/02/2019 07/03/2019 07/04/2019 acetaminophen (TYLENOL) tablet 650 mg 650 mg, Oral, EVERY 4 HOURS PRN, Starting on Neisha 07/02/19 at 0149, Until 07/04/19 at 1652, Pain, Headaches, Maximum dose of acetaminophen is 4000 mg from all sources in 24 hours., Routine 0708 (Given - Provider: Mayra Limon, RN)0803 ([facility] Hold - Provider: Admin Adt - Reason: Transfer to a Procedural area)0945 ([facility] Unhold - Provider: Admin Adt)1227 (Given - Provider: Eva Green, CRISTI)1999 (Given - Provider: Mayra Limon, CRISTI) 0147 (Given - Provider: Sabrina Hopper, CRISTI)0740 (Given - Provider: Anya Greenwood, CRISTI)1131 ([facility] Hold - Provider: Admin Adt - Reason: Transfer to a Procedural area)1433 ([facility] Unhold - Provider: Admin Adt)1449 (Given - Provider: Anya Greenwood, CRISTI)2009 (Given - Provider: Yamil Butts RN) 0018 (Given - Provider: Wayne Duong, CRISTI)0448 (Given - Provider: Wayne Duong, CRISTI)0908 (Given - Provider: Myrna Medley, CRISTI) fentaNYL 50 mcg/mL multi-dose injection (CANCELED) ONCE PRN, Starting on Neisha 07/02/19 at 0820, Until Neisha 07/02/19 at 1411, Intra-Operative (Intra-Procedure), Routine 0820 (Given - Provider: Maggy Mayen RN)0831 (Given - Provider: Maggy Mayen RN)0900 (Given - Provider: Maggy Mayen RN) fentaNYL 50 mcg/mL multi-dose injection (CANCELED) ONCE PRN, Starting on Sat07/03/19 at 1152, Until Sat07/03/19 at 1304, Intra-Operative (Intra-Procedure), Routine 1152 (Given - Provider: Ashleigh Lanier, CRISTI)1207 (Given - Provider: Sarah Pantoja RN)1254 (Given - Provider: Ashleigh Lanier, CRISTI) heparin (porcine) injection (CANCELED) ONCE PRN, Starting on Neisha 07/02/19 at 0854, Until Neisha 07/02/19 at 1411, Cath (Intra-Procedure), Routine 0854 (Given - Provider: Maggy Mayen RN) heparin (porcine) injection (CANCELED) ONCE PRN, Starting on Sat07/03/19 at 1214, Until Sat07/03/19 at 1304, Cath (Intra-Procedure), Routine 1214 (Given - Provider: Mary Renteria)1233 (Given - Provider: Mary Renteria)1249 (Given - Provider: Mary Renteria) iohexol (OMNIPAQUE) 350 mg/mL solution (CANCELED) ONCE PRN, Starting on Neisha 07/02/19 at 0920, Until Neisha 07/02/19 at 1411, Cath (Intra-Procedure), Routine 0920 (Given [...] (Given - Provider: Eva Green RN) 1131 ([facility] Hold - Provider: Admin Adt - Reason: Transfer to a Procedural area)1433 ([facility] Unhold - Provider: Admin Adt) lidocaine (XYLOCAINE) 10 mg/mL (1 %) injection 3 mg 3 mg (0.3 mL), Subcutaneous, ONCE PRN, 1 dose, Starting on Neisha 07/02/19 at 0149, Until 07/04/19 at 1652, for discomfort with PIV insertion, Routine 0803 ([facility] Hold - Provider: Admin Adt - Reason: Transfer to a Procedural area)0945 ([facility] Unhold - Provider: Admin Adt) 1131 ([facility] Hold - Provider: Admin Adt - Reason: Transfer to a Procedural area)1433 ([facility] Unhold - Provider: Admin Adt) midazolam (PF) (VERSED) multi-dose injection (CANCELED) ONCE PRN, Starting on Neisha 07/02/19 at 0820, Until Neisha 07/02/19 at 1411, Cath (Intra-Procedure), Routine 0820 (Given - Provider: Maggy Mayen, CRISTI)0838 (Given - Provider: Maggy Mayen RN) midazolam (PF) (VERSED) multi-dose injection (CANCELED) ONCE PRN, Starting on Sat07/03/19 at 1152, Until Sat07/03/19 at 1304, Cath (Intra-Procedure), Routine 1152 (Given - Provider: Ashleigh Lanier, CRISTI)1207 (Given - Provider: Sarah Pantoja RN) niCARdipine (CARDENE) in sodium chloride 0.9% injection (CANCELED) ONCE PRN, Starting on Neisha 07/02/19 at 0905, Until Neisha 07/02/19 at 1411, Intra-Operative (Intra-Procedure), Routine 0905 (Given - Provider: Bárbara Nascimento MD)0906 (Given - Provider: Bárbara Nascimento MD)0907 (Given - Provider: Bárbara Nascimento MD)0909 (Given [...] last 24 to 72 hours., Routine 0803 ([facility] Hold - Provider: Admin Adt - Reason: Transfer to a Procedural area)0945 ([facility] Unhold - Provider: Admin Adt) 1131 ([facility] Hold - Provider: Admin Adt - Reason: Transfer to a Procedural area)1433 ([facility] Unhold - Provider: Admin Adt) NORepinephrine 16 mcg/mL (standard ADULT and Pedi greater than 20 kg) infusion (CANCELED) CONTINUOUS PRN, Starting on Sat07/02/19 at 0900, Until Sat07/02/19 at 1411, Cath (Intra-Procedure), Routine 0900 (New Bag - Provider: Maggy Mayen, RN)906 (Rate/Dose Change - Provider: Maggy Mayen, RN)09 (Stopped - Provider: Maggy Mayen, RN) perflutren protein-A microspheres (OPTISON) 0.22 mg/mL injection 2.4 mL (COMPLETED) 2.4 mL, Intravenous, ONCE PRN, 1 dose, Starting on Sat07/02/19 at 0935, Until Sat07/02/19 at 0745, Per Protocol, Routine 0745 (Given [...] Call provider for potassium dosing., Routine 1131 ([facility] Hold - Provider: Admin Adt - Reason: Transfer to a Procedural area)1433 ([facility] Unhold - Provider: Admin Adt) potassium [...] 2.8 Call provider for potassium dosing. 1131 ([facility] Hold - Provider: Admin Adt - Reason: Transfer to a Procedural area)1433 ([facility] Unhold - Provider: Admin Adt) sodium chloride 0.9 % (flush) flush 5-20 mL 5-20 mL, Intravenous, EVERY 1 MIN PRN, Starting on Neisha 07/02/19 at 0149, Until 07/04/19 at 1652, flush, Flush pertains to all indwelling lines. Flush per protocol found in the job aid using the link provided on this medication record., Routine 0803 ([facility] Hold - Provider: Admin Adt - Reason: Transfer to a Procedural area)0945 ([facility] Unhold - Provider: Admin Adt) 1131 ([facility] Hold - Provider: Admin Adt - Reason: Transfer to a Procedural area)1433 ([facility] Unhold - Provider: Admin Adt) sodium chloride [...] documented as of this encounter Care Teams Social Welfare Clerk Relationship Specialty Start Date End Date Mirta Garner PA PCP - General Orthopaedic Surgery 12/02/17 11/30/20 documented as of this encounter
--- OUTSIDE RECORDS SUMMARY | 2024-06-12 21:20 | XMS_ITS | Encounter Summary ---
Author Organization [facility] [place] [address] Care Team Providers Care Women Designer Name Role Phone Samia Pinto MD Primary Care Provider [phone] Encounter Details Date Type Department Care Team (Late st Contact Info) Description 07/10/2012 Telephone Cardiology at [address] [phone] Dean Christy MD [facility] [place] [address] Social History Tobacco Use Types Packs/Day Years Used Date Smoking Tobacco: Former Cigarettes Smokeless Tobacco: Never Alcohol Use Standard Drinks/Week Comments No 0 (1 standard drink = 0.6 oz pur e alcohol) Sex and Gender Information Value Date Recorded Sex Assigned at Not on file Gender Identity Not on file Sexual Orientation Not on file documented as of this encounter Miscellaneous Notes * Telephone Encounter - Dean Christy MD - 07/10/2012 10:13 AM EDT Called patient to discuss symptoms with holding ARB and to inform her of results of recent ZiopatchWhich was unrevealing as to reason for her dizziness episodes and prior Stress Echo(below) for evaluation of atypical CP as I have communicated with interventional cardiology regarding whether there could be an interventional option for management, and have learned there would not be- and risks would outweigh potential benefits. Patient prefers optimal medical therapy as well. In re to dizziness, pt reports symptoms have completely resolved with stopping Losartan and will remain off of it with BP monitoring. Ziopatch: 07/09/12 1. Patient wore the Zio Patch for 7 days 20 hrs 2. There were 7 triggered events and 7 diary entries associated with symptoms of lightheadedness and dizziness 3. Rhythm was sinus with rare APC's and VPC's 4. Heart rate average was 75 bpm (45 - 145) 5. No correlation between symptoms and arrhythmia 1. Exercise echo is negative for ischemia at this level of stress. There is a focal area of hypokinesis at the anterolateral wall that remains unchanged as coded below. 2. Patient followed a Davey protocol. The patient exercised into stage 3. The total exercise duration was: 8:16 min (10 METS). The study was terminated because of fatigue. The study was terminated because of dyspnea. Maximum heart rate achieved was 142 bpm, which is 85% of the maximum(168 beats/min). The target heart rate was achieved. The patient expressed feelings of chest discomfort, but this did not have the same character as the pain that prompted the test (the patient did report some chest heaviness which was different than her recent chest symptoms). She also reported some shortness of breath. 3. Echo (rest): The overall LVEF is normal at 60% with an area of hypokinesis at the mid anterior and anterolateral segments as coded below. 4. Echo (stress): There is a focal area at the mid anterior wall that remains hypokinetic. Other segments recruit. 5. ECG: NSR. No significant ST changes with stress. documented in this encounter Plan of Treatment Not on file documented as of this encounter Visit Diagnoses Not on filedocumented in this encounter Care Teams Women Designer Relationship Specialty Start Date End Date Samia Pinto MD [facility] [address] [place] [address] [place] [address] PCP - General 03/24/12 12/01/17 documented as of this encounter
--- OUTSIDE RECORDS SUMMARY | 2024-06-12 21:20 | XMS_ITS | Encounter Summary ---
Author Organization [facility] Address [facility] [place] [address] Care Team Providers Care [employer] Name Role Phone Samia Pinto MD Primary Care Provider [phone] Encounter Details Date Type Department Care Team (Late st Contact Info) Description 07/10/2013 Orders Only Cardiology at [address] [phone] Eligio Kelley PA [facility] [place] [address] ASCVD (arteriosclerotic cardiovascular disease) (Primary Dx) Social History Tobacco Use Types Packs/Day Years Used Date Smoking Tobacco: Former Cigarettes Q uit: 11/15/1988 Smokeless Tobacco: Never Alcohol Use Standard Drinks/Week Comments No 0 (1 standard drink = 0.6 oz pur e alcohol) Sex and Gender Information Value Date Recorded Sex Assigned at Not on file Gender Identity Not on file Sexual Orientation Not on file documented as of this encounter Procedure Notes * Provider, Scanning - 07/13/2013 2:29 PM EDTAssociated Order(s): CARDIAC CATHETERIZATION documented in this encounter Plan of Treatment Not on file documented as of this encounter Procedures Procedure Name Priority Date/Time Associated Diagnosis Comments CARDIAC CATHETERIZATION Routine 07/13/2013 9:19 AM EDT ASCVD (arteriosclerotic cardiovascular disease) documented in this encounter Results * Cardiac Catheterization (07/13/2013 9:19 AM EDT) Anatomical Region Laterality Modality Other Narrative 07/13/2013 2:29 PM EDT Procedure Note Provider, Scanning - 07/13/2013 2:29 PM EDT Daryl Whelan MD CARDIAC CATH ORDERAB LES documented in this encounter Visit Diagnoses Diagnosis ASCVD (arteriosclerotic cardiovascular disease)- Primary Unspecified cardiovascular disease ASCVD (arteriosclerotic cardiovascular disease) Unspecified cardiovascular disease documented in this encounter Care Teams [employer] Relationship Specialty Start Date End Date Samia Pinto MD [facility] [address] [place] [address] [place] [address] PCP - General 03/24/12 12/01/17 documented as of this encounter
--- OUTSIDE RECORDS SUMMARY | 2024-06-12 21:20 | XMS_ITS | Encounter Summary ---
Author Organization [facility] [place] [address] Care Team Providers Care Financial Developer Name Role Phone Mirta Garner Primary Care Provider + Encounter Details Date Type Department Care Team (Late st Contact Info) Description 07/01/2019 External Results [facility] [place] [phone] Salvador Zaragoza MD [facility] [place] [address] Social History Tobacco Use Types Packs/Day Years [...] Procedure Name Priority Date/Time Associated Diagnosis Comments ECG SCAN Routine 07/01/2019 ECG SCAN Routine 07/01/2019 documented in this encounter Results * Scan Doc: ECG (07/01/2019) Salvador Zaragoza MD MEDIA MGR SCAN EXT O RDR/RSLT * Scan Doc: ECG (07/01/2019) Salvador Zaragoza MD MEDIA MGR SCAN EXT O RDR/RSLT documented in this encounter Visit Diagnoses Not on filedocumented in this encounter Care Teams Financial Developer Relationship Specialty Start Date End Date Mirta Garner PA PCP - General Orthopaedic Surgery 12/02/17 11/30/20 documented as of this encounter
--- OUTSIDE RECORDS SUMMARY | 2024-06-12 21:20 | XMS_ITS | Encounter Summary ---
[place] [address] Care Team Providers Care Farmworker General Name Role Phone Samia Pinto MD Primary Care Provider [phone] Encounter Details Date Type Department Care Team (Late st Contact Info) Description 05/09/2012 10:52 AM EDT - 05/09/2012 11:59 PM EDT Hospital Encounter [place] [id number] Chest pain Social History Tobacco Use Types Packs/Day Years [...] times daily. 60 tablet 12 03/27/2012 07/04/2019 losartan (COZAAR) 25 mg tablet Take 0.5 tablets by mouth daily. 30 tablet 12 03/27/2012 08/15/2012 [place]-3 Fatty Acids (FISH OIL) 500 mg Cap Take 1,000 mg by mouth. 07/30/2019 citalopram (CELEXA) 20 mg tablet Take 20 mg by mouth daily. 06/12/2012 documented as of this encounter Plan of Treatment Not on file documented as of this encounter Procedures Procedure Name Priority Date/Time Associated Diagnosis Comments ECHOCARDIOGRAM STRESS TEST (TREADMILL) Routine 05/09/2012 11:57 AM EDT Chest pain documented in this encounter Results * Echocardiogram Stress (Treadmill) (05/09/2012 11:57 AM EDT) EF 60 [employer] SYSTEM Anatomical Region Laterality Modality Other 05/09/2012 Narrative 05/09/2012 12:42 PM EDT Amended Report Procedure: ? Stress Echocardiogram Patient: ? YAMILETH Do ?(Age): 1960(52) Med Rec#: ?[id number] ? Sex: ?F ? [place] [place] Ht / Wt: ??154(cm)/80(kg) Pt. Loc: ? Echo Lab ? BSA: ?1.78 Study Date: ?05/09/2012 ? Pt. Type: Outpatient Tape: ? Referring: Dean Christy MD Shark Biologist: Daryl Poe Pump Assembler: Ameena Pop RDCS Diagnosis: ??Chest pain (786.50) CPT Code(s): ??Doppler LTD (43997), ??ECG Interpretation (81554), ??Stress Echo (04527), ??Color Doppler (42938), Indication(s): ??Chest Pain Medication(s): ?? Rhythm: Stage ?HR ?BP Rest ? 88 ?112/64 ?? Peak ? 142 ? 146/66 ?? SUMMARY: 1. Exercise echo is negative for ischemia at this level of stress. There is a focal area of hypokinesis at the anterolateral wall that remains unchanged as coded below. ?? 2. Patient followed a Davey protocol. The patient exercised into stage 3. The total exercise duration was: 8:16 min (10 METS). ??The study was terminated because of fatigue. The [...] anterior and anterolateral segments as coded below. ?? 4. Echo (stress): There is a focal area at the mid anterior wall that remains hypokinetic. ??Other segments recruit. ?? 5. ECG: NSR. ??No significant ST changes with stress. ?? 6. Other details as below. FINDINGS: Rest Left Ventricle ?Left ventricular chamber size, wall thickness, global and segmental systolic function are within normal limits. Ejection fraction is estimated to be 60%. ?The ??mid anterior, mid anterolateral and apical anterior wall segments are hypokinetic. Left Atrium ?The left atrium is probably normal in size. Right Ventricle ?Right ventricular chamber size, wall thickness, and systolic function are within normal limits. Right Atrium ?The right atrium is probably normal in size. Aortic Valve ?The aortic valve is trileaflet. The leaflets are thin with normal excursion. There is no aortic stenosis or regurgitation present. Mitral Valve ?The mitral valve appears normal in structure and function. ?There is trace mitral regurgitation present. Tricuspid Valve ?The tricuspid valve appears normal in structure and function. ?There is mild (1+/4+) tricuspid regurgitation present. Pericardium ?The pericardium appears normal and there is no evidence of a pericardial effusion. Stress ?The patient's oxygen saturation was 100%. Misc ?Other echo and stress findings as noted in report. ?Stress echo, limited spectral Doppler, color Doppler and ECG interpretation performed. FINDINGS: Peak Left Ventricle ?Global left ventricular systolic function appears hyperdynamic. ?The mid anterolateral and apical anterior wall segments improved. ?The mid anterior wall segment is unchanged. Stress ?Patient followed a Davey protocol. ?The patient exercised into stage 3. ?The total exercise duration was:8:16 ?The study was terminated because of fatigue. ?The study was terminated because of dyspnea. ?Maximum heart rate achieved was 142, which is 85% of the maximum(168 beats/min). ?The target heart rate was achieved. ?The patient expressed feelings of chest discomfort. (Pt c/o chest heaviness, not the chest pain that prompted this test) ?The patient experienced shortness of breath. ?The blood pressure response was normal. ?The patient achieved a level of 10 METS. ?There were no arrhythmias. ?There were no significant ST segment changes. ?This was a negative electrocardiographic stress test for ischemia. Wall Motion: Segment Name ?Rest ?Peak ? Base-Anteroseptal ?? Normal ?Normal ? Base-Anterior ? Normal ?Normal ? Base-Anterolateral ??Normal ?Normal ? Base-Posterolateral Normal ?Normal ? Base-Inferior ? Normal ?Normal ? Base-Inferoseptal ?? Normal ?Normal ? Mid-Anteroseptal ?Normal ?Normal ? Mid-Anterior ?Hypokinetic ? Hypokinetic ? Mid-Anterolateral ?? Hypokinetic ? Normal ? Mid-Posterolateral ??Normal ?Normal ? Mid-Inferior ?Normal ?Normal ? Mid-Inferoseptal ?Normal ?Normal ? [place]-Septal ? Normal ?Normal ? [place]-Anterior ? Hypokinetic ? Normal ? [place]-Lateral ?Normal ?Normal ? [place]-Inferior ? Normal ?Normal ? [place]-Tip ?Normal ?Normal ? Chambers ?Value ?Units (Range) ? LV EF Est ? 60 ? % (55 to 80) ? Tricuspid/Pulmonic Valves ?Value ?Units (Range) ? TR peak rhett ? 2.6 ?m/sec ? Chambers ?Value ?Units (Range) ? LV EF Est ? 60 ? % (55 to 80) ? This report has been electronically signed by: Gerson Abdi MD ? 05/09/2012 12:43:24 Images reviewed and interpretation verified [facility] Cardiac Ultrasound Laboratory Procedure Note Gerson Abdi MD - 05/09/2012 Amended Report Procedure: Stress Echocardiogram Patient: YAMILETH Do (Age): 1960(52) Med Rec#: [id number] Sex: F [place] Loc: [facility] [place] Ht / Wt: 154(cm)/80(kg) Pt. Loc: Echo Lab BSA: 1.78 Study Date: 05/09/2012 Pt. Type: Outpatient Tape: Referring: Dean Christy MD Shark Biologist: Daryl Poe Pump Assembler: Ameena Pop ELAN Diagnosis: Chest pain (786.50) CPT Code(s): Doppler LTD (02625), ECG Interpretation (46953), Stress Echo (04714), Color Doppler (64330), Indication(s): Chest Pain Medication(s): Rhythm: Stage HR BP Rest 88 112/64 Peak 142 146/66 SUMMARY: 1. Exercise echo is negative for ischemia [...] NSR. No significant ST changes with stress. 6. Other details as below. FINDINGS: Rest Left Ventricle Left ventricular chamber size, wall thickness, global and segmental systolic function are within normal limits. Ejection fraction is estimated to be 60%. The mid anterior, mid anterolateral and apical anterior wall segments are hypokinetic. Left Atrium The left atrium is probably normal in size. Right Ventricle Right ventricular chamber size, wall thickness, and systolic function are within normal limits. Right Atrium The right atrium is probably normal in size. Aortic Valve The aortic valve is trileaflet. The leaflets are thin with normal excursion. There is no aortic stenosis or regurgitation present. Mitral Valve The mitral valve appears normal in structure and function. There is trace mitral regurgitation present. Tricuspid Valve The tricuspid valve appears normal in structure and function. There is mild (1+/4+) tricuspid regurgitation present. Pericardium The pericardium appears normal and there is no evidence of a pericardial effusion. Stress The patient's oxygen saturation was 100%. [facility] Other echo and stress findings as noted in report. Stress echo, limited spectral Doppler, color Doppler and ECG interpretation performed. FINDINGS: Peak Left Ventricle Global left ventricular systolic function appears hyperdynamic. The mid anterolateral and apical anterior wall segments improved. The mid anterior wall segment is unchanged. Stress Patient followed a Davey protocol. The patient exercised into stage 3. The total exercise duration was:8:16 The study was terminated because of fatigue. The study was terminated because of dyspnea. Maximum heart rate achieved was 142, which is 85% of the maximum(168 beats/min). The target heart rate was achieved. The patient expressed feelings of chest discomfort. (Pt c/o chest heaviness, not the chest pain that prompted this test) The patient experienced shortness of breath. The blood pressure response was normal. The patient achieved a level of 10 METS. There were no arrhythmias. There were no significant ST segment changes. This was a negative electrocardiographic stress test for ischemia. Wall Motion: Segment Name Rest Peak Base-Anteroseptal Normal Normal Base-Anterior Normal Normal Base-Anterolateral Normal Normal Base-Posterolateral Normal Normal Base-Inferior Normal Normal Base-Inferoseptal Normal Normal Mid-Anteroseptal Normal Normal Mid-Anterior Hypokinetic Hypokinetic Mid-Anterolateral Hypokinetic Normal Mid-Posterolateral Normal Normal Mid-Inferior Normal Normal Mid-Inferoseptal Normal Normal [place]-Septal Normal Normal [place]-Anterior Hypokinetic Normal [place]-Lateral Normal Normal [place]-Inferior Normal Normal [place]-Tip Normal Normal Chambers Value Units (Range) LV EF Est 60 % (55 to 80) Tricuspid/Pulmonic Valves Value Units (Range) TR peak rhett 2.6 m/sec Chambers Value Units (Range) LV EF Est 60 % (55 to 80) This report has been electronically signed by: Gerson Abdi MD 05/09/2012 12:43:24 Images reviewed and interpretation verified [facility] Cardiac Ultrasound Laboratory Dean Christy MD ECHO ORDERABLES documented in this encounter Visit Diagnoses Diagnosis Chest pain Chest pain, unspecified documented in this encounter Care Teams Farmworker General Relationship Specialty Start Date End Date Samia Pinto MD HOSPITALIST SERVICES [address] [place] [address] [place] [address] PCP - General 03/24/12 12/01/17 documented as of this encounter
--- OUTSIDE RECORDS SUMMARY | 2024-06-12 21:20 | XMS_ITS | Encounter Summary ---
Author Organization [facility] Address [facility] [place] [address] Care Team Providers Care Director Of Social Work Name Role Phone Samia Pinto MD Primary Care Provider [phone] Encounter Details Date Type Department Care Team (Late st Contact Info) Description 08/15/2012 9:10 AM EDT Follow-Up Cardiology at [address] [phone] Daryl Whelan MD [facility] [address] [place] [address] ASCVD (arteriosclerotic cardiovascular disease); Dizzy spells Discharge Disposition: Home Social History Tobacco Use [...] Sign Reading Time Taken Comments Blood Pressure 120/84 08/15/2012 9:06 AM EDT Pulse 55 08/15/2012 9:06 AM EDT Temperature - - Respiratory Rate - - Oxygen Saturation 99% 08/15/2012 9:06 AM EDT Inhaled Oxygen Concentration - - Weight 79.8 kg (176 lb) 08/15/2012 9:06 AM EDT Height 154.9 cm (5' 1) 08/15/2012 9:06 AM EDT Body Mass Index 33.25 08/15/2012 9:06 AM EDT documented in this encounter Progress Notes * Daryl Whelan MD - 08/15/2012 9:45 AM EDT Subjective: Patient ID: Diana Landry is a 52 y.o. female. HPI Patient: Diana Landry Encounter Date: 08/15/12 History of Present Illness: Diana Landry is seen in follow-up for ASCVD. She suffered an anterior STEMI in March and underwent stenting of her LAD. There was moderate disease in her right coronary artery and a D1 closed with theLAD stent was unable to be recanalized. She subsequently did well. Her LVEF improved. She has resumed all her normal activities. She currently has no angina, no dizzy spells and is tolerating her medications well. Last month she did have episodes of dizzy spells which have resolved entirely with discontinuation of her ARB. Problem List: Patient Active Problem List Diagnoses ??? ASCVD (arteriosclerotic cardiovascular disease) Stress echo [...] Hypercholesterolemia ??? Neck pain ??? Dizzy spells Ziopatch: 07/09/12: 7 days 20 hrs, 7 triggered events and 7 diary entries associated with symptoms oflightheadedness and dizziness, Rhythm was sinus with rare APC's and VPC's, Heart rate average was 75 bpm (45 - 145), No correlation between symptoms and arrhythmia Resolved with discontinuation of ARB No past surgical history on file. Medications: citalopram (CELEXA) 20 mg tablet; aspirin 325 mg tablet; simvastatin (ZOCOR) 40 mg tablet; clopidogrel (PLAVIX) 75 mg tablet; metoprolol tartrate (LOPRESSOR) 25 mg tablet; nitroGLYcerin (NITROSTAT) 0.4 mg SL tablet; acetaminophen (TYLENOL) 500 mg tablet; DISCONTD: losartan (COZAAR) 25 mg tablet; pediatric multivitamin with iron chewable tablet; [place]-3 Fatty Acids (FISH OIL) 500 mg Cap BP 120/84 Pulse 55 Ht 154.9 cm (5' 1) Wt 79.833 kg (176 lb) BMI 33.25 kg/m2 SpO2 99% Review of Systems Constitutional: Negative. Negative for fever and diaphoresis. HENT: Negative. Eyes: Negative. Respiratory: Negative. Negative for chest tightness and shortness of breath. Cardiovascular: Negative. Negative for chest pain, palpitations and leg swelling. Gastrointestinal: Negative. Negative for abdominal pain. Genitourinary: Negative. Negative for difficulty urinating. Musculoskeletal: Negative. Skin: Negative. Neurological: Negative. Hematological: Negative. Psychiatric/Behavioral: Negative. Objective: Physical Exam Constitutional: She appears well-developed and well-nourished. HENT: Head: Normocephalic. Eyes: Pupils are equal, round, and reactive to light. Neck: Normal range of motion. Neck supple. No hepatojugular reflux and no JVD present. Carotid bruit is not present. No thyromegaly present. Cardiovascular: Normal rate, regular rhythm, normal heart sounds and intact distal pulses. No murmur heard. Pulmonary/Chest: Effort normal. No respiratory distress. Abdominal: Soft. Bowel sounds are normal. Musculoskeletal: She exhibits no edema. Assessment and Plan: Assessment: 1. ASCVD, s/p STEMI, currently asymptomatic. 2. Hypercholesterolemia, needs reassessment. Plan: 1. She will have her cholesterol checked next week at [facility] with copy to us. 2. Regular exercise, weight reduction. 3. Continue current medications. 4. Return to clinic in one year or PRN. Will consider discontinuing Clopidogrel at that time. Cc: Samia Pinto documented in this encounter Plan of Treatment Not on file documented as of this encounter Visit Diagnoses Diagnosis ASCVD (arteriosclerotic cardiovascular disease) Unspecified cardiovascular disease Dizzy spells Dizziness and giddiness documented in this encounter Care Teams Director Of Social Work Relationship Specialty Start Date End Date Samia Pinto MD HOSPITALIST SERVICES [address] [place] [address] [place] [address] PCP - General 03/24/12 12/01/17 documented as of this encounter
--- OUTSIDE RECORDS SUMMARY | 2024-06-12 21:20 | XMS_ITS | Encounter Summary ---
Author Organization [facility] [place] [address] Care Team Providers Care Marketing Technology Specialist Name Role Phone Samia Pinto MD Primary Care Provider [phone] Encounter Details Date Type Department Care Team (Latest Contact Info) Description 07/13/2013 6:30 AM EDT - 07/13/2013 12:44 PM EDT Hospital Encounter Same Day Program at [place] [phone] Channing Yuan MD [facility] [place] [address] Daryl Whelan MD [facility] [place] [address] ASCVD (arteriosclerotic cardiovascular disease) (Primary Dx) Discharge Disposition: Home Social History Tobacco Use [...] Sign Reading Time Taken Comments Blood Pressure 145/87 07/13/2013 11:35 AM EDT Pulse 68 07/13/2013 11:35 AM EDT Temperature 36.3 ??C (97.3 ??F) 07/13/2013 10:15 AM E DT Respiratory Rate 16 07/13/2013 11:35 AM EDT Oxygen Saturation 100% 07/13/2013 11:35 AM EDT Inhaled Oxygen Concentration - - [...] by your doctor, do not take any saaq-ucq-gzejxav medicines or herbal preparations without first discussing this with your doctor or pharmacist. There is the possibility of side effect and interactions when these are combined. Follow up Care Who to Call with Questions or Problems If there are any questions or problems that you think might be related to your cardiac cath or angioplasty, contact the radio assembler sewing techniques demonstrator by calling [facility] at [phone]. 1. You may have received medication before [...] times daily. 60 tablet 12 03/27/2012 07/04/2019 [place]-3 Fatty Acids (FISH OIL) 500 mg Cap [...] Time 11.9(L) 12.0 - 15.0 sec [facility] Comment: [facility] Transfusion Committee Guidelines: INR less than 2.0, PTT less than OR equal to 43.5 seconds, or Fibrinogen greater than or equal to 100 mg/dl indicate adequate procoagulant activity for hemostasis in patients without underlying bleeding disorders. International Normalization Ratio 0.8(L) 0.9 - 1.1 [facility] Blood specimen (specimen) 07/13/2013 6:37 AM EDT 07/13/2013 6:42 AM EDT Narrative Resulting Agency Comment Spec In Lab Daryl Whelan MD HEMATOLOGY ORDERABLE S [facility] documented in this encounter Visit Diagnoses Diagnosis ASCVD (arteriosclerotic cardiovascular disease)- Primary Unspecified cardiovascular disease documented in this encounter [...] Given 07/13/2013 7:43 AM EDT 25 mg sodium chloride 0.9 % flush 5 [...] at 0700, Cath (Day of Procedure), Routine 07 (Given - Provid er: Maite Toro RN) [...] 0938 (New Bag - Prov ider: Edwin Valentine RN) PRN Medication Order 07/11/2013 07/12/2013 07/13/2013 fentaNYL 50mcg/mL injection (CANCELED) ONCE PRN, Starting on Sat07/13/13 at 0829, Until Sat07/13/13 at 0918, Pain, Intra-Operative (Intra-Procedure), Routine 08 (Given - Provid er: Troy Umaña RN) heparin (porcine) injection (CANCELED) ONCE PRN, Starting on Sat07/13/13 at 0835, Until Sat07/13/13 at 0918, Cath (Intra-Procedure), Routine 0835 (Given - Provid er: Channing Yuan MD - Comment: Given IA in Electronic Organ Technician) iohexol (OMNIPAQUE) 350 mg iodine/mL injection (CANCELED) ONCE PRN, Starting on Sat07/13/13 at 0916, Until Sat07/13/13 at 0918, Per Protocol, Cath (Intra-Procedure), Routine 09 (Given - Provid er: Channing Yuan MD - Comment: Contrast in Electronic Organ Technician) midazolam (VERSED) injection (CANCELED) ONCE PRN, Starting on Sat07/13/13 at 0828, Until Sat07/13/13 at 0918, Sleep, Cath (Intra-Procedure), Routine 827 (Given - Provid er: Troy Umaña RN) No Frequency Medication Order 07/11/2013 07/12/2013 07/13/2013 acetaminophen (TYLENOL) 325 mg tablet (COMPLETED) 1 dose, Starting on Sat07/13/13 at 1120, Until Sat07/13/13 at 1118, MAITE TORO: cabinet override 1118 (Given - Provid er: Maite oTro, RN) documented in this encounter Care Teams Marketing Technology Specialist Relationship Specialty Start Date End Date Samia Pinto MD HOSPITALIST SERVICES [address] [place] [address] [place] [address] PCP - General 03/24/12 12/01/17 documented as of this encounter
--- OUTSIDE RECORDS SUMMARY | 2024-06-12 21:20 | XMS_ITS | Encounter Summary ---
Author Organization [facility] [place] [address] Care Team Providers Care Axle Inspector Name Role Phone Samia Pinto MD Primary Care Provider [phone] Encounter Details Date Type Department Care Team (Late st Contact Info) Description 06/12/2012 11:10 AM EDT Follow-Up Cardiology at [address] [address] Dean Christy MD [facility] [address] CAD (coronary artery disease) (Primary Dx) Discharge Disposition: Home Social [...] Sign Reading Time Taken Comments Blood Pressure 108/64 06/12/2012 11:12 AM EDT Pulse 68 06/12/2012 11:12 AM EDT Temperature - - Respiratory Rate - - Oxygen Saturation 100% 06/12/2012 11:12 AM EDT Inhaled Oxygen Concentration - - Weight 79.4 kg (175 lb) 06/12/2012 11:12 AM EDT Height 154.9 cm (5' 1) 06/12/2012 11:12 AM EDT Body Mass Index 33.07 06/12/2012 11:12 AM EDT documented in this encounter Patient Instructions * Patient Instructions* Dean Christy MD - 06/12/2012 12:[address] Ziopatch today for evaluation of recent symptom of Dizziness Metoprolol 25mg twice daily Continue Plaivx 75mg and ASA 162mg(decrease due to bruising) Continue Simvastation(Zocor) 40mg daily for cholesterol(goal LDL<70) Hold the Losartan 25mg once daily for 2 weeks to evaluate whether Dizziness is related to relative hypotension(108/64 today). F/u with PCP in 2-4 weeks F/u with Dr. Whelan in 2 months here at [facility] [place] documented in this encounter Progress Notes * Dean Christy MD - 06/12/2012 12:12 PM EDT Subjective: Patient ID: Diana Landry is a 52 y.o. female returns for follow up of ASCVD and recent stress echocardiogram. HPI Since our last clinic visit one month ago(05/08/12), patient has done well overall despite occasional(1x/month) chest discomfort which she describes as atypical as it can occur at rest or with exertion. Most recently, one week ago, patient had an episode while walking her dog and noted it was mild inintensity but resolved with One SL NTG. Patient had assumed this was a panic attack as she has had history of that as well. Patient denies any accompanying N/V/diaphoresis or dyspnea although at other times, she has had dyspnea when weather is humid. Patient has not experienced any CP with her exertion in daily life or with cardiac rehab which she continues 3x/week with no symptoms or limitations. On cardiac ROS, patient reports occasional dizzy spells last week however denies any una LOC orsyncope and denies any chest discomfort with these episodes. Patient denies any palpitations or other symptoms with these recent spells. Patient was recently seen by her PCP, Dr. Pinto and had her Zocor dose increased from 20mg to 40mg daily as of one week ago. There is no problem list on file for this patient. Current outpatient prescriptions ordered prior to encounter Medication Sig Dispense Refill ??? clopidogrel (PLAVIX) 75 mg tablet Take 1 tablet by mouth daily. 30 tablet 12 ??? metoprolol tartrate (LOPRESSOR) 25 mg tablet Take 1 tablet by mouth 2 times daily. 60 tablet 12 ??? nitroGLYcerin (NITROSTAT) 0.[address] 1 tablet under the tongue every 5 minutes as needed for Chest pain. 15 tablet 12 ??? losartan (COZAAR) 25 mg tablet Take 0.5 tablets by mouth daily. 30 tablet 12 ??? pediatric multivitamin with iron chewable tablet Take 1 tablet by mouth daily. ??? acetaminophen (TYLENOL) 500 mg tablet Take 1,000 mg by mouth every 6 hours as needed. ??? Meridian-3 Fatty Acids (FISH OIL) 500 mg Cap Take 1,000 mg by mouth. ??? DISCONTD: traZODone (DESYREL) 50 mg tablet Take 50 mg by mouth nightly. ??? DISCONTD: citalopram (CELEXA) 20 mg tablet Take 20 mg by mouth daily. ROS See above HPI for pertinent cardiac ROS Objective: Physical Exam BP 108/64 Pulse 68 Ht 154.9 cm (5' 1) Wt 79.379 kg (175 lb) BMI 33.07 kg/m2 SpO2 100% General: calm, well-appearing, NAD HEENT: NCAT, MMM, op clear, no erythema or exudate CV: Regular, physiologic S1, S2, no murmurs or gallops Pulm: clear to ausculation bilaterally Abd: soft, NT, ND, +NABS, Ext: warm, no c/c/e, 2+ PT BLE 05/09/12 Bilateral Carotid Duplex: No significant disease 05/09/12 Stress Echocardiogram: 1. Exercise echo is negative for ischemia [...] NSR. No significant ST changes with stress. Assessment and Plan: No problem-specific visit notes found for this encounter. Assessment: Mrs. Diana Landry is a 52 y.o. female returns for follow up of ASCVD and recent stress echocardiogram. Since our last clinic visit one month ago(05/08/12), patient has done well overall despite occasional(1x/month) chest discomfort which she describes as atypical as it can occur at rest or with exertion. Most recently, one week ago, patient had an episode while walking her dog and noted it was mild inintensity but resolved with One SL NTG. Patient had assumed this was a panic attack as she has had history of that as well. Patient denies any accompanying N/V/diaphoresis or dyspnea although at other times, she has had dyspnea when weather is humid. Patient has not experienced any CP with her exertion in daily life or with cardiac rehab which she continues 3x/week with no symptoms or limitations. On cardiac ROS, patient reports occasional dizzy spells last week however denies any una LOC orsyncope and denies any chest discomfort with these episodes. Patient denies any palpitations or other symptoms with these recent spells. Patient was recently seen by her PCP, Dr. Pinto and had her Zocor dose increased from 20mg to 40mg daily as of one week ago. We have dedicated the majority of today's visit to counseling patient regarding both her atypical chest pain symptom which is not with exertion during cardiac rehab as well as her recent onset of dizzy spells which have no associated cardiac symptoms before or during these episodes. We have extensively reviewed her medications and have found that she has had extremely well controlled BPs, and 108/64 today may be relative hypotension thereby explaining these symptoms therefore we will hold herARB dose for a trial to evaluate whether symptoms are alleviated. Plan: Place Ros today for evaluation of recent symptom of Dizziness Metoprolol 25mg twice daily Continue Plaivx 75mg and ASA 162mg(decrease due to bruising) Continue Simvastation(Zocor) 40mg daily for cholesterol(goal LDL<70). Hold the Losartan 25mg once daily for 2 weeks to evaluate whether Dizziness is related to relative hypotension(108/64 today). F/u with PCP in 2-4 weeks F/u with Dr. Whelan in 2 months here at [facility] [place] documented in this encounter Plan of Treatment Not on file documented as of this encounter Procedures Procedure Name Priority Date/Time Associated Diagnosis Comments EKG 12-LEAD Routine 06/12/2012 11:18 AM EDT CAD (coronary artery disease) documented in this encounter Results * ZIOPATCH (06/12/2012 1:14 PM EDT) Anatomical Region Laterality Modality Other Narrative 07/09/2012 11:09 AM EDT 1. Patient wore the Zio Patch for 7 days 20 hrs 2. There were 7 triggered events and 7 diary entries associated with symptoms of lightheadedness and dizziness 3. Rhythm was sinus with rare APC's and VPC's 4. Heart rate average was 75 bpm (45 - 145) 5. No correlation between symptoms and arrhythmia Procedure Note Gabe Dumont MD - 07/09/2012 1. Patient wore the Zio Patch for 7 days 20 hrs 2. There were 7 triggered events and 7 diary entries associated withsymptoms of lightheadedness and dizziness 3. Rhythm was sinus with rare APC's and VPC's 4. Heart rate average was 75 bpm (45 - 145) 5. No correlation between symptoms and arrhythmia Dean Christy MD CARDIAC SERVICES ORD ERABLES * EKG 12 Lead (06/12/2012 11:18 AM EDT) Ventricular rate 69 BPM MUSE SYSTEM Atrial Rate 69 BPM MUSE SYSTEM P-R Interval 140 ms MUSE SYSTEM QRS Duration 88 ms MUSE SYSTEM Q-T Interval 406 ms MUSE SYSTEM QTC Calculated (Bezet) 435 ms MUSE SYSTEM Calculated P [place] 48 degrees MUSE SYSTEM Calculated R [place] 61 degrees MUSE SYSTEM Calculated T [place] 68 degrees MUSE SYSTEM INTERPRETATION Normal sinus rhythm Normal ECG When compared with ECG of 08-MAY-2012 15:00, No significant change was found Confirmed by MD Nomi, Gabe Arauz ([id number]) on 06/12/2012 11:30:59 AM MUSE SYSTEM 06/12/2012 11:1 8 AM EDT 06/12/2012 11:30 AM EDT Dean Christy MD ECG ORDERABLES MUSE SYSTEM documented in this encounter Visit Diagnoses Diagnosis CAD (coronary artery disease)- Primary Coronary atherosclerosis of unspecified type of vessel, [place] or graft CAD (coronary artery disease) Coronary atherosclerosis of unspecified type of vessel, [place] or graft documented in this encounter Care Teams Axle Inspector Relationship Specialty Start Date End Date Samia Pinto MD [facility] [address] [place] [address] [place] [address] PCP - General 03/24/12 12/01/17 documented as of this encounter
--- OUTSIDE RECORDS SUMMARY | 2024-06-12 21:20 | XMS_ITS | Encounter Summary ---
Author Organization [facility] [place] [address] Care Team Providers Care Psychiatric Clinician Name Role Phone Mirta Garner Primary Care Provider + Encounter Details Date Type Department Care Team (Late st Contact Info) Description 07/01/2019 Ancillary Procedure [place] [address] Salvador Zaragoza MD [facility] [place] [address] Social History Tobacco Use Types Packs/Day Years [...] Procedure Name Priority Date/Time Associated Diagnosis Comments FILM LIBRARY STORAGE ONLY CT CHEST ABDOMEN PELVIS Routine 07/01/2019 12:00 AM EDT documented in this encounter Results * Film Library- Storage Only CT Chest Abdomen Pelvis (07/01/2019 12:00 AM EDT) Narrative [facility] - 07/02/2019 12:42 AM EDT This exam is auto-finalizing. It's purpose is for storage only. Salvador Zaragoza MD IM FILM LIBRARY ORD ERABLES [place], [place] documented in this encounter Visit Diagnoses Not on filedocumented in this encounter Care Teams Psychiatric Clinician Relationship Specialty Start Date End Date Mirta Garner PA PCP - General Orthopaedic Surgery 12/02/17 11/30/20 documented as of this encounter
--- OUTSIDE RECORDS SUMMARY | 2024-06-12 21:20 | XMS_ITS | Encounter Summary ---
[place] [address] Care Team Providers Care Director Security Management Name Role Phone Mirta Garner Primary Care Provider + Reason for Referral * Consultation (Urgent) - Closed Specialty Diagnoses / Procedures Referred By Contact Referred To Contact Cardiac Rehabilitation Diagnoses NSTEMI (non-ST elevated myocardial infarction) Harley Guaman MD [facility] DR [place] [address] Cardiac Rehab, [address] [place] [address] Referral ID Status Reason Start Date Expiration Date V isits Requested Visits Authorized [id number] Closed Consult, Test & Treat 07/04/2019 07/03/2020 36 36 Reason for Visit * Auth/Cert Specialty Diagnoses / Procedures Referred By Jesus warren Referred To Contact Diagnoses NSTEMI (non-ST elevated myocardial infarction) ACS Procedures EMERGENCY IPI Referral ID Status Reason Start Date Expiration Date Visits Re quested Visits Authorized [id number] 1 1 Encounter Details Date Type Department Care Team (Latest Contact Info) Description 07/02/2019 12:56 AM EDT - 07/04/2019 2:52 PM EDT Hospital Encounter Inter[place] [id number] Salvador Zaragoza MD [facility] [place] [address] Jimenez Melchor MD [facility] [place] [address] Emir Riley MD [facility] [place] [address] ASCVD (arteriosclerotic cardiovascular disease); NSTEMI (non-ST elevated myocardial infarction) Discharge Disposition: Home Social History Tobacco Use [...] Sign Reading Time Taken Comments Blood Pressure 140/99 07/04/2019 12:01 PM EDT RN aware Pulse 80 07/04/2019 12:01 PM EDT Temperature 36.9 ??C (98.4 ??F) 07/04/2019 1 2:01 PM EDT Respiratory Rate 18 07/04/2019 12:0 1 PM EDT Oxygen Saturation 97% 07/04/2019 12: 01 PM EDT Inhaled Oxygen Concentration - - Weight 83.9 kg (184 lb 15.5 oz) 07/04/2019 3:38 AM EDT Height 152.4 cm (5') 07/02/2019 [...] MDD, who presents as a transfer from [facility] for ischemia evaluation. Since this morning patient reports vertigo with the sensation of the room spinning. This sensation waxed and waned throughout the day. She had minimal appetite and skipped dinner. She went to bed early however was woken up around 2000 by substernal chest pain. Initially there was [...] gtt. She was taken to the laboratory equipment cleaner where she was noted to have 3 [...] Recent Labs 07/04/19 0443 07/03/19 0424 07/02/19 011 WBC 7.6 7.4 9.3 HGB 13.3 13.6 13.1 PLATELET 244 224 294 Recent Labs 07/03/19 0424 07/02/19 011 NA 142 144 K 3.6 4.4 CL 106 108* CO2 24 23 BUN 10 16 CREATININE 0.63* 0.58* GLUCOSE -- 153 Recent Labs 07/03/1942307/02/19 0110 CALCIUM 9.0 9.0 MAGNESIUM -- 0.90 [...] Complete By Expires Referral to Cardiac Rehab [[id number] Custom] As directed Process Instructions: If no [...] appointments: During 8am-5pm Saturday through Saturday call [phone] to speak with a nurse in the cardiology clinic All other times call [phone] and ask to speak to the relations director verification clerk. What activities can you do, and what [...] the hospital? Emir Riley MD - Attending Scientific Manager Darrell Falk - Gear Roller Jerry Vaughn MD, Harley Guaman MD - Resident Physicians When do I see my doctors next? No future appointments. You will need to follow up with your PCP (SUKHWINDER Hughes at [phone]) within 1 week of discharge - Appointment not made. We will schedule one for you next week when the office opens on Saturday. Please follow up with them if you do not hear from us. You will need to follow up with your Scientific Manager within 1 month of discharge - appointment not made. We will schedule one for you next week when the office opens on Saturday. Please follow up with them if you do not hear from us. The plan is to set you up with cardiology in [facility]. For questions regarding issues relating to your hospitalization on the Cardiology Service, please contact your inpatient physician through [place] [facility] Brake Operator Heavy Duty [phone] and ask for pager #[phone]. Issues after hours and on weekends will be handled by the Cardiology staff on-call. For questions regarding this document or issues relating to this hospitalization on the Medical Service, please contact your inpatient physician through [place] [facility] Brake Operator Heavy Duty . Issues afterhours and on weekends will be handled by the Scientific Manager staff on-call. documented in this encounter Discharge [...] appointments: During 8am-5pm Saturday through Saturday call [phone] to speak with a nurse in the cardiology clinic All other times call [phone] and ask to speak to the relations director verification clerk. What activities can you do, and what [...] the hospital? Emir Riley MD - Attending Scientific Manager Darrell Falk - Gear Roller Jerry Vaughn MD, Harley Guaman MD - Resident Physicians When do I see my doctors next? No future appointments. You will need to follow up with your PCP (SUKHWINDER Hughes at [phone]) within 1 week of discharge - Appointment not made. We will schedule one for you next week when the office opens on Saturday. Please follow up with them if you do not hear from us. You will need to follow up with your Scientific Manager within 1 month of discharge - appointment not made. We will schedule one for you next week when the office opens on Saturday. Please follow up with them if you do not hear from us. The plan is to set you up with cardiology in [facility]. For questions regarding issues relating to your hospitalization on the Cardiology Service, please contact your inpatient physician through the [facility] Brake Operator Heavy Duty [phone] and ask for pager #[phone]. Issues after hours and on weekends will [...] mouth daily. 90 tablet 3 07/05/2019 07/30/2019 [place]-3 Fatty Acids (FISH OIL) 500 mg Cap Take 1,000 mg by mouth. 07/30/2019 documented as of this encounter Progress Notes * Myrna Medley RN - 07/04/2019 2:52 PM EDT Patient Name: Diana Landry Patient Age: 59 y.o. Birthdate: 1960 Admit date: 07/02/2019 Attending Physician: No att. providers found Patient was discharged to home around 1445 with her family driving her home. She was given her stent card information. She stated understanding of her discharge instructions. She is aware she needs to package pick up some meds at the pharmacy. She declined [...] MDD, who presents as a transfer from [facility] for type I NSTEMI. Initial, serial [...] MDD, who presents as a transfer from [facility] for type I NSTEMI. Initial, serial [...] ASCVD (s/p PCI to mLAD 2011) - serial EKGs - continue atorvastatin [...] 07/03/2019 5:05 PM EDT Office of Care Management(OCM)/Business Professor(CM)/Discharge Planning Service: Cardi S2 CM Trinity MukherjeeRN,BSN,MA,ACM pgr [phone] Reviewed record and in Cardiology Rounds with MD team,CMs, child care centre director, PT. Pt having second cath w stent today. Met w pt briefly; she has her AD Vt form filled out at home naming her but hasn't had witnessed yet. Will do and bring in w next appt. Her will provide transpo home and be with her. She works for [employer] and declines need at this time. * [...] Jerry Vaughn MD, PGY-3 Cardiology S2, Pager [phone] 07/03/2019 * Anya Greenwood RN - 07/03/2019 3:07 PM EDT 1440 Patient arrived from laboratory equipment cleaner she is alert and orientedX4, she [facility] and onto this unit bed [...] MDD, who presents as a transfer from [facility] for type I NSTEMI. Initial, serial [...] priority for the procedure was Urgent. The [facility] indication for the procedure was NSTE-ACS. Intervention [...] MDD, who presents as a transfer from [facility] for type I NSTEMI. Initial, serial EKGs revealed dynamic STD and TWI in V1 through V3 without troponin elevation and with active chest pain, s/p PCI to occluded OM1. She will go back to the laboratory equipment cleaner later today for intervention on her RCA. She had successful SARAI tomid OM1 lesion. PLAN: # NSTEMI, CLAY 5, KEL 98 # ASCVD (s/p PCI to mLAD 2011) - serial EKGs - continue atorvastatin [...] WMA. She will be returning back to laboratory equipment cleaner today for staged RCA intervention. She is [...] MD PCP: SUKHWINDER Hughes PCP phone #: [phone] ID/Chief Complaint: Diana Landry is a 59 year-old female with a PMHx of HTN, HLD, former 30 pack- year smoker, ASCVD (s/p PCI to mLAD 2011), and MDD, who presents as a transfer from [facility] for ischemia evaluation. History of Present [...] definitive ischemic changes. On encounter in the [facility], patient denied [...] mouth every 6 hours as needed. ??? [place]-3 Fatty Acids (FISH OIL) 500 mg Cap [...] MDD, who presents as a transfer from [facility] for type I NSTEMI. Initial, serial [...] PLAN: Admit to Cardiology, S2 Team Pager #[phone] # NSTEMI, CLAY 5, KEL 98 # [...] Procedure Note: Patient Name: Diana Landry : [id number] MR#: [id number] Case Date: 07/03/2019 Brake Operator Heavy Duty: Surgeon(s) and Role: * Cris Nguyễn MD [...] Reviewed record and in Cardiology Rounds w team,[facility], child care centre director, PT. [facility]. Had cardi cath today w 2 stents placed. Screenin y.o. female here for NSTEMI(chest pain) transferred from [facility])ED. Present on Admission: ??? NSTEMI (non-ST elevated myocardial infarction) Patient has not been admitted to a hospital within the last 30 days. Patient receiving hospital care under Inpatient status. Admission order reviewed. Primary Insurance on file: LANE Secondary Insurance on file: N/A Primary care provider on file: SUKHWINDER Hughes [phone] Advance Directive on file and Code Status: <no information>, Full Code Patient???s Functional Status:indep Living Situation:[place] [id number] Supports: Assessment: Patient with no apparent RNCM/SW needs at this time. No housing, transportation, insurance, resources concerns identified at this time. Supports in place to achieve a safe post-hospital transition. No identified barriers to accessing necessary care and/or follow-up after discharge. Plan: Patient to d/c to home via family when medically ready. contract analyst/Farm Machine Tender will continue to follow patient???s progress and remain available if situation changes for coordination of care, psychosocial support and/or discharge planning. TRINITY MUKHERJEE RN Pager [phone] * Brief Op Note - Bárbara Nascimento MD - 07/02/2019 9:15 AM EDT Images from the original note were not included. Brief Operative Note Patient Name: Diana Landry : [id number] MR#: [id number] Case Date: 07/02/2019 Surgeon: Surgeon(s) and Role: [...] Full report to follow. Bárbara Nascimento MD [facility] Interventional Cardiology Pager [phone] documented in this encounter Plan of Treatment [...] C. Difficile Screen (07/04/2019 10:42 AM EDT) Pathologist [facility] C Diff Interp Negative Negative [facility] Comment: C. diff ??Negative Clostridium difficile is not present in the specimen. If patient is having diarrhea suspected to be from an infectious cause, then Contact Precautions are still required. Stool specimen (specimen) 07/04/2019 10:42 AM EDT 07/04/2019 10:56 AM EDT Narrative Resulting Agency Comment Spec In Lab Emir Riley MD MICROBIOLOGY - GENER AL ORDERABLES [facility] [place] [address] * EKG 12 Lead (07/04/2019 6:42 AM EDT) Ventricular rate 81 BPM MUSE SYSTEM Atrial Rate 81 BPM MUSE SYSTEM P-R Interval 150 ms MUSE SYSTEM QRS Duration 90 ms MUSE SYSTEM Q-T Interval 396 ms MUSE SYSTEM QTC Calculated (Bezet) 460 ms MUSE SYSTEM Calculated P [place] 61 degrees MUSE SYSTEM Calculated R [place] 41 degrees MUSE SYSTEM Calculated T [place] -34 degrees MUSE SYSTEM INTERPRETATION Normal sinus rhythm Nonspecific T wave abnormality Abnormal ECG When compared with ECG of 03-JUL-2019 13:39, (unconfirmed) Nonspecific T wave abnormality now evident in Lateral leads Confirmed by MD RosemaryEmir ([id number]) on 07/04/2019 8:31:44 PM MUSE SYSTEM 07/04/2019 6:42 AM EDT 07/04/2019 8:31 PM EDT Emir Riley MD ECG ORDERABLES Performing Organization Address City/[facility]/ZIP Co de Phone Number MUSE SYSTEM * Differential, Automated (07/04/2019 4:43 AM EDT) Neutrophil % 54.9 % [facility] Neutrophil Absolute 4.17 1.70 - 6.10 x10(3)/[facility] LABOR[facility] Lymph % 29.6 % [facility] Lymphocytes Abs 2.2 0.9 - 3.2 x10(3)/[facility] LABOR[facility] Monocyte % 9.8 % [facility] Monocyte Abs 0.7 0.3 - 0.9 x10(3)/[facility] LABOR[facility]ORY Eos % 4.7 % [facility] Eosinophils Abs 0.4 0.0 - 0.4 x10(3)/[facility] Basophil % 0.7 % [facility] Baso Absolute 0.0 0.0 - 0.1 x10(3)/[facility] Immature Gran % 0.30 % [facility] Comment: Immature granulocytes(IG's)percentage and absolute count will include metamyelocytes, myelocytes, and promyelocytes. Blood smears from CBCs yielding IG's will be scanned manually for concordance. If this scan disagrees with the automated IG or if promyelocytes are noted, a manual differential will be performed. Immature Gran Absolute 0.02 0.00 - 0.04 x10(3)/[facility] Blood specimen (specimen) 07/04/2019 4:43 AM EDT 07/04/2019 4:50 AM EDT Narrative Resulting Agency Comment Spec In Lab Jerry Vaughn MD HEMATOLOGY ORDERABLE S Performing Organization Address City/[facility]/ZIP Co de Phone Number [facility] [place] [address] * (ABNORMAL) Hemogram (07/04/2019 4:43 AM EDT) Pathologist [facility] White Blood Cell 7.6 4.0 - 9.5 x10(3)/[facility] Red Blood Cell 4.28 4.00 - 5.21 x10(6)/[facility] Hemoglobin 13.3 11.7 - 15.5 gm/dL [facility] Hematocrit 40.6 35.7 - 45.8 % [facility] Mean Cell Volume 94.9(H) 82.6 - 94.4 fL [facility] Mean Cell Hemoglobin 31.1 27.1 - 32.0 pg [facility] Mean Cell Hemoglobin Concentration 32.8 31.7 - 35.0 gm/dL [facility] Platelet 244 145 - 357 x10(3)/[facility] LABORATORY RDW Standard Deviation 45.8 37.0 - 46.0 [facility] RDW coefficient of variation 13.1 11.5 - 14.1 % [facility] Mean Platelet Volume 10.3 7.6 - 12.9 [facility] NRBC% auto 0.0 % [facility] NRBC Absolute 0.000 0.000 - 0.000 x10(3)/[facility] Blood specimen (specimen) 07/04/2019 4:43 AM EDT 07/04/2019 4:50 AM EDT Narrative Resulting Agency Comment Spec In Lab Jerry Vaughn MD HEMATOLOGY ORDERABLE S Performing Organization Address City/[facility]/ZIP Co de Phone Number [facility] [place] [address] * EKG 12 Lead (07/03/2019 1:39 PM EDT) Pathologist [facility] Ventricular rate 75 BPM MUSE SYSTEM Atrial Rate 75 BPM MUSE SYSTEM P-R Interval 156 ms MUSE SYSTEM QRS Duration 88 ms MUSE SYSTEM Q-T Interval 408 ms MUSE SYSTEM QTC Calculated (Bezet) 455 ms MUSE SYSTEM Calculated P [place] 56 degrees MUSE SYSTEM Calculated R [place] 20 degrees MUSE SYSTEM Calculated T [place] 19 degrees MUSE SYSTEM INTERPRETATION Normal sinus rhythm Normal ECG When compared with ECG of 02-JUL-2019 15:00, No significant change was found Confirmed by Gil Knowles MD ([id number]) on 07/07/2019 3:31:24 PM MUSE SYSTEM 07/03/2019 1:39 PM EDT 07/07/2019 3:31 PM EDT Emir Riley MD ECG ORDERABLES MUSE SYSTEM * CARDIAC CATHETERIZATION (07/03/2019 1:07 PM EDT) Anatomical Region Laterality Modality Other Narrative 07/03/2019 7:34 PM EDT ?[facility] ? Cardiac Catheterization/Intervention Report ? Patient Name: Flori Landrydianna Lewis ? Procedure Date: 07/03/2019 ? A #: [id number] ? Primary Physician: Cris Nguyễn ? Case #: [id number] ? File Name: [id number] ? Catheterization Order Number: [id number] ? [facility] ? Final Report [place], [place] ? Patient Name: ? Diana M. Yamileth ? ID#: ?[id number] ? : ?1960 ? Procedure Date: ? July 03, 2019 ?Case #: ? [id number] ? Room: ? 6 ? Case Physician: ? Cris E Delma, M.D. ? Start: ?12:08 ?Fellow: ? Mary Renteria M.D. ?Admission: ??07/02/2019 ? Referring ? Minh Smith ? Physicians: ?Olga Ambrosio M.D. ? Procedures: [...] was designated as ?ASA Class IV. The CSHA clinical frailty scale is 4. Vulnerable. ? [...] procedure was Urgent. The indication for ?the laboratory equipment cleaner visit is ACS greater than 24 hrs. [...] dose administered prior to arrival in the laboratory equipment cleaner. ?Recommend continuing clopidogrel 75 mg PO daily [...] Note Cris Nguyễn MD - 07/03/2019 [facility] Cardiac Catheterization/Intervention Report Patient Name: Diana Landry Procedure Date: 07/03/2019 A #: [id number] Primary Physician: Cris Nguyễn Case #: [id number] File Name: [id number] Catheterization Order Number: [id number] [facility] FinalReport [place], [place] Patient Name: Diana DoJason Landry ID#:[id number] :1960 Procedure Date: July 03, 2019 Case [...] patient wasdesignated as ASA Class IV. The [facility] clinical frailty scale is 4. Vulnerable. Diagnostic Tests: Prior Coronary Angiography: LV ejection fraction within 6 months is 50%. Electrocardiography: EKG was assessed by EKG. EKG was Abnormal. EKG showed other abnormality. Medications Prior to Procedure: ASA, Beta Evan, Calcium Channel Blocking Agent and Statin. Indications for Diagnostic Cath: The priority of the diagnostic procedure was Urgent. The indicationfor the laboratory equipment cleaner visit is ACS greater than 24 hrs. [...] dose administered prior to arrival in the laboratory equipment cleaner. Recommend continuing clopidogrel 75 mg PO daily [...] * (ABNORMAL) Troponin (07/03/2019 4:24 AM EDT) Troponin-T 1.26(H) 0.00 - 0.00 ng/mL [facility] Comment: result rechecked-JSD The 99th percentile for Troponin T is less than 0.01 ng/mL, any detectable cTnT concentration using this assay should be considered elevated. According to the third universal definition of myocardial infarction the following criteria with a clinical presentation consistent with acute myocardial ischemia meets the diagnosis for a myocardial infarction (CO). Detection of a rise and/or fall of cTnT, with at least one value greater than the 99th percentile (> or = 0.01) and with at least one of the following ?? Symptoms of ischemia ?? New or presumed new significant BZ-wxtmjnz-G wave (ST-T) changes or new left bundle [...] additional sample may be indicated. Reference: Third [place] Definition of Myocardial Infarction. Journal of the [place] College [employer] 2012;60:1581-98 Blood specimen (specimen) Venous Draw / Unknown 07/03/2019 4:24 AM EDT 07/03/2019 4:41 AM EDT Narrative Resulting Agency Comment Spec In Lab Jerry Vaughn MD CHEMISTRY ORDERABLES [facility] [place] [address] * Differential, Automated (07/03/2019 4:24 AM EDT) Neutrophil % 53.8 % [facility] Neutrophil Absolute 4.00 1.70 - 6.10 x10(3)/[facility] LAB[facility] Lymph % 29.2 % [facility] Lymphocytes Abs 2.2 0.9 - 3.2 x10(3)/[facility] Monocyte % 10.6 % [facility] Monocyte Abs 0.8 0.3 - 0.9 x10(3)/[facility] Eos % 5.1 % [facility] Eosinophils Abs 0.4 0.0 - 0.4 x10(3)/[facility] Basophil % 0.9 % [facility] Baso Absolute 0.1 0.0 - 0.1 x10(3)/[facility] Immature Gran % 0.40 % [facility] Comment: Immature granulocytes(IG's)percentage and absolute count will include metamyelocytes, myelocytes, and promyelocytes. Blood smears from CBCs yielding IG's will be scanned manually for concordance. If this scan disagrees with the automated IG or if promyelocytes are noted, a manual differential will be performed. Immature Gran Absolute 0.03 0.00 - 0.04 x10(3)/[facility] Blood specimen (specimen) 07/03/2019 4:24 AM EDT 07/03/2019 4:41 AM EDT Narrative Resulting Agency Comment Spec In Lab Jerry Vaughn MD HEMATOLOGY ORDERABLE S [facility] [place] [address] * Hemogram (07/03/2019 4:24 AM EDT) [facility] White Blood Cell 7.4 4.0 - 9.5 x10(3)/[facility] Red Blood Cell 4.45 4.00 - 5.21 x10(6)/[facility] Hemoglobin 13.6 11.7 - 15.5 gm/dL [facility] Hematocrit 41.2 35.7 - 45.8 % [facility] Mean Cell Volume 92.6 82.6 - 94.4 fL [facility] Mean Cell Hemoglobin 30.6 27.1 - 32.0 pg [facility] Mean Cell Hemoglobin Concentration 33.0 31.7 - 35.0 gm/dL [facility] Platelet 224 145 - 357 x10(3)/[facility] RDW Standard Deviation 45.0 37.0 - 46.0 [facility] RDW coefficient of variation 13.2 11.5 - 14.1 % [facility] Mean Platelet Volume 10.1 7.6 - 12.9 fL [facility] NRBC% auto 0.0 % [facility] NRBC Absolute 0.000 0.000 - 0.000 x10(3)/[facility] Blood specimen (specimen) 07/03/2019 4:24 AM EDT 07/03/2019 4:41 AM EDT Narrative Resulting Agency Comment Spec In Lab Jerry Vaughn MD HEMATOLOGY ORDERABLE S [facility] [place] [address] * (ABNORMAL) BMP w/fasting Glucose (07/03/2019 4:24 AM EDT) Glucose Fasting 131(H) 65 - 99 mg/dL [facility] Comment: ?Fasting* Glucose Interpretive Criteria [...] of Diabetes Mellitus, Position Statement from the [place] [employer]. ??Diabetes Care, Volume 33, Supplement 1, Nov 2009 Blood Urea Nitrogen 10 8 - 18 mg/dL [facility] Creatinine 0.63(L) 0.70 - 1.20 mg/dL [facility] Sodium 142 135 - 145 mmol/L [facility] Potassium 3.6 3.5 - 5.0 mmol/L [facility] Comment: Please note: ??Patients with WBC >100,000 may have falsely elevated Potassium levels. ??For accurate Potassium quantification in these patients send serum separator tube (gold top) for subsequent determinations. ??Contact the Clinical Chemistry Laboratory if there are any questions. Chloride 106 98 - 107 mmol/L [facility] Carbon Dioxide 24 22 - 31 mmol/L [facility] Anion Gap 12 5 - 15 mmol/L [facility] Calcium 9.0 8.5 - 10.5 mg/dL [facility] Est Glomerular Filtration Rate 98 >=60 mL/min/1. 73 m?? [facility] Comment: The eGFR was calculated using the CKD-EPI equation. As with all creatinine based estimates of kidney function, eGFR values calculated with the CKD-EPI equation are not accurate in patients with acute kidney failure, extremes of body mass or the acutely ill. [email or web address] eGFR 114 >=60 mL/min/1. 73 m?? [facility] Comment: The eGFR was calculated using the CKD-EPI equation. As with all creatinine based estimates of kidney function, eGFR values calculated with the CKD-EPI equation are not accurate in patients with acute kidney failure, extremes of body mass or the acutely ill. [email or web address] Blood specimen (specimen) 07/03/2019 4:24 AM EDT 07/03/2019 4:41 AM EDT Narrative Resulting Agency Comment Spec In Lab Jimenez Melchor MD CHEMISTRY ORDERABLES Performing Organization Address [facility] Co de Phone Number [facility] [place] [address] * LDL Cholesterol, Direct (07/03/2019 4:24 AM EDT) LDL Cholesterol, Direct 201 mg/dL [facility] Comment: Lowest Risk: <100 mg/dL Lower Risk: 100-129 mg/dL Borderline High Risk: 130-159 mg/dL High Risk: 160-189 mg/dL Very High Risk: >fl=944 mg/dL Blood specimen (specimen) 07/03/2019 4:24 AM EDT 07/03/2019 4:41 AM EDT Narrative Resulting Agency Comment Spec In Lab Jimenez Melchor MD CHEMISTRY ORDERABLES Performing Organization Address [facility] Co de Phone Number [facility] [place] [address] * (ABNORMAL) Hemoglobin A1c (07/03/2019 4:24 AM EDT) Hemoglobin A1c 5.8(H) 4.3 - 5.6 % [facility] Comment: Reference Range: 4.3 - [...] 1, S67-74 Estimated Average Glucose 120 mg/dL [facility] Comment: eAG equivalents for HbA1c [...] into estimated average glucose values. ??Diabetes Care 2008:31(8):4539-7937. Blood specimen (specimen) 07/03/2019 4:24 AM EDT 07/03/2019 4:41 AM EDT Narrative Resulting Agency Comment Spec In Lab Jimenez Melchor MD CHEMISTRY ORDERABLES [facility] [place] [address] * Lipid Panel (07/03/2019 4:24 AM EDT) Cholesterol, Total 264 mg/dL [facility] Comment: Lower Risk: <200 mg/dL Average Risk: 200-239 mg/dL Higher Risk: >sj=886 mg/dL Triglyceride 231 mg/dL [facility] Comment: Average Risk/Lower Risk: <150 mg/dL Borderline High Risk: 150-199 mg/dL High Risk: 200-499 mg/dL Very High Risk: >sx=859 mg/dL HDL Cholesterol 37 mg/dL [facility] Comment: Males: ?? Higher Risk: <40 mg/dL Females: ?? HIgher Risk: <50 mg/dL LDL Cholesterol 181 mg/dL [facility] Comment: Lowest Risk: <100 mg/dL Lower Risk: 100-129 mg/dL Borderline High Risk: 130-159 mg/dL High Risk: 160-189 mg/dL Very High Risk: >ku=768 mg/dL Cholesterol/HDL Ratio 7.1 ratio [facility] Lipid Interpretation See Note [facility] Comment: Lipid management should be guided by a patient? s ASCVD risk, goals and preferences. ACC/AHA Guidelines recommend high intensity statin if clinical ASCVD or LDL greater than or equal to 190 mg/dL. http://FIRE1.com/FEP-RPG-Zjzvetcub Adults aged 40-75 with LDL 70-189 mg/dL should have their 10 year ASCVD risk estimated with the ACC/AHA ASCVD risk mechanical estimator http://tools.acc.org/EMOAU-Ndvl-Eyrfxmsxm/ Statin should be discussed if risk greater [...] In Lab Jimenez Melchor MD CHEMISTRY ORDERABLES [facility] [place] [address] * (ABNORMAL) Troponin (07/02/2019 6:00 PM EDT) Troponin-T 3.12(H) 0.00 - 0.00 ng/mL [facility] Comment: The 99th percentile for Troponin T is less than 0.01 ng/mL, any detectable cTnT concentration using this assay should be considered elevated. According to the third universal definition of myocardial infarction the following criteria with a clinical presentation consistent with acute myocardial ischemia meets the diagnosis for a myocardial infarction (CO). Detection of a rise and/or fall of cTnT, with at least one value greater than the 99th percentile (> or = 0.01) and with at least one of the following ?? Symptoms of ischemia ?? New or presumed new significant HI-fkqjats-Z wave (ST-T) changes or new left bundle [...] additional sample may be indicated. Reference: Third [place] Definition of Myocardial Infarction. Journal of the [place] [employer] 2012;60:1581-98 Blood specimen (specimen) 07/02/2019 6:00 PM EDT 07/02/2019 6:10 PM EDT Narrative Resulting Agency Comment Spec In Lab Jimenez Melchor MD CHEMISTRY ORDERABLES [facility] [place] [address] * EKG 12 Lead (07/02/2019 3:00 PM EDT) Ventricular rate 84 BPM MUSE SYSTEM Atrial Rate 84 BPM MUSE SYSTEM P-R Interval 166 ms MUSE SYSTEM QRS Duration 70 ms MUSE SYSTEM Q-T Interval 366 ms MUSE SYSTEM QTC Calculated (Bezet) 432 ms MUSE SYSTEM Calculated P [place] 42 degrees MUSE SYSTEM Calculated R [place] 17 degrees MUSE SYSTEM Calculated T [place] 33 degrees MUSE SYSTEM INTERPRETATION Normal sinus rhythm with sinus arrhythmia Normal ECG When compared with ECG of 02-JUL-2019 01:04, Nonspecific T wave abnormality now evident in Inferior leads Confirmed by MD Carmella, Channing Granado ([id number]) on 07/04/2019 11:03:32 AM MUSE SYSTEM 07/02/2019 3:00 PM EDT 07/04/2019 11:03 AM EDT Jimenez Melchor MD ECG ORDERABLES MUSE SYSTEM * (ABNORMAL) Troponin (07/02/2019 11:55 AM EDT) Troponin-T 3.11(H) 0.00 - 0.00 ng/mL [facility] Comment: result rechecked-es The 99th percentile for Troponin T is less than 0.01 ng/mL, any detectable cTnT concentration using this assay should be considered elevated. According to the third universal definition of myocardial infarction the following criteria with a clinical presentation consistent with acute myocardial ischemia meets the diagnosis for a myocardial infarction (CO). Detection of a rise and/or fall of cTnT, with at least one value greater than the 99th percentile (> or = 0.01) and with at least one of the following ?? Symptoms of ischemia ?? New or presumed new significant CC-oimlhuc-N wave (ST-T) changes or new left bundle [...] additional sample may be indicated. Reference: Third [place] Definition of Myocardial Infarction. Journal of the [place] [employer] 2012;60:1581-98 Blood specimen (specimen) 07/02/2019 11:55 AM EDT 07/02/2019 12:09 PM EDT Narrative Resulting Agency Comment Spec In Lab Jimenez Melchor MD CHEMISTRY ORDERABLES [facility] [place] [address] * ECHO COMPLETE W CONTRAST (07/02/2019 9:35 AM EDT) EF 50 HEARTLAB SYSTEM Anatomical Region Laterality Modality Other 07/02/2019 Narrative 07/02/2019 9:45 AM EDT Procedure: ?Transthoracic Echocardiogram Patient: ?YAMILETH Do ? (Age): 1960(59y) Med Rec#: ? [id number] ?Sex: ?F ? Site Loc: ? [facility] ?Ht / Wt: ??152(cm)/87(kg) Pt. Loc: ?[facility] ? BSA: ?1.83 Study Date: ?? 07/02/2019 ?Pt. Type: Inpatient Tape: ? Referring: OLGA AMBROSIO J Reading: Roe Esteban ([id number]) Supervisor Of Instruction: Cris Zuniga ELAN Diagnosis: *ST elevation (STEMI) myocardial infarction involving [...] E-wave Vmax ?0.6 ?m/sec ? MV deceleration [id number] ?msec ? MV A-wave Vmax ?0.8 ?m/sec [...] ? Mid-Inferior ?Akinetic ? Mid-Inferoseptal ?Normal ? [place]-Septal ? Normal ? [place]-Anterior ? Normal ? [place]-Lateral ?Akinetic ? [place]-Inferior ? Normal ? [place]-Tip ?Normal ? This report has been electronically signed by: Roe Esteban M.D. ? 07/02/2019 09:45:11 Images reviewed and interpretation verified [facility] Cardiac Ultrasound Laboratory Procedure Note Roe Esteban MD - 07/02/2019 Procedure: Transthoracic Echocardiogram Patient: YAMILETH Do (Age): 1960(59y) Med Rec#: [id number] Sex: F [place] [facility] [place] Ht / Wt: 152(cm)/87(kg) Pt. Loc: U BSA: 1.83 Study Date: 07/02/2019 Pt. Type: Inpatient Tape: Referring: OLGA AMBROSIO J Reading: Roe Esteban ([id number]) Supervisor Of Instruction: Cris Zuniga [facility] Diagnosis: *ST elevation (STEMI) myocardial infarction involving [...] MV E-wave Vmax 0.6 m/sec MV deceleration [id number] msec MV A-wave Vmax 0.8 m/sec MV [...] Akinetic Mid-Posterolateral [place] Mid-Inferior [place] Mid-Inferoseptal Normal [place]-Septal Normal [place]-Anterior Normal [place]-Lateral Akinetic [place]-Inferior Normal [place]-Tip Normal This report has been electronically signed by: Roe Esteban M.D. 07/02/2019 09:45:11 Images reviewed and interpretation verified [facility] Cardiac Ultrasound [facility] Salvador Zaragoza MD ECHO ORDERABLES * CARDIAC CATHETERIZATION (07/02/2019 9:25 AM EDT) Anatomical Region Laterality Modality Other Narrative 07/02/2019 9:59 AM EDT ?[facility] ? Cardiac Catheterization/Intervention Report ? Patient Name: Diana Landry. ? Procedure Date: 07/02/2019 ? A #: [id number] ? Primary Physician: Ahmed, Bárbara ? Case #: [id number] ? File Name: [id number] ? Catheterization Order Number: [id number] ? [facility] ? Final Report [place], [place] ? Patient Name: ? Diana Landry ? ID#: ?[id number] ? : ?1960 ? Procedure Date: ? July 02, 2019 ?Case #: ? [id number] ? Room: ? 5 ? Case Physician: ? Bárbara Nascimento M.D. ? Start: ?08:25 ?Fellow: ? Hi Peterson.D. ?Admission: ??07/02/2019 ? Discharge: ??07/04/2019 ? Procedures: [...] was designated as ?ASA Class III. The CSHA clinical frailty scale is 2: Well. ? Diagnostic Tests: ?Electrocardiography: ? EKG was assessed by ECG. EKG was Abnormal. EKG showed other ? abnormality. ?Medications Prior to Procedure: ? ASA. ? Indications for Diagnostic Cath: ?The priority of the diagnostic procedure was Urgent. The indication for ?the laboratory equipment cleaner visit is ACS less than or equal [...] dose administered prior to arrival in the laboratory equipment cleaner. ?Recommend continuing clopidogrel 75 mg PO daily [...] ?Pt referred for diagnostic coronary angiography with [facility] for chest pain ?and abnormal ECG and [...] Note Bárbara Nascimento MD - 10/26/2019 [facility] Cardiac Catheterization/Intervention Report Patient Name: Diana Landry Procedure Date: 07/02/2019 A #: [id number] Primary Physician: Bárbara Nascimento Case #: [id number] File Name: [id number] Catheterization Order Number: [id number] [facility] FinalReport [place], [place] Patient Name: Diana Lewis Yamileth ID#:[id number] :1960 Procedure Date: July 02, 2019 Case [...] patient wasdesignated as ASA Class III. The [facility] clinical frailty scale is 2: Well. Diagnostic Tests: Electrocardiography: EKG was assessed by ECG. EKG was Abnormal. EKG showed other abnormality. Medications Prior to Procedure: ASA. Indications for Diagnostic Cath: The priority of the diagnostic procedure was Urgent. The indicationfor the laboratory equipment cleaner visit is ACS less than or equal [...] The priority for the procedure was Urgent.The [facility] indication for the procedure was NSTE-ACS. Intervention [...] The lesion was predilated with a 2.50mm [id number] MM balloon with a maximum inflation pressure [...] dose administered prior to arrival in the laboratory equipment cleaner. Recommend continuing clopidogrel 75 mg PO daily [...] Pt referred for diagnostic coronary angiography with [facility] for chestpain and abnormal ECG and biomarkers. [...] Heparin (unfractionated) Level (07/02/2019 7:00 AM EDT) Pathologist [facility] UF Heparin 0.64 IU/mL [facility] Comment: Guidelines for therapeutic unfractionated [...] Lab Emir Riley MD HEMATOLOGY ORDERABLE S [facility] [place] [address] * (ABNORMAL) Troponin (07/02/2019 7:00 AM EDT) [facility] Troponin-T 0.24(H) 0.00 - 0.00 ng/mL [facility] Comment: The 99th percentile for Troponin T is less than 0.01 ng/mL, any detectable cTnT concentration using this assay should be considered elevated. According to the third universal definition of myocardial infarction the following criteria with a clinical presentation consistent with acute myocardial ischemia meets the diagnosis for a myocardial infarction (CO). Detection of a rise and/or fall of cTnT, with at least one value greater than the 99th percentile (> or = 0.01) and with at least one of the following ?? Symptoms of ischemia ?? New or presumed new significant DO-tikhdst-L wave (ST-T) changes or new left bundle [...] additional sample may be indicated. Reference: Third [place] Definition of Myocardial Infarction. Journal of the [place] [employer] 2012;60:1581-98 Blood specimen (specimen) 07/02/2019 7:00 AM EDT 07/02/2019 7:11 AM EDT Narrative Resulting Agency Comment Spec In Lab Jimenez Melchor MD CHEMISTRY ORDERABLES [facility] [place] [address] * Heparin (unfractionated) Level (07/02/2019 1:10 AM EDT) UF Heparin 0.84 IU/mL [facility] Comment: Guidelines for therapeutic unfractionated [...] MD HEMATOLOGY ORDERABLE S Performing Organization Address [facility] de Phone Number [facility] [place] [address] * (ABNORMAL) APTT (07/02/2019 1:10 AM EDT) Partial Thromboplastin Time 88(H) 25 - 37 sec [facility] Comment: The PTT is NOT [...] MD HEMATOLOGY ORDERABLE S Performing Organization Address [facility] Phone Number [facility] [place] [address] * Prothrombin Time (07/02/2019 1:10 AM EDT) Prothrombin Time 11.7 9.4 - 12.5 sec [facility] International Normalization Ratio 1.0 [facility] Comment: An INR <2.0 indicates [...] MD HEMATOLOGY ORDERABLE S Performing Organization Address [facility] Co de Phone Number [facility] [place] [address] * Troponin (07/02/2019 1:10 AM EDT) [facility] Troponin-T <0.01 0.00 - 0.00 ng/mL [facility] Comment: The 99th percentile for Troponin T is less than 0.01 ng/mL, any detectable cTnT concentration using this assay should be considered elevated. According to the third universal definition of myocardial infarction the following criteria with a clinical presentation consistent with acute myocardial ischemia meets the diagnosis for a myocardial infarction (CO). Detection of a rise and/or fall of cTnT, with at least one value greater than the 99th percentile (> or = 0.01) and with at least one of the following ?? Symptoms of ischemia ?? New or presumed new significant RZ-dxquhbj-D wave (ST-T) changes or new left bundle [...] additional sample may be indicated. Reference: Third [place] Definition of Myocardial Infarction. Journal of the [place] [employer] 2012;60:1581-98 Blood specimen (specimen) No Charge / Unknown 07/02/2019 1:10 AM EDT 07/02/2019 1:56 AM EDT Narrative Resulting Agency Comment Spec In Lab Sheng Crooks MD CHEMISTRY ORDERABLES Performing Organization Address [facility] Co de Phone Number [facility] [place] [address] * pro-Brain Natriuretic Peptide (07/02/2019 1:10 AM EDT) NT-proBNP 26 <=125 pg/mL [facility] Blood specimen (specimen) No Charge / Unknown 07/02/2019 1:10 AM EDT 07/02/2019 1:56 AM EDT Narrative Resulting Agency Comment Spec In Lab Sheng Crooks MD CHEMISTRY ORDERABLES Performing Organization Address City/[facility] Co de Phone Number [facility] [place] [address] * TSH (07/02/2019 1:10 AM EDT) Thyroid Stimulating Hormone 2.07 0.27 - 4.20 mcIU/mL [facility] Blood specimen (specimen) No Charge / Unknown 07/02/2019 1:10 AM EDT 07/02/2019 1:56 AM EDT Narrative Resulting Agency Comment Spec In Lab Sheng Crooks MD CHEMISTRY ORDERABLES Performing Organization Address City/[facility] Co de Phone Number [facility] [place] [address] * Phosphorus (07/02/2019 1:10 AM EDT) Phosphorus 4.0 2.5 - 4.5 mg/dL [facility] Blood specimen (specimen) No Charge / Unknown 07/02/2019 1:10 AM EDT 07/02/2019 1:56 AM EDT Narrative Resulting Agency Comment Spec In Lab Sheng Crooks MD CHEMISTRY ORDERABLES Performing Organization Address City/[facility] Co de Phone Number [facility] [place] [address] * Magnesium (07/02/2019 1:10 AM EDT) Magnesium 0.90 0.69 - 1.07 mmol/L [facility] Blood specimen (specimen) No Charge / Unknown 07/02/2019 1:10 AM EDT 07/02/2019 1:56 AM EDT Narrative Resulting Agency Comment Spec In Lab Sheng Crooks MD CHEMISTRY ORDERABLES [facility] [place] [address] * (ABNORMAL) Comprehensive metabolic panel (non-fasting) (07/02/2019 1:10 AM EDT) Glucose 153 65 - 199 mg/dL [facility] Comment:Diabetes: >=200 mg/d L plus symptoms Blood Urea Nitrogen 16 8 - 18 mg/dL [facility] Creatinine 0.58(L) 0.70 - 1.20 mg/dL [facility] Sodium 144 135 - 145 mmol/L [facility] Potassium 4.4 3.5 - 5.0 mmol/L [facility] Comment: Please note: ??Patients with WBC >100,000 may have falsely elevated Potassium levels. ??For accurate Potassium quantification in these patients send serum separator tube (gold top) for subsequent determinations. ??Contact the Clinical Chemistry Laboratory if there are any questions. Chloride 108(H) 98 - 107 mmol/L [facility] Carbon Dioxide 23 22 - 31 mmol/L [facility] Anion Gap 13 5 - 15 mmol/L [facility] Calcium 9.0 8.5 - 10.5 mg/dL [facility] Protein, Total 6.9 6.1 - 8.0 gm/dL [facility] Albumin 4.3 3.2 - 5.2 gm/dL [facility] Aspartate Aminotransferase 13 0 - 30 unit/L [facility] Alanine Aminotransferase 16 0 - 30 unit/L [facility] Alkaline Phosphatase 85 35 - 105 unit/L [facility] Bilirubin, Total <0.2(L) 0.2 - 1.3 mg/dL [facility] Est Glomerular Filtration Rate 101 >=60 mL/min/1. 73 m?? [facility] Comment: The eGFR was calculated using the CKD-EPI equation. As with all creatinine based estimates of kidney function, eGFR values calculated with the CKD-EPI equation are not accurate in patients with acute kidney failure, extremes of body mass or the acutely ill. http://Interact.io/[facility] [place] eGFR 117 >=60 mL/min/1. 73 m?? [facility] Comment: The eGFR was calculated using the CKD-EPI equation. As with all creatinine based estimates of kidney function, eGFR values calculated with the CKD-EPI equation are not accurate in patients with acute kidney failure, extremes of body mass or the acutely ill. [email or web address].io/[facility] [place] [place] Blood specimen (specimen) No Charge / Unknown 07/02/2019 1:10 AM EDT 07/02/2019 1:56 AM EDT Narrative Resulting Agency Comment Spec In Lab Sheng Crooks MD CHEMISTRY ORDERABLES Performing Organization Address City/State/[facility] Co de Phone Number [facility] [place] [address] * (ABNORMAL) Differential, Automated (07/02/2019 1:10 AM EDT) Neutrophil % 68.9 % [facility] Neutrophil Absolute 6.39(H) 1.70 - 6.10 x10(3)/mc L [facility] Lymph % 23.1 % [facility] Lymphocytes Abs 2.2 0.9 - 3.2 x10(3)/mc L [facility] Monocyte % 5.8 % [facility] Monocyte Abs 0.5 0.3 - 0.9 x10(3)/mc L [facility] Eos % 1.2 % [facility] Eosinophils Abs 0.1 0.0 - 0.4 x10(3)/mc L [facility] Basophil % 0.6 % [facility] Baso Absolute 0.1 0.0 - 0.1 x10(3)/mc L [facility] Immature Gran % 0.40 % [facility] Comment: Immature granulocytes(IG's)percentage and absolute count will include metamyelocytes, myelocytes, and promyelocytes. Blood smears from CBCs yielding IG's will be scanned manually for concordance. If this scan disagrees with the automated IG or if promyelocytes are noted, a manual differential will be performed. Immature Gran Absolute 0.04 0.00 - 0.04 x10(3)/mc L [facility] Blood specimen (specimen) No Charge / Unknown 07/02/2019 1:10 AM EDT 07/02/2019 1:23 AM EDT Narrative Resulting Agency Comment Spec In Lab Sheng Crooks MD HEMATOLOGY ORDERABLE S Performing Organization Address City/State/[facility] Co de Phone Number [facility] [place] [address] * Hemogram (07/02/2019 1:10 AM EDT) White Blood Cell 9.3 4.0 - 9.5 x10(3)/[facility] Red Blood Cell 4.30 4.00 - 5.21 x10(6)/[facility] Hemoglobin 13.1 11.7 - 15.5 gm/dL [facility] Hematocrit 40.4 35.7 - 45.8 % [facility] Mean Cell Volume 94.0 82.6 - 94.4 fL [facility] Mean Cell Hemoglobin 30.5 27.1 - 32.0 pg [facility] Mean Cell Hemoglobin Concentration 32.4 31.7 - 35.0 gm/dL [facility] Platelet 294 145 - 357 x10(3)/[facility] RDW Standard Deviation 45.1 37.0 - 46.0 fL [facility] RDW coefficient of variation 13.2 11.5 - 14.1 % [facility] Mean Platelet Volume 10.3 7.6 - 12.9 fL [facility] NRBC% auto 0.0 % [facility] NRBC Absolute 0.000 0.000 - 0.000 x10(3)/mcL [facility] Blood specimen (specimen) No Charge / Unknown 07/02/2019 1:10 AM EDT 07/02/2019 1:23 AM EDT Narrative Resulting Agency Comment Spec In Lab Sheng Crooks MD HEMATOLOGY ORDERABLE S Performing Organization Address City/[facility]/ZIP Co de Phone Number [facility] [place] [address] * Lavender Tube HOLD (07/02/2019 1:10 AM EDT) Lavender Hold Sample in lab. [facility] Blood specimen (specimen) No Charge / Unknown 07/02/2019 1:10 AM EDT 07/02/2019 1:23 AM EDT Salvador Zaragoza MD HEMATOLOGY ORDERABLE S Performing Organization Address City/[facility]/ZIP Co de Phone Number [facility] [place] [address] * Green Tube HOLD (07/02/2019 1:10 AM EDT) Green Hold Sample in lab. [facility] Blood specimen (specimen) No Charge / Unknown 07/02/2019 1:10 AM EDT 07/02/2019 1:23 AM EDT Salvador Zaragoza MD CHEMISTRY ORDERABLES Performing Organization Address City/[facility]/ZIP Co de Phone Number [facility] [place] [address] * Blue Tube HOLD (07/02/2019 1:10 AM EDT) Blue Hold Sample in lab. [facility] Blood specimen (specimen) No Charge / Unknown 07/02/2019 1:10 AM EDT 07/02/2019 1:23 AM EDT Salvador Zaragoza MD HEMATOLOGY ORDERABLE S [facility] [place] [address] * EKG 12 Lead (07/02/2019 1:04 AM EDT) Ventricular rate 85 BPM MUSE SYSTEM Atrial Rate 85 BPM MUSE SYSTEM P-R Interval 168 ms MUSE SYSTEM QRS Duration 58 ms MUSE SYSTEM Q-T Interval 366 ms MUSE SYSTEM QTC Calculated (Bezet) 435 ms MUSE SYSTEM Calculated P [place] 59 degrees MUSE SYSTEM Calculated R [place] 49 degrees MUSE SYSTEM Calculated T [place] 66 degrees MUSE SYSTEM INTERPRETATION Normal sinus rhythm ST elevation, consider early repolarizati on, pericarditis , or injury Abnormal ECG When compared with ECG of 12-JUN-2012 11:18, QRS duration has decreased ST elevation Inferior leads is now present Confirmed by MD Kaur Jon ([id number]) on 07/02/2019 7:41:54 AM MUSE SYSTEM 07/02/2019 1:04 AM EDT 07/02/2019 7:41 AM EDT Salvador Zaragoza MD ECG ORDERABLES Performing Organization Address [facility] Co de Phone Number MUSE SYSTEM documented in this encounter Visit Diagnoses Diagnosis ASCVD (arteriosclerotic cardiovascular disease) Unspecified cardiovascular disease NSTEMI (non-ST elevated myocardial infarction) Acute myocardial infarction, subendocardial infarction, episode of care unspecified NSTEMI (non-ST elevated myocardial infarction) Acute myocardial infarction, subendocardial infarction, episode of care unspecified documented in this encounter Admitting Diagnoses Diagnosis NSTEMI [...] on Sat07/02/19 at 0900, Until Discontinued, Routine Given 07/04/2019 9:08 AM EDT 81 mg Given 07/03/2019 8:35 AM EDT 81 mg atorvastatin (LIPITOR) tablet 80 mg 80 mg, Oral, EVERY EVENING, First dose on Sat07/02/19 at 0215, Until Discontinued, Routine Given 07/03/2019 5:07 PM EDT 80 mg Given 07/02/2019 4:23 PM EDT 80 mg Given 07/02/2019 2:15 AM EDT 80 mg citalopram (CeleXA) tablet 20 mg 20 mg, Oral, DAILY, First dose on Sat07/02/19 at 0900, Until Discontinued, Routine Given 07/04/2019 9:09 AM EDT 20 mg Given 07/03/2019 8:35 AM EDT 20 mg Given 07/02/2019 9:58 AM EDT 20 mg clopidogrel (PLAVIX) tablet 75 mg 75 mg, Oral, DAILY, First dose on Sat07/02/19 at 1100, Until Discontinued, Routine Given 07/04/2019 9:08 AM EDT 75 mg Given 07/03/2019 8:35 AM EDT 75 mg Given 07/02/2019 10:07 AM EDT 75 mg enoxaparin (LOVENOX) injection 40 mg 40 mg, Subcutaneous, NIGHTLY, First dose on Sat07/03/19 at 2100, Until Discontinued, Routine Given 07/03/2019 8:09 PM EDT 40 mg heparin 25,000 units in dextrose 5% 500 mL infusion 0-5,000 Units/hr (0-100 mL/hr), Intravenous, CONTINUOUS, Starting on Neisha 07/02/19 at 0245, Until Sat07/02/19 at 1411, BEGIN infusion at 1,000 units [...] Indication: ACS (STEMI vs NSTEMI vs UA) Rate/Dose Verify 07/02/2019 6:00 AM EDT 1,000 Units/hr 20 mL/hr Rate/Dose Verify 07/02/2019 4:00 AM EDT 1,000 Units/hr 20 mL/hr New Bag 07/02/2019 2:45 AM EDT 1,000 Units/hr 20 mL/hr labetalol (NORMODYNE,TRANDATE) 5 mg/mL injection 1 dose, Starting on Neisha 07/02/19 at 1751, Until Neisha 07/02/19 at 1753, Eva Green: cabinet override labetalol (NORMODYNE,TRANDATE) injection 10 mg 10 mg, Intravenous, EVERY 4 HOURS PRN, Starting on Neisha 07/02/19 at 1737, Until 07/04/19 at 1652, High Blood Pressure, for SBP>170, Routine Given 07/02/2019 5:53 PM EDT 10 mg lisinopril (PRINIVIL;ZESTRIL) tablet 15 mg 15 mg, Oral, ONCE, 1 dose, On Sat07/02/19 at 1800, Routine Given 07/02/2019 6:11 PM EDT 15 mg lisinopril (PRINIVIL;ZESTRIL) tablet 20 mg 20 mg, Oral, DAILY, First dose (after last modification) on Sat07/03/19 at 0900, Until Discontinued, Routine Given 07/04/2019 9:08 AM EDT 20 mg Given 07/03/2019 8:35 AM EDT 20 mg lisinopril (PRINIVIL;ZESTRIL) tablet 5 mg 5 mg, Oral, DAILY, First dose on Sat07/02/19 at 1630, Until Discontinued, Routine Given 07/02/2019 4:23 PM EDT 5 mg metoprolol (LOPRESSOR) tablet 12.5 mg 12.5 mg, Oral, 2 TIMES DAILY, First dose (after last modification) on Sat07/02/19 at 0230, Until Discontinued, Routine Given 07/04/2019 9:08 AM EDT 12.5 mg Given 07/03/2019 8:09 PM EDT 12.5 mg Given 07/03/2019 8:35 AM EDT 12.5 mg metoprolol succinate (TOPROL-XL) XL tablet 25 mg 25 mg, Oral, DAILY, First dose on Sat07/05/19 at 0900, Until Discontinued, DO NOT CRUSH OR OPEN, Routine nitroGLYcerin 50 mg in dextrose 5% 250 mL infusion 10 mcg/min (3 mL/hr), Intravenous, CONTINUOUS, Starting on Sat07/02/19 at 0215, Until 07/04/19 at 1652, Maximum dose: 200 mcg/min, Routine Rate/Dose Verify 07/02/2019 6:00 AM EDT 40 mcg/min 12 mL/hr Rate/Dose Verify 07/02/2019 4:00 AM EDT 40 mcg/min 12 mL/h r Continued Bag 07/02/2019 2:15 AM EDT 40 mcg/min 12 mL/hr perflutren protein-A microspheres (OPTISON) 0.22 mg/mL injection 2.4 mL 2.4 mL, Intravenous, ONCE PRN, 1 dose, Starting on Sat07/02/19 at 0935, Until Neisha 07/02/19 at 0745, Per Protocol, Routine Given 07/02/2019 7:45 AM EDT 2.4 m Ls potassium chloride (K-DUR/KLOR-CON) extended release tablet 40-60 [...] Intravenous, 2 TIMES DAILY, First dose on Sat07/02/19 at 0215, Until Discontinued, Routine Given 07/04/2019 [...] Sat07/02/19 at 0900, Until Discontinued, Routine 0803 ([facility] Hold - Provider: Admin Adt - Reason: Transfer to a Procedural area)0900 (Automatically Held - Provider: Admin Adt)0945 ([facility] Unhold - Provider: Admin Adt) 0835 (Given - Provider: Anya Greenwood RN)1131 ([facility] Hold - Provider: Admin Adt - Reason: Transfer to a Procedural area)1433 ([facility] Unhold - Provider: Admin Adt) 0908 (Given - Provider: Myrna Medley, CRISTI) atorvastatin (LIPITOR) tablet 80 mg 80 mg, Oral, EVERY EVENING, First dose on Sat07/02/19 at 0215, Until Discontinued, Routine 0215 (Given - Provider: Mayra Limon RN)0803 ([facility] Hold - Provider: Admin Adt - Reason: Transfer to a Procedural area)0945 ([facility] Unhold - Provider: Admin Adt)1623 (Given - Provider: Eva Green RN) 1131 ([facility] Hold - Provider: Admin Adt - Reason: Transfer to a Procedural area)1433 ([facility] Unhold - Provider: Admin Adt)1707 (Given - Provider: Jatinder Shirley RN) citalopram (CeleXA) tablet 20 mg 20 mg, Oral, DAILY, First dose on Sat07/02/19 at 0900, Until Discontinued, Routine 0803 ([facility] Hold - Provider: Admin Adt - Reason: Transfer to a Procedural area)0900 (Automatically Held - Provider: Admin Adt)0945 ([facility] Unhold - Provider: Admin Adt)0957 (Given - Provider: Eva Green RN - Comment: back from laboratory equipment cleaner)0958 (Given - Provider: Eva Green RN) 0835 (Given - Provider: Anya Greenwood RN)1131 ([facility] Hold - Provider: Admin Adt - Reason: Transfer to a Procedural area)1433 ([facility] Unhold - Provider: Admin Adt) 0909 (Given - Provider: Myrna Medley, CRISTI) clopidogrel (PLAVIX) tablet 75 mg 75 mg, Oral, DAILY, First dose on Sat07/02/19 at 1100, Until Discontinued, Routine 0803 ([facility] Hold - Provider: Admin Adt - Reason: Transfer to a Procedural area)0945 ([facility] Unhold - Provider: Admin Adt)1007 (Given - Provider: Eva Green, CRISTI) 0835 (Given - Provider: Anya Greenwood, CRISTI)1131 ([facility] Hold - Provider: Admin Adt - Reason: Transfer to a Procedural area)1433 ([facility] Unhold - Provider: Admin Adt) 0908 [...] 0835 (Given - Provider: Anya Greenwood, CRISTI)1131 ([facility] Hold - Provider: Admin Adt - Reason: Transfer to a Procedural area)1433 ([facility] Unhold - Provider: Admin Adt) 0908 [...] Discontinued, Routine 0230 (Given - Provider: Mayra Limon, CRISTI)0803 ([facility] Hold - Provider: Admin Adt - Reason: Transfer to a Procedural area)0900 (Automatically Held - Provider: Admin Adt)0945 ([facility] Unhold - Provider: Admin Adt)0959 (Not Given - Provider: Eva Green RN - Reason: See comment - Comment: received early at 0230 this am)1999 (Given - Provider: Mayra Limon, RN) 0835 (Given - Provider: Anya Greenwood, RN)1131 ([facility] Hold - Provider: Admin Adt - Reason: Transfer to a Procedural area)1433 ([facility] Unhold - Provider: Admin Adt)2008 (Given - Provider: Yamil Butts, RN) 09 (Given - Provider: Myrna Medley, RN) metoprolol succinate (TOPROL-XL) XL tablet 25 mg 25 mg, Oral, DAILY, First dose on 07/05/19 at 0900, Until Discontinued, DO NOT CRUSH OR OPEN, Routine sodium chloride 0.9 % (flush) flush 5 mL 5 mL, Intravenous, 2 TIMES DAILY, First dose on Neisha 07/02/19 at 0215, Until Discontinued, Routine 0215 (Given - Provider: Mayra Limon, CRISTI)0803 ([facility] Hold - Provider: Admin Adt - Reason: Transfer to a Procedural area)0900 (Automatically Held - Provider: Admin Adt)0945 ([facility] Unhold - Provider: Admin Adt)2099 (Given - Provider: Mayra Limon, CRISTI) 0836 (Given - Provider: Anya Greenwood, CRISTI)1131 ([facility] Hold - Provider: Admin Adt - Reason: Transfer to a Procedural area)1433 ([facility] Unhold - Provider: Admin Adt)2008 (Given - Provider: Yamil Butts, CRISTI) 09 (Given - Provider: Myrna Medley, RN) Continuous Medication Order 07/02/2019 07/03/2019 07/04/2019 [...] area)0900 (Stopped - Provider: Efrain Moya RN)0945 ([facility] Unhold - Provider: Admin Adt) nitroGLYcerin 50 [...] area)0900 (Stopped - Provider: Efrain Moya RN)0945 ([facility] Unhold - Provider: Admin Adt) 1131 ([facility] Hold - Provider: Admin Adt - Reason: Transfer to a Procedural area)1433 ([facility] Unhold - Provider: Admin Adt) PRN Medication Order 07/02/2019 07/03/2019 07/04/2019 acetaminophen (TYLENOL) tablet 650 mg 650 mg, Oral, EVERY 4 HOURS PRN, Starting on Neisha 07/02/19 at 0149, Until 07/04/19 at 1652, Pain, Headaches, Maximum dose of acetaminophen is 4000 mg from all sources in 24 hours., Routine 0708 (Given - Provider: Mayra Limon RN)0803 ([facility] Hold - Provider: Admin Adt - Reason: Transfer to a Procedural area)0945 ([facility] Unhold - Provider: Admin Adt)1227 (Given - Provider: Eva Green RN)1999 (Given - Provider: Mayra Limon RN) 0147 (Given - Provider: Sabrina Hopper, CRISTI)0740 (Given - Provider: Anya Greenwood, CRISTI)1131 ([facility] Hold - Provider: Admin Adt - Reason: Transfer to a Procedural area)1433 ([facility] Unhold - Provider: Admin Adt)1449 (Given - Provider: Anya Greenwood, CRISTI)2009 (Given - Provider: Yamil Butts, CRISTI) 0018 (Given - Provider: Wayne Duong, CRISTI)0448 (Given - Provider: Wayne Duong RN)0908 (Given - Provider: Myrna Medley RN) fentaNYL 50 mcg/mL multi-dose injection (CANCELED) ONCE PRN, Starting on Neisha 07/02/19 at 0820, Until Neisha 07/02/19 at 1411, Intra-Operative (Intra-Procedure), Routine 0820 (Given - Provider: Maggy Mayen, CRISTI)0831 (Given - Provider: Maggy Mayen, RN)0900 (Given - Provider: Maggy Mayen, RN) fentaNYL 50 mcg/mL multi-dose injection (CANCELED) [...] (Given - Provider: Eva Green RN) 1131 ([facility] Hold - Provider: Admin Adt - Reason: Transfer to a Procedural area)1433 ([facility] Unhold - Provider: Admin Adt) lidocaine (XYLOCAINE) 10 mg/mL (1 %) injection 3 mg 3 mg (0.3 mL), Subcutaneous, ONCE PRN, 1 dose, Starting on Neisha 07/02/19 at 0149, Until 07/04/19 at 1652, for discomfort with PIV insertion, Routine 0803 ([facility] Hold - Provider: Admin Adt - Reason: Transfer to a Procedural area)0945 ([facility] Unhold - Provider: Admin Adt) 1131 ([facility] Hold - Provider: Admin Adt - Reason: Transfer to a Procedural area)1433 ([facility] Unhold - Provider: Admin Adt) midazolam [...] Ashleigh Lanier, CRISTI)1207 (Given - Provider: Sarah Pantoja, CRISTI) niCARdipine (CARDENE) in sodium chloride 0.9% injection [...] - Reason: Transfer to a Procedural area)1433 ([facility] Unhold - Provider: Admin Adt) NORepinephrine 16 mcg/mL (standard ADULT and Pedi greater than 20 kg) infusion (CANCELED) CONTINUOUS PRN, Starting on Sat07/02/19 at 0900, Until Sat07/02/19 at 1411, Cath (Intra-Procedure), Routine 0900 (New Bag - Provider: Maggy Mayen, RN)09 (Rate/Dose Change - Provider: Maggy Mayen, RN)09 (Stopped - Provider: Maggy Mayen RN) perflutren protein-A microspheres (OPTISON) 0.22 mg/mL [...] Call provider for potassium dosing., Routine 1131 ([facility] Hold - Provider: Admin Adt - Reason: Transfer to a Procedural area)1433 ([facility] Unhold - Provider: Admin Adt) potassium [...] 2.8 Call provider for potassium dosing. 1131 ([facility] Hold - Provider: Admin Adt - Reason: Transfer to a Procedural area)1433 ([facility] Unhold - Provider: Admin Adt) sodium chloride 0.9 % (flush) flush 5-20 mL 5-20 mL, Intravenous, EVERY 1 MIN PRN, Starting on Neisha 07/02/19 at 0149, Until 07/04/19 at 1652, flush, Flush pertains to all indwelling lines. Flush per protocol found in the job aid using the link provided on this medication record., Routine 0803 ([facility] Hold - Provider: Admin Adt - Reason: Transfer to a Procedural area)0945 ([facility] Unhold - Provider: Admin Adt) 1131 ([facility] Hold - Provider: Admin Adt - Reason: Transfer to a Procedural area)1433 ([facility] Unhold - Provider: Admin Adt) sodium [...] documented as of this encounter Care Teams Director Security Management Relationship Specialty Start Date End Date Mirta Garner PA PCP - General Orthopaedic Surgery 12/02/17 11/30/20 documented as of this encounter
--- OUTSIDE RECORDS SUMMARY | 2024-06-12 21:20 | XMS_ITS | Encounter Summary ---
Author [facility] [place] [address] Care Team Providers Care Pediatric Nurse Name Role Phone Mirta Garner Primary Care Provider + Encounter Details Date Type Department Care Team (Late st Contact Info) Description 07/01/2019 [place] [phone] Yves Tony MD [facility] [place] [address] Social History Tobacco Use Types Packs/Day Years [...] encounter Miscellaneous Notes * Telephone Encounter - Yves Tony - 07/01/2019 10:47 PM EDT Telephone Triage Note Initial contact date: 07/01/2019 Initial contact time: 10:47 PM Patient location: [facility] CC: ACS History 59 year old woman with a history of NSTEMI with 4 stents presented with a history of light headedness all day which progressed into chest pain radiating to the back at 8:30 PM. She took her home nitroglycerine which was ineffective. EMS was called and she vomited en route to the ED. En route she was given ASA, nitroglycerine and fentanyl. The in ED she was given morphine. EKG revealed ST segment straightening in the inferior leads with reciprocal changes in the lateral leads as well as STD in anteroseptal leads. Posterior leads did not show USMAN. CTA revealed no dissection. She was given plavix and started on heparin. Chest pain was not responsive to anti-anginals. Pertinent diagnostic findings: Vitals: HR 90, SBP 102, saturating well on room air EKG: STD in V1-V3, V5-V6 Plan: #Acute coronary syndrome: acute inferior wall AL with possible posterior wall involvement. Transfer for [facility] for continued serial EKGs, anti-anginals and plan for early invasive strategy. Case was discussed with Dr. Anthony. Yves Tony MD 07/01/2019 documented in this encounter Plan of Treatment Not on file documented as of this encounter Visit Diagnoses Not on filedocumented in this encounter Care Teams Pediatric Nurse Relationship Specialty Start Date End Date Mirta Garner PA PCP - General Orthopaedic Surgery 12/02/17 11/30/20 documented as of this encounter
--- OUTSIDE RECORDS SUMMARY | 2024-06-12 21:20 | XMS_ITS | Encounter Summary ---
[facility] [place] [address] Care Team Providers Care Laboratory Operations Coordinator Name Role Phone Samia Pinto MD Primary Care Provider Encounter Details Date Type Department Care Team (Latest Contact Info) Description 06/12/2012 12:30 PM EDT - 06/12/2012 11:59 PM EDT Hospital Encounter Non-[place] [id number] [employer], CM Dean Christy MD [facility] [place] [address] CAD (coronary artery disease) Discharge Disposition: Home Social History Tobacco Use [...] mouth daily. 30 tablet 12 03/27/2012 08/15/2012 Union-3 Fatty Acids (FISH OIL) 500 mg Cap Take 1,000 mg by mouth. 07/30/2019 documented as of this encounter Plan of Treatment Not on file documented as of this encounter Procedures Procedure Name Priority Date/Time Associated Diagnosis Comments ZIOPATCH Routine 06/12/2012 1:14 PM EDT CAD (coronary artery disease) documented in [...] Dean Christy MD CARDIAC SERVICES ORD ERABLES documented in this encounter Visit Diagnoses Diagnosis CAD (coronary artery disease) Coronary atherosclerosis of unspecified type of vessel, [place] or graft documented in this encounter Care Teams Laboratory Operations Coordinator Relationship Specialty Start Date End Date Samia Pinto MD HOSPITALIST [facility] [address] [place] [address] [place] [address] PCP - General 03/24/12 12/01/17 documented as of this encounter
--- OUTSIDE RECORDS SUMMARY | 2024-06-12 21:21 | XMS_ITS | Encounter Summary ---
[place] [address] Care Team Providers Care Rehabilitation Aide/Scheduler Name Role Phone Samia Jordan MD Primary Care Provider [phone] Reason for Referral * (Routine) - Closed by system - unspecified Specialty Diagnoses / Procedures Referred By Contac t Referred To Contact Diagnoses STEMI (ST elevation myocardial infarction) Daryl Whelan MD [facility] [address] [place] [address] Referral ID Status Reason Start Date Expiration Date Visits Requested Visits Authorized [id number] Closed by system - unspecified Evaluate and Treat 03/27/2012 09/23/2012 1 1 * (Routine) - Closed by system - unspecified Specialty Diagnoses / Procedures Referred By Contac t Referred To Contact Diagnoses STEMI (ST elevation myocardial infarction) Daryl Whelan MD [facility] [place] [address] Referral ID Status Reason Start Date Expiration Date Visits Requested Visits Authorized [id number] Closed by system - unspecified Evaluate and Treat 03/27/2012 09/23/2012 1 1 Encounter Details Date Type Department Care Team (Latest Contact Info) Description 03/24/2012 4:12 PM EDT - 03/27/2012 3:25 PM EDT Hospital Encounter Intermediate Cardiac Care [place] [address] Dean Christy MD [facility] [place] [address] Daryl Whelan MD [facility] [place] [address] STEMI (ST elevation myocardial infarction) Discharge Disposition: Home Social History Tobacco Use Types Packs/Day Years Used Date Smoking Tobacco: Never Assessed Cigarettes Alcohol Use Standard Drinks/Week Comments No 0 (1 standard drink = 0.6 oz pur e alcohol) Sex and Gender Information Value Date Recorded Sex Assigned at Not on file Gender Identity Not on file Sexual Orientation Not on file documented as of this encounter Last Filed Vital Signs Vital Sign Reading Time Taken Comments Blood Pressure 96/64 03/27/2012 11:15 AM EDT Pulse 66 03/27/2012 11:15 AM EDT Temperature 36.6 ??C (97.9 ??F) 03/27/2012 1 1:15 AM EDT Respiratory Rate 18 03/27/2012 11:1 5 AM EDT Oxygen Saturation 98% 03/27/2012 11: 15 AM EDT Inhaled Oxygen Concentration - - Weight 84.7 kg (186 lb 11.7 oz) 03/27/2012 6:25 AM EDT Height 157 cm (5' 1.81) 03/24/2012 6:20 PM EDT Body Mass Index 34.36 03/24/2012 6:20 PM EDT documented in this encounter Discharge Instructions * Patient Instructions* Emery Mehta MD - 03/27/2012 10:38 AM EDT When to call your doctor: -Chest pain, worsening shortness of breath, fatigue with usual exertion, or new rest/night time symptoms. -Weigh yourself daily and record; if you note an increase of more than 2-3 pounds in 2 days, or 5 pounds over a week, contact your health care provider. -If you become short of breath, cannot lie down to sleep, or have swelling in your legs/ankles or abdomen, contact your health care provider. -Call if you have reduced urination during the day or increased urination at night. -Call for signs of increased wound drainage, redness, swelling, or increased pain at the site of your cardiac cath. -Call if you develop a temp >100.5 Activity level: -No heavy lifting (more than five pounds) for 48 hours; no more than 10 pounds for one week. -You may return to work in 1 week. Use common sense. Don't exhaust yourself. -No hunting, skiing, jogging, snow shoveling, snowmobiling, lawn mowing, swimming, golf or tennis until after your return appointment with your family doctor. -Do not ride motorcycles, tractors or horses until cleared by your doctor. Diet: -Heart healthy: low salt, low fat, low concentrated sweets. Remember to avoid added salt, canned foods, processed foods (ie hot dogs, sausage, cold meats), and foods naturally high in salt, such as potato chips or pizza. Driving: -Per your routine after 48 hrs Shower/Bath: -You may shower 24 hours after cardiac catheterization. -You may not sit in water for 5 days (tub bath, hot tub or pool). Wound Care: -Cath site dressing may be removed in 24 hours. Site may be washed with soap/water. A dressing doesnot need to be reapplied unless irritation occurs with underclothes. If irritation occurs, apply clean band-aid daily. Exercise: -Exercise 5-7 days per week as tolerated with gradual increase to 30 minutes per day. Smoking cessation: -If you are currently a smoker, you are strongly urged to stop smoking! Smoking increases the severity and incidence of heart disease, and is a risk factor for cancer and emphysema. Your health care provider can provide specific measures to assist you, including nicotine supplements, anti-anxiety meds, and support groups in your community. Home oxygen therapy: N/A Follow up Appointments: Primary Care Physician:SAMIA JORDAN MD April 16 Time to be determined Cardiology: Dr. Christy April 23 10:40am Arrangements for VNA/home care: N/A * Attachments The following attachments cannot be sent through Care Everywhere. * PERCUTANEOUS CORONARY INTERVENTION: WHAT TO EXPECT AT HOME (BANGLADESHI) * ARGELIA INHIBITORS: AFTER YOUR VISIT (BANGLADESHI) * BETA-BLOCKERS: AFTER YOUR VISIT (BANGLADESHI) * REDUCING HEART ATTACK RISK WITH DAILY MEDICINE: AFTER YOUR VISIT (BANGLADESHI) documented in this encounter Medications at Time [...] 6 hours as needed. aspirin 325 mg EC tablet Take 1 tablet by mouth daily. 30 tablet 12 03/27/2012 06/12/2012 metoprolol tartrate (LOPRESSOR) 25 mg tablet Take 1 tablet by mouth 2 times daily. 60 tablet 12 03/27/2012 07/04/2019 losartan (COZAAR) 25 mg tablet Take 0.5 tablets by mouth daily. 30 tablet 12 03/27/2012 08/15/2012 Cassandra-3 Fatty Acids (FISH OIL) 500 mg Cap Take 1,000 mg by mouth. 07/30/2019 citalopram (CELEXA) 20 mg tablet Take 20 mg by mouth daily. 06/12/2012 documented as of this encounter Progress Notes * Katerina Conde RN - 03/27/2012 3:21 PM EDT IV and Tele D/C'd. Discharge paperwork reviewed with patient including groin care, medications and follow up appointments. Patient verbalizes understanding. No questions at this time. Patient discharged home with family. * Jessa Abad DT - 03/27/2012 12:42 PM EDT Nutrition Services - Education Note Diana Landry : 1960 AGE: 51 y.o. MedDx/PMHx: STEMI, s/p successful stent insertion to LAD and unsuccessful thrombectomy and stent insertion to D1 Reason for Nutrition Intervention: Patient request Diet Order: [facility] [place] Appetite: good Food allergies: none Chewing/Swallowing difficulty: none Height: (cm) 157 Weight: (kg) 84 BMI: 34.1 Education: Reviewed heart healthy dietary guidelines. Verbalized good understanding. Education material, with means of contact provided. Assessment: Patient denies need for any other changes at this time. Nutrition Plan: Diet: [facility] [place] Support and encouragement provided. Nutrition services to follow weekly thru hospital course unless consulted in the interim. ODILIA APONTE * Dean Christy MD - 03/27/2012 6:23 AM EDT The patient was seen and examined on rounds. Vital signs were stable, a thorough physical exam was conducted, and the patients most recent lab values were reviewed. Last value Range last 24 hrs Temperature Temp: 36.6 ??C (97.9 ??F) Temp: [36.2 ??C (97.2 ??F)-37.3 ??C (99.1 ??F)] Heart Rate Heart Rate: 66 Heart Rate: [66-89] Blood Pressure BP: 96/64 mmHg BP: (96-120)/(60-78) Respiratory Rate Resp: 18 Resp: [16-18] SpO2 SpO2: 98 % SpO2: [97 %-99 %] Constitutional/General: well-appearing, NAD EENT and Mouth: EOMI; MMM, oropharynx clear no erythema or exudates. Neck: no tender lymphadenopathy; no thyromegaly; no JVD; no carotid bruit Lungs: CTA b/l no W/R/C Heart: RRR S1S2 no M/R/G Peripheral Vascular: radial and DP pulses 2+ b/l; good capillary refill distally; no edema Cath/Site: R inguinal access site benign, bandage c/d/i, no bruit Abdomen: obese; NABS; soft, nontender to palpation, no masses or organomegaly. Neurologic: non-focal; strength 5/5 throughout, sensation intact to light tough, Skin: no rashes noted ,no lesions A/P Medications were reviewed, and a discharge plan was finalized. IV access was removed, and the patient was provided with educational material prior to discharge. The patient was discharged in stable condition. Please see the discharge summary of today's date for complete assessment and plan. Cardiology Attending Progress Note Addendum: I have seen and examined the patient, providing sanchez components as outlined below. I have reviewed the resident???s above note; my evaluation of the patient is below: Major Issues Addressed; STEMI s/p PCI to LAD There is no problem list on file for this patient. Plan: Patient stable and much improved, ready for discharge today. * Dean Christy MD - 03/26/2012 6:26 AM EDT CARDIOLOGY INPATIENT PROGRESS NOTE Diana Landry 03/26/2012 Cardiology S2 Service SUMMARY: Diana Landry is a 51 y.o. female with: STEMI, s/p successful stent insertion to LAD andunsuccessful thrombectomy and stent insertion to D1. 24 HOUR EVENTS: - No acute events overnight. CP improved, however still present despite SL NTG and PO/IV dilaudid - Dry cough noted since starting lisinopril yesterday VITALS: Last value Range last 24 hrs Temperature Temp: 37 ??C (98.6 ??F) Temp: [36.7 ??C (98.1 ??F)-37 ??C (98.6 ??F)] Heart Rate Heart Rate: 95 Heart Rate: [71-97] Blood Pressure BP: 102/66 mmHg BP: (96-139)/(61-83) Respiratory Rate Resp: 18 Resp: [10-22] SpO2 SpO2: 95 % SpO2: [93 %-100 %] IN/OUTS: Intake/Output Summary (Last 24 hours) at 03/26/12 0626 Last data filed at 03/26/12 0400 Gross per 24 hour Intake 1203 ml Output 1725 ml Net -522 ml Physical Exam: Constitutional/General: well-appearing, NAD EENT and Mouth: PERRL, EOMI; MMM, oropharynx clear no erythema or exudates. Neck: no tender lymphadenopathy; no thyromegaly; no JVD; no carotid bruit Lungs: CTA b/l no W/R/C Heart: RRR S1S2 no M/R/G Peripheral Vascular: radial and DP pulses 2+ b/l; good capillary refill distally; no edema Cath/Site: R inguinal access site benign, bandage c/d/i, no bruit Abdomen: obese; NABS; soft, nontender to palpation, no masses or organomegaly. Neurologic: non-focal; CN 2-12 intact; strength 5/5 throughout, sensation intact to light tough, patellar reflexes 2+ Skin: no rashes noted ,no lesions LABS: Recent Labs Basename 03/26/12 0340 03/25/12 0520 03/24/12 1545 ??? NA 139 139 134* ??? K 4.2 4.1 3.6 ??? MAGNESIUM 0.85 0.84 -- ??? CALCIUM 8.7 9.1 7.7* ??? CL 103 105 103 ??? CO2 28 27 23 ??? BUN 9 14 14 ??? CREATININE 0.67* 0.60* 0.56* ??? GLUCOSE 109 -- 112 Lab Results Component Value Date/Time HGB 12.3 03/26/12 03:40 AM HGB 12.4 03/25/12 05:20 AM HGB 11.1* 03/24/12 03:45 PM WBC 12.4* 03/26/12 03:40 AM WBC 12.1* 03/25/12 05:20 AM WBC 14.0* 03/24/12 03:45 PM PLATELET 316 03/26/12 03:40 AM PLATELET 304 03/25/12 05:20 AM PLATELET 322 03/24/12 03:45 PM INR 1.4* 03/24/12 03:45 PM Lab Results Component Value Date/Time TROPONINT 1.00* 03/26/12 03:40 AM TROPONINT 0.98* 03/25/12 04:40 PM TROPONINT 0.95* 03/25/12 11:15 AM Lab Results Component Value Date/Time CK 522* 03/26/12 03:40 AM CK 775* 03/25/12 04:40 PM CK 833* 03/25/12 11:15 AM Lipid Panel Lab Results Component Value Date CHLPL 238* 03/25/2012 HDL 61 03/25/2012 CHOLHDL 3.9 03/25/2012 TRIG 151* 03/25/2012 LDLCHOL 147* 03/25/2012 LDLDIRECT 167* 03/25/2012 MEDICATIONS: Scheduled Meds: ??? citalopram 20 mg Oral Nightly ??? lisinopril 2.5 mg Oral Daily ??? aspirin 325 mg Oral Daily ??? clopidogrel 75 mg Oral Daily ??? sodium chloride 0.9 % 5 mL Intravenous Q12H ??? famotidine 20 mg Oral BID ??? docusate sodium 100 mg Oral BID ??? atorvastatin 80 mg Oral QPM ??? metoprolol tartrate 12.5 mg Oral Q6H NU ??? DISCONTD: citalopram 20 mg Oral Daily Continuous Infusions: ??? nitroGLYcerin Stopped (03/25/12 1200) PRN Meds:.HYDROmorphone, nitroGLYcerin, acetaminophen, bisacodyl, granisetron, HYDROmorphone Prescriptions prior to admission Medication Sig Dispense Refill ??? pediatric multivitamin with iron chewable tablet Take 1 tablet by mouth daily. ??? acetaminophen (TYLENOL) 500 mg tablet Take 1,000 mg by mouth every 6 hours as needed. ??? Cassandra-3 Fatty Acids (FISH OIL) 500 mg Cap Take 1,000 mg by mouth. ??? citalopram (CELEXA) 20 mg tablet Take 20 mg by mouth daily. EKG/ECHO/CATH: TTE: 1. Global left ventricular systolic function is moderately reduced. Ejection fraction is estimated to be 40%. There are left ventricular segmental wall motion abnormalities present, as shown in the diagram below. 2. Right ventricular chamber size, wall thickness, and systolic function are within normal limits. 3. There is no hemodynamically significant valve disease. Coronary Angiography: Dominance: Co-dominant Left Main The left main was normal. Left Anterior Descending There was mild diffuse disease of the entire vessel segment of the left anterior descending artery (LAD). The LAD was large. The mid segment of the LAD had a long segmental 80% stenosis. Distal flow was normal. As a consequence of the catheterization/intervention procedures, a single discrete total occlusion developed in the ostial segment of the second diagonal branch (Diag 2) of the LAD. The Diag 2 was small. Left Circumflex There was mild diffuse disease of the entire vessel segment of the left circumflex artery (LCX). The LCX was large. Right Coronary Artery There was a 50% eccentric single discrete stenosis of the mid segment of the right coronary artery (RCA). The RCA was large. Distal flow was normal. There was a 70% single discrete stenosis of the ostial segment of the acute marginal branch (AcM) of the RCA. The AcM was moderate in size. Distal flow was normal. Indication for Intervention: Coronary intervention was indicated for primary therapy for an acute myocardial infarction. Intervention Summary: Left Anterior Descending Artery \Mid 80% Stent insertion was performed on the 80% stenosis in the mid segment of the LAD. This was a de emily lesion. According to the ACC/AHA classification system, this lesion was a type B1 moderate risk lesion. Primary prevention of restenosis was the indication for stent insertion. Stent insertion was accomplished through a 6 Fr. EBU 3.5 guide. A premounted 3.50 x 16 mm Promus Element was deployed with a maximum inflation pressure of 11 atmospheres. Following stent deployment, the lesion was dilated using a 3.5mm NC Quantum Avilla 12 balloon with a maximum inflation pressure of 18 atmospheres. Another stent insertion was accomplished through a 6 Fr. EBU 3.5 guide. A premounted 3.50 x 08 mm Promus Element was deployed with a maximum inflation pressure of 17 atmospheres. The final outcome was defined as successful. There was no residual stenosis following this intervention. Distal flow was normal. Second Diagonal Branch of the LAD Ostial 100% Thrombectomy and stent insertion were attempted on the total occlusion in the ostial segment of the Diag 2. This was a de emily lesion. This lesion was designated a type B2 low risk lesion based on ACC/AHA classification system. Primary prevention of restenosis was the indication for stent insertion. Thrombectomy was accomplished through a 6 Fr EBU 4.0 guide utilizing a Pronto LP. Stent insertion was accomplished through a 6 Fr. EBU 3.5 guide. The lesion was predilated with a 2.0mm Avilla 12mm balloon with a maximum inflation pressure of 8 atmospheres. A premounted 2.25 x 12 mm PromusElement was deployed with a maximum inflation pressure of 18 atmospheres. Another stent insertion was accomplished through a 6 Fr. EBU 3.5 guide. A premounted 2.25 x 08 mm Promus Element was deployed with a maximum inflation pressure of 18 atmospheres. The final outcome was defined as unsuccessful due to the presence of a significantly decreased distal flow. The vessel was totally occluded following this intervention. Distal flow was decreased. D1 closed with initial LAD stentt placement. Wired and wire seemed to travel to multiple dista; branches. PTAC and thrombectomy did not substantially improve flow. Prox an ostila vessel stented, still no distal flow. Likley wire was in dissection plane. Closure Devices: A selective angiogram of the right femoral artery revealed no significant obstructive disease. A 6 Fr Perclose was successfully deployed. Conclusions: * Two vessel coronary artery disease (LAD and RCA) * Elevated left ventricular end diastolic pressure * Successful stent insertion of the mid LAD lesion * Unsuccessful thrombectomy and stent insertion of the ostial D2 lesion IMAGING: No results found. ASSESSMENT: 51 yo Female presenting with STEMI s/p SARAI to LAD, D1 subsequently jailed and unable quinton re-opened despite SARAI x2. Noting some chest pain that is relieved with dilaudid and SL NTG. Anticipate now that she is >24 hours outside her infarct, that her pain should continue to improve. PLAN: # STEMI: s/p SARAI x 2 to LAD, and SARAI x2 to D1 - Transfer to floor - dual antiplatelet therapy: ASA 325 mg QD, clopidogrel 75 mg QD (x 1 year) - double product control: metoprolol 25 mg Q6H, Lisinopril 2.5mg, will d/c if still having cough tomorrow - lipid lowering/plaque stabilization: atorvastatin 80 mg QD - NTG gtt - titrate for pain relief, IV and PO dilaudid pain - cardiac enzymes tomorrow am - Daily EKGs # Depression - Continue citalopram # prophylaxis: - DVT: expect to be ambulatory in 24 hours - GI: famotidine - RBOs # Dispo: anticipate watching in CVCC until CP improves; monitor for arrhythmia, signs of rupture etc. FULL CODE STATUS EMERY MEHTA MD Cardiology S2a Service Pager [phone] 03/26/2012 Cardiology Attending Progress Note Addendum: I have seen and examined the patient, providing sanchez components as outlined below. I have reviewed the resident???s above note; my evaluation of the patient is below: Major Issues Addressed; Anterior STEMI Plan: Transfer to floor and optimize medical regimen. * Dean Christy MD - 03/25/2012 6:35 AM EDT CARDIOLOGY INPATIENT PROGRESS NOTE Diana Landry 03/25/2012 Cardiology S2 Service SUMMARY: Diana Landry is a 51 y.o. female with: STEMI, s/p successful stent insertion to LAD andunsuccessful thrombectomy and stent insertion to D1. 24 HOUR EVENTS: Take to labor service representative yesterday, tolerated procedure well. See report below. - Noting some pain this morning that appears well controlled with dilaudid. VITALS: Last value Range last 24 hrs Temperature Temp: 36.7 ??C (98.1 ??F) Temp: [36.5 ??C (97.7 ??F)-36.7 ??C (98.1 ??F)] Heart Rate Heart Rate: 95 Heart Rate: [72-98] Blood Pressure BP: 113/78 mmHg BP: (75-139)/(55-103) Respiratory Rate Resp: 18 Resp: [9-19] SpO2 SpO2: 98 % SpO2: [96 %-100 %] IN/OUTS: Intake/Output Summary (Last 24 hours) at 03/25/12 0635 Last data filed at 03/25/12 0547 Gross per 24 hour Intake 1611.24 ml Output 1100 ml Net 511.24 ml Physical Exam: Constitutional/General: well-appearing, NAD EENT and Mouth: PERRL, EOMI; MMM, oropharynx clear no erythema or exudates. Neck/Thyroid: no tender lymphadenopathy; no thyromegaly; no JVD; no carotid bruit Lungs: CTA b/l no W/R/C Heart: RRR S1S2 no M/R/G Peripheral Vascular: radial and DP pulses 2+ b/l; good capillary refill distally; no edema Cath/Site: R inguinal access site benign, bandage c/d/i, no bruit Abdomen: obese; NABS; soft, nontender to palpation, no masses or organomegaly. Neurologic: non-focal; CN 2-12 intact; strength 5/5 throughout, sensation intact to light tough, patellar reflexes 2+ Skin: no rashes noted ,no lesions LABS: Recent Labs Basename 03/25/12 0520 03/24/12 1545 ??? NA 139 134* ??? K 4.1 3.6 ??? MAGNESIUM 0.84 -- ??? CALCIUM 9.1 7.7* ??? CL 105 103 ??? CO2 27 23 ??? BUN 14 14 ??? CREATININE 0.60* 0.56* ??? GLUCOSE -- 112 Lab Results Component Value Date/Time HGB 12.4 03/25/12 05:20 AM HGB 11.1* 03/24/12 03:45 PM WBC 12.1* 03/25/12 05:20 AM WBC 14.0* 03/24/12 03:45 PM PLATELET 304 03/25/12 05:20 AM PLATELET 322 03/24/12 03:45 PM Lab Results Component Value Date/Time TROPONINT 0.58* 03/25/12 05:20 AM TROPONINT 0.17* 03/24/12 10:30 PM TROPONINT 0.16* 03/24/12 05:40 PM Lab Results Component Value Date/Time CK 606* 03/25/12 05:20 AM CK 189* 03/24/12 10:30 PM CK 105 03/24/12 05:40 PM Lipid Panel Lab Results Component Value Date CHLPL 238* 03/25/2012 HDL 61 03/25/2012 CHOLHDL 3.9 03/25/2012 TRIG 151* 03/25/2012 LDLCHOL 147* 03/25/2012 MEDICATIONS: Scheduled Meds: ??? aspirin 325 mg Oral Daily ??? clopidogrel 75 mg Oral Daily ??? citalopram 20 mg Oral Daily ??? sodium chloride 0.9 % 5 mL Intravenous Q12H ??? famotidine 20 mg Oral BID ??? docusate sodium 100 mg Oral BID ??? atorvastatin 80 mg Oral QPM ??? metoprolol tartrate 12.5 mg Oral Q6H NU ??? metoprolol 5 mg Intravenous Once Continuous Infusions: ??? sodium chloride 0.9% 125 mL/hr (03/24/122226) ??? sodium chloride 0.9% 100 mL/hr (03/24/122218) ??? nitroGLYcerin 50 mcg/min (03/25/1247) ??? DISCONTD: nitroGLYcerin 20 mcg/min (03/24/12 1453) PRN Meds:.atropine, fentaNYL (PF), midazolam, nitroGLYcerin, acetaminophen, bisacodyl, granisetron,HYDROmorphone, DISCONTD: nitroGLYcerin, DISCONTD: fentaNYL (PF), DISCONTD: midazolam, DISCONTD: heparin (porcine), DISCONTD: nitroGLYCerin, DISCONTD: ticagrelor, DISCONTD: nitroGLYcerin, DISCONTD: HYD ROmorphone Prescriptions prior to admission Medication Sig Dispense Refill ??? pediatric multivitamin with iron chewable tablet Take 1 tablet by mouth daily. ??? acetaminophen (TYLENOL) 500 mg tablet Take 1,000 mg by mouth every 6 hours as needed. ??? Cassandra-3 Fatty Acids (FISH OIL) 500 mg Cap Take 1,000 mg by mouth. ??? citalopram (CELEXA) 20 mg tablet Take 20 mg by mouth daily. EKG/ECHO/CATH: TTE: 1. Global left ventricular systolic function is moderately reduced. Ejection fraction is estimated to be 40%. There are left ventricular segmental wall motion abnormalities present, as shown in the diagram below. 2. Right ventricular chamber size, wall thickness, and systolic function are within normal limits. 3. There is no hemodynamically significant valve disease. Coronary Angiography: Dominance: Co-dominant Left Main The left main was normal. Left Anterior Descending There was mild diffuse disease of the entire vessel segment of the left anterior descending artery (LAD). The LAD was large. The mid segment of the LAD had a long segmental 80% stenosis. Distal flow was normal. As a consequence of the catheterization/intervention procedures, a single discrete total occlusion developed in the ostial segment of the second diagonal branch (Diag 2) of the LAD. The Diag 2 was small. Left Circumflex There was mild diffuse disease of the entire vessel segment of the left circumflex artery (LCX). The LCX was large. Right Coronary Artery There was a 50% eccentric single discrete stenosis of the mid segment of the right coronary artery (RCA). The RCA was large. Distal flow was normal. There was a 70% single discrete stenosis of the ostial segment of the acute marginal branch (AcM) of the RCA. The AcM was moderate in size. Distal flow was normal. Indication for Intervention: Coronary intervention was indicated for primary therapy for an acute myocardial infarction. Intervention Summary: Left Anterior Descending Artery \Mid 80% Stent insertion was performed on the 80% stenosis in the mid segment of the LAD. This was a de emily lesion. According to the ACC/AHA classification system, this lesion was a type B1 moderate risk lesion. Primary prevention of restenosis was the indication for stent insertion. Stent insertion was accomplished through a 6 Fr. EBU 3.5 guide. A premounted 3.50 x 16 mm Promus Element was deployed with a maximum inflation pressure of 11 atmospheres. Following stent deployment, the lesion was dilated using a 3.5mm NC Quantum Avilla 12 balloon with a maximum inflation pressure of 18 atmospheres. Another stent insertion was accomplished through a 6 Fr. EBU 3.5 guide. A premounted 3.50 x 08 mm Promus Element was deployed with a maximum inflation pressure of 17 atmospheres. The final outcome was defined as successful. There was no residual stenosis following this intervention. Distal flow was normal. Second Diagonal Branch of the LAD Ostial 100% Thrombectomy and stent insertion were attempted on the total occlusion in the ostial segment of the Diag 2. This was a de emily lesion. This lesion was designated a type B2 low risk lesion based on ACC/AHA classification system. Primary prevention of restenosis was the indication for stent insertion. Thrombectomy was accomplished through a 6 Fr EBU 4.0 guide utilizing a Pronto LP. Stent insertion was accomplished through a 6 Fr. EBU 3.5 guide. The lesion was predilated with a 2.0mm Avilla 12mm balloon with a maximum inflation pressure of 8 atmospheres. A premounted 2.25 x 12 mm Promus Element was deployed with a maximum inflation pressure of 18 atmospheres. Another stent insertion was accomplished through a 6 Fr. EBU 3.5 guide. A premounted 2.25 x 08 mm Promus Element was deployed with a maximum inflation pressure of 18 atmospheres. The final outcome was defined as unsuccessful due to the presence of a significantly decreased distal flow. The vessel was totally occluded following this intervention. Distal flow was decreased. D1 closed with initial LAD stentt placement. Wired and wire seemed to travel to multiple dista; branches. PTAC and thrombectomy did not substantially improve flow. Prox an ostila vessel stented, still no distal flow. Eronley wire was in dissection plane. Closure Devices: A selective angiogram of the right femoral artery revealed no significant obstructive disease. A 6 Fr Perclose was successfully deployed. Conclusions: * Two vessel coronary artery disease (LAD and RCA) * Elevated left ventricular end diastolic pressure * Successful stent insertion of the mid LAD lesion * Unsuccessful thrombectomy and stent insertion of the ostial D2 lesion IMAGING: No results found. ASSESSMENT: 51 yo Female presenting with STEMI s/p SARAI to LAD, D1 subsequently jailed and unable quinton re-opened despite SARAI x2. Noting some chest pain that is relieved with dilaudid and NTG gtt. Will plan to continue to monitor in CVCC for now, and try adding PO dilaudid which should provide longer analgesia than IV dilaudid. Will plan on cycling the enzymes until down trending and monitoring daily EKGs. PLAN: # STEMI: s/p SARAI x 2 to LAD, and SARAI x2 to D1 - dual antiplatelet therapy: ASA 325 mg QD, clopidogrel 75 mg QD (x 1 year) - double product control: metoprolol 25 mg Q6H, Lisinopril 2.5mg - lipid lowering/plaque stabilization: atorvastatin 80 mg QD - NTG gtt - titrate for pain relief, IV and PO dilaudid pain - cycle cardiac enzymes - Daily EKGs # Depression - Continue citalopram # prophylaxis: - DVT: expect to be ambulatory in 24 hours - GI: famotidine - RBOs # Dispo: anticipate watching in CVCC until CP improves; monitor for arrhythmia, signs of rupture etc. FULL CODE STATUS Cardiology Attending Progress Note Addendum: I have seen and examined the patient, providing sanchez components as outlined below. I have reviewed the resident???s above note; my evaluation of the patient is below: Major Issues Addressed; STEMI s/p PCI with complication of side branch There is no problem list on file for this patient. Plan: Continue pain control and transfer to floor tonight. documented in this encounter H&P Notes * Dean Christy MD - 03/24/2012 3:34 PM EDT Cardiology Admission H&P Presenting Diagnosis/Chief Complaint: CP and found to have STEMI at OSH Active Problem List: STEMI History of Present Illness Pt is a 51 yo female with no PMHx of CAD, former smoker, and positive family history of CAD presents as transfer from OSH for STEMI. Per Pt starting yesterday pm she started noting CP that would comeon while walking up stairs and would go away with rest. She went to bed and woke up with CP that felt like someone was sitting on my chest, and radiating into both arms. She also noted some nausea and SOB with the pain, and when the pain was not going away at work, she went into the ED. She has no recent illnesses or vomiting. Pt presented to the OSH where EKGs showed anterolateral ST elevation and a troponin was elevated at0.45 (upper limit of normal 0.06). CK normal. She was given 45 mg tenecteplase, Heparin bolus and gtt, and started on a ntg gtt, 300 plavix, 325 ASA. She was taken to the labor service representative urgently, where they were able to place two SARAI to the LAD, and 2 to th D1. She tolerated the procedure well and there were no complications. Review of Systems: General: no fevers, chills, night sweats; no recent weight changes; no fatigue EENT: no changes in vision; no changes in hearing; no rhinorrhea, congestion, sinus pain, sore throat Cardiovascular: no chest pain; no palpitations; no dizziness or lightheadedness, no edema Respiratory: no SOB, GOYAL ,no cough, no wheeze GI: no abdominal pain; no nausea, vomiting, diarrhea, or constipation : no dysuria; no urgency, frequency, hesitancy Musculoskeletal: no muscle or joint pain Endocrine: no heat or cold intolerace; no polyuria/polydipsia Heme: no easy bruising or bleeding Neuro: no headaches; no numbness or tingling; no weakness; no incoordination Psych: mood good Past Medical History: - Depression Past Surgical History: - Tubes tied Social History: - Former smoker - smoked 2 packs x 30 years - quit in 97 - Hx of cocaine and marijuana use - no IVDU. Quit at 26 Family History: - Mom and Dad both from MIs - Dad at 42, Mom at 59. Brother had 2 stents placed at 45. Medications: Prescriptions prior to admission Medication Sig Dispense Refill ??? pediatric multivitamin with iron chewable tablet Take 1 tablet by mouth daily. ??? acetaminophen (TYLENOL) 500 mg tablet Take 1,000 mg by mouth every 6 hours as needed. ??? Cassandra-3 Fatty Acids (FISH OIL) 500 mg Cap Take 1,000 mg by mouth. ??? citalopram (CELEXA) 20 mg tablet Take 20 mg by mouth daily. Allergies: No Known Allergies PHYSICAL EXAM: Last value Range last 24 hrs Temperature Heart Rate Heart Rate: -- Blood Pressure BP: -- Respiratory Rate Resp: -- SpO2 SpO2: -- Constitutional/General: well-appearing, NAD EENT and Mouth: PERRL, EOMI; MMM, oropharynx clear no erythema or exudates. Neck/Thyroid: no tender lymphadenopathy; no thyromegaly; no JVD; no carotid bruit Lungs: CTA b/l no W/R/C Heart: RRR S1S2 no M/R/G Peripheral Vascular: radial and DP pulses 2+ b/l; good capillary refill distally; no edema Cath/Site: R inguinal access site benign, bandage c/d/i, no bruit Abdomen: obese; NABS; soft, nontender to palpation, no masses or organomegaly. Neurologic: non-focal; CN 2-12 intact; strength 5/5 throughout, sensation intact to light tough, patellar reflexes 2+ Skin: no rashes noted ,no lesions Diagnostics: Cath 03/24/2012 Coronary Angiography: Dominance: Co-dominant Left Main The left main was normal. Left Anterior Descending There was mild diffuse disease of the entire vessel segment of the left anterior descending artery (LAD). The LAD was large. The mid segment of the LAD had a long segmental 80% stenosis. Distal flow was normal. As a consequence of the catheterization/intervention procedures, a single discrete total occlusion developed in the ostial segment of the second diagonal branch (Diag 2) of the LAD. The Diag 2 was small. Left Circumflex There was mild diffuse disease of the entire vessel segment of the left circumflex artery (LCX). The LCX was large. Right Coronary Artery There was a 50% eccentric single discrete stenosis of the mid segment of the right coronary artery (RCA). The RCA was large. Distal flow was normal. There was a 70% single discrete stenosis of the ostial segment of the acute marginal branch (AcM) of the RCA. The AcM was moderate in size. Distal flow was normal. Indication for Intervention: Coronary intervention was indicated for primary therapy for an acute myocardial infarction. Intervention Summary: Left Anterior Descending Artery Mid 80% Stent insertion was performed on the 80% stenosis in the mid segment of the LAD. This was a de emily lesion. According to the ACC/AHA classification system, this lesion was a type B1 moderate risk lesion. Primary prevention of restenosis was the indication for stent insertion. Stent insertion was accomplished through a 6 Fr. EBU 3.5 guide. A premounted 3.50 x 16 mm Promus Element was deployed with a maximum inflation pressure of 11 atmospheres. Following stent deployment, the lesion was dilated using a 3.5mm NC Quantum Avilla 12 balloon with a maximum inflation pressure of 18 atmospheres. Another stent insertion was accomplished through a 6 Fr. EBU 3.5 guide. A premounted 3.50 x 08 mm Promus Element was deployed with a maximum inflation pressure of 17 atmospheres. The final outcome was defined as successful. There was no residual stenosis following this intervention. Distal flow was normal. Second Diagonal Branch of the LAD Ostial 100% Thrombectomy and stent insertion were attempted on the total occlusion in the ostial segment of the Diag 2. This was a de emily lesion. This lesion was designated a type B2 low risk lesion based on ACC/AHA classification system. Primary prevention of restenosis was the indication for stent insertion. Thrombectomy was accomplished through a 6 Fr EBU 4.0 guide utilizing a Pronto LP. Stent insertion was accomplished through a 6 Fr. EBU 3.5 guide. The lesion was predilated with a 2.0mm Avilla 12mm balloon with a maximum inflation pressure of 8 atmospheres. A premounted 2.25 x 12 mm Promus Element was deployed with a maximum inflation pressure of 18 atmospheres. Another stent insertion was accomplished through a 6 Fr. EBU 3.5 guide. A premounted 2.25 x 08 mm Promus Element was deployed with a maximum inflation pressure of 18 atmospheres. The final outcome was defined as unsuccessful due to the presence of a significantly decreased distal flow. The vessel was totally occluded following this intervention. Distal flow was decreased. D1 closed with initial LAD stentt placement. Wired and wire seemed to travel to multiple dista; branches. PTAC and thrombectomy did not substantially improve flow. Prox an ostila vessel stented, still no distal flow. Eronley wire was in dissection plane. Closure Devices: A selective angiogram of the right femoral artery revealed no significant obstructive disease. A 6 Fr Perclose was successfully deployed. Conclusions: * Two vessel coronary artery disease (LAD and RCA) * Elevated left ventricular end diastolic pressure * Successful stent insertion of the mid LAD lesion * Unsuccessful thrombectomy and stent insertion of the ostial D2 lesion LABS: Recent Results (from the past 24 hour(s)) CBC (WITH DIFF) Component Value Range ??? WBC 14.0 (*) 4.0 - 10.0 (x10(3)/mcL) ??? RBC 3.70 (*) 3.93 - 5.22 (x10(6)/mcL) ??? Hemoglobin 11.1 (*) 11.2 - 15.7 (gm/dL) ??? Hematocrit 32.7 (*) 34.0 - 45.0 (%) ??? MCV 88.4 79.0 - 94.0 (fL) ??? MCH 30.0 26.6 - 32.2 (pg) ??? MCHC 33.9 32.0 - 36.5 (gm/dL) ??? Platelets 322 145 - 370 (x10(3)/mcL) ??? RDWSD 41.6 35.0 - 46.0 (fL) ??? RDWCV 12.9 10.9 - 14.4 (%) ??? MPV 9.9 9.0 - 12.0 (fL) DIFFERENTIAL, AUTOMATED Component Value Range ??? Neutrophils % 72.1 (*) 34.0 - 71.0 (%) ??? Neutr Abs (ANC) 10.14 (*) 1.50 - 6.30 (x10(3)/mcL) ??? Lymphocytes % 20.7 19.0 - 53.0 (%) ??? Lymphocytes Abs 2.9 1.0 - 3.6 (x10(3)/mcL) ??? Monocytes % 4.9 4.0 - 13.0 (%) ??? Monocyte Abs 0.7 0.2 - 1.0 (x10(3)/mcL) ??? Eosinophils % 1.6 0.0 - 7.0 (%) ??? Eosinophils Abs 0.2 0.0 - 0.5 (x10(3)/mcL) ??? Basophils % 0.3 0.0 - 2.0 (%) ??? Basophils Abs 0.0 0.0 - 0.2 (x10(3)/mcL) ??? Immature Gran % 0.40 0.00 - 0.66 (%) ??? Angy Gran Abs 0.05 0.00 - 0.05 (x10(3)/mcL) ASSESSMENT and PLAN: 51 yo female presenting with EKG and troponins c/w STEMI, s/p SARAI x2 to LAD and x2 to D1. Currently HDS and will transfer to the [facility] for overnight monitoring. Will plan on usingNTG gtt # STEMI: s/p SARAI x 2 to LAD, and SARAI x2 to D1 - dual antiplatelet therapy: ASA 325 mg QD, clopidogrel 75 mg QD (x 1 year) - double product control: metoprolol 25 mg Q6H - lipid lowering/plaque stabilization: atorvastatin 80 mg QD - NTG gtt - titrate for pain relief - TTE now - cycle cardiac enzymes # Depression - Continue citalopram # prophylaxis: - DVT: expect to be ambulatory in 24 hours - GI: famotidine - RBOs # Dispo: anticipate watching in CVCC x 24 hours; monitor for arrhythmia, signs of rupture etc. FULL CODE STATUS Cardiology Attending Admit Note Addendum: I have seen and examined the patient, providing sanchez components as outlined below. I have reviewed the resident???s above note; my evaluation of the patient is below: Major Issues Addressed; Anterior STEMI with PCI to LAD today, and Diagonal branch could not be reopened Plan: Echo to evaluate systolic function, cycle cardiac biomarkers and ECGs, and optimize medical regimen. 30 minutes of direct bedside patient care delivered in critical care setting of [facility] including review of data/studies, physical examination and formulation of management plan including CAD. documented in this encounter Procedure Notes * Provider, Scanning - 03/28/2012 11:17 AM EDTAssociated Order(s): SCAN DOC: CARDIAC CATH * Provider, Scanning - 03/28/2012 11:17 AM EDTAssociated Order(s): SCAN DOC: GROUTMAN * Daryl Whelan MD - 03/24/2012 4:11 PM EDTProcedure(s): CARDIAC CATHETERIZATION Preliminary [facility] Final Report [place], [place] Patient Name: Diana Landry ID#: [id number] : 1960 Procedure Date: March 24, 2012 Case #: [id number] Room: 5 Case Physician: Daryl Whelan M.D. Start: 14:51 Fellow: Ramiro Clarke M.D. Admission: 03/24/2012 Referring Daryl Mansfield M.D. Physicians: Samia Jordan M.D. Procedures: * Coronary Angiography * Left Heart Catheterization * Coronary Stent Insertion * Coronary Embolic Protection/Thrombectomy * Closure Device Deployment * Peripheral Angiography Pre Case Status: These procedures were performed on an emergent basis. History Diana Landry is a 51 year old woman. She had hypertension and a family history of coronary artery disease. The patient had a history of smoking. She is status post an acute ST elevation myocardial infarction. The patient had been treated with intravenous thrombolysis within 24 hours prior to this case. She also had a history of an abnormal EKG. Prior to the initiation of this procedure, the patient was designated as ASA Class III. Technique: A 6Fr sheath was inserted in the right femoral artery utilizing the Seldinger technique. Left ventriculography was performed with a 6Fr Angled pigtail catheter. The left coronary artery was injected utilizing a 6Fr JL 4 catheter. A 6Fr JR 4 catheter was used to inject the right coronary artery. Coronary stent insertion and coronary embolic protection/thrombectomy were performed and the equipment utilized will be described in the intervention summary section. 6,000 units of heparin were administered. Intracoronary nitroglycerin was given during this case. A total of 300cc of Omnipaque were opened, 230cc of Omnipaque were administered and 70cc of Omnipaque were wasted. Hemodynamics: Left Heart Pressures Resting: Syst Diast EDP a v m Ao 112 79 95 LV 114 25 Coronary Angiography: Dominance: Co-dominant Left Main The left main was normal. Left Anterior Descending There was mild diffuse disease of the entire vessel segment of the left anterior descending artery (LAD). The LAD was large. The mid segment of the LAD had a long segmental 80% stenosis. Distal flow was normal. As a consequence of the catheterization/intervention procedures, a single discrete total occlusion developed in the ostial segment of the second diagonal branch (Diag 2) of the LAD. The Diag 2 was small. Left Circumflex There was mild diffuse disease of the entire vessel segment of the left circumflex artery (LCX). The LCX was large. Right Coronary Artery There was a 50% eccentric single discrete stenosis of the mid segment of the right coronary artery (RCA). The RCA was large. Distal flow was normal. There was a 70% single discrete stenosis of the ostial segment of the acute marginal branch (AcM) of the RCA. The AcM was moderate in size. Distal flow was normal. Indication for Intervention: Coronary intervention was indicated for primary therapy for an acute myocardial infarction. Intervention Summary: Left Anterior Descending Artery Mid 80% Stent insertion was performed on the 80% stenosis in the mid segment of the LAD. This was a de emily lesion. According to the ACC/AHA classification system, this lesion was a type B1 moderate risk lesion. Primary prevention of restenosis was the indication for stent insertion. Stent insertion was accomplished through a 6 Fr. EBU 3.5 guide. A premounted 3.50 x 16 mm Promus Element was deployed with a maximum inflation pressure of 11 atmospheres. Following stent deployment, the lesion was dilated using a 3.5mm NC Quantum Avilla 12 balloon with a maximum inflation pressure of 18 atmospheres. Another stent insertion was accomplished through a 6 Fr. EBU 3.5 guide. A premounted 3.50 x 08 mm Promus Element was deployed with a maximum inflation pressure of 17 atmospheres. The final outcome was defined as successful. There was no residual stenosis following this intervention. Distal flow was normal. Second Diagonal Branch of the LAD Ostial 100% Thrombectomy and stent insertion were attempted on the total occlusion in the ostial segment of the Diag 2. This was a de emily lesion. This lesion was designated a type B2 low risk lesion based on ACC/AHA classification system. Primary prevention of restenosis was the indication for stent insertion. Thrombectomy was accomplished through a 6 Fr EBU 4.0 guide utilizing a Pronto LP. Stent insertion was accomplished through a 6 Fr. EBU 3.5 guide. The lesion was predilated with a 2.0mm Avilla 12mm balloon with a maximum inflation pressure of 8 atmospheres. A premounted 2.25 x 12 mm Promus Element was deployed with a maximum inflation pressure of 18 atmospheres. Another stent insertion was accomplished through a 6 Fr. EBU 3.5 guide. A premounted 2.25 x 08 mm Promus Element was deployed with a maximum inflation pressure of 18 atmospheres. The final outcome was defined as unsuccessful due to the presence of a significantly decreased distal flow. The vessel was totally occluded following this intervention. Distal flow was decreased. D1 closed with initial LAD stentt placement. Wired and wire seemed to travel to multiple dista; branches. PTAC and thrombectomy did not substantially improve flow. Prox an ostila vessel stented, still no distal flow. Likley wire was in dissection plane. Closure Devices: A selective angiogram of the right femoral artery revealed no significant obstructive disease. A 6 Fr Perclose was successfully deployed. Conclusions: * Two vessel coronary artery disease (LAD and RCA) * Elevated left ventricular end diastolic pressure * Successful stent insertion of the mid LAD lesion * Unsuccessful thrombectomy and stent insertion of the ostial D2 lesion Complications/Events: The patient had no complications during these procedures. Recommendations: The patient's medical regimen was changed as follows: Drug eluting stent (SARAI) implanted. Ticagrelor 180 mg PO administered in the labor service representative. Continue ASA 81 mg po daily, ticagrelor 90 mg po twice daily x 12 mo or clopidogrel 75 mg daily for 12 months. Comments: Peripheral Angiography: Femoral and retrograde iliac angiography performed for assessment of peripheral vascular disease via the R femoral sheath placed selectively in the common femoral artery and separate injection of contrast. There is mild diffuse atherosclerosis of the R external iliac artery, common femoral artery, profunda and superficial femoral artery. The attending physician was present for the entire procedure. Dr. Daryl Whelan M.D. performed the coronary angiography, left heart catheterization, stent insertion-coronary, peripheral angiography, closure device and embolic protection/thrombectomy-coronary. Daryl Whelan M.D. Electronically Signed by: Daryl Whelan M.D. Report Finalized: 03/24/2012 16:04 Report Last Ammended: 03/24/2012 16:09 documented in this encounter Miscellaneous Notes * Miscellaneous - Provider, Scanning - 03/28/2012 11:17 AM EDT * Miscellaneous - Provider, Scanning - 03/28/2012 11:09 AM EDT * Consult Note - Linda Mcmillan RN - 03/27/2012 11:19 AM EDT Cardiac Rehabilitation Inpatient Evaluation Primary Cardiac Diagnosis: STEMI, s/pLAD stents Cardiac Risk Factors: Smoking: remote Overweight: yes Hyperlipidemia: yes Sedentary: yes HTN: yes Family history: yes DM: no Stress: some Patient Education: Reviewed cardiac cath findings, implications of coronary artery disease, managing angina and risk factor modification. Lipids values and treatment goals reviewed.Heart healthy dietguidelines briefly reviewed. Given parameters for home exercise. Phase II Referral: [facility] Activity Summary: By discharge, patient will be able to perform self care, walk 5-7 minutes and go up and down stairs without signs or symptoms of ischemia. Date /Initials Baseline Response Symptoms/Comments 03/27/12/ml Activity HR 71 93 joaquin well 6-7walk BP 93/67 98/65 13 stairs O2 Sat 99 98 ECG nsr nsr * Discharge Summary - Emery Mehta MD - 03/27/2012 10:11 AM EDT Cardiology - Discharge Summary Patient Name: Diana Landry Patient Age: 51 y.o. Birthdate: 1960 Admit date: 03/24/2012 Discharge date and time: 03/27/2012 Attending Physician: Dean Christy MD Follow-up Recommendations for Providers: Ms Landry had a STEMI, and had 4 SARAI placed. She will need to continue Aspirin and Clopidogrel for 12 months. Ms. Hargrove LDL on admission was 147 and was started on 80mg atorvastatin following her catheterization. Discharge Diagnoses (Hospital Problems) and Secondary Diagnoses (Chronic Problems): - STEMI Operations/Major Procedures: Cardiac Cath, See Report Below. History of Presentation: Pt is a 51 yo female with no PMHx of CAD, former smoker, and positive family history of CAD presents as transfer from OSH for STEMI. Per Pt starting yesterday pm she started noting CP that would comeon while walking up stairs and would go away with rest. She went to bed and woke up with CP that felt like someone was sitting on my chest, and radiating into both arms. She also noted some nausea and SOB with the pain, and when the pain was not going away at work, she went into the ED. She has no recent illnesses or vomiting. Pt presented to the OSH where EKGs showed anterolateral ST elevation and a troponin was elevated at0.45 (upper limit of normal 0.06). CK normal. She was given 45 mg tenecteplase, Heparin bolus and gtt, and started on a ntg gtt, 300 plavix, 325 ASA. She was taken to the labor service representative urgently, where they were able to place two SARAI to the LAD, and 2 to th D1. She tolerated the procedure well and there were no complications. Hospital Course: STEMI: Pt had 2 stents placed to the LAD for 80% occlusion, and subsequently had her D1 jailed without successful revascularization. She was transferred to the CVCC in stable condition, and started on a NTGgtt with prn dilaudid for pain control. She continued to have pain while in the cvcc that was well controlled with dilaudid and NTG. Eventually her pain resided, her TTE showed an EF of 40% with someanterior, septal and apical wall motion abnormalities. Her troponins started to trend down and she had a follow up limited ECHO prior to discharge that showed an EF of 60%. Hyperlipidemia Lipid profile showed total cholesterol 238 with LDL 167. Patient had not been on any statins, and was started on atorvastatin 80. Routine screening labs revealed the following: HA1c 5.6 The patient was evaluated by the cardiac rehab team. The patient tolerated supervised ambulation inthe hallway and up/downstairs with no anginal symptoms. It was recommended that the patient return home and participate in a supervised cardiac rehab program. The patient was discharged home in stable condition. Important Studies and Lab Data: Recent Labs Basename 03/27/12 0610 03/26/12 0340 03/25/12 0520 03/24/12 1545 ??? WBC 9.5 12.4* 12.1* 14.0* ??? HGB 11.6 12.3 12.4 11.1* ??? PLATELET 281 316 304 322 Recent Labs Basename 03/27/12 0610 03/26/12 0340 03/25/12 0520 03/24/12 1545 ??? NA 139 139 139 134* ??? K 3.7 4.2 4.1 3.6 ??? CL 104 103 105 103 ??? CO2 28 28 27 23 ??? BUN 8 9 14 14 ??? CREATININE 0.68* 0.67* 0.60* 0.56* ??? GLUCOSE 100 109 -- 112 Recent Labs Basename 03/27/12 0610 03/26/12 0340 03/25/12 0520 ??? CALCIUM 8.8 8.7 9.1 ??? MAGNESIUM 0.85 0.85 0.84 ??? PHOS 3.3 2.9 4.0 Recent Labs Basename 03/27/12 1152 03/27/12 0610 03/26/12 1730 ??? CK 138 154 283* ??? TROPONINT 0.66* 0.74* 0.72* Recent Labs Basename 03/24/12 1545 ??? AST 17 ??? ALT 12 ??? ALKPHOS 61 ??? BILITOT 0.2 ??? BILIDIR 0.1 Recent Labs Basename 03/24/12 1545 ??? INR 1.4* Lab Results Component Value Date CHLPL 238* 03/25/2012 HDL 61 03/25/2012 CHOLHDL 3.9 03/25/2012 TRIG 151* 03/25/2012 LDLCHOL 147* 03/25/2012 LDLDIRECT 167* 03/25/2012 Recent Labs Basename 03/25/12 0520 ??? HA1C 5.8 Studies: Dominance: Co-dominant Left Main The left main was normal. Left Anterior Descending There was mild diffuse disease of the entire vessel segment of the left anterior descending artery (LAD). The LAD was large. The mid segment of the LAD had a long segmental 80% stenosis. Distal flow was normal. As a consequence of the catheterization/intervention procedures, a single discrete total occlusion developed in the ostial segment of the second diagonal branch (Diag 2) of the LAD. The Diag 2 was small. Left Circumflex There was mild diffuse disease of the entire vessel segment of the left circumflex artery (LCX). The LCX was large. Right Coronary Artery There was a 50% eccentric single discrete stenosis of the mid segment of the right coronary artery (RCA). The RCA was large. Distal flow was normal. There was a 70% single discrete stenosis of the ostial segment of the acute marginal branch (AcM) of the RCA. The AcM was moderate in size. Distal flow was normal. Indication for Intervention: Coronary intervention was indicated for primary therapy for an acute myocardial infarction. Intervention Summary: Left Anterior Descending Artery \Mid 80% Stent insertion was performed on the 80% stenosis in the mid segment of the LAD. This was a de emily lesion. According to the ACC/AHA classification system, this lesion was a type B1 moderate risk lesion. Primary prevention of restenosis was the indication for stent insertion. Stent insertion was accomplished through a 6 Fr. EBU 3.5 guide. A premounted 3.50 x 16 mm Promus Element was deployed with a maximum inflation pressure of 11 atmospheres. Following stent deployment, the lesion was dilated using a 3.5mm NC Quantum Avilla 12 balloon with a maximum inflation pressure of 18 atmospheres. Another stent insertion was accomplished through a 6 Fr. EBU 3.5 guide. A premounted 3.50 x 08 mm Promus Element was deployed with a maximum inflation pressure of 17 atmospheres. The final outcome was defined as successful. There was no residual stenosis following this intervention. Distal flow was normal. Second Diagonal Branch of the LAD Ostial 100% Thrombectomy and stent insertion were attempted on the total occlusion in the ostial segment of the Diag 2. This was a de emily lesion. This lesion was designated a type B2 low risk lesion based on ACC/AHA classification system. Primary prevention of restenosis was the indication for stent insertion. Thrombectomy was accomplished through a 6 Fr EBU 4.0 guide utilizing a Pronto LP. Stent insertion was accomplished through a 6 Fr. EBU 3.5 guide. The lesion was predilated with a 2.0mm Avilla 12mm balloon with a maximum inflation pressure of 8 atmospheres. A premounted 2.25 x 12 mm Promus Element was deployed with a maximum inflation pressure of 18 atmospheres. Another stent insertion was accomplished through a 6 Fr. EBU 3.5 guide. A premounted 2.25 x 08 mm Promus Element was deployed with a maximum inflation pressure of 18 atmospheres. The final outcome was defined as unsuccessful due to the presence of a significantly decreased distal flow. The vessel was totally occluded following this intervention. Distal flow was decreased. D1 closed with initial LAD stentt placement. Wired and wire seemed to travel to multiple dista; branches. PTAC and thrombectomy did not substantially improve flow. Prox an ostila vessel stented, still no distal flow. Likley wire was in dissection plane. Closure Devices: A selective angiogram of the right femoral artery revealed no significant obstructive disease. A 6 Fr Perclose was successfully deployed. Conclusions: * Two vessel coronary artery disease (LAD and RCA) * Elevated left ventricular end diastolic pressure * Successful stent insertion of the mid LAD lesion * Unsuccessful thrombectomy and stent insertion of the ostial D2 lesion TTE: 1. Global left ventricular systolic function is moderately reduced. Ejection fraction is estimated to be 40%. There are left ventricular segmental wall motion abnormalities present ( Anterior wall, septum and apex). 2. Right ventricular chamber size, wall thickness, and systolic function are within normal limits. 3. There is no hemodynamically significant valve disease. TTE 03/27: 1. The left ventricular chamber size is normal.Left ventricular wall thickness is normal.There are segmental left ventricular wall motion abnormalities involving the perfusion territory of the LAD and diagonal vessels.There is normal global left ventricular systolic function. Ejection fraction is estimated to be 60%.Doppler assessment is consistent with normal left sided filling pressure. 2. Right ventricular chamber size, wall thickness, and systolic function are within normal limits.The estimated pulmonary artery systolic pressure is 24 mmHg. 3. There is no hemodynamically significant valve disease. Pending Studies and Lab Data: Discharge Conditions/Prognosis: Stable Discharge to: Home Discharge Medications: Current Discharge Medication List UNREVIEWED medications Dose Details pediatric multivitamin with iron chewable tablet 1 tablet Qty: Refills: acetaminophen (TYLENOL) 500 mg tablet 1,000 mg Qty: Refills: Cassandra-3 Fatty Acids (FISH OIL) 500 mg Cap 1,000 mg Qty: Refills: citalopram (CELEXA) 20 mg tablet 20 mg Qty: Refills: Updated Allergies/ADRs: No Known Allergies Provider Instructions Discharge Instructions to Patient: You were hospitalized for: You had a STEMI (heart attack); you had stents placed. It is important for you to take aspirin and plavix as directed for one year. Take metoprolol and atorvastatin as directed; do not stop any of these medications unless instructed to do so by your associate consulting engineer. Call your doctor if: You experience chest pain, shortness of breath, pain or swelling in legs, bleeding from your catheterization site, fevers, chills, or any other symptoms you find concerning. If you have non-emergent questions between now and the time of your follow up appointments: call [phone] 8am-5pm Saturday through Saturday and ask to speak to the cardiology clinic triage nurse. All other times call [phone] and ask to speak to the shallot cleaner commercial production editor. Return to work: One week Driving: No driving for 48 hours after catherization Activity: Do not engage in strenuous activity until you are cleared to do so by your doctor or associate consulting engineer. You are free to engage in a low level of activity, such as walking or climbing a flight ofstairs. Diet: Eat a low fat / low cholesterol, heart healthy diet. Please talk to your doctor if you need assistance or advice in this regard.. Follow up Appointments: Primary Care Physician:SAMIA JORDAN MD April 16 Time to be determined Cardiology: Dr. Christy April 23 10:40am Home oxygen therapy: not applicable Anti-coagulation follow up: Not applicable Arrangements for VNA / home care: not applicable Future Appointments and Orders Future Appointments: Provider: Department: Dept Phone: Center: 04/23/2012 10:40 AM MD Aminata Fofana Cardiology 4a [phone] [facility] Joint Appt Nurse Cardiology, RN Leb 4a [phone] [facility] For questions regarding this document or issues relating to this hospitalization on the Medical Service, please contact your inpatient physician through the [facility] Network Systems Engineer . Issues afterhours and on weekends will be handled by the School Age Program Teacher staff on-call. Signed: EMERY MEHTA MD * Consult Note - Linda Mcmillan RN - 03/26/2012 12:22 PM EDT Diana Hi Landry was seen today by Cardiac Rehabilitation for: (no ) An activity evaluation - Just arrived on [facility] from [facility]. Will walk with RN later and I will do formal activity eval tomorrow (yes) Education regarding CAD and cardiac risk factors started; (she had visitors arrive) Will f/u tomorrow (yes ) Participation to the outpatient cardiac rehabilitation program at [facility] was discussed. A referral will be sent to the program and the patient will be contacted within 2 weeks. * Miscellaneous - Provider, Scanning - 03/25/2012 2:33 PM EDT * Plan of Care - Lia Palma RN - 03/24/2012 8:52 PM EDT Problem: Pressure Ulcer Risk (Using Jose Cruz Scale) (Adult, Obstetric) Goal: Pressure Ulcer Risk (using Jose Cruz Scale): Tissue Integrity Outcome: Absent and monitoring Pt moving independent after bedrest 4 hours done, right leg elevated on pillow, pt skin wdl groin site wdl will cont to monitor * Plan of Care - Lia Palma RN - 03/24/2012 8:51 PM EDT Problem: Pain, Acute (Adult, Obstetric) Goal: Acute Pain: Acceptable Pain Control/Comfort Level - Pain, Acute (Adult, Obstetric) Outcome: Absent and monitoring Pt reports pain 4/10 relieved to 0/10 with use of Dilaudid medication, nitro gtt remains on 100mcg/min, pt verb understanding of pain scale and importance of reporting any changes documented in this encounter Plan of Treatment Scheduled Orders Name Type Priority Associated Diagnoses Orde r Schedule EKG 12 Lead ECG Routine STEMI (ST elevation myocardial infarction) One Time for 1 Occurrences starting 03/24/2012 until 03/24/2012 Scheduled Referrals Name Type Priority Associated Diagnoses Orde r Schedule REFERRAL TO CARDIAC REHAB Outpatient Referral Routine STEMI (ST elevation myocardial infarction) Ordered: 03/27/2012 REFERRAL TO CARDIAC REHAB Outpatient Referral Routine STEMI (ST elevation myocardial infarction) Ordered: 03/27/2012 documented as of this encounter Procedures Procedure Name Priority Date/Time Associated Diagnosis Comments CARDIAC CATHETERIZATION Routine 04/04/20 12 12:15 PM EDT GROUTMAN SCAN 03/28/2012 11:17 AM EDT CARDIAC CATH SCAN 03/28/2012 11: 17 AM EDT CARDIAC ENZYMES (DH/CGP) STAT 03/27/2012 11:52 AM EDT ECHOCARDIOGRAM LIMITED W/ CONTRAST Routine 03/27/2012 10:32 AM EDT STEMI (ST elevation myocardial infarction) EKG 12-LEAD Routine 03/27/2012 7:20 AM EDT STEMI (ST elevation myocardial infarction) DIFFERENTIAL, AUTOMATED Routine 03/27/20 12 6:10 AM EDT CARDIAC ENZYMES ([facility]/CGP) Routine 03/27/2012 6:10 AM EDT CBC (WITH DIFF) Routine 03/27/2012 6:10 AM EDT PHOSPHORUS Routine 03/27/2012 6:10 AM EDT MAGNESIUM Routine 03/27/2012 6:10 AM EDT BASIC METABOLIC PANEL Routine 03/27/2012 6:10 AM EDT EKG 12-LEAD STAT 03/27/2012 3:18 AM EDT STEMI (ST elevation myocardial infarction) CARDIAC ENZYMES ([facility]/CGP) Routine 03/26/2012 5:30 PM EDT CARDIAC ENZYMES ([facility]/CGP) Routine 03/26/2012 12:27 PM EDT EKG 12-LEAD Routine 03/26/2012 7:08 AM EDT STEMI (ST elevation myocardial infarction) DIFFERENTIAL, AUTOMATED Routine 03/26/20 12 3:40 AM EDT CARDIAC ENZYMES ([facility]/CGP) Routine 03/26/2012 3:40 AM EDT CBC (WITH DIFF) Routine 03/26/2012 3:40 AM EDT PHOSPHORUS Routine 03/26/2012 3:40 AM EDT MAGNESIUM Routine 03/26/2012 3:40 AM EDT BASIC METABOLIC PANEL Routine 03/26/2012 3:40 AM EDT CARDIAC ENZYMES ([facility]/CGP) Routine 03/25/2012 4:40 PM EDT EKG 12-LEAD STAT 03/25/2012 11:56 AM EDT STEMI (ST elevation myocardial infarction) CARDIAC ENZYMES ([facility]/CGP) Routine 03/25/2012 11:15 AM EDT EKG 12-LEAD Routine 03/25/2012 5:46 AM EDT STEMI (ST elevation myocardial infarction) BMP W/FASTING GLUCOSE Routine 03/25/2012 5:20 AM EDT DIFFERENTIAL, AUTOMATED Routine 03/25/20 12 5:20 AM EDT CARDIAC ENZYMES ([facility]/CGP) Routine 03/25/2012 5:20 AM EDT CBC (WITH DIFF) Routine 03/25/2012 5:20 AM EDT PHOSPHORUS Routine 03/25/2012 5:20 AM EDT MAGNESIUM Routine 03/25/2012 5:20 AM EDT LDL CHOLESTEROL, DIRECT Routine 03/25/20 5:20 AM EDT HEMOGLOBIN A1C Routine 03/25/2012 5:20 AM EDT LIPID PANEL (REFLEX DIRECT LDL) Routine 03/25/2012 5:20 AM EDT ECHOCARDIOGRAM TRANSTHORACIC Routine 03/25/2012 CARDIAC ENZYMES ([facility]/CGP) Routine 03/24/2012 10:30 PM EDT CARDIAC ENZYMES ([facility]/CGP) STAT 03/24/2012 5:40 PM EDT ECHOCARDIOGRAM TRANSTHORACIC Routine 03/24/2012 5:37 PM EDT STEMI (ST elevation myocardial infarction) EKG 12-LEAD Routine 03/24/2012 4:48 PM EDT STEMI (ST elevation myocardial infarction) DIFFERENTIAL, AUTOMATED STAT 03/24/20 12 3:45 PM EDT CARDIAC ENZYMES (DH/CGP) STAT 03/24/2012 3:45 PM EDT PROTHROMBIN TIME STAT 03/24/2012 3:45 PM EDT CBC (WITH DIFF) STAT 03/24/2012 3:45 PM EDT COMPREHENSIVE METABOLIC PANEL STAT 03/24/2012 3:45 PM EDT CARDIAC CATHETERIZATION 03/24/20 12 2:51 PM EDT STEMI documented in this encounter Results * Cardiac Catheterization (04/04/2012 12:15 PM EDT) Anatomical Region Laterality Modality Other Daryl Whelan MD CARDIAC CATH ORDERAB LES * SCAN DOC: GROUTMAN (03/28/2012 11:17 AM EDT) Anatomical Region Laterality Modality Other Narrative 03/28/2012 1:45 PM EDT Procedure Note Provider, Scanning - 03/28/2012 11:17 AM EDT Scanning Provider MEDIA MGR SCAN EXT O RDR/RSLT * SCAN DOC: CARDIAC CATH (03/28/2012 11:17 AM EDT) Anatomical Region Laterality Modality Other Narrative 03/28/2012 1:45 PM EDT Procedure Note Provider, Scanning - 03/28/2012 11:17 AM EDT Scanning Provider MEDIA MGR SCAN EXT O RDR/RSLT * (ABNORMAL) Cardiac Enzymes (03/27/2012 11:52 AM EDT) Troponin-T 0.66(H) <=0.03 ng/mL [facility] Comment: 0.03 ng/mL: Represents the 99th percentile upper reference limit for normals. >0.03 ng/mL: Elevated cardiac troponin T level indicative of myocardial damage. Diagnosis of acute, evolving or recent AL requires a typical rise and gradual fall of cTnT with at least ONE of the following: a) Ischemic symptoms b) Development of pathologic Q waves on the ECG c) ECG changes indicative of eschemia (S-T segment elevation/depression) d) Coronary artery intervention Serial bloods should be obtained for testing on admission, at 6 to 9 hrs and again at 12 to 24 hrs if earlier samples are negative and the clinical index of suspicion is high. Reference: [Myocardial infarction redefined a consensus document of the Joint Society of Cardiology/[place] College of Cardiology Committee for the redefinition of myocardial infarction. Journal of the [place] College of Cardiology 2000; 36: 959-969] Creatine Kinase 138 0 - 160 unit/L SULLY JONES Blood specimen (specimen) 03/27/2012 11:52 AM EDT 03/27/2012 12:10 PM EDT Narrative Resulting Agency Comment Spec In Lab Daryl Whelan MD CHEMISTRY ORDERABLES SULLY JONES * Echocardiogram limited w/ Contrast (03/27/2012 10:32 AM EDT) EF 60 HEARTTrovaGene SYSTEM Anatomical Region Laterality Modality Other 03/27/2012 Narrative 03/27/2012 10:53 AM EDT Procedure: ? Transthoracic Echocardiogram Patient: ? YAMILETH Do ?(Age): 1960(51) Med Rec#: ?[id number] ? Sex: ?F ? Site Loc: ?[facility] ? Ht / Wt: ??157(cm)/83(kg) Pt. Loc: ? Adult Floor ?BSA: ?1.84 Study Date: ?03/27/2012 ? Pt. Type: Inpatient Tape: ? Referring: Daryl Whelan Chain Dyer: Moe Brantley RDCS Diagnosis: ??Acute AL (410.90) CPT Code(s): ??Echo LTD (66702), ??Doppler LTD (26618), ??Color Doppler (61208), Indication(s): ??Myocardial infarction Rhythm: HR ?BP 81 ?107/68 ?? SUMMARY: 1. The left ventricular chamber size is normal.Left ventricular wall thickness is normal.There are segmental left ventricular wall motion abnormalities involving the perfusion territory of the LAD and diagonal vessels.There is normal global left ventricular systolic function. Ejection fraction is estimated to be 60%.Doppler assessment is consistent with normal left sided filling pressure. 2. Right ventricular chamber size, wall thickness, and systolic function are within normal limits.The estimated pulmonary artery systolic pressure is 24 mmHg. 3. There is no hemodynamically significant valve disease. 4. See remainder of report for additional findings. FINDINGS: Left Ventricle ?The left ventricular chamber size is normal. ?Left ventricular wall thickness is normal. ?There is normal global left ventricular systolic function. ??Ejection fraction is estimated to be 60%. ?The quantitative left ventricular ejection fraction is 61% by Arcos's Biplane method. ?There are segmental left ventricular wall motion abnormalities involving the perfusion territory of the LAD and diagonal vessels. ?Doppler assessment is consistent with normal left sided filling pressure. ?The ??mid anteroseptal, mid anterior, mid anterolateral, apical anterior and apical lateral wall segments are hypokinetic. Left Atrium ?The left atrium is normal in size. Right Ventricle ?Right ventricular chamber size, wall thickness, and systolic function are within normal limits. ?The estimated pulmonary artery systolic pressure is 24 mmHg. ?The estimated right atrial pressure is 3 mmHg. Right Atrium ?The right atrium is normal in size. Aortic Valve ?The aortic valve is trileaflet. The leaflets are thin with normal excursion. There is no aortic stenosis or regurgitation present. Mitral Valve ?The mitral valve appears normal in structure and function. ?There is trace mitral regurgitation present. Tricuspid Valve ?The tricuspid valve appears normal in structure and function. ?There is mild (1+/4+) tricuspid regurgitation present. Pulmonic Valve ?The pulmonic valve appears normal in structure and function. Pericardium ?A trivial pericardial effusion is visualized. Aorta ?The aortic root is normal in size. ?The ascending aorta is normal in size. ?There is no evidence of coarctation of the aorta. Pulmonary Artery ?The main pulmonary artery appears normal. Venous ?The inferior vena cava appears normal in size. ?There is a greater than 50% respiratory change in the inferior vena cava dimension. Misc ?There is no hemodynamically significant valve disease. ?See remainder of report for additional findings. ?Two-dimensional echo, spectral Doppler and color Doppler performed. Wall Motion: Segment Name ?Rest ? Base-Anteroseptal ?? Normal ? Base-Anterior ? Normal ? Base-Anterolateral ??Normal ? Base-Posterolateral Normal ? Base-Inferior ? Normal ? Base-Inferoseptal ?? Normal ? Mid-Anteroseptal ?Hypokinetic ? Mid-Anterior ?Hypokinetic ? Mid-Anterolateral ?? Hypokinetic ? Mid-Posterolateral ??Normal ? Mid-Inferior ?Normal ? Mid-Inferoseptal ?Normal ? Avilla-Septal ? Normal ? Avilla-Anterior ? Hypokinetic ? Avilla-Lateral ?Hypokinetic ? Avilla-Inferior ? Normal ? Avilla-Tip ?Hypokinetic ? Chambers ?Value ?Units (Range) ? LV EF Est ? 60 ? % (55 to 80) ? EF ??Bi-p Simp ? 61 ? % (55 to 80) ? IVSd MM ? 0.9 ?cm (0.3 to 1.1) ? LVIDd MM ?4.9 ?cm (3.7 to 5.6) ? PWd MM ?0.9 ?cm (0.6 to 1.1) ? LVIDs MM ?3.2 ?cm (2.3 to 3.9) ? LVFS MM ? 35 ? % (28 to 42) ? LV mass ? 153 ?gm ? LA area ? 14 ? cm2 (<21) ? RA area ? 14 ? cm2 (<18) ? Mitral Valve ?Value ?Units (Range) ? E peak ?0.8 ?m/sec ? E/A ratio ? 1.1 ?ratio ? MVDT ?264 ?msec ? E1 ?0.13 ? m/sec ? E/E1 ?6 ?ratio ? Tricuspid/Pulmonic Valves ?Value ?Units (Range) ? TR peak rhett ? 2.3 ?m/sec ? RAP ? 3 ?mmHg ? RVSP/PASP ? 24 ? mmHg ? This report has been electronically signed by: Ashish Urbina MD ? 03/27/2012 10:52:54 Images reviewed and interpretation verified [facility] Cardiac Ultrasound Laboratory Procedure Note Ashish Urbina MD - 03/27/2012 Procedure: Transthoracic Echocardiogram Patient: YAMILETH CLEMENTE(Age): 1960(51) Med Rec#: [id number] Sex: F Site Loc: [facility] Ht / Wt: 157(cm)/83(kg) Pt. Loc: Adult Floor BSA: 1.84 Study Date: 03/27/2012 Pt. Type: Inpatient Tape: Referring: Daryl Whelan Chain Dyer: Moe Brantley [facility] [email or web address]] Diagnosis: Acute AL (410.90) CPT Code(s): Echo LTD (07547), Doppler LTD (66121), Color Doppler (44619), Indication(s): Myocardial infarction Rhythm: HR BP 81 107/68 SUMMARY: 1. The left ventricular chamber size is normal.Left ventricular wall thickness is normal.There are segmental left ventricular wall motion abnormalities involving the perfusion territory of the LAD and diagonal vessels.There is normal global left ventricular systolic function. Ejection fraction is estimated to be 60%.Doppler assessment is consistent with normal left sided filling pressure. 2. Right ventricular chamber size, wall thickness, and systolic function are within normal limits.The estimated pulmonary artery systolic pressure is 24 mmHg. 3. There is no hemodynamically significant valve disease. 4. See remainder of report for additional findings. FINDINGS: Left Ventricle The left ventricular chamber size is normal. Left ventricular wall thickness is normal. There is normal global left ventricular systolic function. Ejection fraction is estimated to be 60%. The quantitative left ventricular ejection fraction is 61% by Arcos's Biplane method. There are segmental left ventricular wall motion abnormalities involving the perfusion territory of the LAD and diagonal vessels. Doppler assessment is consistent with normal left sided filling pressure. The mid anteroseptal, mid anterior, mid anterolateral, apical anterior and apical lateral wall segments are hypokinetic. Left Atrium The left atrium is normal in size. Right Ventricle Right ventricular chamber size, wall thickness, and systolic function are within normal limits. The estimated pulmonary artery systolic pressure is 24 mmHg. The estimated right atrial pressure is 3 mmHg. Right Atrium The right atrium is normal in size. Aortic Valve The aortic valve is trileaflet. The leaflets are thin with normal excursion. There is no aortic stenosis or regurgitation present. Mitral Valve The mitral valve appears normal in structure and function. There is trace mitral regurgitation present. Tricuspid Valve The tricuspid valve appears normal in structure and function. There is mild (1+/4+) tricuspid regurgitation present. Pulmonic Valve The pulmonic valve appears normal in structure and function. Pericardium A trivial pericardial effusion is visualized. Aorta The aortic root is normal in size. The ascending aorta is normal in size. There is no evidence of coarctation of the aorta. Pulmonary Artery The main pulmonary artery appears normal. Venous The inferior vena cava appears normal in size. There is a greater than 50% respiratory change in the inferior vena cava dimension. Misc There is no hemodynamically significant valve disease. See remainder of report for additional findings. Two-dimensional echo, spectral Doppler and color Doppler performed. Wall Motion: Segment Name Rest Base-Anteroseptal Normal Base-Anterior Normal Base-Anterolateral Normal Base-Posterolateral Normal Base-Inferior Normal Base-Inferoseptal Normal Mid-Anteroseptal Hypokinetic Mid-Anterior Hypokinetic Mid-Anterolateral Hypokinetic Mid-Posterolateral Normal Mid-Inferior Normal Mid-Inferoseptal Normal Avilla-Septal Normal Avilla-Anterior Hypokinetic Avilla-Lateral Hypokinetic Avilla-Inferior Normal Avilla-Tip Hypokinetic Chambers Value Units (Range) LV EF Est 60 % (55 to 80) EF Bi-p Simp 61 % (55 to 80) IVSd MM 0.9 cm (0.3 to 1.1) LVIDd MM 4.9 cm (3.7 to 5.6) PWd MM 0.9 cm (0.6 to 1.1) LVIDs MM 3.2 cm (2.3 to 3.9) LVFS MM 35 % (28 to 42) LV mass 153 gm LA area 14 cm2 (<21) RA area 14 cm2 (<18) Mitral Valve Value Units (Range) E peak 0.8 m/sec E/A ratio 1.1 ratio MVDT 264 msec E1 0.13 m/sec E/E1 6 ratio Tricuspid/Pulmonic Valves Value Units (Range) TR peak rhett 2.3 m/sec RAP 3 mmHg RVSP/PASP 24 mmHg This report has been electronically signed by: Ashish Urbina MD 03/27/2012 10:52:54 Images reviewed and interpretation verified [facility] Cardiac Ultrasound Laboratory Daryl Whelan MD ECHO ORDERABLES * EKG 12 Lead (03/27/2012 7:20 AM EDT) Ventricular rate 82 BPM MUSE SYSTEM Atrial Rate 82 BPM MUSE SYSTEM P-R Interval 148 ms MUSE SYSTEM QRS Duration 88 ms MUSE SYSTEM Q-T Interval 354 ms MUSE SYSTEM QTC Calculated (Bezet) 413 ms MUSE SYSTEM Calculated P [place] 61 degrees MUSE SYSTEM Calculated R [place] 73 degrees MUSE SYSTEM Calculated T [place] 62 degrees MUSE SYSTEM INTERPRETATION Normal sinus rhythm Normal ECG When compared with ECG of 27-MAR-2012 03:18, (unconfirme d) QRS axis Shifted left Criteria for Lateral infarct are no longer Present Confirmed by MD Nomi, Gabe Arauz ([id number]) on 03/27/2012 1:29:34 PM MUSE SYSTEM 03/27/2012 7:20 AM EDT 03/27/2012 1:29 PM EDT Daryl Whelan MD ECG ORDERABLES MUSE SYSTEM * DIFFERENTIAL, AUTOMATED (03/27/2012 6:10 AM EDT) Neutrophil % 58.1 34.0 - 71.0 % CERNER MILLENNIUM Neutrophil Absolute 5.54 1.50 - 6.30 x10(3)/mcL CERNER MILLENNIUM Lymph % 28.5 19.0 - 53.0 % CERNER MILLENNIUM Lymphocytes Abs 2.7 1.0 - 3.6 x10(3)/mcL CERNER MILLENNIUM Monocyte % 8.7 4.0 - 13.0 % CERNER MILLENNIUM Monocyte Abs 0.8 0.2 - 1.0 x10(3)/mcL CERNER MILLENNIUM Eos % 4.2 0.0 - 7.0 % CERNER MILLENNIUM Eosinophils Abs 0.4 0.0 - 0.5 x10(3)/mcL CERNER MILLENNIUM Basophil % 0.3 0.0 - 2.0 % CERNER MILLENNIUM Baso Absolute 0.0 0.0 - 0.2 x10(3)/[facility] CERNER MILLENNIUM Immature Gran % 0.20 0.00 - 0.66 % CERNER MILLENNIUM Comment: Immature granulocytes(IG's)percentage and absolute count will include metamyelocytes, myelocytes, and promyelocytes. Blood smears from CBCs yielding IG's will be scanned manually for concordance. If this scan disagrees with the automated IG or if promyelocytes are noted, a manual differential will be performed. Immature Gran Absolute 0.02 0.00 - 0.05 x10(3)/[facility] CERNER MILLENNIUM Blood specimen (specimen) 03/27/2012 6:10 AM EDT 03/27/2012 6:31 AM EDT Daryl Whelan MD HEMATOLOGY ORDERABLE S SULLY MILLENNIUM * Phosphorus (03/27/2012 6:10 AM EDT) Phosphorus 3.3 2.5 - 4.5 mg/dL CERNER MILLENNIUM Blood specimen (specimen) 03/27/2012 6:10 AM EDT 03/27/2012 6:31 AM EDT Narrative Resulting Agency Comment Spec In Lab Daryl Whelan MD CHEMISTRY ORDERABLES SULLY DOMINGUEZENNIUM * Magnesium (03/27/2012 6:10 AM EDT) Magnesium 0.85 0.69 - 1.07 mmol/L CERNER MILLENNIUM Blood specimen (specimen) 03/27/2012 6:10 AM EDT 03/27/2012 6:31 AM EDT Narrative Resulting Agency Comment Spec In Lab Daryl Whelan MD CHEMISTRY ORDERABLES CERNER MILLENNIUM * (ABNORMAL) Basic Metabolic Panel (non-fasting) (03/27/2012 6:10 AM EDT) Glucose 100 60 - 199 mg/dL CERNER MILLENNIUM Comment:Diabetes: >=200 mg/d L plus symptoms Blood Urea Nitrogen 8 8 - 18 mg/dL CERNER MILLENNIUM Creatinine 0.68(L) 0.70 - 1.20 mg/dL CERNER MILLENNIUM Sodium 139 135 - 145 mmol/L CERNER MILLENNIUM Potassium 3.7 3.5 - 5.0 mmol/L CERNER MILLENNIUM Comment: Please note: ??Patients with WBC >100,000 may have falsely elevated Potassium levels. ??For accurate Potassium quantification in these patients send serum separator tube (gold top) for subsequent determinations. ??Contact the Clinical Chemistry Laboratory if there are any questions. Chloride 104 98 - 107 mmol/L CERNER MILLENNIUM Carbon Dioxide 28 22 - 31 mmol/L CERNER MILLENNIUM Anion Gap 7 5 - 15 mmol/L CERNER MILLENNIUM Calcium 8.8 8.5 - 10.5 mg/dL CERNER MILLENNIUM Est Glomerular Filtration Rate >60 >=60 CERNER MILLENNIUM Comment: The National Kidney Disease Education Program (NKDEP) has recommended all laboratories report estimated GFR (eGFR) along with plasma creatinine measurements to assist you with recognition of early kidney disease. Caveats: ??Plasma creatinine should be at steady-state (unchanged within the past week). For patients multiply eGFR by 1.2. The MDRD equation was developed using patients between the ages of 18 and 70 years. ?? The MDRD equation has not been validated for patients < 18 years of age and should not be used to assess renal function in the pediatric population. ??The MDRD eGFR equation will also overestimate the true GFR of patients above the age of 70. ??This overestimation is variable but increases with age. At present, NKDEP does NOT recommend using the MDRD equation for drug dosing purposes and pharmacists should continue to use their current dosing methods. In addition, numerical eGFR values greater than 60 ml/min/1.73 square meters should be treated as > 60, and not an exact number due to greater inaccuracies at these higher values. Per NKDEP, they classify normal renal function as any GFR >60ml/min/1.73 square meters; chronic kidney disease when GFR <60, and renal failure when GFR <15. ??This calculation may not be valid for patients with atypical muscle mass (very lean or obese), acute renal failure, and in patients with diabetic kidney disease. References: http://nkdep.nih.gov/resources/NKDEP_Suggestn4Labs_0606_508.pdf http://www.kidney.org/professionals/kls/pdf/faq_gfr.pdf Sara K, Rayne NA, Rebekah AK, Ayden TS, William AD, [place] CHARLES. Relative performance of the MDRD and CKD-EPI equations for estimating glomerular filtration rate among patients with varied clinical presentations. Clin J Am Soc Nephrol;6:1963-72. Blood specimen (specimen) 03/27/2012 6:10 AM EDT 03/27/2012 6:31 AM EDT Narrative Resulting Agency Comment Spec In Lab Daryl Whelan MD CHEMISTRY ORDERABLES [facility] ANGELICABRADLEY * (ABNORMAL) CBC (with Diff) (03/27/2012 6:10 AM EDT) White Blood Cell 9.5 4.0 - 10.0 x10(3)/mc L CERNER MILLENNIUM Red Blood Cell 3.81(L) 3.93 - 5.22 x10(6)/mc L CERNER MILLENNIUM Hemoglobin 11.6 11.2 - 15.7 gm/dL CERNER MILLENNIUM Hematocrit 35.0 34.0 - 45.0 % CERNER MILLENNIUM Mean Cell Volume 91.9 79.0 - 94.0 fL CERNER MILLENNIUM Mean Cell Hemoglobin 30.4 26.6 - 32.2 pg CERNER MILLENNIUM Mean Cell Hemoglobin Concentration 33.1 32.0 - 36.5 gm/dL CERNER MILLENNIUM Platelet 281 145 - 370 x10(3)/mc L CERNER MILLENNIUM RDW Standard Deviation 45.9 35.0 - 46.0 fL CERNER MILLENNIUM RDW coefficient of variation 13.8 10.9 - 14.4 % CERNER MILLENNIUM Mean Platelet Volume 10.2 9.0 - 12.0 fL CERNER MILLENNIUM Blood specimen (specimen) 03/27/2012 6:10 AM EDT 03/27/2012 6:31 AM EDT Narrative Resulting Agency Comment Spec In Lab Daryl Whelan MD HEMATOLOGY ORDERABLE S SULLY DOMINGUEZENNIUM * (ABNORMAL) Cardiac Enzymes (03/27/2012 6:10 AM EDT) Troponin-T 0.74(H) <=0.03 ng/mL CERNER MILLENNIUM Comment: 0.03 ng/mL: Represents the 99th percentile upper reference limit for normals. >0.03 ng/mL: Elevated cardiac troponin T level indicative of myocardial damage. Diagnosis of acute, evolving or recent AL requires a typical rise and gradual fall of cTnT with at least ONE of the following: a) Ischemic symptoms b) Development of pathologic Q waves on the ECG c) ECG changes indicative of eschemia (S-T segment elevation/depression) d) Coronary artery intervention Serial bloods should be obtained for testing on admission, at 6 to 9 hrs and again at 12 to 24 hrs if earlier samples are negative and the clinical index of suspicion is high. Reference: [Myocardial infarction redefined a consensus document of the Joint Society of Cardiology/[place] College of Cardiology Committee for the redefinition of myocardial infarction. Journal of the [place] College of Cardiology 2000; 36: 959-969] Creatine Kinase 154 0 - 160 unit/L CERNER MILLENNIUM Blood specimen (specimen) 03/27/2012 6:10 AM EDT 03/27/2012 6:31 AM EDT Narrative Resulting Agency Comment Spec In Lab Daryl Whelan MD CHEMISTRY ORDERABLES Performing Organization Address [facility] Co de Phone Number [facility] CANTRELLTrutap * EKG 12 Lead (03/27/2012 3:18 AM EDT) Ventricular rate 75 BPM MUSE SYSTEM Atrial Rate 75 BPM MUSE SYSTEM P-R Interval 142 ms MUSE SYSTEM QRS Duration 84 ms MUSE SYSTEM Q-T Interval 380 ms MUSE SYSTEM QTC Calculated (Bezet) 424 ms MUSE SYSTEM Calculated R [place] 144 degrees MUSE SYSTEM Calculated T [place] 143 degrees MUSE SYSTEM INTERPRETATION Suspect arm lead reversal, interpretation assumes no reversal Normal sinus rhythm When compared with ECG of 26-MAR-2012 07:08, lead reversal = please repeat EKG with attention to lead placement Confirmed by MD Nomi, Gabe Arauz ([id number]) on 03/27/2012 1:29:07 PM MUSE SYSTEM 03/27/2012 3:18 AM EDT 03/27/2012 1:29 PM EDT Daryl Whelan MD ECG ORDERABLES Performing Organization Address [facility] Co de Phone Number MUSE SYSTEM * (ABNORMAL) Cardiac Enzymes (03/26/2012 5:30 PM EDT) Pathologist [facility] Troponin-T 0.72(H) <=0.03 ng/mL SULLY JONES Comment: 0.03 ng/mL: Represents the 99th percentile upper reference limit for normals. >0.03 ng/mL: Elevated cardiac troponin T level indicative of myocardial damage. Diagnosis of acute, evolving or recent AL requires a typical rise and gradual fall of cTnT with at least ONE of the following: a) Ischemic symptoms b) Development of pathologic Q waves on the ECG c) ECG changes indicative of eschemia (S-T segment elevation/depression) d) Coronary artery intervention Serial bloods should be obtained for testing on admission, at 6 to 9 hrs and again at 12 to 24 hrs if earlier samples are negative and the clinical index of suspicion is high. Reference: [Myocardial infarction redefined a consensus document of the Joint Society of Cardiology/[place] College of Cardiology Committee for the redefinition of myocardial infarction. Journal of the [place] College of Cardiology 2000; 36: 959-969] Creatine Kinase 283(H) 0 - 160 unit/L CERNER ANGELICAENNIUM Blood specimen (specimen) 03/26/2012 5:30 PM EDT 03/26/2012 5:47 PM EDT Narrative Resulting Agency Comment Spec In Lab Daryl Whelan MD CHEMISTRY ORDERABLES Performing Organization Address [facility] Co de Phone Number SULLY JONES * (ABNORMAL) Cardiac Enzymes (03/26/2012 12:27 PM EDT) Troponin-T 0.71(H) <=0.03 ng/mL SULLY CANTRELLIUM Comment: 0.03 ng/mL: Represents the 99th percentile upper reference limit for normals. >0.03 ng/mL: Elevated cardiac troponin T level indicative of myocardial damage. Diagnosis of acute, evolving or recent AL requires a typical rise and gradual fall of cTnT with at least ONE of the following: a) Ischemic symptoms b) Development of pathologic Q waves on the ECG c) ECG changes indicative of eschemia (S-T segment elevation/depression) d) Coronary artery intervention Serial bloods should be obtained for testing on admission, at 6 to 9 hrs and again at 12 to 24 hrs if earlier samples are negative and the clinical index of suspicion is high. Reference: [Myocardial infarction redefined a consensus document of the Joint Society of Cardiology/[place] College of Cardiology Committee for the redefinition of myocardial infarction. Journal of the [place] College of Cardiology 2000; 36: 959-969] Creatine Kinase 363(H) 0 - 160 unit/L CEREV DOMINGUEZENNIUM Blood specimen (specimen) 03/26/2012 12:27 PM EDT 03/26/2012 12:37 PM EDT Narrative Resulting Agency Comment Spec In Lab Daryl Whelan MD CHEMISTRY ORDERABLES Performing Organization Address [facility] Co de Phone Number SULLY JONES * EKG 12 Lead (03/26/2012 7:08 AM EDT) Ventricular rate 84 BPM MUSE SYSTEM Atrial Rate 84 BPM MUSE SYSTEM P-R Interval 140 ms MUSE SYSTEM QRS Duration 84 ms MUSE SYSTEM Q-T Interval 336 ms MUSE SYSTEM QTC Calculated (Bezet) 397 ms MUSE SYSTEM Calculated P [place] 52 degrees MUSE SYSTEM Calculated R [place] 59 degrees MUSE SYSTEM Calculated T [place] 54 degrees MUSE SYSTEM INTERPRETATION Normal sinus rhythm Normal ECG When compared with ECG of 25-MAR-2012 11:56, No significant change was found Confirmed by MD Nomi, Gabe Arauz ([id number]) on 03/26/2012 11:31:41 AM MUSE SYSTEM 03/26/2012 7:08 AM EDT 03/26/2012 11:31 AM EDT Daryl Whelan MD ECG ORDERABLES MUSE SYSTEM * (ABNORMAL) CARDIAC ENZYMES (03/26/2012 3:40 AM EDT) Troponin-T 1.00(H) <=0.03 ng/mL CERNER MILLENNIUM Comment: 0.03 ng/mL: Represents the 99th percentile upper reference limit for normals. >0.03 ng/mL: Elevated cardiac troponin T level indicative of myocardial damage. Diagnosis of acute, evolving or recent AL requires a typical rise and gradual fall of cTnT with at least ONE of the following: a) Ischemic symptoms b) Development of pathologic Q waves on the ECG c) ECG changes indicative of eschemia (S-T segment elevation/depression) d) Coronary artery intervention Serial bloods should be obtained for testing on admission, at 6 to 9 hrs and again at 12 to 24 hrs if earlier samples are negative and the clinical index of suspicion is high. Reference: [Myocardial infarction redefined a consensus document of the Joint Society of Cardiology/[place] College of Cardiology Committee for the redefinition of myocardial infarction. Journal of the [place] College of Cardiology 2000; 36: 959-969] Creatine Kinase 522(H) 0 - 160 unit/L CERNER DooBopENNIUM Blood specimen (specimen) 03/26/2012 3:40 AM EDT 03/26/2012 3:43 AM EDT Narrative Resulting Agency Comment Spec In Lab Daryl Whelan MD CHEMISTRY ORDERABLES Performing Organization Address City/[facility]/ZIP Co de Phone Number [employer] * (ABNORMAL) DIFFERENTIAL, AUTOMATED (03/26/2012 3:40 AM EDT) Neutrophil % 68.2 34.0 - 71.0 % CERNER MILLENNIUM Neutrophil Absolute 8.46(H) 1.50 - 6.30 x10(3)/mc L CERNER MILLENNIUM Lymph % 20.6 19.0 - 53.0 % CERNER MILLENNIUM Lymphocytes Abs 2.6 1.0 - 3.6 x10(3)/mc L CERNER MILLENNIUM Monocyte % 7.7 4.0 - 13.0 % CERNER MILLENNIUM Monocyte Abs 1.0 0.2 - 1.0 x10(3)/mc L CERNER MILLENNIUM Eos % 2.8 0.0 - 7.0 % CERNER MILLENNIUM Eosinophils Abs 0.4 0.0 - 0.5 x10(3)/mc L CERNER MILLENNIUM Basophil % 0.3 0.0 - 2.0 % CERNER MILLENNIUM Baso Absolute 0.0 0.0 - 0.2 x10(3)/mc L CERNER MILLENNIUM Immature Gran % 0.40 0.00 - 0.66 % CERNER MILLENNIUM Comment: Immature granulocytes(IG's)percentage and absolute count will include metamyelocytes, myelocytes, and promyelocytes. Blood smears from CBCs yielding IG's will be scanned manually for concordance. If this scan disagrees with the automated IG or if promyelocytes are noted, a manual differential will be performed. Immature Gran Absolute 0.05 0.00 - 0.05 x10(3)/mc L CERNER ANGELICAENNIUM Blood specimen (specimen) 03/26/2012 3:40 AM EDT 03/26/2012 3:42 AM EDT Daryl Whelan MD HEMATOLOGY ORDERABLE S SULLY CANTRELLIUM * Phosphorus (03/26/2012 3:40 AM EDT) Phosphorus 2.9 2.5 - 4.5 mg/dL CERNER MILLENNIUM Blood specimen (specimen) 03/26/2012 3:40 AM EDT 03/26/2012 3:42 AM EDT Narrative Resulting Agency Comment Spec In Lab Daryl Whelan MD CHEMISTRY ORDERABLES CEREV DOMINGUEZENNIUM * Magnesium (03/26/2012 3:40 AM EDT) Magnesium 0.85 0.69 - 1.07 mmol/L CERNER MILLENNIUM Blood specimen (specimen) 03/26/2012 3:40 AM EDT 03/26/2012 3:42 AM EDT Narrative Resulting Agency Comment Spec In Lab Daryl Whelan MD CHEMISTRY ORDERABLES CEREV DOMINGUEZENNIUM * (ABNORMAL) Basic Metabolic Panel (non-fasting) (03/26/2012 3:40 AM EDT) Glucose 109 60 - 199 mg/dL CERNER MILLENNIUM Comment:Diabetes: >=200 mg/d L plus symptoms Blood Urea Nitrogen 9 8 - 18 mg/dL CERNER MILLENNIUM Creatinine 0.67(L) 0.70 - 1.20 mg/dL CERNER MILLENNIUM Sodium 139 135 - 145 mmol/L CERNER MILLENNIUM Potassium 4.2 3.5 - 5.0 mmol/L CERNER MILLENNIUM Comment: Please note: ??Patients with WBC >100,000 may have falsely elevated Potassium levels. ??For accurate Potassium quantification in these patients send serum separator tube (gold top) for subsequent determinations. ??Contact the Clinical Chemistry Laboratory if there are any questions. Chloride 103 98 - 107 mmol/L CERNER MILLENNIUM Carbon Dioxide 28 22 - 31 mmol/L CERNER MILLENNIUM Anion Gap 8 5 - 15 mmol/L CERNER MILLENNIUM Calcium 8.7 8.5 - 10.5 mg/dL CERNER MILLENNIUM Est Glomerular Filtration Rate >60 >=60 CERNER MILLENNIUM Comment: The National Kidney Disease Education Program (NKDEP) has recommended all laboratories report estimated GFR (eGFR) along with plasma creatinine measurements to assist you with recognition of early kidney disease. Caveats: ??Plasma creatinine should be at steady-state (unchanged within the past week). For patients multiply eGFR by 1.2. The MDRD equation was developed using patients between the ages of 18 and 70 years. ?? The MDRD equation has not been validated for patients < 18 years of age and should not be used to assess renal function in the pediatric population. ??The MDRD eGFR equation will also overestimate the true GFR of patients above the age of 70. ??This overestimation is variable but increases with age. At present, NKDEP does NOT recommend using the MDRD equation for drug dosing purposes and pharmacists should continue to use their current dosing methods. In addition, numerical eGFR values greater than 60 ml/min/1.73 square meters should be treated as > 60, and not an exact number due to greater inaccuracies at these higher values. Per NKDEP, they classify normal renal function as any GFR >60ml/min/1.73 square meters; chronic kidney disease when GFR <60, and renal failure when GFR <15. ??This calculation may not be valid for patients with atypical muscle mass (very lean or obese), acute renal failure, and in patients with diabetic kidney disease. References: http://nkdep.nih.gov/resources/NKDEP_Suggestn4Labs_0606_508.pdf http://www.kidney.org/professionals/kls/pdf/faq_gfr.pdf Sara K, Rayne NA, Rebekah AK, Ayden TS, William AD, [place] CHARLES. Relative performance of the MDRD and CKD-EPI equations for estimating glomerular filtration rate among patients with varied clinical presentations. Clin J Am Soc Nephrol;6:1963-72. Blood specimen (specimen) 03/26/2012 3:40 AM EDT 03/26/2012 3:42 AM EDT Narrative Resulting Agency Comment Spec In Lab Daryl Whelan MD CHEMISTRY ORDERABLES SULLY JONES * (ABNORMAL) CBC (with Diff) (03/26/2012 3:40 AM EDT) White Blood Cell 12.4(H) 4.0 - 10.0 x10(3)/mc L SULLY JONES Red Blood Cell 4.07 3.93 - 5.22 x10(6)/mc L CERNER MILLENNIUM Hemoglobin 12.3 11.2 - 15.7 gm/dL CERNER MILLENNIUM Hematocrit 37.3 34.0 - 45.0 % CERNER MILLENNIUM Mean Cell Volume 91.6 79.0 - 94.0 fL CERNER MILLENNIUM Mean Cell Hemoglobin 30.2 26.6 - 32.2 pg CERNER MILLENNIUM Mean Cell Hemoglobin Concentration 33.0 32.0 - 36.5 gm/dL CERNER MILLENNIUM Platelet 316 145 - 370 x10(3)/mc L CERNER MILLENNIUM RDW Standard Deviation 44.3 35.0 - 46.0 fL CERNER MILLENNIUM RDW coefficient of variation 13.4 10.9 - 14.4 % CERNER MILLENNIUM Mean Platelet Volume 10.0 9.0 - 12.0 fL CERNER MILLENNIUM Blood specimen (specimen) 03/26/2012 3:40 AM EDT 03/26/2012 3:42 AM EDT Narrative Resulting Agency Comment Spec In Lab Daryl Whelan MD HEMATOLOGY ORDERABLE S CEREV CANTRELLIUM * (ABNORMAL) Cardiac Enzymes (03/25/2012 4:40 PM EDT) Troponin-T 0.98(H) <=0.03 ng/mL CERNER MILLENNIUM Comment: 0.03 ng/mL: Represents the 99th percentile upper reference limit for normals. >0.03 ng/mL: Elevated cardiac troponin T level indicative of myocardial damage. Diagnosis of acute, evolving or recent AL requires a typical rise and gradual fall of cTnT with at least ONE of the following: a) Ischemic symptoms b) Development of pathologic Q waves on the ECG c) ECG changes indicative of eschemia (S-T segment elevation/depression) d) Coronary artery intervention Serial bloods should be obtained for testing on admission, at 6 to 9 hrs and again at 12 to 24 hrs if earlier samples are negative and the clinical index of suspicion is high. Reference: [Myocardial infarction redefined a consensus document of the Joint Society of Cardiology/[place] College of Cardiology Committee for the redefinition of myocardial infarction. Journal of the [place] College of Cardiology 2000; 36: 959-969] Creatine Kinase 775(H) 0 - 160 unit/L [facility]ONAWorkSnug Blood specimen (specimen) 03/25/2012 4:40 PM EDT 03/25/2012 4:47 PM EDT Narrative Resulting Agency Comment Spec In Lab Dean Christy MD CHEMISTRY ORDERABLES Performing Organization Address [facility] de Phone Number [facility] Leonar3Do * EKG 12 Lead (03/25/2012 11:56 AM EDT) Ventricular rate 78 BPM MUSE SYSTEM Atrial Rate 78 BPM MUSE SYSTEM P-R Interval 158 ms MUSE SYSTEM QRS Duration 88 ms MUSE SYSTEM Q-T Interval 362 ms MUSE SYSTEM QTC Calculated (Bezet) 412 ms MUSE SYSTEM Calculated P [place] 63 degrees MUSE SYSTEM Calculated R [place] 68 degrees MUSE SYSTEM Calculated T [place] 56 degrees MUSE SYSTEM INTERPRETATION Normal sinus rhythm Normal ECG When compared with ECG of 25-MAR-2012 05:46, (unconfirmed) No significant change was found Confirmed by MD Nomi, Gabe Arauz ([id number]) on 03/25/2012 12:34:38 PM MUSE SYSTEM 03/25/2012 11:5 6 AM EDT 03/25/2012 12:34 PM EDT Daryl Whelan MD ECG ORDERABLES Performing Organization Address [facility] de Phone Number MUSE SYSTEM * (ABNORMAL) Cardiac Enzymes (03/25/2012 11:15 AM EDT) Troponin-T 0.95(H) <=0.03 ng/mL [facility] Leonar3Do Comment: 0.03 ng/mL: Represents the 99th percentile upper reference limit for normals. >0.03 ng/mL: Elevated cardiac troponin T level indicative of myocardial damage. Diagnosis of acute, evolving or recent AL requires a typical rise and gradual fall of cTnT with at least ONE of the following: a) Ischemic symptoms b) Development of pathologic Q waves on the ECG c) ECG changes indicative of eschemia (S-T segment elevation/depression) d) Coronary artery intervention Serial bloods should be obtained for testing on admission, at 6 to 9 hrs and again at 12 to 24 hrs if earlier samples are negative and the clinical index of suspicion is high. Reference: [Myocardial infarction redefined a consensus document of the Joint Society of Cardiology/[place] College of Cardiology Committee for the redefinition of myocardial infarction. Journal of the [place] College of Cardiology 2000; 36: 959-969] Creatine Kinase 833(H) 0 - 160 unit/L CERNER MILLENNIUM Blood specimen (specimen) 03/25/2012 11:15 AM EDT 03/25/2012 11:24 AM EDT Narrative Resulting Agency Comment Spec In Lab Daryl Whelan MD CHEMISTRY ORDERABLES Performing Organization Address [facility] de Phone Number CEREV DS [employer] Se[employer] * EKG 12 Lead (03/25/2012 5:46 AM EDT) Ventricular rate 85 BPM MUSE SYSTEM Atrial Rate 85 BPM MUSE SYSTEM P-R Interval 154 ms MUSE SYSTEM QRS Duration 88 ms MUSE SYSTEM Q-T Interval 382 ms MUSE SYSTEM QTC Calculated (Bezet) 454 ms MUSE SYSTEM Calculated P [place] 60 degrees MUSE SYSTEM Calculated R [place] 65 degrees MUSE SYSTEM Calculated T [place] 47 degrees MUSE SYSTEM INTERPRETATION Normal sinus rhythm Normal ECG When compared with ECG of 24-MAR-2012 16:48, (unconfirme d) ST no longer elevated in Lateral leads Confirmed by MD Nomi, Gabe Arauz ([id number]) on 03/25/2012 12:18:03 PM MUSE SYSTEM 03/25/2012 5:46 AM EDT 03/25/2012 12:18 PM EDT Daryl Whelan MD ECG ORDERABLES Performing Organization Address City/[facility] Co de Phone Number MUSE SYSTEM * (ABNORMAL) DIFFERENTIAL, AUTOMATED (03/25/2012 5:20 AM EDT) Neutrophil % 66.4 34.0 - 71.0 % CERNER MILLENNIUM Neutrophil Absolute 8.04(H) 1.50 - 6.30 x10(3)/mc L CERNER MILLENNIUM Lymph % 22.7 19.0 - 53.0 % CERNER MILLENNIUM Lymphocytes Abs 2.8 1.0 - 3.6 x10(3)/mc L CERNER MILLENNIUM Monocyte % 8.7 4.0 - 13.0 % CERNER MILLENNIUM Monocyte Abs 1.0 0.2 - 1.0 x10(3)/mc L CERNER MILLENNIUM Eos % 1.7 0.0 - 7.0 % CERNER MILLENNIUM Eosinophils Abs 0.2 0.0 - 0.5 x10(3)/mc L CERNER MILLENNIUM Basophil % 0.2 0.0 - 2.0 % CERNER MILLENNIUM Baso Absolute 0.0 0.0 - 0.2 x10(3)/mc L CERNER MILLENNIUM Immature Gran % 0.30 0.00 - 0.66 % CERNER MILLENNIUM Comment: Immature granulocytes(IG's)percentage and absolute count will include metamyelocytes, myelocytes, and promyelocytes. Blood smears from CBCs yielding IG's will be scanned manually for concordance. If this scan disagrees with the automated IG or if promyelocytes are noted, a manual differential will be performed. Immature Gran Absolute 0.04 0.00 - 0.05 x10(3)/mc L CERNER MILLENNIUM Blood specimen (specimen) 03/25/2012 5:20 AM EDT 03/25/2012 5:27 AM EDT Daryl Whelan MD HEMATOLOGY ORDERABLE S [facility] * (ABNORMAL) BMP W/FASTING GLUCOSE (03/25/2012 5:20 AM EDT) Glucose Fasting 104(H) 65 - 99 mg/dL CERNER MILLENNIUM Comment: ?Fasting* Glucose Interpretive Criteria Normal ?65-99 [...] of Diabetes Mellitus, Position Statement from the [place] Diabetes Association. ??Diabetes Care, Volume 33, Supplement 1, Nov 2009 Blood Urea Nitrogen 14 8 - 18 mg/dL CERNER MILLENNIUM Creatinine 0.60(L) 0.70 - 1.20 mg/dL CERNER MILLENNIUM Sodium 139 135 - 145 mmol/L CERNER MILLENNIUM Potassium 4.1 3.5 - 5.0 mmol/L CERNER MILLENNIUM Comment: Please note: ??Patients with WBC >100,000 may have falsely elevated Potassium levels. ??For accurate Potassium quantification in these patients send serum separator tube (gold top) for subsequent determinations. ??Contact the Clinical Chemistry Laboratory if there are any questions. Chloride 105 98 - 107 mmol/L CERNER MILLENNIUM Carbon Dioxide 27 22 - 31 mmol/L CERNER MILLENNIUM Anion Gap 7 5 - 15 mmol/L CERNER MILLENNIUM Calcium 9.1 8.5 - 10.5 mg/dL CERNER MILLENNIUM Comment:result rechecked-afp Est Glomerular Filtration Rate >60 >=60 CERNER MILLENNIUM Comment: The National Kidney Disease Education Program (NKDEP) has recommended all laboratories report estimated GFR (eGFR) along with plasma creatinine measurements to assist you with recognition of early kidney disease. Caveats: ??Plasma creatinine should be at steady-state (unchanged within the past week). For patients multiply eGFR by 1.2. The MDRD equation was developed using patients between the ages of 18 and 70 years. ?? The MDRD equation has not been validated for patients < 18 years of age and should not be used to assess renal function in the pediatric population. ??The MDRD eGFR equation will also overestimate the true GFR of patients above the age of 70. ??This overestimation is variable but increases with age. At present, NKDEP does NOT recommend using the MDRD equation for drug dosing purposes and pharmacists should continue to use their current dosing methods. In addition, numerical eGFR values greater than 60 ml/min/1.73 square meters should be treated as > 60, and not an exact number due to greater inaccuracies at these higher values. Per NKDEP, they classify normal renal function as any GFR >60ml/min/1.73 square meters; chronic kidney disease when GFR <60, and renal failure when GFR <15. ??This calculation may not be valid for patients with atypical muscle mass (very lean or obese), acute renal failure, and in patients with diabetic kidney disease. References: http://nkdep.nih.gov/resources/NKDEP_Suggestn4Labs_0606_508.pdf http://www.kidney.org/professionals/kls/pdf/faq_gfr.pdf Sara K, Rayne NA, Rebekah AK, Ayden TS, William AD, [place] CHARLES. Relative performance of the MDRD and CKD-EPI equations for estimating glomerular filtration rate among patients with varied clinical presentations. Clin J Am Soc Nephrol;6:1963-72. Blood specimen (specimen) 03/25/2012 5:20 AM EDT 03/25/2012 5:27 AM EDT Narrative Resulting Agency Comment Spec In Lab Daryl Whelan MD CHEMISTRY ORDERABLES Performing Organization Address [facility] de Phone Number [employer] * Phosphorus (03/25/2012 5:20 AM EDT) Phosphorus 4.0 2.5 - 4.5 mg/dL [facility] [employer] Blood specimen (specimen) 03/25/2012 5:20 AM EDT 03/25/2012 5:27 AM EDT Narrative Resulting Agency Comment Spec In Lab Daryl Whelan MD CHEMISTRY ORDERABLES Performing Organization Address [facility] de Phone Number [employer] * Magnesium (03/25/2012 5:20 AM EDT) Magnesium 0.84 0.69 - 1.07 mmol/L [facility] [employer] Blood specimen (specimen) 03/25/2012 5:20 AM EDT 03/25/2012 5:27 AM EDT Narrative Resulting Agency Comment Spec In Lab Daryl Whelan MD CHEMISTRY ORDERABLES Performing Organization Address [facility] Co de Phone Number [employer] * (ABNORMAL) LDL Cholesterol, Direct (03/25/2012 5:20 AM EDT) LDL Cholesterol, Direct 167(H) <=99 mg/dL [facility] Comment: The National Cholesterol Education Program (NCEP) has set the following guidelines for LDL Cholesterol: Reference range: ?? Optimal: ?<100 mg/dL ?? Near Optimal/Above Optimal: ?? 100-129 mg/dL ?? Borderline high: ?130-159 mg/dL ?? High: ? 160-189 mg/dL ?? Very high: ?>zb=774 mg/dL NIALL 2001: 285(07):[phone] Blood specimen (specimen) 03/25/2012 5:20 AM EDT 03/25/2012 5:27 AM EDT Narrative Resulting Agency Comment Spec In Lab Daryl Whelan MD CHEMISTRY ORDERABLES [facility] * Hemoglobin A1c (03/25/2012 5:20 AM EDT) Hemoglobin A1c 5.8 4.3 - 6.1 % [facility] Estimated Average Glucose 120 mg/dL [facility] Comment: eAG equivalents for HbA1c percentages: HbA1c(%) ?eAG(mg/dL) 6.0 ?126 6.5 ?140 7.0 ?154 7.5 ?169 8.0 ?183 8.5 ?197 9.0 ?212 9.5 ?226 10.0 ? 240 Limitations: The eAG calculation has not been validated on women, individuals below 18 years old and above 70 years old, and individuals with hemoglobinopathies. Additional resources are available on the ADA website: ??http://professional.diabetes.org/glucosecalculator.aspx Reference: José Manuel BROWNLEE, Chari J, Omid R, et al. ??Translating the A1C assay into estimated average glucose values. ??Diabetes Care 2008:31(8):6060-4309. Blood specimen (specimen) 03/25/2012 5:20 AM EDT 03/25/2012 5:27 AM EDT Narrative Resulting Agency Comment Spec In Lab Daryl Whelan MD CHEMISTRY ORDERABLES [facility] * (ABNORMAL) Lipid panel (fasting) (03/25/2012 5:20 AM EDT) [facility] Signature Cholesterol, Total 238(H) <=199 mg/dL [facility] Comment: Recommendations of the NCEP Adult Treatment Panel for the following risk cutoff thresholds for the [place] population: Desirable: <200 mg/dL Borderline High: 200-239 mg/dL High: > or = 240 mg/dL Triglyceride 151(H) <=149 mg/dL [facility] Comment: Reference Range: Normal triglycerides: ??<150 mg/dL Borderline high: ??150-199 mg/dL High: ??200-499 mg/dL Very high: ??>yg=343 mg/dL NIALL 2001; 285(19):[phone] HDL Cholesterol 61 >=40 mg/dL [facility] Comment: Reference range: ??Low HDL: ?? < 40 mg/dL ??Normal: ?40-60 mg/dL ??Desirable: > 60 mg/dL NIALL 2001; 285(19):[phone] LDL Cholesterol 147(H) <=99 mg/dL [facility] EV [facility]ON[facility] Comment: Reference range: ?? Optimal: ?<100 mg/dL ?? Near Optimal/Above Optimal: ?? 100-129 mg/dL ?? Borderline high: ?130-159 mg/dL ?? High: ? 160-189 mg/dL ?? Very high: ?>nu=484 mg/dL NIALL 2001: 285(19):6105-9441 Cholesterol/HDL Ratio 3.9 ratio SULLY JONES Comment: A Cholesterol to HDL ratio below 4:1 is desirable. ??Studies suggest that increased CAD risk occurs at ratios above 5 for females and above 6 for men. ? [place] Heart Association ??(http://www.americanheart.org) ? Effie Int Med, 1994; 121:641 ? AM J Med, 1998; 105(1A):48S Blood specimen (specimen) 03/25/2012 5:20 AM EDT 03/25/2012 5:27 AM EDT Narrative Resulting Agency Comment Spec In Lab Daryl Whelan MD CHEMISTRY ORDERABLES [facility] * (ABNORMAL) Cardiac Enzymes (03/25/2012 5:20 AM EDT) Troponin-T 0.58(H) <=0.03 ng/mL SULLY JONES Comment: 0.03 ng/mL: Represents the 99th percentile upper reference limit for normals. >0.03 ng/mL: Elevated cardiac troponin T level indicative of myocardial damage. Diagnosis of acute, evolving or recent AL requires a typical rise and gradual fall of cTnT with at least ONE of the following: a) Ischemic symptoms b) Development of pathologic Q waves on the ECG c) ECG changes indicative of eschemia (S-T segment elevation/depression) d) Coronary artery intervention Serial bloods should be obtained for testing on admission, at 6 to 9 hrs and again at 12 to 24 hrs if earlier samples are negative and the clinical index of suspicion is high. Reference: [Myocardial infarction redefined a consensus document of the Joint Society of Cardiology/[place] College of Cardiology Committee for the redefinition of myocardial infarction. Journal of the [place] College of Cardiology 2000; 36: 959-969] Creatine Kinase 606(H) 0 - 160 unit/L CERNER MILLENNIUM Comment:result rechecked-afp Blood specimen (specimen) 03/25/2012 5:20 AM EDT 03/25/2012 5:27 AM EDT Narrative Resulting Agency Comment Spec In Lab Daryl Whelan MD CHEMISTRY ORDERABLES [facility] * (ABNORMAL) CBC (with Diff) (03/25/2012 5:20 AM EDT) White Blood Cell 12.1(H) 4.0 - 10.0 x10(3)/mc L CERNER MILLENNIUM Red Blood Cell 4.17 3.93 - 5.22 x10(6)/mc L CERNER MILLENNIUM Hemoglobin 12.4 11.2 - 15.7 gm/dL CERNER MILLENNIUM Hematocrit 37.9 34.0 - 45.0 % CERNER MILLENNIUM Mean Cell Volume 90.9 79.0 - 94.0 fL CERNER MILLENNIUM Mean Cell Hemoglobin 29.7 26.6 - 32.2 pg CERNER MILLENNIUM Mean Cell Hemoglobin Concentration 32.7 32.0 - 36.5 gm/dL CERNER MILLENNIUM Platelet 304 145 - 370 x10(3)/mc L CERNER MILLENNIUM RDW Standard Deviation 43.8 35.0 - 46.0 fL CERNER MILLENNIUM RDW coefficient of variation 13.2 10.9 - 14.4 % CERNER MILLENNIUM Mean Platelet Volume 9.9 9.0 - 12.0 fL CERNER MILLENNIUM Blood specimen (specimen) 03/25/2012 5:20 AM EDT 03/25/2012 5:27 AM EDT Narrative Resulting Agency Comment Spec In Lab Daryl Whelan MD HEMATOLOGY ORDERABLE S SULLY JONES * ECHOCARDIOGRAM TRANSTHORACIC (03/25/2012) Anatomical Region Laterality Modality Other 03/25/2012 Narrative 03/25/2012 7:40 AM EDT Procedure: ? Transthoracic Echocardiogram Patient: ? YAMILETH Do ?(Age): 1960(51) Med Rec#: ?[id number] ? Sex: ?F ? Site Loc: ?[facility] [place] ? Ht / Wt: ??157(cm)/83(kg) Pt. Loc: ? Adult Floor ?BSA: ?1.9 Study Date: ?03/24/2012 ? Pt. Type: Inpatient Tape: ? Referring: Daryl Whelan Chain Dyer: Moe Brantley [facility] [[email or web address]] Diagnosis: ??Acute AL (410.90) CPT Code(s): ??Echo Full (45095), ??Spectral Doppler (61370), ??Color Doppler (76125), Indication(s): ??Myocardial infarction Rhythm: HR ?BP 89 ?129/88 ?? SUMMARY: 1. Global left ventricular systolic function is moderately reduced. Ejection fraction is estimated to be 40%. ??There are left ventricular segmental wall motion abnormalities present, as shown in the diagram below. 2. Right ventricular chamber size, wall thickness, and systolic function are within normal limits. 3. There is no hemodynamically significant valve disease. 4. See remainder of report for additional findings. FINDINGS: Left Ventricle ?The left ventricular chamber size is normal. ?Left ventricular wall thickness is normal. ?Global left ventricular systolic function is moderately reduced. Ejection fraction is estimated to be 40%. ?There are left ventricular segmental wall motion abnormalities present, as shown in the diagram below. ?Doppler assessment is consistent with normal left sided filling pressure. ?The ??basal anteroseptal, mid inferoseptal and apical lateral wall segments are hypokinetic. ?The ??mid anteroseptal, apical septal, apical anterior and apical inferior wall segments are akinetic. Left Atrium ?The left atrium is normal in size. Right Ventricle ?Right ventricular chamber size, wall thickness, and systolic function are within normal limits. ?No pulmonary hypertension is noted. ?The estimated pulmonary artery systolic pressure is 26 mmHg. ?The estimated right atrial pressure is 3 mmHg. Right Atrium ?The right atrium is normal in size. Aortic Valve ?The aortic valve is trileaflet. The leaflets are thin with normal excursion. There is no aortic stenosis or regurgitation present. Mitral Valve ?The mitral valve appears normal in structure and function. ?There is trace mitral regurgitation present. Tricuspid Valve ?The tricuspid valve appears normal in structure and function. ?There is trace tricuspid regurgitation present. Pulmonic Valve ?The pulmonic valve appears normal in structure and function. Pericardium ?The pericardium appears normal and there is no evidence of a pericardial effusion. Aorta ?The aortic root is normal in size. ?The ascending aorta is normal in size. ?There is no evidence of coarctation of the aorta. Pulmonary Artery ?The main pulmonary artery appears normal. Venous ?The inferior vena cava appears normal in size. ?There is a greater than 50% respiratory change in the inferior vena cava dimension. Misc ?There is no hemodynamically significant valve disease. ?See remainder of report for additional findings. ?Two-dimensional echo, spectral Doppler and color Doppler performed. Wall Motion: Segment Name ?Rest ? Base-Anteroseptal ?? Hypokinetic ? Base-Anterior ? Normal ? Base-Anterolateral ??Normal ? Base-Posterolateral Normal ? Base-Inferior ? Normal ? Base-Inferoseptal ?? Normal ? Mid-Anteroseptal ?Akinetic ? Mid-Anterior ?Normal ? Mid-Anterolateral ?? Normal ? Mid-Posterolateral ??Normal ? Mid-Inferior ?Normal ? Mid-Inferoseptal ?Hypokinetic ? Avilla-Septal ? Akinetic ? Avilla-Anterior ? Akinetic ? Avilla-Lateral ?Hypokinetic ? Avilla-Inferior ? Akinetic ? Avilla-Tip ?Akinetic ? Chambers ?Value ?Units (Range) ? LV EF Est ? 40 ? % (55 to 80) ? LVIDd 2D ?4.2 ?cm ? LA area ? 14 ? cm2 (<21) ? RA area ? 13 ? cm2 (<18) ? Ao root ? 2.9 ?cm (2.1 to 3.6) ? Asc Ao ?2.8 ?cm (2 to 3.5) ? Mitral Valve ?Value ?Units (Range) ? E peak ?0.6 ?m/sec ? E/A ratio ? 0.9 ?ratio ? MVDT ?81 ? msec ? E1 ?0.09 ? m/sec ? E/E1 ?7 ?ratio ? Tricuspid/Pulmonic Valves ?Value ?Units (Range) ? TR peak rhett ? 2.4 ?m/sec ? RAP ? 3 ?mmHg ? RVSP/PASP ? 26 ? mmHg ? This report has been electronically signed by: Bairon Meza M.D. ? 03/25/2012 07:39:50 Images reviewed and interpretation verified [facility] Cardiac Ultrasound Laboratory Procedure Note Bairon Meza MD - 03/25/2012 Procedure: Transthoracic Echocardiogram Patient: YAMILETH Do DOB(Age): 1960(51) Med Rec#: [id number] Sex: F Site Loc: [facility] [place] Ht / Wt: 157(cm)/83(kg) Pt. Loc: Adult Floor BSA: 1.9 Study Date: 03/24/2012 Pt. Type: Inpatient Tape: Referring: Daryl Whelan Chain Dyer: Moe Brantley RDCS Diagnosis: Acute AL (410.90) CPT Code(s): Echo Full (58483), Spectral Doppler (75070), Color Doppler (56386), Indication(s): Myocardial infarction Rhythm: HR BP 89 129/88 SUMMARY: 1. Global left ventricular systolic function is moderately reduced. Ejection fraction is estimated to be 40%. There are left ventricular segmental wall motion abnormalities present, as shown in the diagram below. 2. Right ventricular chamber size, wall thickness, and systolic function are within normal limits. 3. There is no hemodynamically significant valve disease. 4. See remainder of report for additional findings. FINDINGS: Left Ventricle The left ventricular chamber size is normal. Left ventricular wall thickness is normal. Global left ventricular systolic function is moderately reduced. Ejection fraction is estimated to be 40%. There are left ventricular segmental wall motion abnormalities present, as shown in the diagram below. Doppler assessment is consistent with normal left sided filling pressure. The basal anteroseptal, mid inferoseptal and apical lateral wall segments are hypokinetic. The mid anteroseptal, apical septal, apical anterior and apical inferior wall segments are akinetic. Left Atrium The left atrium is normal in size. Right Ventricle Right ventricular chamber size, wall thickness, and systolic function are within normal limits. No pulmonary hypertension is noted. The estimated pulmonary artery systolic pressure is 26 mmHg. The estimated right atrial pressure is 3 mmHg. Right Atrium The right atrium is normal in size. Aortic Valve The aortic valve is trileaflet. The leaflets are thin with normal excursion. There is no aortic stenosis or regurgitation present. Mitral Valve The mitral valve appears normal in structure and function. There is trace mitral regurgitation present. Tricuspid Valve The tricuspid valve appears normal in structure and function. There is trace tricuspid regurgitation present. Pulmonic Valve The pulmonic valve appears normal in structure and function. Pericardium The pericardium appears normal and there is no evidence of a pericardial effusion. Aorta The aortic root is normal in size. The ascending aorta is normal in size. There is no evidence of coarctation of the aorta. Pulmonary Artery The main pulmonary artery appears normal. Venous The inferior vena cava appears normal in size. There is a greater than 50% respiratory change in the inferior vena cava dimension. Misc There is no hemodynamically significant valve disease. See remainder of report for additional findings. Two-dimensional echo, spectral Doppler and color Doppler performed. Wall Motion: Segment Name Rest Base-Anteroseptal Hypokinetic Base-Anterior Normal Base-Anterolateral Normal Base-Posterolateral Normal Base-Inferior Normal Base-Inferoseptal Normal Mid-Anteroseptal Akinetic Mid-Anterior Normal Mid-Anterolateral Normal Mid-Posterolateral Normal Mid-Inferior Normal Mid-Inferoseptal Hypokinetic Avilla-Septal Akinetic Avilla-Anterior Akinetic Avilla-Lateral Hypokinetic Avilla-Inferior Akinetic Avilla-Tip Akinetic Chambers Value Units (Range) LV EF Est 40 % (55 to 80) LVIDd 2D 4.2 cm LA area 14 cm2 (<21) RA area 13 cm2 (<18) Ao root 2.9 cm (2.1 to 3.6) Asc Ao 2.8 cm (2 to 3.5) Mitral Valve Value Units (Range) E peak 0.6 m/sec E/A ratio 0.9 ratio MVDT 81 msec E1 0.09 m/sec E/E1 7 ratio Tricuspid/Pulmonic Valves Value Units (Range) TR peak rhett 2.4 m/sec RAP 3 mmHg RVSP/PASP 26 mmHg This report has been electronically signed by: Bairon Meza M.D. 03/25/2012 07:39:50 Images reviewed and interpretation verified [facility] Cardiac Ultrasound Laboratory Unknown ECHO ORDERABLES * (ABNORMAL) Cardiac Enzymes (03/24/2012 10:30 PM EDT) Troponin-T 0.17(H) <=0.03 ng/mL [facility] Comment: 0.03 ng/mL: Represents the 99th percentile upper reference limit for normals. >0.03 ng/mL: Elevated cardiac troponin T level indicative of myocardial damage. Diagnosis of acute, evolving or recent AL requires a typical rise and gradual fall of cTnT with at least ONE of the following: a) Ischemic symptoms b) Development of pathologic Q waves on the ECG c) ECG changes indicative of eschemia (S-T segment elevation/depression) d) Coronary artery intervention Serial bloods should be obtained for testing on admission, at 6 to 9 hrs and again at 12 to 24 hrs if earlier samples are negative and the clinical index of suspicion is high. Reference: [Myocardial infarction redefined a consensus document of the Joint Society of Cardiology/[place] College of Cardiology Committee for the redefinition of myocardial infarction. Journal of the [place] College of Cardiology 2000; 36: 959-969] Creatine Kinase 189(H) 0 - 160 unit/L CERNER MILLENNIUM Comment:result rechecked-afp Blood specimen (specimen) 03/24/2012 10:30 PM EDT 03/24/2012 10:39 PM EDT Narrative Resulting Agency Comment Spec In Lab Daryl Whelan MD CHEMISTRY ORDERABLES Performing Organization Address City/[facility]/ZIP Co de Phone Number [employer] * (ABNORMAL) Cardiac Enzymes (03/24/2012 5:40 PM EDT) Troponin-T 0.16(H) <=0.03 ng/mL CERNER DooBopENNIUM Comment: 0.03 ng/mL: Represents the 99th percentile upper reference limit for normals. >0.03 ng/mL: Elevated cardiac troponin T level indicative of myocardial damage. Diagnosis of acute, evolving or recent AL requires a typical rise and gradual fall of cTnT with at least ONE of the following: a) Ischemic symptoms b) Development of pathologic Q waves on the ECG c) ECG changes indicative of eschemia (S-T segment elevation/depression) d) Coronary artery intervention Serial bloods should be obtained for testing on admission, at 6 to 9 hrs and again at 12 to 24 hrs if earlier samples are negative and the clinical index of suspicion is high. Reference: [Myocardial infarction redefined a consensus document of the Joint Society of Cardiology/[place] College of Cardiology Committee for the redefinition of myocardial infarction. Journal of the [place] College of Cardiology 2000; 36: 959-969] Creatine Kinase 105 0 - 160 unit/L CERNER DooBopENNIUM Blood specimen (specimen) 03/24/2012 5:40 PM EDT 03/24/2012 5:48 PM EDT Narrative Resulting Agency Comment Spec In Lab Daryl Whelan MD CHEMISTRY ORDERABLES Performing Organization Address City/[facility]/ZIP Co de Phone Number SULLY JONES * Echo Transthoracic (Complete) (03/24/2012 5:37 PM EDT) EF 40 HEART[facility] SYSTEM Anatomical Region Laterality Modality Other 07/01/2012 Narrative 07/01/2012 2:12 PM EDT Amended Report Procedure: ? Transthoracic Echocardiogram Patient: ? YAMILETH DIANA Do ?(Age): 1960(51) Med Rec#: ?[id number] ? Sex: ?F ? Site Loc: ?[facility] [place] ? Ht / Wt: ??157(cm)/83(kg) Pt. Loc: ? Adult Floor ?BSA: ?1.9 Study Date: ?03/24/2012 ? Pt. Type: Inpatient Tape: ? Referring: Daryl Whelan Chain Dyer: Moe Brantley RDCS Diagnosis: ??Acute AL (410.90) CPT Code(s): ??Echo Full (71232), ??Spectral Doppler (49645), ??Color Doppler (42341), Indication(s): ??Myocardial infarction Rhythm: HR ?BP 89 ?129/88 ?? SUMMARY: 1. Global left ventricular systolic function is moderately reduced. Ejection fraction is estimated to be 40%. ??There are left ventricular segmental wall motion abnormalities present, as shown in the diagram below. 2. Right ventricular chamber size, wall thickness, and systolic function are within normal limits. 3. There is no hemodynamically significant valve disease. 4. See remainder of report for additional findings. FINDINGS: Left Ventricle ?The left ventricular chamber size is normal. ?Left ventricular wall thickness is normal. ?Global left ventricular systolic function is moderately reduced. Ejection fraction is estimated to be 40%. ?There are left ventricular segmental wall motion abnormalities present, as shown in the diagram below. ?Doppler assessment is consistent with normal left sided filling pressure. ?The ??basal anteroseptal, mid inferoseptal and apical lateral wall segments are hypokinetic. ?The ??mid anteroseptal, apical septal, apical anterior and apical inferior wall segments are akinetic. Left Atrium ?The left atrium is normal in size. Right Ventricle ?Right ventricular chamber size, wall thickness, and systolic function are within normal limits. ?No pulmonary hypertension is noted. ?The estimated pulmonary artery systolic pressure is 26 mmHg. ?The estimated right atrial pressure is 3 mmHg. Right Atrium ?The right atrium is normal in size. Aortic Valve ?The aortic valve is trileaflet. The leaflets are thin with normal excursion. There is no aortic stenosis or regurgitation present. Mitral Valve ?The mitral valve appears normal in structure and function. ?There is trace mitral regurgitation present. Tricuspid Valve ?The tricuspid valve appears normal in structure and function. ?There is trace tricuspid regurgitation present. Pulmonic Valve ?The pulmonic valve appears normal in structure and function. Pericardium ?The pericardium appears normal and there is no evidence of a pericardial effusion. Aorta ?The aortic root is normal in size. ?The ascending aorta is normal in size. ?There is no evidence of coarctation of the aorta. Pulmonary Artery ?The main pulmonary artery appears normal. Venous ?The inferior vena cava appears normal in size. ?There is a greater than 50% respiratory change in the inferior vena cava dimension. Misc ?There is no hemodynamically significant valve disease. ?See remainder of report for additional findings. ?Two-dimensional echo, spectral Doppler and color Doppler performed. Wall Motion: Segment Name ?Rest ? Base-Anteroseptal ?? Hypokinetic ? Base-Anterior ? Normal ? Base-Anterolateral ??Normal ? Base-Posterolateral Normal ? Base-Inferior ? Normal ? Base-Inferoseptal ?? Normal ? Mid-Anteroseptal ?Akinetic ? Mid-Anterior ?Normal ? Mid-Anterolateral ?? Normal ? Mid-Posterolateral ??Normal ? Mid-Inferior ?Normal ? Mid-Inferoseptal ?Hypokinetic ? Avilla-Septal ? Akinetic ? Avilla-Anterior ? Akinetic ? Avilla-Lateral ?Hypokinetic ? Avilla-Inferior ? Akinetic ? Avilla-Tip ?Akinetic ? Chambers ?Value ?Units (Range) ? LV EF Est ? 40 ? % (55 to 80) ? LVIDd 2D ?4.2 ?cm ? LA area ? 14 ? cm2 (<21) ? RA area ? 13 ? cm2 (<18) ? Ao root ? 2.9 ?cm (2.1 to 3.6) ? Asc Ao ?2.8 ?cm (2 to 3.5) ? Mitral Valve ?Value ?Units (Range) ? E peak ?0.6 ?m/sec ? E/A ratio ? 0.9 ?ratio ? MVDT ?81 ? msec ? E1 ?0.09 ? m/sec ? E/E1 ?7 ?ratio ? Tricuspid/Pulmonic Valves ?Value ?Units (Range) ? TR peak rhett ? 2.4 ?m/sec ? RAP ? 3 ?mmHg ? RVSP/PASP ? 26 ? mmHg ? This report has been electronically signed by: Bairon Meza M.D. ? 07/01/2012 14:11:26 Images reviewed and interpretation verified [facility] Cardiac Ultrasound Laboratory Procedure Note Bairon Meza MD - 07/01/2012 Amended Report Procedure: Transthoracic Echocardiogram Patient: YAMILETH Do DOB(Age): 1960(51) Med Rec#: [id number] Sex: F Site Loc: [facility] [place] Ht / Wt: 157(cm)/83(kg) Pt. Loc: Adult Floor BSA: 1.9 Study Date: 03/24/2012 Pt. Type: Inpatient Tape: Referring: Daryl Whelan Chain Dyer: Moe Brantley RDCS Diagnosis: Acute AL (410.90) CPT Code(s): Echo Full (08224), Spectral Doppler (92340), Color Doppler (10798), Indication(s): Myocardial infarction Rhythm: HR BP 89 129/88 SUMMARY: 1. Global left ventricular systolic function is moderately reduced. Ejection fraction is estimated to be 40%. There are left ventricular segmental wall motion abnormalities present, as shown in the diagram below. 2. Right ventricular chamber size, wall thickness, and systolic function are within normal limits. 3. There is no hemodynamically significant valve disease. 4. See remainder of report for additional findings. FINDINGS: Left Ventricle The left ventricular chamber size is normal. Left ventricular wall thickness is normal. Global left ventricular systolic function is moderately reduced. Ejection fraction is estimated to be 40%. There are left ventricular segmental wall motion abnormalities present, as shown in the diagram below. Doppler assessment is consistent with normal left sided filling pressure. The basal anteroseptal, mid inferoseptal and apical lateral wall segments are hypokinetic. The mid anteroseptal, apical septal, apical anterior and apical inferior wall segments are akinetic. Left Atrium The left atrium is normal in size. Right Ventricle Right ventricular chamber size, wall thickness, and systolic function are within normal limits. No pulmonary hypertension is noted. The estimated pulmonary artery systolic pressure is 26 mmHg. The estimated right atrial pressure is 3 mmHg. Right Atrium The right atrium is normal in size. Aortic Valve The aortic valve is trileaflet. The leaflets are thin with normal excursion. There is no aortic stenosis or regurgitation present. Mitral Valve The mitral valve appears normal in structure and function. There is trace mitral regurgitation present. Tricuspid Valve The tricuspid valve appears normal in structure and function. There is trace tricuspid regurgitation present. Pulmonic Valve The pulmonic valve appears normal in structure and function. Pericardium The pericardium appears normal and there is no evidence of a pericardial effusion. Aorta The aortic root is normal in size. The ascending aorta is normal in size. There is no evidence of coarctation of the aorta. Pulmonary Artery The main pulmonary artery appears normal. Venous The inferior vena cava appears normal in size. There is a greater than 50% respiratory change in the inferior vena cava dimension. Misc There is no hemodynamically significant valve disease. See remainder of report for additional findings. Two-dimensional echo, spectral Doppler and color Doppler performed. Wall Motion: Segment Name Rest Base-Anteroseptal Hypokinetic Base-Anterior Normal Base-Anterolateral Normal Base-Posterolateral Normal Base-Inferior Normal Base-Inferoseptal Normal Mid-Anteroseptal Akinetic Mid-Anterior Normal Mid-Anterolateral Normal Mid-Posterolateral Normal Mid-Inferior Normal Mid-Inferoseptal Hypokinetic Avilla-Septal Akinetic Avilla-Anterior Akinetic Avilla-Lateral Hypokinetic Avilla-Inferior Akinetic Avilla-Tip Akinetic Chambers Value Units (Range) LV EF Est 40 % (55 to 80) LVIDd 2D 4.2 cm LA area 14 cm2 (<21) RA area 13 cm2 (<18) Ao root 2.9 cm (2.1 to 3.6) Asc Ao 2.8 cm (2 to 3.5) Mitral Valve Value Units (Range) E peak 0.6 m/sec E/A ratio 0.9 ratio MVDT 81 msec E1 0.09 m/sec E/E1 7 ratio Tricuspid/Pulmonic Valves Value Units (Range) TR peak rhett 2.4 m/sec RAP 3 mmHg RVSP/PASP 26 mmHg This report has been electronically signed by: Bairon Meza M.D. 07/01/2012 14:11:26 Images reviewed and interpretation verified [facility] Cardiac Ultrasound Laboratory Daryl Whelan MD ECHO ORDERABLES * EKG 12 Lead (03/24/2012 4:48 PM EDT) Pathologist [facility] Ventricular rate 83 BPM MUSE SYSTEM Atrial Rate 83 BPM MUSE SYSTEM P-R Interval 170 ms MUSE SYSTEM QRS Duration 90 ms MUSE SYSTEM Q-T Interval 398 ms MUSE SYSTEM QTC Calculated (Bezet) 467 ms MUSE SYSTEM Calculated P [place] 54 degrees MUSE SYSTEM Calculated R [place] 55 degrees MUSE SYSTEM Calculated T [place] 6 degrees MUSE SYSTEM INTERPRETATION AGE AND GENDER SPECIFIC ECG ANALYSIS Normal sinus rhythm ST elevation consider lateral injury or acute infarct * ACUTE AL ?? Abnormal ECG No previous ECGs available Confirmed by MD Nomi, Gabe Arauz ([id number]) on 03/25/2012 1:16:07 PM MUSE SYSTEM 03/24/2012 4:48 PM EDT 03/25/2012 1:16 PM EDT Daryl Whelan MD ECG ORDERABLES MUSE SYSTEM * (ABNORMAL) DIFFERENTIAL, AUTOMATED (03/24/2012 3:45 PM EDT) Neutrophil % 72.1(H) 34.0 - 71.0 % CERNER MILLENNIUM Neutrophil Absolute 10.14(H) 1.50 - 6.30 x10(3)/mc L CERNER MILLENNIUM Lymph % 20.7 19.0 - 53.0 % CERNER MILLENNIUM Lymphocytes Abs 2.9 1.0 - 3.6 x10(3)/mc L CERNER MILLENNIUM Monocyte % 4.9 4.0 - 13.0 % CERNER MILLENNIUM Monocyte Abs 0.7 0.2 - 1.0 x10(3)/mc L CERNER MILLENNIUM Eos % 1.6 0.0 - 7.0 % CERNER MILLENNIUM Eosinophils Abs 0.2 0.0 - 0.5 x10(3)/mc L CERNER MILLENNIUM Basophil % 0.3 0.0 - 2.0 % CERNER MILLENNIUM Baso Absolute 0.0 0.0 - 0.2 x10(3)/mc L CERNER MILLENNIUM Immature Gran % 0.40 0.00 - 0.66 % CERNER MILLENNIUM Comment: Immature granulocytes(IG's)percentage and absolute count will include metamyelocytes, myelocytes, and promyelocytes. Blood smears from CBCs yielding IG's will be scanned manually for concordance. If this scan disagrees with the automated IG or if promyelocytes are noted, a manual differential will be performed. Immature Gran Absolute 0.05 0.00 - 0.05 x10(3)/mc L CERNER MILLENNIUM Blood specimen (specimen) 03/24/2012 3:45 PM EDT 03/24/2012 4:07 PM EDT Daryl Whelan MD HEMATOLOGY ORDERABLE S CERNER MILLENNIUM * (ABNORMAL) Prothrombin Time (03/24/2012 3:45 PM EDT) Prothrombin Time 17.3(H) 11.9 - 14.7 sec CERNER MILLENNIUM Comment: [facility] Transfusion Committee Guidelines: INR less than 2.0, PTT less than OR equal to 43.5 seconds, or Fibrinogen greater than or equal to 100 mg/dl indicate adequate procoagulant activity for hemostasis in patients without underlying bleeding disorders. International Normalization Ratio 1.4(H) 0.9 - 1.1 CERNER MILLENNIUM Blood specimen (specimen) 03/24/2012 3:45 PM EDT 03/24/2012 4:07 PM EDT Narrative Resulting Agency Comment Spec In Lab Daryl Whelan MD HEMATOLOGY ORDERABLE S CERNER MILLENNIUM * (ABNORMAL) Comprehensive metabolic panel (non-fasting) (03/24/2012 3:45 PM EDT) Glucose 112 60 - 199 mg/dL CERNER MILLENNIUM Comment:Diabetes: >=200 mg/d L plus symptoms Blood Urea Nitrogen 14 8 - 18 mg/dL CERNER MILLENNIUM Creatinine 0.56(L) 0.70 - 1.20 mg/dL CERNER MILLENNIUM Sodium 134(L) 135 - 145 mmol/L CERNER MILLENNIUM Potassium 3.6 3.5 - 5.0 mmol/L CERNER MILLENNIUM Comment: Please note: ??Patients with WBC >100,000 may have falsely elevated Potassium levels. ??For accurate Potassium quantification in these patients send serum separator tube (gold top) for subsequent determinations. ??Contact the Clinical Chemistry Laboratory if there are any questions. Chloride 103 98 - 107 mmol/L CERNER MILLENNIUM Carbon Dioxide 23 22 - 31 mmol/L CERNER MILLENNIUM Anion Gap 8 5 - 15 mmol/L CERNER MILLENNIUM Calcium 7.7(L) 8.5 - 10.5 mg/dL CERNER MILLENNIUM Protein, Total 5.4(L) 6.4 - 8.3 gm/dL CERNER MILLENNIUM Albumin 3.5 3.2 - 5.2 gm/dL CERNER MILLENNIUM Aspartate Aminotransferase 17 0 - 30 unit/L CERNER MILLENNIUM Alanine Aminotransferase 12 0 - 30 unit/L CERNER MILLENNIUM Alkaline Phosphatase 61 40 - 104 unit/L CERNER MILLENNIUM Bilirubin, Total 0.2 0.2 - 1.3 mg/dL CERNER MILLENNIUM Bilirubin, Direct 0.1 0.0 - 0.3 mg/dL CERNER MILLENNIUM Est Glomerular Filtration Rate >60 >=60 CERNER MILLENNIUM Comment: The National Kidney Disease Education Program (NKDEP) has recommended all laboratories report estimated GFR (eGFR) along with plasma creatinine measurements to assist you with recognition of early kidney disease. Caveats: ??Plasma creatinine should be at steady-state (unchanged within the past week). For patients multiply eGFR by 1.2. The MDRD equation was developed using patients between the ages of 18 and 70 years. ?? The MDRD equation has not been validated for patients < 18 years of age and should not be used to assess renal function in the pediatric population. ??The MDRD eGFR equation will also overestimate the true GFR of patients above the age of 70. ??This overestimation is variable but increases with age. At present, NKDEP does NOT recommend using the MDRD equation for drug dosing purposes and pharmacists should continue to use their current dosing methods. In addition, numerical eGFR values greater than 60 ml/min/1.73 square meters should be treated as > 60, and not an exact number due to greater inaccuracies at these higher values. Per NKDEP, they classify normal renal function as any GFR >60ml/min/1.73 square meters; chronic kidney disease when GFR <60, and renal failure when GFR <15. ??This calculation may not be valid for patients with atypical muscle mass (very lean or obese), acute renal failure, and in patients with diabetic kidney disease. References: http://nkdep.nih.gov/resources/NKDEP_Suggestn4Labs_0606_508.pdf http://www.kidney.org/professionals/kls/pdf/faq_gfr.pdf Sara Toth, Rayne NA, Rebekah AK, Ayden TS, William AD, [place] CHARLES. Relative performance of the MDRD and CKD-EPI equations for estimating glomerular filtration rate among patients with varied clinical presentations. Clin J Am Soc Nephrol;6:1963-72. Blood specimen (specimen) 03/24/2012 3:45 PM EDT 03/24/2012 4:07 PM EDT Narrative Resulting Agency Comment Spec In Lab Daryl Whelan MD CHEMISTRY ORDERABLES Performing Organization Address [facility] Co de Phone Number SULLY JONES * (ABNORMAL) Cardiac Enzymes (03/24/2012 3:45 PM EDT) Troponin-T 0.11(H) <=0.03 ng/mL SULLY JONES Comment: 0.03 ng/mL: Represents the 99th percentile upper reference limit for normals. >0.03 ng/mL: Elevated cardiac troponin T level indicative of myocardial damage. Diagnosis of acute, evolving or recent AL requires a typical rise and gradual fall of cTnT with at least ONE of the following: a) Ischemic symptoms b) Development of pathologic Q waves on the ECG c) ECG changes indicative of eschemia (S-T segment elevation/depression) d) Coronary artery intervention Serial bloods should be obtained for testing on admission, at 6 to 9 hrs and again at 12 to 24 hrs if earlier samples are negative and the clinical index of suspicion is high. Reference: [Myocardial infarction redefined a consensus document of the Joint Society of Cardiology/[place] College of Cardiology Committee for the redefinition of myocardial infarction. Journal of the [place] College of Cardiology 2000; 36: 959-969] Creatine Kinase 77 0 - 160 unit/L SULLY JONES Blood specimen (specimen) 03/24/2012 3:45 PM EDT 03/24/2012 4:07 PM EDT Narrative Resulting Agency Comment Spec In Lab Daryl Whelan MD CHEMISTRY ORDERABLES Performing Organization Address [facility]/ZIP Co de Phone Number SULLY JONES * (ABNORMAL) CBC (with Diff) (03/24/2012 3:45 PM EDT) White Blood Cell 14.0(H) 4.0 - 10.0 x10(3)/mc L [facility] Red Blood Cell 3.70(L) 3.93 - 5.22 x10(6)/mc L CERNER MILLENNIUM Hemoglobin 11.1(L) 11.2 - 15.7 gm/dL CERNER MILLENNIUM Hematocrit 32.7(L) 34.0 - 45.0 % CERNER MILLENNIUM Mean Cell Volume 88.4 79.0 - 94.0 fL CERNER MILLENNIUM Mean Cell Hemoglobin 30.0 26.6 - 32.2 pg CERNER MILLENNIUM Mean Cell Hemoglobin Concentration 33.9 32.0 - 36.5 gm/dL CERNER MILLENNIUM Platelet 322 145 - 370 x10(3)/mc L CERNER MILLENNIUM RDW Standard Deviation 41.6 35.0 - 46.0 fL CERNER MILLENNIUM RDW coefficient of variation 12.9 10.9 - 14.4 % CERNER MILLENNIUM Mean Platelet Volume 9.9 9.0 - 12.0 fL CERNER MILLENNIUM Blood specimen (specimen) 03/24/2012 3:45 PM EDT 03/24/2012 4:07 PM EDT Narrative Resulting Agency Comment Spec In Lab Daryl Whelan MD HEMATOLOGY ORDERABLE S SULLY JONES documented in this encounter Visit Diagnoses Diagnosis STEMI (ST elevation myocardial infarction) Acute myocardial infarction, unspecified site, episode of care unspecified documented in this encounter Administered Medications Inactive Administered Medications - up to 3 most recent administrations Medication Order MAR Action Action Date Dose Rate Site acetaminophen (TYLENOL) tablet 650 mg 650 mg, Oral, EVERY 4 HOURS PRN, Starting on Sat03/24/12 at 1628, Until Sat03/27/12 at 1728, Pain, Headaches, Maximum dose of acetaminophen is 4000 mg from all sources in 24 hours., Routine Given 03/27/2012 1:35 PM EDT 650 mg Given 03/27/2012 8:22 AM EDT 650 mg Given 03/27/2012 3:17 AM EDT 650 mg aspirin EC tablet 325 mg 325 mg, Oral, DAILY, First dose on Sat03/25/12 at 0900, Until Discontinued, Routine Given 03/27/2012 8:23 AM EDT 325 mg Given 03/26/2012 9:00 AM EDT 325 mg Given 03/25/2012 9:00 AM EDT 325 mg atorvastatin (LIPITOR) tablet 80 mg 80 mg, Oral, EVERY EVENING, First dose on Sat03/24/12 at 1730, Until Discontinued, Routine Given 03/26/2012 5:00 PM EDT 80 mg Given 03/25/2012 5:00 PM EDT 80 mg citalopram (celeXA) tablet 20 mg 20 mg, Oral, NIGHTLY, First dose (after last modification) on Sat03/25/12 at 2100, Until Discontinued, Routine Given 03/26/2012 8:31 PM EDT 20 mg Given 03/25/2012 9:00 PM EDT 20 mg clopidogrel (PLAVIX) tablet 75 mg 75 mg, Oral, DAILY, First dose on Sat03/25/12 at 0900, Until Discontinued, Routine Given 03/27/2012 8:23 AM EDT 75 mg Given 03/26/2012 9:00 AM EDT 75 mg Given 03/25/2012 9:00 AM EDT 75 mg docusate sodium (COLACE) capsule 100 mg 100 mg, Oral, 2 TIMES DAILY, First dose on Sat03/24/12 at 2100, Until Discontinued, Routine Given 03/27/2012 8:23 AM EDT 100 mg Given 03/26/2012 8:31 PM EDT 100 mg Given 03/26/2012 9:00 AM EDT 100 mg famotidine (PEPCID) tablet 20 mg 20 mg, Oral, 2 TIMES DAILY, First dose on Sat03/24/12 at 2100, Until Discontinued, Routine Given 03/27/2012 8:23 AM EDT 20 mg Given 03/26/2012 8:31 PM EDT 20 mg Given 03/26/2012 9:00 AM EDT 20 mg granisetron (KYTRIL) injection 1 mg 1 mg, Intravenous, DAILY PRN, Starting on Sat03/24/12 at 1858, Until Sat03/27/12 at 1728, nausea, Routine Given 03/26/2012 8:26 AM EDT 1 mg Given 03/24/2012 7:52 PM EDT 1 mg HYDROmorphone (DILAUDID) injection 0.2-0.5 mg 0.2-0.5 mg, Intravenous, EVERY 4 HOURS PRN, Starting on Sat03/24/12 at 1620, Until Sat03/24/12 at 2002, Pain, Routine Given 03/24/2012 6:14 PM EDT 0.5 mg Given 03/24/2012 5:15 PM EDT 0.5 mg HYDROmorphone (DILAUDID) injection 0.2-0.5 mg 0.2-0.5 mg, Intravenous, EVERY 2 HOURS PRN, Starting on Sat03/24/12 at 2002, Until Sat03/27/12 at 1728, Pain, Routine Given 03/25/2012 5:48 AM EDT 0.5 mg Given 03/25/2012 2:10 AM EDT 0.5 mg Given 03/24/2012 8:25 PM EDT 0.5 mg HYDROmorphone (DILAUDID) tablet 2-4 mg 2-4 mg, Oral, EVERY 4 HOURS PRN, Starting on Sat03/25/12 at 0838, Until Sat03/27/12 at 1728, Pain, Routine Given 03/26/2012 9:06 PM EDT 2 mg Given 03/26/2012 5:08 PM EDT 2 mg Given 03/26/2012 8:06 AM EDT 2 mg lactulose (CHRONULAC) 20 gram/30 mL oral solution 20 g 20 g, Oral, 2 TIMES DAILY PRN, Starting on Sat03/26/12 at 2048, Until Sat03/27/12 at 1728, Constipation, Routine Given 03/27/2012 3:33 AM EDT 20 g lisinopril (PRINIVIL;ZESTRIL) tablet 2.5 mg 2.5 mg, Oral, DAILY, First dose on Sat03/25/12 at 1015, Until Discontinued, Routine Given 03/27/2012 8:23 AM EDT 2.5 mg Given 03/26/2012 9:00 AM EDT 2.5 mg Given 03/25/2012 10:15 AM EDT 2.5 mg metoprolol (LOPRESSOR) injection 5 mg 5 mg, Intravenous, ONCE, 1 dose, On Sat03/24/12 at 2015 Given 03/24/2012 8:15 PM EDT 5 mg metoprolol (LOPRESSOR) tablet 12.5 mg 12.5 mg, Oral, EVERY 6 HOURS SCHEDULED, First dose on Sat03/24/12 at 1800, Until Discontinued, Hold for SBP <100 and/or HR <55. , Routine Given 03/26/2012 6:00 AM EDT 12.5 mg Given 03/26/2012 12:00 AM EDT 12.5 mg Given 03/25/2012 6:00 PM EDT 12.5 mg metoprolol tartrate (LOPRESSOR) tablet 25 mg 25 mg, Oral, EVERY 12 HOURS SCHEDULED (2 times per day), First dose (after last modification) on Sat03/26/12 at 2100, Until Discontinued, Hold for SBP <100 and/or HR <55. , Routine Given 03/27/2012 8:23 AM EDT 2 5 mg Given 03/26/2012 8:31 PM EDT 25 mg nitroGLYcerin (NITROSTAT) SL tablet 0.4 mg 0.4 mg, Sublingual, EVERY 5 MIN PRN, Starting on Sat03/24/12 at 1628, Until Neihsa 03/27/12 at 1728, Chest pain, May repeat every 5 minutes for a total of three doses. Notify provider if chest pain not relieved with nitroglycerin. Do not administer nitroglycerin if the patinet has received or taken phosphodiesterase (PDE-5) inhibitors such as sildenafil, tadalafil or vardenafil within the last 24 to 72 hours., Routine Given 03/26/2012 8:15 AM EDT 0.4 mg Given 03/25/2012 7:26 PM EDT 0.4 mg Given 03/25/2012 6:30 PM EDT 0.4 mg nitroGLYcerin 50 mg in dextrose 5% 250 mL infusion 0-200 mcg/min (rounded to 0-60 mL/hr), Intravenous, CONTINUOUS, Starting on Sat03/24/12 at 1645, Until Neisha 03/27/12 at 1728, Maximum dose: 200 mcg/min. Titrate for pain relief, Routine Rate/Dose Change 03/25/2012 11:00 AM EDT 40 mcg/min 12 mL/hr Rate/Dose Change 03/25/2012 10:00 AM EDT 50 mcg/min 15 mL/ hr Rate/Dose Change 03/25/2012 9:00 AM EDT 60 mcg/min 18 mL/h r sodium chloride 0.9 % flush 5 mL 5 mL, Intravenous, EVERY 12 HOURS, First dose on Sat03/24/12 at 1645, Until Discontinued Given 03/27/2012 4:45 AM EDT 5 mLs Given 03/26/2012 4:45 PM EDT 5 mLs Given 03/26/2012 4:45 AM EDT 5 mLs sodium chloride 0.9% infusion 125 mL/hr, Intravenous, CONTINUOUS, Starting on Sat03/24/12 at 1645, Until Sat03/25/12 at 0044 Rate/Dose Change 03/24/2012 10:27 PM EDT 125 mL/hr 125 mL/hr Rate/Dose Change 03/24/2012 10:00 PM EDT 125 mL/hr 125 mL /hr sodium chloride 0.9% infusion 100 mL/hr, Intravenous, ONCE, 1 dose, On Sat03/24/12 at 1645, Discontinue after 1L New Bag 03/24/2012 10:19 PM EDT 100 mL/hr 100 mL/hr Rate/Dose Verify 03/24/2012 10:00 PM EDT 100 mL/hr 100 mL /hr Rate/Dose Verify 03/24/2012 8:00 PM EDT 100 mL/hr 100 mL/ hr documented in this encounter Active and Recently Administered Medications Times are shown in EDT. Scheduled Medication Order 03/25/2012 03/26/2012 03/27/2012 aspirin EC tablet 325 mg 325 mg, Oral, DAILY, First dose on Sat03/25/12 at 0900, Until Discontinued, Routine 0900 (Given - Provider: Petra Cancino RN) 0900 (Given - Provider: Cameron Antonio RN) 0823 (Given - Provider: Katerina Conde, CRISTI) atorvastatin (LIPITOR) tablet 80 mg 80 mg, Oral, EVERY EVENING, First dose on Sat03/24/12 at 1730, Until Discontinued, Routine 1700 (Given - Provider: Petra Cancino RN) 1700 (Given - Provider: Katerina Conde, CRISTI) citalopram (celeXA) tablet 20 mg (CANCELED) 20 mg, Oral, NIGHTLY, First dose (after last modification) on Sat03/25/12 at 2100, Until Discontinued, Routine 2100 (Given - Provider: Mayra Ziegler RN) 2030 (Given - Provider: Connie Pascal, CRISTI) clopidogrel (PLAVIX) tablet 75 mg 75 mg, Oral, DAILY, First dose on Sat03/25/12 at 0900, Until Discontinued, Routine 0900 (Given - Provider: Petra Cancino RN) 0900 (Given - Provider: Cameron Antonio, CRISTI) 0823 (Given - Provider: Katerina Conde RN) docusate sodium (COLACE) capsule 100 mg (CANCELED) 100 mg, Oral, 2 TIMES DAILY, First dose on Sat03/24/12 at 2100, Until Discontinued, Routine 0900 (Given - Provider: Petra Cancino RN)2100 (Given - Provider: Mayra Ziegler RN) 0900 (Given - Provider: Cameron Antonio RN)203 (Given - Provider: Connie Pascal, CRISTI) 0823 (Given - Provider: Katerina Conde RN) famotidine (PEPCID) tablet 20 mg (CANCELED) 20 mg, Oral, 2 TIMES DAILY, First dose on Sat03/24/12 at 2100, Until Discontinued, Routine 0900 (Given - Provider: Petra Cancino RN)2100 (Given - Provider: Mayra Ziegler RN) 0900 (Given - Provider: Cameron Antonio RN)2030 (Given - Provider: Connie Pascal RN) 0823 (Given - Provider: Katerina Conde RN) lisinopril (PRINIVIL;ZESTRIL) tablet 2.5 mg (CANCELED) 2.5 mg, Oral, DAILY, First dose on Sat03/25/12 at 1015, Until Discontinued, Routine 1015 (Given - Provider: Petra Cancino RN) 0900 (Given - Provider: Cameron Antonio RN) 0823 (Given - Provider: Katerina Conde RN) metoprolol (LOPRESSOR) tablet 12.5 mg (CANCELED) 12.5 mg, Oral, EVERY 6 HOURS SCHEDULED, First dose on Sat03/24/12 at 1800, Until Discontinued, Hold for SBP <100 and/or HR <55. , Routine 0000 (Not Given - Provider: Lia Palma RN - Reason: NPO)0550 (Given - Provider: Lia Palma RN)1200 (Given - Provider: Petra Cancino RN)1800 (Given - Provider: Petra Cancino RN) 0000 (Given - Provider: Mayra Ziegler RN)0600 (Given - Provider: Mayra Ziegler RN) metoprolol tartrate (LOPRESSOR) tablet 25 mg 25 mg, Oral, EVERY 12 HOURS SCHEDULED (2 times per day), First dose (after last modification) on Sat03/26/12 at 2100, Until Discontinued, Hold for SBP <100 and/or HR <55. , Routine 2030 (Given - Provider: Cnonie Pascal, RN) 0823 (Given - Provider: Katerina Conde, CRISTI) sodium chloride 0.9 % flush 5 mL (CANCELED) 5 mL, Intravenous, EVERY 12 HOURS, First dose on Sat03/24/12 at 1645, Until Discontinued 0445 (Given - Provider: Lia Palma RN)1645 (Given - Provider: Petra Cancino, CRISTI) 0445 (Given - Provider: Mayra Ziegler RN)1645 (Given - Provider: Katerina Conde, CRISTI) 0445 (Given - Provider: Connie Pascal, CRISTI) Continuous Medication Order 03/25/2012 03/26/2012 03/27/2012 nitroGLYcerin 50 mg in dextrose 5% 250 mL infusion (CANCELED) 0-200 mcg/min (rounded to 0-60 mL/hr), Intravenous, CONTINUOUS, Starting on Sat03/24/12 at 1645, Until Sat03/27/12 at 1728, Maximum dose: 200 mcg/min. Titrate for pain relief, Routine 0000 (Rate/Dose Verify - Provider: Lia Palma RN)0100 (Paused - Provider: Lia Palma RN)0140 (Restarted - Provider: Lia Palma RN)0200 (Rate/Dose Verify - Provider: Lia Palma RN)0220 (Stopped - Provider: Lia Palma RN)0547 (Restarted - Provider: Lia Palma RN)0800 (Rate/Dose Change - Provider: Petra Cancino RN)0900 (Rate/Dose Change - Provider: Petra Cancino RN)1000 (Rate/Dose Change - Provider: Petra Cancino RN)1100 (Rate/Dose Change - Provider: Petra Cancino RN)1200 (Stopped - Provider: Petra Cancino RN) PRN Medication Order 03/25/2012 03/26/2012 03/27/2012 acetaminophen (TYLENOL) tablet 650 mg (CANCELED) 650 mg, Oral, EVERY 4 HOURS PRN, Starting on Sat03/24/12 at 1628, Until Neisha 03/27/12 at 1728, Pain, Headaches, Maximum dose of acetaminophen is 4000 mg from all sources in 24 hours., Routine 1215 (Given - Provider: Petra Cancino RN - Comment: for headache) 0341 (Given - Provider: Mayra Ziegler RN) 0317 (Given - Provider: Connie Pascal, CRISTI)0822 (Given - Provider: Katerina Conde, CRISTI)1335 (Given - Provider: Katerina Conde, CRISTI) granisetron (KYTRIL) injection 1 mg (CANCELED) 1 mg, Intravenous, DAILY PRN, Starting on Sat03/24/12 at 1858, Until Neisha 03/27/12 at 1728, nausea, Routine 0826 (Given - Provider: Cameron Antonio RN) HYDROmorphone (DILAUDID) injection 0.2-0.5 mg (CANCELED) 0.2-0.5 mg, Intravenous, EVERY 2 HOURS PRN, Starting on Sat03/24/12 at 2002, Until Neisha 03/27/12 at 1728, Pain, Routine 0210 (Given - Provider: Lia Palma RN)0548 (Given - Provider: Lia Palma RN) HYDROmorphone (DILAUDID) tablet 2-4 mg (CANCELED) 2-4 mg, Oral, EVERY 4 HOURS PRN, Starting on Sat03/25/12 at 0838, Until Neisha 03/27/12 at 1728, Pain, Routine 0855 (Given - Provider: Petra Cancino RN)1307 (Given - Provider: Julee Schmitd RN)1721 (Given - Provider: Petra Cancino RN)2130 (Given - Provider: Mayra Ziegler RN) 0404 (Given - Provider: Mayra Ziegler RN)0806 (Given - Provider: Cameron Antonio RN)1708 (Given - Provider: Katerina Conde RN)2106 (Given - Provider: Connie Pascal, CRISTI) lactulose (CHRONULAC) 20 gram/30 mL oral solution 20 g (CANCELED) 20 g, Oral, 2 TIMES DAILY PRN, Starting on 03/26/12 at 2048, Until Neisha 03/27/12 at 1728, Constipation, Routine 0333 (Given - Provider: Connie Pascal, CRISTI) nitroGLYcerin (NITROSTAT) SL tablet 0.4 mg 0.4 mg, Sublingual, EVERY 5 MIN PRN, Starting on 03/24/12 at 1628, Until Neisha 03/27/12 at 1728, Chest pain, May repeat every 5 minutes for a total of three doses. Notify provider if chest pain not relieved with nitroglycerin. Do not administer nitroglycerin if the patinet has received or taken phosphodiesterase (PDE-5) inhibitors such as sildenafil, tadalafil or vardenafil within the last 24 to 72 hours., Routine 1203 (Given - Provider: Royal Maloney RN)1210 (Given - Provider: Royal Maloney RN)1509 (Given - Provider: Petra Cancino RN)1517 (Given - Provider: Petra Cancino RN)1830 (Given - Provider: Petra Cancino RN)1926 (Given - Provider: Petra Cancino RN) 0815 (Given - Provider: Genoveva Zuluaga RN) documented in this encounter Care Teams Rehabilitation Aide/Scheduler Relationship Specialty Start Date End Date Samia Jordan MD [facility] [address] [place] [address] [place] [address] PCP - General 03/24/12 12/01/17 documented as of this encounter
--- OUTSIDE RECORDS SUMMARY | 2024-06-12 21:21 | XMS_ITS | Encounter Summary ---
Author Organization [facility] Address [address] [place] [address] Care Team Providers Care Technical Sales Support Manager Name Role Phone Samia Pinto MD Primary Care Provider [phone] Marline Parker NP Primary Care Provider [phone] Lamar Fuentes MD Primary Care Provider Unavailable Encounter Details Date Type Department Care Team (Late st Contact Info) Description 08/26/2015 Historical Results Only [facility] Radiology Results [address] [place] [id number] Gabbie Delarosa PA-C [facility] [place] [address] Social History Tobacco Use Types Packs/Day Years Used Date Smoking Tobacco: Never Assessed Sex and Gender Information Value Date Recorded Sex Assigned at Not on file Gender Identity Not on file Sexual Orientation Not on file documented as of this encounter Plan of Treatment Not on file documented as of this encounter Procedures Procedure Name Priority Date/Time Associated Diagnosis Comments XR WRIST RIGHT 2 VIEWS 08/26/2015 9:06 EDT documented in this encounter Results * XR WRIST RIGHT 1-2 VIEWS (08/26/2015 9:06 EDT) Anatomical Region Laterality Modality Upper Extremities Right Other 08/26/2015 9:06 EDT Narrative 08/28/2015 14:45 EDT [facility] [address], [place] [id number] Diagnostic Imaging Report Signed Patient Name:ADA LANDRY ? Date of :1960 ? MR Number:[id number] Age:55 ?Sex:F Category: CR ? Date of Exam:08/26/15 Procedure: CR: Wrist, RT; 2 views ? Ordering Physician: Gabbie Delarosa ??PA CC: Optional Provider Gabbie Delarosa PA-C RIGHT WRIST The patient has right wrist pain. Two views are submitted with no prior right wrist series currently available for comparison. ??No acute fracture or una dislocation is seen. ??Little if any degenerative change is noted. ??There is the suggestion of mild soft tissue swelling. No other significant finding is seen. IMPRESSION: ??Evidence of mild soft tissue swelling. SHUKLA/dw Dictated by: Brook Shukla ? D/ 1445 Transcribed by: CARLOS ? D/ 1522 E-Signed by: <Electronically signed by Brook Shukla ??MD> ? D/ 1430 Procedure Note Kevin Shukla MD - 08/04/[address] [address] Diagnostic Imaging Report Signed Patient Name:Jermain LANDRY Number:[id number] Date of :1960 MRNumber:[id number] Age:55 Sex:F Category: CR Date ofExam:08/26/15 Procedure: CR: Wrist, RT; 2 viewsAccession: [id number] Ordering Physician: Gabbie Delarosa CC: Optional Provider Gabbie Delarosa PA-C RIGHT WRIST The patient has right wrist pain. Two views are submitted with no prior right wrist series currentlyavailable for comparison. No acute fracture or una dislocation is seen. Little if any degenerativechange is noted. There is the suggestion of mild soft tissue swelling. No other significant finding is seen. IMPRESSION: Evidence of mild soft tissue swelling. NEVIN/tim Dictated by: Brook Shukla MDD/ 1445 Transcribed by: CARLOSD/ 1522 E-Signed by: <Electronically signed by Brook Shukla MD>D/ 1430 Gabbie Delarosa PA-C IMG DIAGNOSTIC IMAGI NG ORDERABLES documented in this encounter Visit Diagnoses Not on filedocumented in this encounter Care Teams Technical Sales Support Manager Relationship Specialty Start Date End Date Samia Pinto MD [address] [place] [id number] PCP - General 03/12/12 06/02/17 Marline Parker NP [facility] [address] [place] [address] PCP - General 06/03/17 04/03/23 Lamar Fuentes MD [address] [place] [address] [place] [address] PCP - General Family Medicine - Primary Care 04/04/23 documented as of this encounter
--- OUTSIDE RECORDS SUMMARY | 2024-06-12 21:21 | XMS_ITS | Encounter Summary ---
[place] [address] Care Team Providers Care Phlebotomy Services Technician Name Role Phone Samia Pinto MD Primary Care Provider [phone] Encounter Details Date Type Department Care Team (Late st Contact Info) Description 05/09/2012 2:30 PM EDT Office [place] [id number] [place] Chest pain Social History Tobacco Use Types [...] Procedure Name Priority Date/Time Associated Diagnosis Comments CAROTID DUPLEX, BILATERAL Routine 05/09/2012 2:11 PM EDT Chest pain documented in this encounter Results * Cerebrovascular Duplex, Bilateral (05/09/2012 2:11 PM EDT) VB Text Report Department: Vascular Surgery Lab Patient: [id number] (VIVEK LANDRY) CPT Code: 35049 ICD-9: 785.9 Referring Physician: NESTOR VILLAFUERTE Indication: ?RIGHT carotid bruit on physical exam ICD9 Diagnosis Code: 785.9 Findings: Right ICA Proximal ?PSV (cm/s): 67 ?EDV (cm/s): 32 ?ICA/CCA: 1.0 ?Plaque Structure: Echogenic ?Plaque Surface: Smooth ?%Stenosis: <15% ICA Middle ?PSV (cm/s): 77 ?EDV (cm/s): 33 ?ICA/CCA: 1.2 ICA Distal ?PSV (cm/s): 42 ?EDV (cm/s): 20 ?ICA/CCA: 0.6 CCA Distal ?PSV (cm/s): 65 ?EDV (cm/s): 19 ?%Stenosis: Minimal CCA Proximal ?PSV (cm/s): 92 ?EDV (cm/s): 17 External Carotid Artery ?PSV (cm/s): 70 ?EDV (cm/s): 14 ?%Stenosis: <50% Vertebral ?PSV (cm/s): 29 ?EDV (cm/s): 10 Left ICA Proximal ?PSV (cm/s): 64 ?EDV (cm/s): 27 ?ICA/CCA: 0.9 ?Plaque Structure: Echogenic ?Plaque Surface: Smooth ?%Stenosis: <15% ICA Middle ?PSV (cm/s): 61 ?EDV (cm/s): 28 ?ICA/CCA: 0.9 ICA Distal ?PSV (cm/s): 44 ?EDV (cm/s): 23 ?ICA/CCA: 0.6 CCA Distal ?PSV (cm/s): 70 ?EDV (cm/s): 27 ?%Stenosis: Minimal CCA Proximal ?PSV (cm/s): 62 ?EDV (cm/s): 19 External Carotid Artery ?PSV (cm/s): 61 ?EDV (cm/s): 12 ?%Stenosis: <50% Vertebral ?PSV (cm/s): 57 ?EDV (cm/s): 29 Interpretation: RIGHT: A thin layer of circumferential plaque is present in the common carotid artery causing minimal stenosis. There is smooth plaque in the proximal internal carotid artery causing <15% stenosis when compared to the more distal internal carotid artery. The bifurcation level is in the mid neck. Source of extra cranial bruit was not identified. LEFT: A thin layer of circumferential plaque is present in the common carotid artery causing minimal stenosis. There is smooth plaque in the proximal internal carotid artery causing <15% stenosis when compared to the more distal internal carotid artery. The bifurcation level is in the mid neck. Vertebral Artery Data: Antegrade blood flow with normal Doppler waveforms and velocities bilaterally. Comparison: No previous study in our vascular lab database for comparison. Accuracy Data: The following statistics are based on comparisons performed at [facility] between noninvasive carotid artery duplex data and arteriographic evaluation of the same patients from [id number]. Q / A Sens. Spec. PPV NPV Accuracy Carotid 93% 98% 97% 95% 96% Signed by EDIN GARCIA on 2012-05-12 12:34:24 PM [facility] VB Text Report End of Report [facility] 05/09/2012 2:11 PM EDT Nestorjillian Villafuerte MD VASCULAR ORDERABLES [facility] documented in this encounter Visit Diagnoses Diagnosis Chest pain Chest pain, unspecified documented in this encounter Care Teams Phlebotomy Services Technician Relationship Specialty Start Date End Date Samia Pinto MD [facility] [address] [place] [address] [place] [address] PCP - General 03/24/12 12/01/17 documented as of this encounter
--- OUTSIDE RECORDS SUMMARY | 2024-06-12 21:21 | XMS_ITS | Encounter Summary ---
Author Organization [facility] [place] [address] Care Team Providers Care Office Machine Technician Name Role Phone Samia Jordan MD Primary Care Provider [phone] Encounter Details Date Type Department Care Team (Late st Contact Info) Description 03/24/2012 1:30 PM EDT - 03/24/2012 2:11 PM EDT [place] [phone] Daryl Whelan MD [facility] [place] [address] CARDIAC CATHETERIZATION Social History Tobacco Use Types [...] CORONARY INTERVENTION: WHAT TO EXPECT AT HOME (ZAMBIAN) * ARGELIA INHIBITORS: AFTER YOUR VISIT (ZAMBIAN) * BETA-BLOCKERS: AFTER YOUR VISIT (ZAMBIAN) * REDUCING HEART ATTACK RISK WITH DAILY MEDICINE: AFTER YOUR VISIT (ZAMBIAN) documented in this encounter Medications at Time [...] mouth daily. 30 tablet 12 03/27/2012 08/15/2012 Lindsborg-3 Fatty Acids (FISH OIL) 500 mg Cap [...] for Nutrition Intervention: Patient request Diet Order: [facility] Appetite: good Food allergies: none Chewing/Swallowing difficulty: none Height: (cm) 157 Weight: (kg) 84 BMI: 34.1 Education: Reviewed heart healthy dietary guidelines. Verbalized good understanding. Education material, with means of contact provided. Assessment: Patient denies need for any other changes at this time. Nutrition Plan: Diet: [facility] Support and encouragement provided. Nutrition services to [...] AM EDT CARDIOLOGY INPATIENT PROGRESS NOTE Diana Do Yamileth 03/26/2012 Cardiology S2 Service SUMMARY: Diana Landry [...] mouth every 6 hours as needed. ??? Lindsborg-3 Fatty Acids (FISH OIL) 500 mg Cap [...] was dilated using a 3.5mm NC Quantum Madison 12 balloon with a maximum inflation pressure [...] The lesion was predilated with a 2.0mm Madison 12mm balloon with a maximum inflation pressure [...] EMERY MEHTA MD Cardiology S2a Service Pager [phone] 03/26/2012 Cardiology Attending Progress Note Addendum: I [...] to D1. 24 HOUR EVENTS: Take to medical lab technologist yesterday, tolerated procedure well. See report below. [...] Infusions: ??? sodium chloride 0.9% 125 mL/hr (03/24/127) ??? sodium chloride 0.9% 100 mL/hr (03/24/12 7149) ??? nitroGLYcerin 50 mcg/min (03/25/12 0533) ??? DISCONTD: nitroGLYcerin 20 mcg/min (03/24/12 1453) [...] mouth every 6 hours as needed. ??? Lindsborg-3 Fatty Acids (FISH OIL) 500 mg Cap [...] was dilated using a 3.5mm NC Quantum Madison 12 balloon with a maximum inflation pressure [...] The lesion was predilated with a 2.0mm Madison 12mm balloon with a maximum inflation pressure [...] 325 ASA. She was taken to the medical lab technologist urgently, where they were able to place [...] mouth every 6 hours as needed. ??? Lindsborg-3 Fatty Acids (FISH OIL) 500 mg Cap [...] was dilated using a 3.5mm NC Quantum Madison 12 balloon with a maximum inflation pressure [...] The lesion was predilated with a 2.0mm Madison 12mm balloon with a maximum inflation pressure [...] Currently HDS and will transfer to the [facility] for overnight monitoring. Will plan on usingNTG [...] care delivered in critical care setting of [facility] including review of data/studies, physical examination and formulation of management plan including CAD. documented in this encounter Procedure Notes * Provider, Scanning - 03/28/2012 11:17 AM EDTAssociated Order(s): SCAN DOC: CARDIAC CATH * Provider, Scanning - 03/28/2012 11:17 AM EDTAssociated Order(s): SCAN DOC: COLD PATCHER * Daryl Whelan MD - 03/24/2012 4:11 PM EDTProcedure(s): CARDIAC CATHETERIZATION Preliminary [facility] [place], [place] Patient Name: Diana Landry ID#: [id number] : 1960 Procedure Date: March 24, 2012 [...] was dilated using a 3.5mm NC Quantum Madison 12 balloon with a maximum inflation pressure [...] The lesion was predilated with a 2.0mm Madison 12mm balloon with a maximum inflation pressure [...] Ticagrelor 180 mg PO administered in the medical lab technologist. Continue ASA 81 mg po daily, ticagrelor [...] parameters for home exercise. Phase II Referral: [facility] Activity Summary: By discharge, patient will be [...] 325 ASA. She was taken to the medical lab technologist urgently, where they were able to place two SARAI to the LAD, and 2 to th D1. She tolerated the procedure well and there were no complications. Hospital Course: STEMI: Pt had 2 stents placed to the LAD for 80% occlusion, and subsequently had her D1 jailed without successful revascularization. She was transferred to the [facility] in stable condition, and started on a NTGgtt with prn dilaudid for pain control. She continued to have pain while in the [facility] that was well controlled with dilaudid and [...] Studies and Lab Data: Recent Labs Basename 03/27/1260903/26/1233903/25/1251903/24/12 1545 ??? WBC 9.5 12.4* 12.1* 14.0* ??? HGB 11.6 12.3 12.4 11.1* ??? PLATELET 281 316 304 322 Recent Labs Basename 03/27/1260903/26/120 03/25/1220 03/24/12 1545 ??? NA 139 139 139 134* ??? K 3.7 4.2 4.1 3.6 ??? CL 104 103 105 103 ??? CO2 28 28 27 23 ??? BUN 8 9 14 14 ??? CREATININE 0.68* 0.67* 0.60* 0.56* ??? GLUCOSE 100 109 -- 112 Recent Labs Basename 03/27/1260903/26/120 03/25/12 0520 ??? CALCIUM 8.8 8.7 9.1 [...] was dilated using a 3.5mm NC Quantum Madison 12 balloon with a maximum inflation pressure [...] The lesion was predilated with a 2.0mm Madison 12mm balloon with a maximum inflation pressure [...] 500 mg tablet 1,000 mg Qty: Refills: Lindsborg-3 Fatty Acids (FISH OIL) 500 mg Cap [...] unless instructed to do so by your manager emergency. Call your doctor if: You experience chest pain, shortness of breath, pain or swelling in legs, bleeding from your catheterization site, fevers, chills, or any other symptoms you find concerning. If you have non-emergent questions between now and the time of your follow up appointments: call [phone] 8am-5pm Saturday through Saturday and ask to speak to the cardiology clinic triage nurse. All other times call [phone] and ask to speak to the animal rehabilitator cable installation technician. Return to work: One week Driving: No driving for 48 hours after catherization Activity: Do not engage in strenuous activity until you are cleared to do so by your doctor or manager emergency. You are free to engage in a [...] Department: Dept Phone: Center: 04/23/2012 10:40 AM Dean Christy MD Le Cardiology 4a [phone] [facility] Joint Appt Nurse Cardiology, RN Leb 4a [phone] [facility] For questions regarding this document or issues relating to this hospitalization on the Medical Service, please contact your inpatient physician through the [facility] [employer]etone Recovery Worker . Issues afterhours and on weekends will be handled by the [employer] staff on-call. Signed: EMERY MEHTA MD * Consult Note - Linda Mcmillan RN - 03/26/2012 12:22 PM EDT Diana Landry was seen today by Cardiac Rehabilitation for: (no ) An activity evaluation - Just arrived on [facility] from [facility]. Will walk with RN later and I will do formal activity eval tomorrow (yes) Education regarding CAD and cardiac risk factors started; (she had visitors arrive) Will f/u tomorrow (yes ) Participation to the outpatient cardiac rehabilitation program at [facility] was discussed. A referral will be sent to the program and the patient will be contacted within 2 weeks. * Miscellaneous - Provider, Perico - 03/25/2012 2:33 PM EDT * Plan [...] CATHETERIZATION Routine 04/04/20 12 12:15 PM EDT COLD PATCHER SCAN 03/28/2012 11:17 AM EDT CARDIAC CATH SCAN 03/28/2012 11: 17 AM EDT CARDIAC ENZYMES (MC/CGP) STAT 03/27/2012 11:52 AM EDT ECHOCARDIOGRAM LIMITED [...] 5:20 AM EDT DIFFERENTIAL, AUTOMATED Routine 03/25/20 5:20 AM EDT CARDIAC ENZYMES ([facility]/CGP) Routine 03/25/2012 5:20 AM EDT CBC (WITH DIFF) Routine 03/25/2012 5:20 AM EDT PHOSPHORUS Routine 03/25/2012 5:20 AM EDT MAGNESIUM Routine 03/25/2012 5:20 AM EDT LDL CHOLESTEROL, DIRECT Routine 03/25/20 5:20 AM EDT HEMOGLOBIN A1C Routine 03/25/2012 5:20 AM EDT LIPID PANEL (REFLEX DIRECT LDL) Routine 03/25/2012 5:20 AM EDT ECHOCARDIOGRAM TRANSTHORACIC Routine 03/25/2012 CARDIAC ENZYMES (DH/CGP) Routine 03/24/2012 10:30 PM EDT CARDIAC ENZYMES ([facility]/CGP) STAT 03/24/2012 5:40 PM EDT ECHOCARDIOGRAM TRANSTHORACIC Routine 03/24/2012 5:37 PM EDT STEMI (ST elevation myocardial infarction) EKG 12-LEAD Routine 03/24/2012 4:48 PM EDT STEMI (ST elevation myocardial infarction) DIFFERENTIAL, AUTOMATED STAT 03/24/20 12 3:45 PM EDT CARDIAC ENZYMES ([facility]/CGP) STAT 03/24/2012 3:45 PM EDT PROTHROMBIN TIME STAT 03/24/2012 3:45 PM EDT CBC (WITH DIFF) STAT 03/24/2012 3:45 PM EDT COMPREHENSIVE METABOLIC PANEL STAT 03/24/2012 3:45 PM EDT CARDIAC CATHETERIZATION 03/24/20 12 2:51 PM EDT STEMI documented in this encounter Results * Cardiac Catheterization (04/04/2012 12:15 PM EDT) Anatomical Region Laterality Modality Other Daryl Whelan MD CARDIAC CATH ORDERAB LES * SCAN DOC: COLD PATCHER (03/28/2012 11:17 AM EDT) Anatomical Region Laterality [...] (ABNORMAL) Cardiac Enzymes (03/27/2012 11:52 AM EDT) [facility] Troponin-T 0.66(H) <=0.03 ng/mL [facility] Comment: 0.03 ng/mL: Represents the 99th percentile upper reference limit for normals. >0.03 ng/mL: Elevated cardiac troponin T level indicative of myocardial damage. Diagnosis of acute, evolving or recent [place] requires a typical rise and gradual fall [...] consensus document of the Joint Society of Cardiology/Mac[place] College of Cardiology Committee for the redefinition of myocardial infarction. Journal of the [place] College of Cardiology 2000; 36: 959-969] Creatine Kinase 138 0 - 160 unit/L [facility] Blood specimen (specimen) 03/27/2012 11:52 AM EDT 03/27/2012 12:10 PM EDT Narrative Resulting Agency Comment Spec In Lab Daryl Whelan MD CHEMISTRY ORDERABLES SULLY JONES * Echocardiogram limited w/ Contrast (03/27/2012 10:32 AM EDT) [facility] EF 60 HEARTLAB SYSTEM Anatomical Region Laterality Modality Other 03/27/2012 Narrative 03/27/2012 10:53 AM EDT Procedure: ? Transthoracic Echocardiogram Patient: ? YAMILETH Do ?(Age): 1960(51) Med Rec#: ?[id number] ? Sex: ?F ? Site Loc: ?[facility] ? Ht / Wt: ??157(cm)/83(kg) Pt. Loc: ? Adult Floor ?BSA: ?1.84 Study Date: ?03/27/2012 ? Pt. Type: Inpatient Tape: ? Referring: Daryl Whelan Dip Unit Operator: Moe Brantley RDCS Diagnosis: ??Acute WV (410.90) CPT Code(s): ??Echo LTD (02934), ??Doppler LTD (22074), ??Color Doppler (87007), Indication(s): ??Myocardial infarction Rhythm: HR ?BP 81 [...] ? Mid-Inferior ?Normal ? Mid-Inferoseptal ?Normal ? Madison-Septal ? Normal ? Madison-Anterior ? Hypokinetic ? Madison-Lateral ?Hypokinetic ? Madison-Inferior ? Normal ? Madison-Tip ?Hypokinetic ? Chambers ?Value ?Units (Range) ? [...] 03/27/2012 10:52:54 Images reviewed and interpretation verified [facility] Cardiac Ultrasound Laboratory Procedure Note Ashish Urbina MD - 03/27/2012 Procedure: Transthoracic Echocardiogram Patient: YAMILETH Do DOB(Age): 1960(51) Med Rec#: [id number] Sex: F Site Loc: [facility] Ht / Wt: 157(cm)/83(kg) Pt. Loc: Adult Floor BSA: 1.84 Study Date: 03/27/2012 Pt. Type: Inpatient Tape: Referring: Daryl Whelan Dip Unit Operator: Moe Brantley [facility] Diagnosis: Acute WV (410.90) CPT Code(s): Echo LTD (57534), Doppler LTD (46231), Color Doppler (05277), Indication(s): Myocardial infarction Rhythm: HR BP 81 [...] Hypokinetic Mid-Posterolateral Normal Mid-Inferior Normal Mid-Inferoseptal Normal Madison-Septal Normal Madison-Anterior Hypokinetic Madison-Lateral Hypokinetic Madison-Inferior Normal Madison-Tip Hypokinetic Chambers Value Units (Range) LV EF [...] 03/27/2012 10:52:54 Images reviewed and interpretation verified [facility] Cardiac Ultrasound Laboratory Daryl Whelan MD ECHO ORDERABLES * EKG 12 Lead (03/27/2012 7:20 AM EDT) Ventricular rate 82 BPM MUSE SYSTEM Atrial Rate 82 BPM MUSE SYSTEM P-R Interval 148 ms MUSE SYSTEM QRS Duration 88 ms MUSE SYSTEM Q-T Interval 354 ms MUSE SYSTEM QTC Calculated (Bezet) 413 ms MUSE SYSTEM Calculated P [place] 61 degrees MUSE SYSTEM Calculated R [place] 73 degrees MUSE SYSTEM Calculated T [place] 62 degrees MUSE SYSTEM INTERPRETATION Normal sinus rhythm Normal ECG When compared with ECG of 24-MAY-2012 03:18, (unconfirme d) QRS axis Shifted left [...] MILLENNIUM Baso Absolute 0.0 0.0 - 0.2 x10(3)/mcL CERNER MILLENNIUM Immature Gran % 0.20 0.00 - 0.66 % CERNER MILLENNIUM Comment: Immature granulocytes(IG's)percentage and absolute count will include metamyelocytes, myelocytes, and promyelocytes. Blood smears from CBCs yielding IG's will be scanned manually for concordance. If this scan disagrees with the automated IG or if promyelocytes are noted, a manual differential will be performed. Immature Gran Absolute 0.02 0.00 - 0.05 x10(3)/mcL CERNER MILLENNIUM Blood specimen (specimen) 03/27/2012 6:10 AM EDT 03/27/2012 6:31 AM EDT Daryl Whelan MD HEMATOLOGY ORDERABLE S Performing Organization Address [facility] Phone Number SULLY CANTRELLIUM * Phosphorus (03/27/2012 6:10 AM EDT) Phosphorus 3.3 2.5 - 4.5 mg/dL CERNER MILLENNIUM Blood specimen (specimen) 03/27/2012 6:10 AM EDT 03/27/2012 6:31 AM EDT Narrative Resulting Agency Comment Spec In Lab Daryl Whelan MD CHEMISTRY ORDERABLES Performing Organization Address [facility] Phone Number SULLY CANTRELLIUM * Magnesium (03/27/2012 6:10 AM EDT) Magnesium 0.85 0.69 - 1.07 mmol/L CERNER MILLENNIUM Blood specimen (specimen) 03/27/2012 6:10 AM EDT 03/27/2012 6:31 AM EDT Narrative Resulting Agency Comment Spec In Lab Daryl Whelan MD CHEMISTRY ORDERABLES Performing Organization Address [facility] Phone Number SULLY CANTRELLIUM * (ABNORMAL) Basic Metabolic Panel (non-fasting) (03/27/2012 [...] Whelan MD CHEMISTRY ORDERABLES Performing Organization Address [facility] Co de Phone Number SULLY JONES * (ABNORMAL) CBC (with Diff) (03/27/2012 6:10 [...] Lab Daryl Whelan MD HEMATOLOGY ORDERABLE S Performing Organization Address [facility] Co de Phone Number SULLY JONES * (ABNORMAL) Cardiac Enzymes (03/27/2012 6:10 AM EDT) Troponin-T 0.74(H) <=0.03 ng/mL CERNER MILLENNIUM Comment: 0.03 ng/mL: Represents the 99th percentile upper reference limit for normals. >0.03 ng/mL: Elevated cardiac troponin T level indicative of myocardial damage. Diagnosis of acute, evolving or recent [place] requires a typical rise and gradual fall [...] consensus document of the Joint Society of Cardiology/[place] College of Cardiology Committee for the redefinition of myocardial infarction. Journal of the [place] College of Cardiology 2000; 36: 959-969] Creatine Kinase 154 0 - 160 unit/L [employer] Blood specimen (specimen) 03/27/2012 6:10 AM EDT 03/27/2012 6:31 AM EDT Narrative Resulting Agency Comment Spec In Lab Daryl Whelan MD CHEMISTRY ORDERABLES Performing Organization Address [facility] de Phone Number [employer] * EKG 12 Lead (03/27/2012 3:18 AM EDT) Ventricular rate 75 BPM MUSE SYSTEM Atrial Rate 75 BPM MUSE SYSTEM P-R Interval 142 ms MUSE SYSTEM QRS Duration 84 ms MUSE SYSTEM Q-T Interval 380 ms MUSE SYSTEM QTC Calculated (Bezet) 424 ms MUSE SYSTEM Calculated R [place] 144 degrees MUSE SYSTEM Calculated T [place] 143 degrees MUSE SYSTEM INTERPRETATION Suspect arm lead reversal, interpretation assumes no reversal Normal sinus rhythm When compared with ECG of 26-MAR-2012 07:08, lead reversal = please repeat EKG with attention to lead placement Confirmed by MD Nomi, Gabe Arauz ([id number]) on 03/27/2012 1:29:07 PM MUSE SYSTEM 03/27/2012 3:18 AM EDT 03/27/2012 1:29 PM EDT Daryl Whelan MD ECG ORDERABLES Performing Organization Address [facility] Co de Phone Number MUSE SYSTEM * (ABNORMAL) Cardiac Enzymes (03/26/2012 5:30 PM EDT) Troponin-T 0.72(H) <=0.03 ng/mL [employer] Comment: 0.03 ng/mL: Represents the 99th percentile upper reference limit for normals. >0.03 ng/mL: Elevated cardiac troponin T level indicative of myocardial damage. Diagnosis of acute, evolving or recent [place] requires a typical rise and gradual fall [...] consensus document of the Joint Society of Cardiology/[place] College of Cardiology Committee for the redefinition of myocardial infarction. Journal of the [place] College of Cardiology 2000; 36: 959-969] Creatine Kinase 283(H) 0 - 160 unit/L SULLY [facility] Blood specimen (specimen) 03/26/2012 5:30 PM EDT 03/26/2012 5:47 PM EDT Narrative Resulting Agency Comment Spec In Lab Daryl Whelan MD CHEMISTRY ORDERABLES SULLY JONES * (ABNORMAL) Cardiac Enzymes (03/26/2012 12:27 PM EDT) Troponin-T 0.71(H) <=0.03 ng/mL SULLY ANGELICAPAT[facility]ICIOALINE Comment: 0.03 ng/mL: Represents the 99th percentile upper reference limit for normals. >0.03 ng/mL: Elevated cardiac troponin T level indicative of myocardial damage. Diagnosis of acute, evolving or recent [place] requires a typical rise and gradual fall [...] consensus document of the Joint Society of Cardiology/[place] College of Cardiology Committee for the redefinition of myocardial infarction. Journal of the [place] College of Cardiology 2000; 36: 959-969] Creatine Kinase 363(H) 0 - 160 unit/L [employer] Blood specimen (specimen) 03/26/2012 12:27 PM EDT 03/26/2012 12:37 PM EDT Narrative Resulting Agency Comment Spec In Lab Daryl Whelan MD CHEMISTRY ORDERABLES Performing Organization Address [facility] de Phone Number [employer]ERDr[employer]Wave * EKG 12 Lead (03/26/2012 7:08 AM EDT) Ventricular rate 84 BPM MUSE SYSTEM Atrial Rate 84 BPM MUSE SYSTEM P-R Interval 140 ms MUSE SYSTEM QRS Duration 84 ms MUSE SYSTEM Q-T Interval 336 ms MUSE SYSTEM QTC Calculated (Bezet) 397 ms MUSE SYSTEM Calculated P [place] 52 degrees MUSE SYSTEM Calculated R [place] 59 degrees MUSE SYSTEM Calculated T [place] 54 degrees MUSE SYSTEM INTERPRETATION Normal sinus rhythm Normal ECG When compared with ECG of 25-MAR-2012 11:56, No significant change was found Confirmed by MD Nomi, Gabe Arauz ([id number]) on 03/26/2012 11:31:41 AM MUSE SYSTEM 03/26/2012 7:08 AM EDT 03/26/2012 11:31 AM EDT Daryl Whelan MD ECG ORDERABLES Performing Organization Address [facility] de Phone Number MUSE SYSTEM * (ABNORMAL) CARDIAC ENZYMES (03/26/2012 3:40 AM EDT) Troponin-T 1.00(H) <=0.03 ng/mL [facility] [employer] Comment: 0.03 ng/mL: Represents the 99th percentile upper reference limit for normals. >0.03 ng/mL: Elevated cardiac troponin T level indicative of myocardial damage. Diagnosis of acute, evolving or recent [place] requires a typical rise and gradual fall [...] consensus document of the Joint Society of Cardiology/[place] College of Cardiology Committee for the redefinition of myocardial infarction. Journal of the [place] College of Cardiology 2000; 36: 959-969] Creatine Kinase 522(H) 0 - 160 unit/L CERNER MILLENNIUM Blood specimen (specimen) 03/26/2012 3:40 AM EDT 03/26/2012 3:43 AM EDT Narrative Resulting Agency Comment Spec In Lab Daryl Whelan MD CHEMISTRY ORDERABLES CERNER MILLENNIUM * (ABNORMAL) DIFFERENTIAL, AUTOMATED (03/26/2012 3:40 AM [...] x10(3)/mc L CERNER MILLENNIUM Blood specimen (specimen) 03/26/2012 3:40 AM EDT 03/26/2012 3:42 AM EDT Daryl Whelan MD HEMATOLOGY ORDERABLE S Performing Organization Address [facility] de Phone Number CEREV DOMINGUEZENNIUM * Phosphorus (03/26/2012 3:40 AM EDT) Phosphorus 2.9 2.5 - 4.5 mg/dL [facility] MILLENNIUM Blood specimen (specimen) 03/26/2012 3:40 AM EDT 03/26/2012 3:42 AM EDT Narrative Resulting Agency Comment Spec In Lab Daryl Whelan MD CHEMISTRY ORDERABLES Performing Organization Address [facility] de Phone Number [facility] ANGELICAENNIUM * Magnesium (03/26/2012 3:40 AM EDT) Magnesium 0.85 0.69 - 1.07 mmol/L [facility] MILLENNIUM Blood specimen (specimen) 03/26/2012 3:40 AM EDT 03/26/2012 3:42 AM EDT Narrative Resulting Agency Comment Spec In Lab Daryl Whelan MD CHEMISTRY ORDERABLES Performing Organization Address [facility] de Phone Number [facility] ANGELICAENNIUM * (ABNORMAL) Basic Metabolic Panel (non-fasting) (03/26/2012 3:40 AM EDT) Glucose 109 60 - 199 mg/dL [facility] MILLENNIUM Comment:Diabetes: >=200 mg/d L plus symptoms [...] CERNER MILLENNIUM * (ABNORMAL) CBC (with Diff) (03/26/2012 3:40 AM EDT) White Blood Cell 12.4(H) 4.0 - 10.0 x10(3)/mc L CERNER MILLENNIUM Red Blood Cell 4.07 3.93 - 5.22 [...] 4:40 PM EDT) Troponin-T 0.98(H) <=0.03 ng/mL SULLY JONES Comment: 0.03 ng/mL: Represents the 99th percentile upper reference limit for normals. >0.03 ng/mL: Elevated cardiac troponin T level indicative of myocardial damage. Diagnosis of acute, evolving or recent [place] requires a typical rise and gradual fall [...] consensus document of the Joint Society of Cardiology/[place] College of Cardiology Committee for the redefinition of myocardial infarction. Journal of the [place] College of Cardiology 2000; 36: 959-969] Creatine Kinase 775(H) 0 - 160 unit/L SULLY JONES Blood specimen (specimen) 03/25/2012 4:40 PM EDT 03/25/2012 4:47 PM EDT Narrative Resulting Agency Comment Spec In Lab Dean Christy MD CHEMISTRY ORDERABLES SULLY JONES * EKG 12 Lead (03/25/2012 11:56 AM EDT) Ventricular rate 78 BPM MUSE SYSTEM Atrial Rate 78 BPM MUSE SYSTEM P-R Interval 158 ms MUSE SYSTEM QRS Duration 88 ms MUSE SYSTEM Q-T Interval 362 ms MUSE SYSTEM QTC Calculated (Bezet) 412 ms MUSE SYSTEM Calculated P [place] 63 degrees MUSE SYSTEM Calculated R [place] 68 degrees MUSE SYSTEM Calculated T [place] 56 degrees MUSE SYSTEM INTERPRETATION Normal sinus rhythm Normal ECG When compared with ECG of 25-MAR-2012 05:46, (unconfirmed) No significant change was found Confirmed by MD Nomi, Gabe Arauz (94) on 03/25/2012 12:34:38 PM MUSE SYSTEM 03/25/2012 11:5 6 AM EDT 03/25/2012 12:34 PM EDT Daryl Whelan MD ECG ORDERABLES Performing Organization Address [facility] de Phone Number MUSE SYSTEM * (ABNORMAL) Cardiac Enzymes (03/25/2012 11:15 AM EDT) Pathologist [facility] Troponin-T 0.95(H) <=0.03 ng/mL SULLY JONES Comment: 0.03 ng/mL: Represents the 99th percentile upper reference limit for normals. >0.03 ng/mL: Elevated cardiac troponin T level indicative of myocardial damage. Diagnosis of acute, evolving or recent [place] requires a typical rise and gradual fall [...] consensus document of the Joint Society of Cardiology/[place] College of Cardiology Committee for the redefinition of myocardial infarction. Journal of the [place] College of Cardiology 2000; 36: 959-969] Creatine Kinase 833(H) 0 - 160 unit/L SULLY [employer] Blood specimen (specimen) 03/25/2012 11:15 AM EDT 03/25/2012 11:24 AM EDT Narrative Resulting Agency Comment Spec In Lab Daryl Whelan MD CHEMISTRY ORDERABLES Performing Organization Address [facility] de Phone Number SULLY JONES * EKG 12 Lead (03/25/2012 5:46 AM EDT) Pathologist [facility] Ventricular rate 85 BPM MUSE SYSTEM Atrial Rate 85 BPM MUSE SYSTEM P-R Interval 154 ms MUSE SYSTEM QRS Duration 88 ms MUSE SYSTEM Q-T Interval 382 ms MUSE SYSTEM QTC Calculated (Bezet) 454 ms MUSE SYSTEM Calculated [place] 60 degrees MUSE SYSTEM Calculated R [place] 65 degrees MUSE SYSTEM Calculated [place] 47 degrees MUSE SYSTEM INTERPRETATION Normal sinus rhythm Normal ECG When compared with ECG of 24-MAR-2012 16:48, (unconfirme d) ST no longer elevated in Lateral leads Confirmed by MD Nomi, Gabe Arauz ([id number]) on 03/25/2012 12:18:03 PM MUSE SYSTEM 03/25/2012 5:46 AM EDT 03/25/2012 12:18 PM EDT Daryl Whelan MD ECG ORDERABLES MUSE SYSTEM * (ABNORMAL) DIFFERENTIAL, AUTOMATED (03/25/2012 [...] HEMATOLOGY ORDERABLE S SULLY DOMINGUEZENNIUM * (ABNORMAL) BMP W/FASTING GLUCOSE (03/25/2012 5:20 [...] of Diabetes Mellitus, Position Statement from the [place] [employer]. ??Diabetes Care, Volume 33, Supplement [...] Whelan MD CHEMISTRY ORDERABLES SULLY JONES * Phosphorus (03/25/2012 5:20 AM EDT) Phosphorus 4.0 2.5 - 4.5 mg/dL SULLY ANGELICABRADLEY Blood specimen (specimen) 03/25/2012 5:20 AM EDT 03/25/2012 5:27 AM EDT Narrative Resulting Agency Comment Spec In Lab Daryl Whelan MD CHEMISTRY ORDERABLES Performing Organization Address [facility] de Phone Number [facility] * Magnesium (03/25/2012 5:20 AM EDT) Magnesium 0.84 0.69 - 1.07 mmol/L [facility] Blood specimen (specimen) 03/25/2012 5:20 AM EDT 03/25/2012 5:27 AM EDT Narrative Resulting Agency Comment Spec In Lab Daryl Wehlan MD CHEMISTRY ORDERABLES Performing Organization Address [facility] de Phone Number [facility] * (ABNORMAL) LDL Cholesterol, Direct (03/25/2012 5:20 AM EDT) LDL Cholesterol, Direct 167(H) <=99 mg/dL [facility] Comment: The National Cholesterol Education Program (NCEP) has set the following guidelines for LDL Cholesterol: Reference range: ?? Optimal: ?<100 mg/dL ?? Near Optimal/Above Optimal: ?? 100-129 mg/dL ?? Borderline high: ?130-159 mg/dL ?? High: ? 160-189 mg/dL ?? Very high: ?>gw=908 mg/dL NIALL 2001: 285(19):3527-2838 Blood specimen (specimen) 03/25/2012 5:20 AM EDT 03/25/2012 5:27 AM EDT Narrative Resulting Agency Comment Spec In Lab Daryl Whelan MD CHEMISTRY ORDERABLES Performing Organization Address [facility] de Phone Number [facility] * Hemoglobin A1c (03/25/2012 5:20 AM EDT) Hemoglobin A1c 5.8 4.3 - 6.1 % [facility] Estimated Average Glucose 120 mg/dL [facility] Comment: eAG equivalents for HbA1c percentages: [...] into estimated average glucose values. ??Diabetes Care 2008:31(8):1208-4596. Blood specimen (specimen) 03/25/2012 5:20 AM EDT 03/25/2012 5:27 AM EDT Narrative Resulting Agency Comment Spec In Lab Daryl Whelan MD CHEMISTRY ORDERABLES [facility] * (ABNORMAL) Lipid panel (fasting) (03/25/2012 5:20 AM EDT) Pathologist [facility] Cholesterol, Total 238(H) <=199 mg/dL [facility] Comment: Recommendations of the NCEP Adult Treatment Panel for the following risk cutoff thresholds for the [place] population: Desirable: <200 mg/dL Borderline High: 200-239 mg/dL High: > or = 240 mg/dL Triglyceride 151(H) <=149 mg/dL CERNER MILLENNIUM Comment: Reference Range: Normal triglycerides: ??<150 mg/dL Borderline high: ??150-199 mg/dL High: ??200-499 mg/dL Very high: ??>un=153 mg/dL NIALL 2001; 285(19):4793-3201 HDL Cholesterol 61 >=40 mg/dL [facility] NER MILLENNIUM Comment: Reference range: ??Low HDL: ?? < 40 mg/dL ??Normal: ?40-60 mg/dL ??Desirable: > 60 mg/dL NIALL 2001; 285(19):8054-2753 LDL Cholesterol 147(H) <=99 mg/dL [facility] NER MILLENNIUM Comment: Reference range: ?? Optimal: ?<100 mg/dL ?? Near Optimal/Above Optimal: ?? 100-129 mg/dL ?? Borderline high: ?130-159 mg/dL ?? High: ? 160-189 mg/dL ?? Very high: ?>jf=308 mg/dL NIALL 2001: 285(19):9683-1663 Cholesterol/HDL Ratio 3.9 ratio CERNER MILLENNIUM Comment: A Cholesterol to HDL ratio below 4:1 is desirable. ??Studies suggest that increased CAD risk occurs at ratios above 5 for females and above 6 for men. ? [place] [employer] Association ??(http://www.americanheart.org) ? Effie Int Med, 1994; 121:641 ? AM J Med, 1998; 105(1A):48S Blood specimen (specimen) 03/25/2012 5:20 AM EDT 03/25/2012 5:27 AM EDT Narrative Resulting Agency Comment Spec In Lab Daryl Whelan MD CHEMISTRY ORDERABLES Performing Organization Address [facility] de Phone Number SULLY JONES * (ABNORMAL) Cardiac Enzymes (03/25/2012 5:20 AM EDT) Troponin-T 0.58(H) <=0.03 ng/mL CEREV DOMINGUEZENNIUM Comment: 0.03 ng/mL: Represents the 99th percentile upper reference limit for normals. >0.03 ng/mL: Elevated cardiac troponin T level indicative of myocardial damage. Diagnosis of acute, evolving or recent [place] requires a typical rise and gradual fall [...] consensus document of the Joint Society of Cardiology/[place] College of Cardiology Committee for the redefinition of myocardial infarction. Journal of the [place] College of [employer]iology 2000; 36: 959-969] Creatine Kinase 606(H) 0 - 160 unit/L CEREV DOMINGUEZENNIUM Comment:result rechecked-afp Blood specimen (specimen) 03/25/2012 5:20 AM EDT 03/25/2012 5:27 AM EDT Narrative Resulting Agency Comment Spec In Lab Daryl Whelan MD CHEMISTRY ORDERABLES Performing Organization Address [facility] de Phone Number SULLY JONES * (ABNORMAL) CBC (with Diff) (03/25/2012 5:20 [...] ? YAMILETH Do ?(Age): 1960(51) Med Rec#: ?[id number] ? Sex: ?F ? Site Loc: ?[facility] ? Ht / Wt: ??157(cm)/83(kg) Pt. Loc: ? Adult Floor ?BSA: ?1.9 Study Date: ?03/24/2012 ? Pt. Type: Inpatient Tape: ? Referring: Daryl Whelan Dip Unit Operator: Moe Brantley [facility] Diagnosis: ??Acute [place] (410.90) CPT Code(s): ??Echo Full (76648), ??Spectral Doppler (39519), ??Color Doppler (62438), Indication(s): ??Myocardial infarction Rhythm: HR ?BP 89 [...] ? Mid-Inferior ?Normal ? Mid-Inferoseptal ?Hypokinetic ? [place]-Septal ? Akinetic ? Madison-Anterior ? Akinetic ? Madison-Lateral ?Hypokinetic ? Madison-Inferior ? Akinetic ? Madison-Tip ?Akinetic ? Chambers ?Value ?Units (Range) ? [...] 03/25/2012 07:39:50 Images reviewed and interpretation verified [facility] Cardiac Ultrasound Laboratory Procedure Note Bairon Meza MD - 03/25/2012 Procedure: Transthoracic Echocardiogram Patient: YAMILETH CLEMENTE(Age): 1960(51) Med Rec#: [id number] Sex: F Site Loc: [facility] Ht / Wt: 157(cm)/83(kg) Pt. Loc: Adult Floor BSA: 1.9 Study Date: 03/24/2012 Pt. Type: Inpatient Tape: Referring: Daryl Whelan Dip Unit Operator: Moe Brantley RDCS Diagnosis: Acute [place] (410.90) CPT Code(s): Echo Full (76610), Spectral Doppler (57366), Color Doppler (13447), Indication(s): Myocardial infarction Rhythm: HR BP 89 [...] Normal Mid-Posterolateral Normal Mid-Inferior Normal Mid-Inferoseptal Hypokinetic Madison-Septal Akinetic Madison-Anterior Akinetic Madison-Lateral Hypokinetic Madison-Inferior Akinetic Madison-Tip Akinetic Chambers Value Units (Range) LV EF [...] 03/25/2012 07:39:50 Images reviewed and interpretation verified [facility] Unknown ECHO ORDERABLES * (ABNORMAL) Cardiac Enzymes (03/24/2012 10:30 PM EDT) Troponin-T 0.17(H) <=0.03 ng/mL SULLY JONES Comment: 0.03 ng/mL: Represents the 99th percentile upper reference limit for normals. >0.03 ng/mL: Elevated cardiac troponin T level indicative of myocardial damage. Diagnosis of acute, evolving or recent [place] requires a typical rise and gradual fall [...] consensus document of the Joint Society of Cardiology/[place] College of Cardiology Committee for the redefinition of myocardial infarction. Journal of the [place] College of Cardiology 2000; 36: 959-969] Creatine Kinase 189(H) 0 - 160 unit/L SULLY JONES Comment:result rechecked-afp Blood specimen (specimen) 03/24/2012 10:30 PM EDT 03/24/2012 10:39 PM EDT Narrative Resulting Agency Comment Spec In Lab Daryl Whelan MD CHEMISTRY ORDERABLES SULLY ANGELICAPATRICIOALINE * (ABNORMAL) Cardiac Enzymes (03/24/2012 5:40 PM EDT) Troponin-T 0.16(H) <=0.03 ng/mL SULLY JONES Comment: 0.03 ng/mL: Represents the 99th percentile upper reference limit for normals. >0.03 ng/mL: Elevated cardiac troponin T level indicative of myocardial damage. Diagnosis of acute, evolving or recent [place] requires a typical rise and gradual fall [...] consensus document of the Joint Society of Cardiology/[place] College of Cardiology Committee for the redefinition of myocardial infarction. Journal of the [place] College of Cardiology 2000; 36: 959-969] Creatine Kinase 105 0 - 160 unit/L SULLY JONES Blood specimen (specimen) 03/24/2012 5:40 PM EDT 03/24/2012 5:48 PM EDT Narrative Resulting Agency Comment Spec In Lab Daryl Whelan MD CHEMISTRY ORDERABLES SULLY JONES * Echo Transthoracic (Complete) (03/24/2012 5:37 PM EDT) EF 40 HEARTSonendo SYSTEM Anatomical Region Laterality Modality Other 07/01/2012 Narrative 07/01/2012 2:12 PM EDT Amended Report Procedure: ? Transthoracic Echocardiogram Patient: ? YAMILETH Do ?(Age): 1960(51) Med Rec#: ?[id number] ? Sex: ?F ? Site Loc: ?[facility] ? Ht / Wt: ??157(cm)/83(kg) Pt. Loc: ? Adult Floor ?BSA: ?1.9 Study Date: ?03/24/2012 ? Pt. Type: Inpatient Tape: ? Referring: Daryl Whelan Dip Unit Operator: Moe Brantley [facility] Diagnosis: ??Acute [place]V (410.90) CPT Code(s): ??Echo Full (40238), ??Spectral Doppler (85277), ??Color Doppler (28926), Indication(s): ??Myocardial infarction Rhythm: HR ?BP 89 [...] ? Mid-Inferior ?Normal ? Mid-Inferoseptal ?Hypokinetic ? [place]-Septal ? Akinetic ? Madison-Anterior ? Akinetic ? Madison-Lateral ?Hypokinetic ? Madison-Inferior ? Akinetic ? [place]-Tip ?Akinetic ? Chambers ?Value ?Units (Range) ? [...] 07/01/2012 14:11:26 Images reviewed and interpretation verified [facility] Cardiac Ultrasound Laboratory Procedure Note Bairon Meza MD - 07/01/2012 Amended Report Procedure: Transthoracic Echocardiogram Patient: YAMILETH CLEMENTE(Age): 1960(51) Med Rec#: [id number] Sex: F Site Loc: [facility] Ht / Wt: 157(cm)/83(kg) Pt. Loc: Adult Floor BSA: 1.9 Study Date: 03/24/2012 Pt. Type: Inpatient Tape: Referring: Daryl Whelan Dip Unit Operator: Moe Brantley RDCS Diagnosis: Acute [place]V (410.90) CPT Code(s): Echo Full (98977), Spectral Doppler (53226), Color Doppler (43149), Indication(s): Myocardial infarction Rhythm: HR BP 89 [...] Normal Mid-Posterolateral Normal Mid-Inferior Normal Mid-Inferoseptal Hypokinetic Madison-Septal Akinetic Madison-Anterior Akinetic Madison-Lateral Hypokinetic Madison-Inferior Akinetic Madison-Tip Akinetic Chambers Value Units (Range) LV EF [...] 07/01/2012 14:11:26 Images reviewed and interpretation verified [facility] Cardiac Ultrasound Laboratory Daryl Whelan MD ECHO ORDERABLES * EKG 12 Lead (03/24/2012 4:48 PM EDT) Ventricular rate 83 BPM MUSE SYSTEM Atrial Rate 83 BPM MUSE SYSTEM P-R Interval 170 ms MUSE SYSTEM QRS Duration 90 ms MUSE SYSTEM Q-T Interval 398 ms MUSE SYSTEM QTC Calculated (Bezet) 467 ms MUSE SYSTEM Calculated [place] 54 degrees MUSE SYSTEM Calculated R [place] 55 degrees MUSE SYSTEM Calculated [place] 6 degrees MUSE SYSTEM INTERPRETATION AGE AND GENDER SPECIFIC ECG ANALYSIS Normal sinus rhythm ST elevation consider lateral injury or acute infarct * ACUTE [place] ?? Abnormal ECG No previous ECGs available [...] Absolute 0.05 0.00 - 0.05 x10(3)/mc L [facility] [id number] Blood specimen (specimen) 03/24/2012 3:45 PM EDT 03/24/2012 4:07 PM EDT Daryl Whelan MD HEMATOLOGY ORDERABLE S Performing Organization Address [facility] de Phone Number [facility] ParacosmIUM * (ABNORMAL) Prothrombin Time (03/24/2012 3:45 PM EDT) Prothrombin Time 17.3(H) 11.9 - 14.7 sec [facility] [id number] Comment: [facility] Transfusion Committee Guidelines: INR less than 2.0, PTT less than OR equal to 43.5 seconds, or Fibrinogen greater than or equal to 100 mg/dl indicate adequate procoagulant activity for hemostasis in patients without underlying bleeding disorders. International Normalization Ratio 1.4(H) 0.9 - [address].1 [facility] [id number] Blood specimen (specimen) 03/24/2012 3:45 PM EDT 03/24/2012 4:07 PM EDT Narrative Resulting Agency Comment Spec In Lab Daryl Whelan MD HEMATOLOGY ORDERABLE S Performing Organization Address [facility]/State/ZIP Co de Phone Number [facility] ParacosmIUM * (ABNORMAL) Comprehensive metabolic panel (non-fasting) (03/24/2012 3:45 PM EDT) Glucose 112 60 - 199 mg/dL [facility] MILLENNIUM Comment:Diabetes: >=200 mg/d L plus symptoms Blood Urea Nitrogen 14 8 - 18 mg/dL [facility] [id number] Creatinine 0.56(L) 0.70 - 1.20 mg/dL CERNER [id number] Sodium 134(L) 135 - 145 mmol/L CERNER [...] In Lab Daryl Whelan MD CHEMISTRY ORDERABLES [employer] * (ABNORMAL) Cardiac Enzymes (03/24/2012 3:45 PM EDT) Troponin-T 0.11(H) <=0.03 ng/mL SULLY JONES Comment: 0.03 ng/mL: Represents the 99th percentile upper reference limit for normals. >0.03 ng/mL: Elevated cardiac troponin T level indicative of myocardial damage. Diagnosis of acute, evolving or recent [place] requires a typical rise and gradual fall [...] consensus document of the Joint Society of Cardiology/[place] College of Cardiology Committee for the redefinition of myocardial infarction. Journal of the [place] College of Cardiology 2000; 36: 959-969] Creatine Kinase 77 0 - 160 unit/L CERNER MILLENNIUM Blood specimen (specimen) 03/24/2012 3:45 PM EDT 03/24/2012 4:07 PM EDT Narrative Resulting Agency Comment Spec In Lab Daryl Whelan MD CHEMISTRY ORDERABLES Performing Organization Address City/[facility]/ZIP Co de Phone Number CEREV DOMNIGUEZENNIUM * (ABNORMAL) CBC (with Diff) (03/24/2012 3:45 PM EDT) White Blood Cell 14.0(H) 4.0 - 10.0 x10(3)/mc L CERNER MILLENNIUM Red Blood Cell 3.70(L) 3.93 - 5.22 [...] JONES documented in this encounter Visit Diagnoses Not on filedocumented in this encounter Administered Medications Inactive Administered Medications - up to 3 most recent administrations Medication Order MAR Action Action Date Dose Rate Site fentaNYL 50mcg/mL injection ONCE PRN, Starting on Sat03/24/12 at 1510, Until Sat03/24/12 at 1628, Pain, Intra-Operative (Intra-Procedure), Routine Given 03/24/2012 3:55 PM EDT 25 mcg Given 03/24/2012 3:40 PM EDT 50 mcg Given 03/24/2012 3:24 PM EDT 25 mcg heparin (porcine) injection ONCE PRN, Starting on Sat03/24/12 at 1514, Until Sat03/24/12 at 1628, Intra-Operative (Intra-Procedure), Routine Given 03/24/2012 3:14 PM EDT 6,000 Units midazolam (VERSED) injection ONCE PRN, Starting on Sat03/24/12 at 1510, Until Sat03/24/12 at 1628, Sleep, Intra-Operative (Intra-Procedure), Routine Given 03/24/2012 3:40 PM EDT 1 mg Given 03/24/2012 3:10 PM EDT 1 mg nitroGLYCerin 100 mcg/mL intracoronary dilution ONCE PRN, Starting on Sat03/24/12 at 1514, Until Sat03/24/12 at 1628, Cath (Intra-Procedure), Routine Given 03/24/2012 3:26 PM EDT 100 mcg Given 03/24/2012 3:14 PM EDT 200 mcg nitroGLYcerin 50 mg in dextrose 5% 250 mL infusion (SHOE COBBLER) CONTINUOUS PRN, Starting on Sat03/24/12 at 1453, Until Sat03/24/12 at 1628, Cath (Intra-Procedure), Routine New Bag 03/24/2012 2:53 PM EDT 20 mcg/min 6 mL /hr ticagrelor (BRILINTA) tablet ONCE PRN, Starting on Sat03/24/12 at 1521, Until Sat03/24/12 at 1628, After initial loading dose of aspirin (usually 325 mg), use ticagrelor with daily maintenance dose of aspirin of 81 mg, Intra-Operative (Intra-Procedure), Routine Given 03/24/2012 3:21 PM EDT 180 mg documented in this encounter Active and Recently Administered Medications Times are shown in EDT. Scheduled Medication Order 03/25/2012 03/26/2012 03/27/2012 aspirin EC tablet 325 mg 325 mg, Oral, DAILY, First dose on Sat03/25/12 at 0900, Until Discontinued, Routine 0900 (Given - Provider: Petra Cancino RN) 0900 (Given - Provider: Cameron Antonio RN) 0823 (Given - Provider: Katerina Conde RN) atorvastatin (LIPITOR) tablet 80 mg 80 mg, Oral, EVERY EVENING, First dose on Sat03/24/12 at 1730, Until Discontinued, Routine 1700 (Given - Provider: Petra Cancino RN) 1700 (Given - Provider: Katerina Conde RN) citalopram (celeXA) tablet 20 mg (CANCELED) 20 mg, Oral, NIGHTLY, First dose (after last modification) on Sat03/25/12 at 2100, Until Discontinued, Routine 2099 (Given - Provider: Mayra Ziegler RN) 2030 (Given - Provider: Connie Pascal RN) clopidogrel (PLAVIX) tablet 75 mg 75 mg, [...] Pascal RN) 0823 (Given - Provider: Katerina Conde, CRISTI) lisinopril (PRINIVIL;ZESTRIL) tablet 2.5 mg (CANCELED) 2.5 [...] <55. , Routine 2030 (Given - Provider: Connie Pascal, CRISTI) 0823 (Given - Provider: Katerina Conde RN) sodium chloride 0.9 % flush 5 mL (CANCELED) 5 mL, Intravenous, EVERY 12 HOURS, First dose on Sat03/24/12 at 1645, Until Discontinued 0445 (Given - Provider: Lia Palma RN)1645 (Given - Provider: Petra Cancino RN) 0445 (Given - Provider: Mayra Ziegler RN)1645 (Given - Provider: Katerina Conde RN) 0445 (Given - Provider: Connie Pascal, CRISTI) [...] Ziegler RN) 0317 (Given - Provider: Connie Pascal RN)0822 (Given - Provider: Katerina Conde, CRISTI)1335 (Given [...] Petra Cancino RN)1307 (Given - Provider: Julee Schmidt, CRISTI)1721 (Given - Provider: Petra Cancino RN)2130 (Given - Provider: Mayra Ziegler RN) 0404 (Given - Provider: Mayra Ziegler RN)0806 (Given - Provider: Cameron Antonio, CRISTI)1708 (Given - Provider: Katerina Conde RN)2106 (Given - Provider: Connie Pascal, CRISTI) lactulose (CHRONULAC) 20 gram/30 mL oral solution 20 g (CANCELED) 20 g, Oral, 2 TIMES DAILY PRN, Starting on Sat03/26/12 at 2048, Until Neisha 03/27/12 at 1728, [...] Petra Cancino RN)1830 (Given - Provider: Petra Cancino, RN)1926 (Given - Provider: Petra Cancino, CRISTI) 0815 (Given - Provider: Genoveva Zuluaga, CRISTI) documented in this encounter Care Teams Office Machine Technician Relationship Specialty Start Date End Date Samia Jordan MD [facility] [address] [place] [address] [place] [address] PCP - General 03/24/12 12/01/17 documented as of this encounter
--- OUTSIDE RECORDS SUMMARY | 2024-06-12 21:21 | XMS_ITS | Encounter Summary ---
Author Organization [facility] Address [address] [place] [address] Care Team Providers Care Bushwalking Guide Name Role Phone Lamar Fuentes MD Primary Care Provider Unavailable Encounter Details Date Type Department Care Team (Late st Contact Info) Description 04/10/2023 Lab Requisition [facility] Pathology & Laboratory Medicine - [facility] [address] [place] [address] Lamar Fuentes MD [address] [place] [id number] Encounter for other general examination Social History Tobacco Use Types Packs/Day Years Used Date Smoking Tobacco: Never Assessed Sex and Gender Information Value Date Recorded Sex Assigned at Not on file Gender Identity Not on file Sexual Orientation Not on file documented as of this encounter Plan of Treatment Not on file documented as of this encounter Procedures Procedure Name Priority Date/Time Associated Diagnosis Comments SURGICAL PATHOLOGY Today 04/09/2023 16 :30 EDT Encounter for other general examination documented in this encounter Results * SURGICAL PATHOLOGY (04/09/2023 16:30 EDT) Note to Patient The following pathology results have been interpreted by your pathologist and may be available to you before your health provider has had the opportunity to review them. Please allow time for your provider to receive these results and explore management options, if applicable. 04/11/2023 13:17 EDT [facility] Final Diagnosis A. SKIN OF FOREHEAD, LEFT, EXCISION: - Polypoid fragments of fibro-connective tissue with granuloma formation and polarizable foreign material. See comment. 04/11/2023 13:17 [facility] Diagnosis Comment Within the subcutaneous tissues granulomata with polarizable foreign material, the etiology uncertain. 04/11/2023 13:17 [facility] Attestation By the signature below, the attending physician certifies that they have 1) personally conducted a gross and/or microscopic examination of the described specimen(s), and/or personally interpreted the results of laboratory testing of the described specimen(s), and 2) personally rendered or confirmed the above diagnosis. 04/11/2023 13:17 [facility] at 1317 Clinical History Subcutaneous cyst 04/11/2023 13:17 [facility] Gross Description A. Received in formalin labelled with proper patient identification (initials C, V) and forehead SQ excision are 3 tabor-white and tabor-pink tissues ranging in size from 0.3 x 0.2 x 0.2 cm up to 0.6 x 0.3 x 0.2 cm. Submitted intact in A1. SUKHWINDER MELENDEZ(ASCP) 04/10/2023 19:34 04/11/2023 13:17 [facility] Performing Lab [facility] 04/11/2023 13:17 [facility] Scanned Images 04/11/2023 13:17 [facility] Tissue TISSUE SPECIMEN FROM SKIN / Unknown 04/09/2023 16:30 EDT 04/10/2023 17:12 EDT Lamar Fuentes MD PATHOLOGY ORDER BEST [facility] [address] [place] [address] documented in this encounter Visit Diagnoses Diagnosis Encounter for other general examination documented in this encounter Care Teams Bushwalking Guide Relationship Specialty Start Date End Date Lamar Fuentes MD [address] [place] [address] PCP - General Family Medicine - Primary Care 04/04/23 documented as of this encounter
--- OUTSIDE RECORDS SUMMARY | 2024-06-12 21:21 | XMS_ITS | Encounter Summary ---
Author Organization [facility] Address [address] [place] [address] Care Team Providers Care Drapery Supervisor Name Role Phone Marline Parker NP Primary Care Provider [phone] Lamar Fuentes MD Primary Care Provider Unavailable Encounter Details Date Type Department Care Team (Latest Contact Info) Description 02/28/2022 Lab Requisition [facility] Pathology & Laboratory Medicine - [facility] [address] [place] [address] Beth Hannah FNP [address] [place], [place] [address] Encounter for general adult medical examination without abnormal findings; Encounter for screening for malignant neoplasm of cervix; Encounter for screening for human papillomavirus (HPV) Social History Tobacco Use Types Packs/Day Years Used Date Smoking Tobacco: Never Assessed Sex and Gender Information Value Date Recorded Sex Assigned at Not on file Gender Identity Not on file Sexual Orientation Not on file documented as of this encounter Plan of Treatment Not on file documented as of this encounter Procedures Procedure Name Priority Date/Time Associated Diagnosis Comments PAP TEST Today 02/27/2022 9:20 EDT Encounter for general adult medical examination without abnormal findings Encounter for screening for malignant neoplasm of cervix Encounter for screening for human papillomavirus (HPV) HPV DNA DETECTION WITH GENOTYPING, PCR Today 02/27/2022 9:20 EDT Encounter for general adult medical examination without abnormal findings Encounter for screening for malignant neoplasm of cervix Encounter for screening for human papillomavirus (HPV) documented in this encounter Results * HUMAN PAPILLOMAVIRUS (HPV) DETECTION-HIGH RISK TYPES (02/27/2022 9:20 EDT) HPV other High Risk types, PCR Negative Negative 03/02/2022 22:39 EDT [facility] Comment:No E6 or E7 mRNA is detected from HPV types 16,18,31,33,35,39,45,51,52,56,58,59,66, and 68 by carry out clerk and shelf stocker mediated amplification. Papanicolaou smear specimen (specimen) CERVIX UTERI STRUCTURE / Unknown 02/27/2022 9:20 EDT 03/02/2022 9:36 EDT Beth Camden HAND ORNAMENT MAKER MICROBIOLOGY - GENER AL ORDERABLES [facility] [address] [place] [id number] * PAP TEST (02/27/2022 9:20 EDT) Specimens A. Cervix and/or Endocervix , ThinPrep Imaging System with Manual Evaluation 03/02/2022 22:40 EDT [facility] Specimen Adequacy Satisfactory for Evaluation - assessment of transformation zone component not applicable ( e.g. atrophy, vaginal sample, hysterectomy) 03/02/2022 22:40 EDT [facility] General Categorization Negative for intraepithelial lesion or malignancy 03/02/2022 22:40 T [facility] Attestation . 03/02/2022 22:40 [facility] at 2239 Clinical History See below 03/02/20 22:40 T [facility] HPV The result for the Human Papillomavirus (HPV) Detection-High Risk Types is Negative. No E6 or E7 mRNA is detected from HPV types 16,18,31,33,35,39 ,45,51,52,56,58,5 9,66, and 68 by carry out clerk and shelf stocker mediated amplification.Coretta ting was performed on specimen [id number] and was resulted on 03/02/2022 2235 EDT by RUBÉN, LAB INSTRUMENT RESULTS IN 03/02/2022 22:40 EDT [facility] Performing Lab [facility] 03/02/2022 22:40 EDT [facility] Scanned Images 03/02/2022 22:40 EDT [facility] Papanicolaou smear specimen (specimen) CERVIX UTERI STRUCTURE / Unknown 02/27/2022 9:20 EDT 02/28/2022 8:53 EDT Beth Hannah HAND ORNAMENT MAKER PATHOLOGY ORDERABLES [facility] [address] [place] [address] documented in this encounter Visit Diagnoses Diagnosis Encounter for general adult medical examination without abnormal findings Unspecified general medical examination Encounter for screening for malignant neoplasm of cervix Screening for malignant neoplasm of the cervix Encounter for screening for human papillomavirus (HPV) Special screening examination for human papillomavirus (HPV) documented in this encounter Care Teams Drapery Supervisor Relationship Specialty Start Date End Date Marline Parker NP [facility] [address] [place] [address] PCP - General 06/03/17 04/03/23 Lamar Fuentes MD [address] [facility] [place] [address] PCP - General Family Medicine - Primary Care 04/04/23 documented as of this encounter
--- OUTSIDE RECORDS SUMMARY | 2024-06-12 21:21 | XMS_ITS | Encounter Summary ---
Author Organization [facility] [place] [address] Care Team Providers Care Checker Loader Name Role Phone Samia Pinto MD Primary Care Provider [phone] Encounter Details Date Type Department Care Team (Latest Contact Info) Description 03/24/2012 1:53 PM EDT - 03/24/2012 2:40 PM EDT Hospital Encounter [place] [address] Dean Christy MD [facility] [address] Discharge Disposition: Admitted to [facility] Social History Tobacco Use Types Packs/Day Years [...] needed for Chest pain. 15 tablet 03/27/2012 aspirin 325 mg EC tablet Take 1 tablet by mouth daily. 30 tablet 03/27/2012 06/12/2012 metoprolol tartrate (LOPRESSOR) 25 mg tablet Take 1 tablet by mouth 2 times daily. 60 tablet 12 03/27/2012 07/04/2019 losartan (COZAAR) 25 mg tablet Take 0.5 tablets by mouth daily. 30 tablet 12 03/27/2012 08/15/2012 documented as of this encounter Plan of Treatment Not on file documented as of this encounter Visit Diagnoses Not on filedocumented in this encounter Care Teams Checker Loader Relationship Specialty Start Date End Date Samia Pinto MD [facility] [address] [place] [address] [place] [address] PCP - General 03/24/12 12/01/17 documented as of this encounter
--- OUTSIDE RECORDS SUMMARY | 2024-06-12 21:21 | XMS_ITS | Encounter Summary ---
Author Organization [facility] Address [address] [place] [address] Care Team Providers Care Courier Delivery Driver Name Role Phone Unavailable Primary Care Provider Unavailabl e Encounter Details Date Type Department Care Team (Late st Contact Info) Description 03/11/2012 Results Only [facility] Laboratory Services - [facility] ([facility] [address] [place] [address] Liang Hemphill, [address] [facility] [place] [address] Social History Tobacco Use Types Packs/Day Years Used Date Smoking Tobacco: Never Assessed Sex and Gender Information Value Date Recorded Sex Assigned at Not on file Gender Identity Not on file Sexual Orientation Not on file documented as of this encounter Plan of Treatment Not on file documented as of this encounter Procedures Procedure Name Priority Date/Time Associated Diagnosis Comments SURGICAL PATHOLOGY Routine 03/11/2012 0:00 EDT documented in this encounter Results * SURGICAL PATHOLOGY (03/11/2012 0:00 EDT) Pathology Report: SURGICAL PATHOLOGY REPORT Reports generated via electronic interface contain original data; however they are lacking the format of the original report. Caution should be taken when reading/interpreti ng unformatted reports. Name: ? VIVEK LANDRY ? Accession #: ? [id number] ? : ? 1960 (Age: 51) ??F ? Collect Date: ? 03/11/2012 ? Location: ? [facility] ? Receive Date: ? 03/11/2012 ? Provider: LIANG HEMPHILL DO Copy to: SCAR JORDAN MD ? Final Pathologic Diagnosis: A. ?Colon, 50 cm, polyp, biopsy: 1. ?Colonic mucosa with no pathologic features (1 piece). ??See comment. B. ?Colon, 20 cm, polyp, biopsy: 1. ?Hyperplastic polyp (1 piece). Comment: ? Deeper levels have been examined on (A). ??(Dr. Lau)/[facility] Document reviewed and electronically signed by: Adam Marcum MD Report ??Date: 03/14/2012 16:11 By the signature above, the attending physician certifies that he/she has personally conducted a gross and/or microscopic examination of the described specimens and rendered or confirmed the above diagnosis. Specimen(s) Received: A. ?Colon polyp 50 cm B. ? Colon polyp 20 cm Clinical History: ? Colorectal screen Gross Description: ? Received in formalin labelled FrantzFlorie and colon polyp 50 cm is a tabor-pink, irregular soft tissue fragment measuring 0.3 x 0.3 x 0.2 cm. ??The specimen is entirely submitted as (A). Received in formalin labelled Frantz, Vivek and colon polyp 20 cm is a tabor-pink, irregular soft tissue fragment measuring 0.4 x 0.2 x 0.2 cm. ??The specimen is entirely submitted as (B). ?? (Loy Lindquist)/[facility] End of Report [facility] 03/11/2012 03/11/2012 16: 59 EDT Liang Hemphill DO PATHOLOGY ORDER BEST Performing Organization Address City/State/[facility] Co de Phone Number [facility] [address] [place] [address] documented in this encounter Visit Diagnoses Not on filedocumented in this encounter
--- OUTSIDE RECORDS SUMMARY | 2024-06-12 21:21 | XMS_ITS | Encounter Summary ---
Author Organization [facility] Address [address] [place] [address] Care Team Providers Care Housekeeping Aid Name Role Phone Scar Jordan MD Primary Care Provider [phone] Encounter Details Date Type Department Care Team ([facility] st Contact Info) Description 01/21/2013 Results Only [facility]- [facility] [phone] Scar Jordan MD [address] [place], [place] [address] Social History Tobacco Use Types Packs/Day Years Used Date Smoking Tobacco: Never Assessed Sex and Gender Information Value Date Recorded Sex Assigned at Not on file Gender Identity Not on file Sexual Orientation Not on file documented as of this encounter Plan of Treatment Not on file documented as of this encounter Procedures Procedure Name Priority Date/Time Associated Diagnosis Comments PAP TEST- RESULT ONLY Routine 01/21/2013 0:00 EDT documented in this encounter Results * PAP TEST- RESULT ONLY (01/21/2013 0:00 EDT) Pathology Report: CYTOPATHOLOGY REPORT Reports generated via electronic interface contain original data; however they are lacking the format of the original report. Caution should be taken when reading/interpreti ng unformatted reports. Name: ? VIVEK LANDRY ? Accession #: ? [id number] ? : ? 1960 (Age: 52) ??F ?Collect Date: ? 01/21/2013 ? Location: ? [facility] ? Receive Date: ? 01/23/2013 ? Provider: SCAR JORDAN MD Copy to: ? Final Report SPECIMEN ADEQUACY ? Satisfactory for Evaluation - transformation zone component present GENERAL CATEGORIZATION ? Epithelial Cell Abnormality INTERPRETATION ? Squamous Cell Abnormality - Atypical squamous cells, undetermined significance (ASC-US). EDUCATIONAL NOTES/RECOMMENDATI ONS ? [facility] recommends following the 2006 Consensus Guidelines for the Management of Women with Abnormal Cervical Cancer Screening Tests (JLGTD, 2007;11(4):201-222 ). ??Consensus guidelines are available online at www.ASCCP.org. Hormonal/Contracep tive status: Tubal ligation: at age 24 Other: Additional clinical information: all normal paps in past Specimen/Source: ??Pap Test, Cervix/Endocervix, ThinPrep Imaging System with manual evaluation Document reviewed and electronically signed by: ? NASH LOPEZ MD ? Report ??Date: 01/28/2013 11:48 HPV with Pap Test ? Date Ordered: ? 02/03/2013 ? Status: ?? Signed Out ?Date Complete: ? 02/05/2013 ? By: ??System Interface ? Date Reported: ? 02/05/2013 ? Interpretation RESULT: Negative for HPV. No E6 or E7 mRNA is detected from HPV types 16,18,31,33,35, 39,45,51,52,56,58, 59,66, and 68 by pharmacist in charge owner mediated amplification. Comments Document reviewed and electronically signed by: ? System Interface ? Report date: 02/05/2013 By the signature above, the attending physician certifies that he/she has personally conducted a gross and/or microscopic examination of the described specimens and rendered or confirmed the above diagnosis. End of Report [facility] 01/21/2013 01/23/2013 Scar Jordan MD PATHOLOGY ORDERABLES Performing Organization Address City/State/[facility] Co de Phone Number [facility] [address] [place] [address] documented in this encounter Visit Diagnoses Not on filedocumented in this encounter Care Teams Housekeeping Aid Relationship Specialty Start Date End Date Scar Jordan MD [address] [place] [address] PCP - General 03/12/12 06/02/17 documented as of this encounter
--- OUTSIDE RECORDS SUMMARY | 2024-06-12 21:21 | XMS_ITS | Encounter Summary ---
Author Organization [facility] Address [facility] [place] [address] Care Team Providers Care Gear Shaper Set Up Operator Name Role Phone Samia Pinto MD Primary Care Provider [phone] Reason for Visit * Reason Onset Date Comments Other 04/10/2012 Encounter Details Date Type Department Care Team (Late st Contact Info) Description 04/10/2012 Telephone Cardiology at [address] [phone] Eligio Kelley PA [facility] [place] [address] Other Social History Tobacco Use Types Packs/Day Years [...] encounter Miscellaneous Notes * Telephone Encounter - Genoveva Palma - 04/10/2012 2:28 PM EDT Patient states she is having SOB after having stent done in March. She would like a call back to findout if she should come in to be seen. She can be reached at [phone]. Apr. documented in this encounter Plan of Treatment Not on file documented as of this encounter Visit Diagnoses Not on filedocumented in this encounter Care Teams Gear Shaper Set Up Operator Relationship Specialty Start Date End Date Samia Pinto MD [facility] [address] [place] [address] [place] [address] PCP - General 03/24/12 12/01/17 documented as of this encounter
--- OUTSIDE RECORDS SUMMARY | 2024-06-12 21:21 | XMS_ITS | Encounter Summary ---
Author Organization [facility] Address [address] [place] [address] Care Team Providers Care Silo Erector Name Role Phone Samia Pinto MD Primary Care Provider Encounter Details Date Type Department Care Team (Late st Contact Info) Description 05/28/2017 Results Only [facility]- [facility] [phone] Mirta Garner PA [address] [place] [phone] Social History Tobacco Use Types Packs/Day Years Used Date Smoking Tobacco: Never Assessed Sex and Gender Information Value Date Recorded Sex Assigned at Not on file Gender Identity Not on file Sexual Orientation Not on file documented as of this encounter Plan of Treatment Not on file documented as of this encounter Procedures Procedure Name Priority Date/Time Associated Diagnosis Comments SURGICAL PATHOLOGY Routine 05/28/2017 11 :28 EDT documented in this encounter Results * SURGICAL PATHOLOGY (05/28/2017 11:28 EDT) Pathology Report: SURGICAL PATHOLOGY REPORT Reports generated via electronic interface contain original data; however they are lacking the format of the original report. Caution should be taken when reading/interpret ing unformatted reports. Name: ? VIVEK LANDRY ? Accession #: ? [id number] ? : ? 1960 (Age: 57) ??F ? Collect Date: ? 05/28/2017 ? Location: ? [facility] ? Receive Date: ? 05/30/2017 ? Provider: MIRTA PRETTY Copy to: ? Final Pathologic Diagnosis: SKIN OF BACK, SHAVE BIOPSY: - Seborrheic keratosis, pigmented. ?? Document reviewed and electronically signed by: CHANDA NUÑEZ MD Report ??Date: 05/31/2017 13:45 By the signature above, the attending physician certifies that he/she has personally conducted a gross and/or microscopic examination of the described specimens and rendered or confirmed the above diagnosis. Specimen(s) Received: Shave biopsy skin of back Clinical History: Changing skin lesion with irritation due to bra strap Gross Description: ? Received in formalin labelled with proper patient identification (initials C, V) and back is a shave biopsy of white skin (1.3 x 1.1 x 0.1 cm). There is a central white-owens nodule that measures 1.0 x 0.9 cm. The margin is inked blue. The specimen is sectioned into six sections and entirely submitted in 1 and 2. Mihrab Ever 05/30/2017 12:08 PM End of Report [facility] 05/28/2017 11:2 8 EDT 05/30/2017 11:28 EDT Mirta PRETTY PATHOLOGY ORDERA BLES [facility] [address] [place] [address] documented in this encounter Visit Diagnoses Not on filedocumented in this encounter Care Teams Silo Erector Relationship Specialty Start Date End Date Samia Pinto MD [address] [place] [address] PCP - General 03/12/12 06/02/17 documented as of this encounter
--- OUTSIDE RECORDS SUMMARY | 2024-06-12 21:21 | XMS_ITS | Encounter Summary ---
Author Organization [facility] [place] [address] Care Team Providers Care Makeup Artist Name Role Phone Samia Pinto MD Primary Care Provider [phone] Encounter Details Date Type Department Care Team (Late st Contact Info) Description 03/24/2012 Orders Only Cardiology at [address] [phone] Dean Christy MD [facility] [place] [address] Social History Tobacco Use Types Packs/Day Years [...] Associated Diagnosis Comments FILM LIBRARY STORAGE ONLY DX CHEST Routine 03/24/2012 2:13 PM EDT documented in this encounter Results * FILM LIBRARY- STORAGE ONLY DX CHEST (03/24/2012 2:13 PM EDT) 03/24/2012 2:13 PM EDT Narrative RAD - 04/30/2014 1:34 AM EDT This is a non-reportable exam. Procedure Note Josef Meek - 04/30/2014 This is a non-reportable exam. Dean Christy MD IMG FILM LIBRARY ORD ERABLES [facility] [address] [place] [address] documented in this encounter Visit Diagnoses Not on filedocumented in this encounter Care Teams Makeup Artist Relationship Specialty Start Date End Date Samia Pinto MD [facility] [address] [place] [address] [place] [address] PCP - General 03/24/12 12/01/17 documented as of this encounter
--- OUTSIDE RECORDS SUMMARY | 2024-06-12 21:21 | XMS_ITS | Encounter Summary ---
Author Organization [facility] Address [address] [place] [address] Care Team Providers Care Utility Division Project Manager Name Role Phone Unavailable Primary Care Provider Unavailabl e Encounter Details Date Type Department Care Team (Late st Contact Info) Description 11/30/2009 Orders Only [facility] Laboratory Services - [facility] ([facility] [address] [place], [place] [address] Scar Pinto MD [facility] [address] [place], [place] [address] Social History Tobacco Use Types Packs/Day Years Used Date Smoking Tobacco: Never Assessed Sex and Gender Information Value Date Recorded Sex Assigned at Not on file Gender Identity Not on file Sexual Orientation Not on file documented as of this encounter Plan of Treatment Not on file documented as of this encounter Procedures Procedure Name Priority Date/Time Associated Diagnosis Comments HPV DETECTION, HIGH RISK TYPES Routine 11/30/2009 8:29 EST CYTOPATHOLOGY Routine 11/30/2009 0:00 EST documented in this encounter Results * HUMAN PAPILLOMA VIRUS DNA TEST (11/30/2009 8:29 EST) Specimen Description Cervix, ThinPrep vial [facility] Result Negative for HPV types 16, 18, 31, 33, 35, 39, 45, 51, 52, 56, 58, 59, and 68. [facility] Report Status Final 12/08/2009 [facility] 11/30/2009 8:29 EST 12/05/2009 8:29 EST Scar Pinto MD MICROBIOLOGY - GENER AL ORDERABLES [facility] [address] [place] [address] * CYTOPATHOLOGY (11/30/2009 0:00 EST) Pathology Report: CYTOPATHOLOGY REPORT ? Reports generated via electronic interface contain original data; ? however they are lacking the format of the original report. ? Caution should be taken when reading/interpreti ng unformatted reports. ? Name: ? VIVEK LANDRY ? Accession #: ? [id number] ? : ? 1960 (Age: 49) ??F ?Collect Date: ? 11/30/2009 ? Location: ? [facility] ? Receive Date: ? 11/30/2009 ? Provider: ?SCAR READY MD ? Copy to: ? Specimen/Source: ?Pap Test, Cervix/Endocervix, ThinPrep Imaging System ? with manual evaluation ? Last Menstrual Period: ? 01/18/10 ? Menstrual/Pregnanc y Status: ? Menorrhagia: 05/04/08 with u/s showing 1.3 cm uterine fibroid. 4.8 cm septated ?? left ovarian cyst. ? Hormonal/Contracep tive Status: ? Tubal ligation: age 24 ? Other: ? HPVDX - HPV testing requested regardless of diagnosis on current ThinPrep Pap ?? test. ? SPECIMEN ADEQUACY ? Satisfactory for Evaluation ? - transformation zone component present ? GENERAL CATEGORIZATION ? Negative for Intraepithelial Lesion or Malignancy ? Document reviewed and electronically signed by: ? Hillary V[place](ASCP) ? Report Date: ??12/02/2009 13:00 ? End of Report ? [facility] 11/30/2009 11/30/2009 Scar Pinto MD PATHOLOGY ORDERABLES Performing Organization Address City/State/[facility] Co de Phone Number [facility] [address] [place] [address] documented in this encounter Visit Diagnoses Not on filedocumented in this encounter
--- OUTSIDE RECORDS SUMMARY | 2024-06-12 21:21 | XMS_ITS | Encounter Summary ---
Author Organization [facility] Address [address] [place] [address] Care Team Providers Care Business Services Sales Representative Name Role Phone Samia Pinto MD Primary Care Provider [phone] Encounter Details Date Type Department Care Team (Latest Contact Info) Description 05/29/2017 8:59 EDT - 05/29/2017 23:59 EDT Hospital Encounter [address] [address] Unknown, Provider, Discharge Disposition: Home or Self Care Social History Tobacco Use Types Packs/Day Years Used Date Smoking Tobacco: Never Assessed Sex and Gender Information Value Date Recorded Sex Assigned at Not on file Gender Identity Not on file Sexual Orientation Not on file documented as of this encounter Discharge Disposition Disposition Code Departure Means Destination Home or Self Penitentiary documented in this encounter Plan of Treatment Not on file documented as of this encounter Visit Diagnoses Not on filedocumented in this encounter Care Teams Business Services Sales Representative Relationship Specialty Start Date End Date Samia iPnto MD [address] [place] [address] PCP - General 03/12/12 06/02/17 documented as of this encounter
--- OUTSIDE RECORDS SUMMARY | 2024-06-12 21:21 | XMS_ITS | Encounter Summary ---
[facility] Organization [facility] [place] [address] Care Team Providers Care Pulling Unit Floorhand Name Role Phone Samia Pinto MD Primary Care Provider [phone] Encounter Details Date Type Department Care Team (Late st Contact Info) Description 05/08/2012 2:10 PM EDT Office Visit Cardiology at [address] [id number] Nestor Villafuerte MD [facility] [place] [address] Chest pain (Primary Dx) Discharge Disposition: Home Social History [...] Sign Reading Time Taken Comments Blood Pressure 104/68 05/08/2012 2:37 PM EDT Pulse 68 05/08/2012 2:37 PM EDT Temperature - - Respiratory Rate - - Oxygen Saturation - - Inhaled Oxygen Concentration - - Weight 79.8 kg (176 lb) 05/08/2012 2:37 PM EDT Height 154.9 cm (5' 1) 05/08/2012 2:37 PM EDT Body Mass Index 33.25 05/08/2012 2:37 PM EDT documented in this encounter Progress Notes * Nestor Villafuerte MD - 05/08/2012 2:42 PM EDT Subjective: Date of Visit: May 08, 2012 Patient Name: Diana Landry Date of : 1960 Primary Care Physician: Samia Pinto MD Reason for Visit: Mrs. Landry is a 52-year-old female returning for hospital follow-up and hospital check. She was hospitalized, 03/24/12, for an ST-elevation CA and had four drug-eluting stents placedemergently, with two to the LAD, one to the Diag-1, with preserved systolic function and an EF of 60%. Patient ID: Diana Landry is a 52 y.o. female. HPI Interval History & HPI: The patient was admitted on 03/24/12 with a presentation of an ST-elevation CA when she developed chest discomfort while walking up stairs and felt ???like someone was sitting on my chest?? , with radiation of chest discomfort to both arms, along with nausea and shortnessof breath accompanying the chest discomfort. Electrocardiograms revealed anterolateral ST-elevation, and troponin was elevated at the time of presentation, when she was treated with tenecteplase, Heparin, and nitroglycerin, in addition to Plavix and aspirin prior to emergent cardiac catheterizationand PCI. The patient had a fairly unremarkable hospital course after the initial presentation, and had improvement in her systolic function from an initial EF of 40% to an EF of 60% upon discharge. Furthermore, her lipid profile revealed a total cholesterol of 238, an LDL of 167. The patient had not previously been on statin therapy, but was initiated thereafter and discharged on atorvastatin 80 mg. Fortunately, her hemoglobin A1c was 5.6, and therefore she is not a diabetic. The patient was see n in the hospital by Cardiac Rehab, and the patient continues the cardiac rehab program locally [facility], which she is tolerating well without any issues or complications. Since discharge the patient had an episode of shortness of breath on 04/10/12, for which she called our Interventional Cardiology colleague. The patient now corrects this, as the phone note was incorrect. This was not truly shortness of breath, but rather back pain, which she was reassured about, andthis has since resolved. Since discharge the patient has felt well overall despite increased fatigue that she has noted, which we have discussed could be related to either her myocardial infarction or the subsequent therapy which both would cause fatigue. The patient also describes an atypical symptomatology of left neck pain, which begins at the level of her clavicle and rises to just proximal to her jaw, but there is no related jaw pain, shoulder pain, arm pain, or hand pain in relation to this, and the patient specifically has no chest pain. The neck pain is non- exertional in nature, comes on both at rest while sitting, as well as episodically during cardiac rehab. She has no associated shortness of breath, nausea, or diaphoresis with this neck pain. However, the patient also remarks that last evening, for the first time since discharge, she had experienced an episode of chest discomfort while standing in the kitchen preparing dinner under no particular stress. She began experiencing pressure, which she states is sub-sternal in location. There was no associated nausea, vomiting, shortness of breath, or diaphoresis with this episode. However, she did take one nitroglycerin sub-lingual, and found complete resolution of her symptoms with that treatment. The patient has not had any subsequent evaluation, and has presented today for her regularly scheduled follow-up. She has not had any recurrent symptoms at all today. 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 The patient has also followed up with her primary care physician, Dr. Pinto, on 04/16/12 for a hospital check, and was noted to have had back pain at that time. In response to this she had her statin dose cut from Lipitor 80 mg to Lipitor 20 mg daily, and has had complete resolution of her back pain. ROS See above HPI for pertinent cardiac ROS Objective: Physical Exam BP 104/68 Pulse 68 Ht 154.9 cm (5' 1) Wt 79.833 kg (176 lb) BMI 33.25 kg/m2 General: calm, well-appearing, NAD HEENT: NCAT, MMM, op clear, no erythema or exudate CV: Regular, physiologic S1, S2, no murmurs or gallops Pulm: clear to ausculation bilaterally Abd: soft, NT, ND, +NABS, Ext: warm, no c/c/e, 2+ PT BLE Cardiac Studies: Cardiac Catherization: 03/24/12 Dominance: Co-dominant Left Main The left main [...] was dilated using a 3.5mm NC Quantum Newport 12 balloon with a maximum inflation pressure [...] The lesion was predilated with a 2.0mm Newport 12mm balloon with a maximum inflation pressure [...] insertion of the ostial D2 lesion TTE: 03/20/12 1. Global left ventricular systolic function is [...] There is no hemodynamically significant valve disease. Lipid Panel Lab Results Component Value Date CHLPL 238* 03/25/2012 HDL 61 03/25/2012 CHOLHDL 3.9 03/25/2012 TRIG 151* 03/25/2012 LDLCHOL 147* 03/25/2012 LDLDIRECT 167* 03/25/2012 Assessment and Plan: No problem-specific visit notes found for this encounter. Assessment: Mrs. Landry is a 52-year-old female with newly diagnosed coronary artery disease, statuspost ST-elevation CA (anterior) on 03/24/12, with multiple drug-eluting stents place emergently after lytic therapy was provided. She had an improvement in systolic function from the initial 40% to a follow-up of 60%. The patient had been relatively well since discharge, with the exception of back pain that was attributed to her statin therapy, which was cut to one fourth the discharge dose. Then last evening she had her first episode of recurrent anginal chest discomfort while at rest. She had complex anatomy, which was reviewed at the time of her stent placement, and had multiple stents implanted at that time, with the evidence of 2-vessel coronary artery disease in both the LAD and RCA. The patient also had unsuccessful thrombectomy and stent insertion of the ostial D2 lesion, which mayexplain some of her residual symptomatology in that territory of the second diagonal. Furthermore, the patient???s most recent lipid profile from the time of her admission was very concerning, with atotal cholesterol of 238, an LDL cholesterol of 147, and a direct LDL of 167, which were pre-statintreatment. However, the patient has needed her statin dose to be decreased significantly, which will attenuate the potential benefits of statin treatment. We have dedicated the majority of today???s visit to discussing the patient???s recent episode of chest discomfort last evening, which was self-resolving and did not persist as it resolved with one sub-lingual nitroglycerin. This has not recurred despite heavy exertional activity since that time with her daily occupation earlier today, where she was walking up and down stairs carrying items as well, far in excess of 4 metabolic equivalents yet she had no cardiac symptoms similar to last evening. We have performed a 12-lead ECG here in the clinic today, which shows normal sinus rhythm at 65 beats per minute, with normal intervals and normal axis, there are no ST or T-wave changes to indicate any acute ischemic changes from the episode last evening. I have discussed the results of the 12-lead electrocardiogram with the patient and her , andwe have talked about the possibilities of the residual D2 lesion, which was unsuccessfully attempted as potentially causing her ongoing symptoms. Despite the symptoms of her chest discomfort last evening, we have discussed the different management options for her, ranging from continued optimal medical therapy versus pursuing further non-invasive imaging with stress testing versus considering potential repeat cardiac catheterization. Of these three strategies for management, I would strongly recommend we pursue the stress imaging study as it has now been six weeks since her ST-elevation CA, and I believe that the imaging data will provide us with information on whether there is any residualischemia to address via percutaneous methodology. However, I have also recommended that the patientlet us know and present for medical evaluation if she were to develop any recurrent chest discomfort, as her presentation six weeks ago was atypical itself in nature. Plan: 1. No changes in cardiac medications today. 2. We will arrange a stress imaging study to be determined as per the first available. 3. I will see the patient back in four weeks for follow-up, to be scheduled on June 12 at 1:30 pm.We will then transition the patient???s care to one of my colleagues after that visit. >25 min of this 30 minute visit dedicated to direct patient counseling(including patient education, diagnostic results or recommended studies as above, risk factor modification, compliance with treatment, instructions as well as risks and benefits for management regarding the above issues; namely Chest pain, CAD. documented in this encounter Plan of Treatment Not on file documented as of this encounter Procedures Procedure Name Priority Date/Time Associated Diagnosis Comments EKG 12-LEAD Routine 05/08/2012 3:00 PM EDT Chest pain documented in this encounter Results * Cerebrovascular Duplex, Bilateral (05/09/2012 2:11 PM EDT) VB Text Report Department: Vascular Surgery Lab Patient: [id number] (DIANA LANDRY) CPT Code: 44117 ICD-9: 785.9 Referring Physician: NESTOR VILLAFUERTE Indication: [...] statistics are based on [place] [facility] [place]invasive carotid artery duplex data and arteriographic evaluation of the same patients from 8993-2932. Q / A Sens. Spec. PPV NPV Accuracy Carotid 93% 98% 97% 95% 96% Signed by EDIN GARCIA on 2012-05-12 12:34:24 PM VASCUBASE VB Text Report End of Report VASCUBASE 05/09/2012 2:11 PM EDT Nestor Villafuerte MD VASCULAR ORDERABLES VASCUBASE * Echocardiogram Stress (Treadmill) (05/09/2012 11:57 AM EDT) Pathologist [facility] EF 60 HEARTLAB SYSTEM Anatomical Region Laterality Modality Other 05/09/2012 Narrative 05/09/2012 12:42 PM EDT Amended Report Procedure: ? Stress Echocardiogram Patient: ? YAMILETH Do ?(Age): 1960(52) Med Rec#: ?[id number] ? Sex: ?F ? [place] [place] Ht / Wt: ??154(cm)/80(kg) Pt. Loc: ? Echo Lab ? BSA: ?1.78 Study Date: ?05/09/2012 ? Pt. Type: Outpatient Tape: ? Referring: Nestor Villafuerte MD Power Press Supervisor: Daryl Poe Chief Accounting Officer: Ameena Pop RDCS Diagnosis: ??Chest pain (786.50) CPT Code(s): ??Doppler LTD (74799), ??ECG Interpretation (56093), ??Stress Echo (35416), ??Color Doppler (09860), Indication(s): ??Chest Pain Medication(s): ?? Rhythm: Stage [...] ?Normal ?Normal ? Mid-Inferoseptal ?Normal ?Normal ? Newport-Septal ? Normal ?Normal ? Newport-Anterior ? Hypokinetic ? Normal ? Newport-Lateral ?Normal ?Normal ? Newport-Inferior ? Normal ?Normal ? Newport-Tip ?Normal ?Normal ? Chambers ?Value ?Units (Range) [...] 05/09/2012 12:43:24 Images reviewed and interpretation verified [facility] Cardiac Ultrasound Laboratory Procedure Note Gerson Abdi MD - 05/09/2012 Amended Report Procedure: Stress Echocardiogram Patient: YAMILETH Do (Age): 1960(52) Med Rec#: [id number] Sex: F [place] [facility] [place] Ht / Wt: 154(cm)/80(kg) Pt. Loc: Echo Lab BSA: 1.78 Study Date: 05/09/2012 Pt. Type: Outpatient Tape: Referring: Nestor Villafuerte MD Power Press Supervisor: Daryl Poe Chief Accounting Officer: mAeena Pop [facility] Diagnosis: Chest pain (786.50) CPT Code(s): Doppler LTD (41234), ECG Interpretation (60793), Stress Echo (14430), Color Doppler (28728), Indication(s): Chest Pain Medication(s): Rhythm: Stage HR [...] Stress The patient's oxygen saturation was 100%. Misc Other echo and stress findings as noted [...] Normal Mid-Inferior Normal Normal Mid-Inferoseptal Normal Normal Newport-Septal Normal Normal Newport-Anterior Hypokinetic Normal Newport-Lateral Normal Normal Newport-Inferior Normal Normal Newport-Tip Normal Normal Chambers Value Units (Range) LV EF Est 60 % (55 to 80) Tricuspid/Pulmonic Valves Value Units (Range) TR peak rhett 2.6 m/sec Chambers Value Units (Range) LV EF Est 60 % (55 to 80) This report has been electronically signed by: Gerson Abdi MD 05/09/2012 12:43:24 Images reviewed and interpretation verified [facility] Cardiac Ultrasound Laboratory Nestor Villafuerte MD ECHO ORDERABLES * EKG 12 Lead (05/08/2012 3:00 PM EDT) Ventricular rate 65 BPM MUSE SYSTEM Atrial Rate 65 BPM MUSE SYSTEM P-R Interval 156 ms MUSE SYSTEM QRS Duration 90 ms MUSE SYSTEM Q-T Interval 438 ms MUSE SYSTEM QTC Calculated (Bezet) 455 ms MUSE SYSTEM Calculated P [place] 61 degrees MUSE SYSTEM Calculated R [place] 65 degrees MUSE SYSTEM Calculated T [place] 78 degrees MUSE SYSTEM INTERPRETATION Normal sinus rhythm Normal ECG When compared with ECG of 27-MAR-2012 07:20, No significant change was found Confirmed by MD Nomi, Gabe Arauz ([id number]) on 05/09/2012 6:55:25 AM MUSE SYSTEM 05/08/2012 3:00 PM EDT 05/09/2012 6:55 AM EDT Nestor Villafuerte MD ECG ORDERABLES [place] documented in this encounter Visit Diagnoses Diagnosis Chest pain- Primary Chest pain, unspecified Chest pain Chest pain, unspecified documented in this encounter Care Teams Pulling Unit Floorhand Relationship Specialty Start Date End Date Samia Pinto MD [facility] [address] [place] [address] [place] [address] PCP - General 03/24/12 12/01/17 documented as of this encounter
--- OUTSIDE RECORDS SUMMARY | 2024-06-12 21:21 | XMS_ITS | Encounter Summary ---
Author Organization [facility] Address [address] [place] [address] Care Team Providers Care Truck Bracer Name Role Phone Samia Pinto MD Primary Care Provider [phone] Encounter Details Date Type Department Care Team (Late st Contact Info) Description 11/07/2016 Results Only [facility] [phone] Marline Delgadillo, MAINTENANCE CONSTRUCTION HELPER [facility] [address] [place], [place] [id number] Social History Tobacco Use Types Packs/Day Years [...] Diagnosis Comments PAP TEST- RESULT ONLY Routine 11/07/2016 0:00 EST documented in this encounter Results * PAP TEST- RESULT ONLY (11/07/2016 0:00 EST) Pathology Report: CYTOPATHOLOGY REPORT Reports generated via electronic interface contain original data; however they are lacking the format of the original report. Caution should be taken when reading/interpreti ng unformatted reports. Name: ? VIVEK LANDRY ? Accession #: ? [id number] : ? 1960 (Age: 56) ??F ?Collect Date: ? 11/07/2016 Location: ? [facility] ? Receive Date: ? 11/09/2016 Provider: ?MARLINE DELGADILLO MAINTENANCE CONSTRUCTION HELPER Copy to: ? Specimen/Source: ?Pap Test, Cervix/Endocervix, ThinPrep Imaging System with manual evaluation Last Menstrual Period: ? 4 yrs Hormonal/Contracep tive Status: ? None Previous Gynecologic Pathology: ? ASC-US: 2012 ? SPECIMEN ADEQUACY ? Satisfactory for Evaluation - transformation zone component present GENERAL CATEGORIZATION ? Negative for Intraepithelial Lesion or Malignancy INTERPRETATION ? Reactive cellular changes associated with inflammation present (includes repair). ? Document reviewed and electronically signed by: ? JANAK BANKS MD ? Report Date: ??11/14/2016 12:00 End of Report [facility] 11/07/2016 11/09/2016 Marline Delgadillo NP PATHOLOGY ORDERABLES [facility] [address] [place] [address] documented in this encounter Visit Diagnoses Not on filedocumented in this encounter Care Teams Truck Bracer Relationship Specialty Start Date End Date Samia Pinto MD [address] [place] [address] PCP - General 03/12/12 06/02/17 documented as of this encounter
--- OUTSIDE RECORDS SUMMARY | 2024-06-12 21:21 | XMS_ITS | Clinical Summary ---
Author Organization [facility] Address [address] [place] [address] Care Team Providers Care Retail Assistant Store Manager Name Role Phone Lamar Fuentes MD Primary Care Provider Unavailable Social History Tobacco Use Types Packs/Day Years Used Date Smoking Tobacco: Never Assessed Sex and Gender Information Value Date Recorded Sex Assigned at Not on file Gender Identity Not on file Sexual Orientation Not on file Plan of Treatment Health Maintenance Due Date Last Done Comments Hepatitis C Screen 1960 RSV Immunization ( o r 60+ Years) (1 - 1-dose 60+ series) 2020 COVID-19 Vaccine (2022-24 season) 2023 Care Teams Retail Assistant Store Manager Relationship Specialty Start Date End Date Lamar Fuentes MD [address] [place] [address] PCP - General Family Medicine - Primary Care 04/04/23
--- OUTSIDE RECORDS SUMMARY | 2024-06-12 21:21 | XMS_ITS | Referral Summary ---
Author Organization [facility] Address [address] [place] [address] Care Team Providers Care Interventional Radiology Rn Name Role Phone Lamar Fuentes MD Primary Care Provider Unavailable Social History Tobacco Use Types Packs/Day Years Used Date Smoking Tobacco: Never Assessed Sex and Gender Information Value Date Recorded Sex Assigned at Not on file Gender Identity Not on file Sexual Orientation Not on file Plan of Treatment Not on file Care Teams Interventional Radiology Rn Relationship Specialty Start Date End Date Lamar Fuentes MD [address] [place] [address] PCP - General Family Medicine - Primary Care 04/04/23
--- OUTSIDE RECORDS SUMMARY | 2024-06-12 21:21 | XMS_ITS | Encounter Summary ---
Author Organization [facility] Address [address] [place] [address] Care Team Providers Care Curator Horticultural Museum Name Role Phone Samia Pinto MD Primary Care Provider [phone] Encounter Details Date Type Department Care Team (Late st Contact Info) Description 04/12/2014 Results Only [facility] - [facility] ([facility] [address] [place], [place] [address] Marline Delgadillo, NOMAN [facility] [address] [place], [place] [address] Social History Tobacco Use Types Packs/Day Years [...] Diagnosis Comments PAP TEST- RESULT ONLY Routine 04/12/2014 0:00 EDT documented in this encounter Results * PAP TEST- RESULT ONLY (04/12/2014 0:00 EDT) Pathology Report: CYTOPATHOLOGY REPORT Reports generated via electronic interface contain original data; however they are lacking the format of the original report. Caution should be taken when reading/interpreti ng unformatted reports. Name: ? VIVEK LANDRY ? Accession #: ? [id number] : ? 1960 (Age: 53) ??F ?Collect Date: ? 04/12/2014 Location: ? [facility] ? Receive Date: ? 04/13/2014 Provider: ?MARLINE DELGADILLO AEROSPACE STRESS ENGINEER Copy to: ? Specimen/Source: ?Pap Test, Cervix/Endocervix, ThinPrep Imaging System with manual evaluation Last Menstrual Period: ? 1.5 years ago Previous Gynecologic Pathology: ? ASC-US: 01/21/13 Other: ? Additional clinical information: Negative HPV ? SPECIMEN ADEQUACY ? Satisfactory for Evaluation - transformation zone component present GENERAL CATEGORIZATION ? Negative for Intraepithelial Lesion or Malignancy INTERPRETATION ? Reactive cellular changes associated with inflammation present (includes repair). ? Document reviewed and electronically signed by: ? NASH LOPEZ MD ? Report Date: ??04/20/2014 11:43 End of Report [facility] 04/12/2014 04/13/2014 Marline Delgadillo AEROSPACE STRESS ENGINEER PATHOLOGY ORDERABLES [facility] [address] [place] [address] documented in this encounter Visit Diagnoses Not on filedocumented in this encounter Care Teams Curator Horticultural Museum Relationship Specialty Start Date End Date Samia Pinto MD [address] [place] [address] PCP - General 03/12/12 06/02/17 documented as of this encounter
--- OUTSIDE RECORDS SUMMARY | 2024-06-12 21:21 | XMS_ITS | Encounter Summary ---
Author Organization [facility] [place] [address] Care Team Providers Care Counter Waiter Name Role Phone Samia Pinto MD Primary Care Provider [phone] Encounter Details Date Type Department Care Team (Late st Contact Info) Description 03/24/2012 Orders Only Cardiology at [address] [phone] Daryl Whelan MD [facility] [place] [address] Social History Tobacco Use Types Packs/Day Years Used Date Smoking Tobacco: Never Assessed Cigarettes Alcohol Use Standard Drinks/Week Comments No 0 (1 standard drink = 0.6 oz pur e alcohol) Sex and Gender Information Value Date Recorded Sex Assigned at Not on file Gender Identity Not on file Sexual Orientation Not on file documented as of this encounter Plan of Treatment Scheduled Orders Name Type Priority Associated Diagnoses Order Schedule Cardiac Catheterization Cardiac Cath Routine One Time for 1 Occurrences starting 03/24/2012 until 03/24/2012 documented as of this encounter Visit Diagnoses Not on filedocumented in this encounter Care Teams Counter Waiter Relationship Specialty Start Date End Date Samia Pinot MD [facility] [address] [place] [address] [place] [address] PCP - General 03/24/12 12/01/17 documented as of this encounter
--- OUTSIDE RECORDS SUMMARY | 2024-06-12 21:22 | XMS_ITS | Encounter Summary ---
Author Organization [facility] Address [address] [place] [address] Care Team Providers Care Investigator Utility Bill Complaints Name Role Phone Unavailable Primary Care Provider Unavailabl e Encounter Details Date Type Department Care Team (Late st Contact Info) Description 11/28/2005 Results Only [facility] [address] [place] [address] Scar Jordan MD [facility] [address] [place], [place] [id number] Social History Tobacco Use Types Packs/Day Years Used Date Smoking Tobacco: Never Assessed Sex and Gender Information Value Date Recorded Sex Assigned at Not on file Gender Identity Not on file Sexual Orientation Not on file documented as of this encounter Plan of Treatment Not on file documented as of this encounter Procedures Procedure Name Priority Date/Time Associated Diagnosis Comments CYTOPATHOLOGY Routine 11/28/2005 0:00 EST documented in this encounter Results * CYTOPATHOLOGY (11/28/2005 0:00 EST) Pathology Report: CYTOPATHOLOGY REPORT Reports generated via electronic interface contain original data; however they are lacking the format of the original report. Caution should be taken when reading/interpreti ng unformatted reports. Name: ? VIVEK LANDRY ? Accession #: ? [id number] : ? 1960 (Age: 45) ??F ?Collect Date: ? 11/28/2005 Location: ? [facility] ? Receive Date: ? 11/30/2005 Provider: ?SCAR JORDAN MD Copy to: ? Specimen/Source: ?ThinPrep Pap Test, [employer], processed on [employer] ThinPrep Imaging System, with manual evaluation Last Menstrual Period: ? 11/21/05 ? SPECIMEN ADEQUACY ? Satisfactory for Evaluation - transformation zone component present GENERAL CATEGORIZATION ? Negative for Intraepithelial Lesion or Malignancy ? Document reviewed and electronically signed by: ? Marline Dewitt, SCT(ASCP) ? Report Date: ??12/03/2005 10:06 End of Report [facility]AN 11/28/2005 11/30/2005 Scar Jordan MD PATHOLOGY ORDERABLES [facility] BRI[facility] [address] [place] [address] documented in this encounter Visit Diagnoses Not on filedocumented in this encounter
== END 2024-06-12 21:17 | disposition home or self-care (01) ==
LOC: LBN 21:16
PROVIDERS: PCP Family Medicine; Visit Provider Physician Assistant
DX: N39.0 Urinary tract infection, site not specified (principal)
CPT/HCPCS: 87086

== ENCOUNTER 2024-07-24 09:42 | Outpatient (CLI) | payer BC, SELFPAY ==
[2024-07-24 09:38] LABS: ESR 4 mm/hr (0-30)
[2024-07-24 10:14] LABS: C-Reactive Protein < 0.50 mg/dL (<or=0.5)
== END 2024-07-24 09:43 | disposition home or self-care (01) ==
LOC: LBO 09:42
PROVIDERS: PCP Family Medicine; Visit Provider Family Medicine
DX: M62.81 Muscle weakness (generalized) (principal); N39.0 Urinary tract infection, site not specified; R30.0 Dysuria; F33.1 Major depressive disorder, recurrent, moderate; E78.5 Hyperlipidemia, unspecified; I10 Essential (primary) hypertension; G47.00 Insomnia, unspecified
CPT/HCPCS: 36415; 85652; 86140; 87086

== ENCOUNTER 2025-04-27 02:05 | Outpatient (CLI) | payer OTHER, SELFPAY ==
--- NOTE | 2025-04-27 09:05 | DI.DEXA_ITS ---
Exam(s) XR DEXA BONE DENSITY W/WO ROSANA EXAM: XR DEXA BONE DENSITY W/WO ROSANA CLINICAL HISTORY: screening,n95.9,menopausal disorder TECHNIQUE: HoloPathg[employer] C densitometer analysis of left hip, lumbar spine and left forearm. Lateral survey image of the thoracic and lumbar spine. COMPARISON: CR XR hip RT complete AP pelvis from 03/25/2019 FINDINGS: Lateral view of the thoracic and lumbar spine shows no evidence of compression fractures. Bone mineral density measurements of the lumbar spine correspond to a total T- score of -0.5, in the normal range. Bone mineral density measurements of the left hip correspond to a total T-score of -1.2, in the osteopenic range.. The femoral neck T-score is -2.1. Theleft forearm bone mineral density measurements correspond to a T-score of the distal 3rd of -0.7, in the normal range. IMPRESSION: Normal bone mineral density of the spine forearm. Osteopenia the hip.
== END 2025-04-27 02:25 ==
LOC: DI 02:05
PROVIDERS: PCP Family Medicine; Visit Provider Family Medicine
DX: N95.9 Unspecified menopausal and perimenopausal disorder (principal); M81.0 Age-related osteoporosis without current pathological fracture
CPT/HCPCS: 77080